=== PATIENT | male | born 1940 | race Caucasian/White ===

== ENCOUNTER 2022-09-21 20:24 | Inpatient (IN) ==
[2022-09-21 21:31] LABS: INR 1.1 (0.9-1.1); Partial Thromboplastin Time 28.7 Seconds (21.0-31.0); Prothrombin Time 11.8 Seconds (9.0-12.0)
[2022-09-21 21:35] LABS: Basophils # (auto) 0.05 K/uL (0-0.2); Basophils % (auto) 0.7 %; Eosinophils # (auto) 0.41 K/uL (0-0.50); Eosinophils % (auto) 5.9 %; Hematocrit (blood only) 45.9 % (40.1-51.0); Hemoglobin 15.9 g/dl (14.0-18.0); Immature Granulocytes # (auto) 0.04 K/uL (0.00-0.02); Immature Granulocytes % (auto) 0.6 %; Lymphocytes # (auto) 2.13 K/uL (1.2-3.4); Lymphocytes % (auto) 30.7 %; Mean Corpuscular Hemoglobin 30.1 pg (25.0-34.0); Mean Corpuscular Hgb Conc 34.6 g/dL (32.0-36.0); Mean Corpuscular Volume 86.9 fL (80.0-100.0); Mean Platelet Volume 10.9 fL (9.4-12.4); Monocytes # (auto) 0.54 K/uL (0.24-0.82); Monocytes % (auto) 7.8 %; Neutrophils # (auto) 3.77 K/uL (1.4-6.5); Neutrophils % (auto) 54.3 %; Platelet Count 218 K/uL (130-400); RDW Coefficient of Variation 13.4 % (11.5-14.5); RDW Standard Deviation 42.7 fL (36.4-46.3); Red Blood Count 5.28 M/uL (4.63-6.08); White Blood Count 6.94 K/ul (4.8-10.8)
[2022-09-21 21:50] LABS: Albumin Level 3.8 gm/dl (3.4-5.0); Bilirubin,Total 0.8 mg/dl (0.2-1.0); Calcium 10.8 mg/dl (8.5-10.1); Creatinine Clr Calc Pharmacy 58.1 ml/min; Est GFR (African American) 73.2 ml/min; Est GFR (Non-African American) 63.1 ml/min; Globulin 3.8 gm/dl (2.5-4.0); Magnesium 1.6 mg/dl (1.7-2.4); Potassium 4.1 mmol/L (3.5-5.1); Total Protein 7.6 gm/dl (6.0-8.3); Troponin I High Sensitivity 52.8 pg/ml (0-20)
[2022-09-21] MEDS ORDERED: XOPENEX/ATROVENT 1.25mg/0.5MG NEB COMBO NEB STA (22:34)
[2022-09-21] MEDS ORDERED: METOPROLOL TARTRATE 1 MG/ML VIAL IV STA (22:35)
[2022-09-21] MEDS ORDERED: IPRATROPIUM BROMIDE NEB SOLN 0.02% 2.5 ML VIAL INH STA (22:38)
[2022-09-21] MEDS ORDERED: LEVALBUTEROL 1.25MG/0.5ML NEB INH STA (22:38)
[2022-09-21] MEDS ORDERED: ALBUMIN 25% 100 mL 25 GM/100 ML VIAL IV ONE (22:38)
[2022-09-21] MEDS ORDERED: FUROSEMIDE 40 MG/4 ML VIAL IV ONE (22:40)
[2022-09-21] MEDS ORDERED: OPTIRAY 320 500ml IV ONE (23:21)
[2022-09-21] MEDS: MAGNESIUM SULFATE / D5W 1 GM/100 ML BAG IV SCH (23:59)
--- NOTE | 2022-09-22 00:10 | History & Physical Report ---
Date of Service September 22, 2022 Assessment & Plan (1) CHF (congestive heart failure): Plan: Mild CHF following respiratory tract infection Rule out myocarditis/cardiomyopathy Troponin elevation secondary to above hypercalcemia probable primary hyperparathyroidism Hyperglycemia present on review of outpatient blood work since 2018 although not documented hx CAD status post angioplasty mild aortic regurgitation from 2015 TTE hypertension, elevated secondary to discomfort DM2 on oral medications, reasonable control as of recent hemoglobin A1c of 7.6 last April 2022 hyperlipidemia on statin Rx past tobacco abuse PCU Diuretic Rx Strict I/Os, daily weights, CHF education TTE, Cardiology consult Re: CHF Monitor calcium response to IV Lasix Hold home HCTZ for now Nephrology consult Re: Hypercalcemia Outpatient Endocrinology consultation for possible primary hyperparathyroidism Basal bolus insulin, ISS BG goal 1 10-1 40, carb count coverage, update hemoglobin A1c DVT prophylaxis per Lovenox subcu Full code Text document was generated using [employer] voice recognition software. It may contain grammatical or spelling errors. Kindly contact undersigned for clarification of any documentation item in question. History of Present Illness Chief Complaint: Shortness of breath, abnormal blood work Primary Care Provider: Rene Green, History obtained from patient and records. Medical history significant for CAD status post angioplasty, mild aortic regur gitation, hypertension, DM2 on oral medications, hyperlipidemia, gout, skin cancer as per records, past tobacco abuse. Last confinement 2015 for sepsis secondary to URTI, UTI. 2 weeks history of shortness of breath without cough symptoms. Started after respiratory infection last month. No cough symptoms. Patient completed COVID-19 vaccination. Fluid retention without weight gain. No chest pain. Patient seen at PCPs office yesterday. Outpatient CXR showed : Bilateral lower lobe peribronchial thickening. Ill- defined bibasilar ground-glass opacities are noted which may represent infection or atelectasis. Outpatient serum troponin and calcium noted to be elevated. Patient sent to the ER for evaluation. IV Lasix administered at the ER. 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 Allergies Allergy/AdvReac Type Severity Reaction Status Date / Time alfuzosin Allergy Unknown UNKN Verified 09/21/22 23:45 Home Medications Medication Instructions Recorded Confirmed Type albuterol sulfate 90 mcg/actuation 2 puff inhalation Q4 PRN Shortness 09/21/22 09/21/22 History aerosol inhaler Of Breath allopurinol 300 mg tablet 300 mg PO DAILY 09/21/22 09/21/22 History alprazolam 0.5 mg tablet 0.25 mg PO HS PRN Anxiety 09/21/22 09/21/22 History atorvastatin 20 mg tablet 20 mg PO QAM 09/21/22 09/21/22 History dapagliflozin 10 mg tablet 10 mg PO DAILY 09/21/22 09/21/22 History ([facility]) furosemide 20 mg tablet (Lasix) 20 mg PO DAILY 09/21/22 09/21/22 History glipizide 10 mg tablet, extended 10 mg PO AMHS 09/21/22 09/21/22 History release 24 hr lisinopril 10 mg tablet 10 mg PO DAILY 09/21/22 09/21/22 History loteprednol etabonate 0.5 % eye 1 drp [facility] DIRECTED PRN 09/21/22 09/21/22 History drops,suspension .Irritation metoprolol succinate 100 mg 100 mg PO DAILY 09/21/22 09/21/22 History tablet,extended release 24 hr metronidazole 0.75 % topical gel 1 applic topical DAILY 09/21/22 09/21/22 History silver sulfadiazine 1 % topical 1 applic topical DAILY 09/21/22 09/21/22 History cream sulindac 200 mg tablet 200 mg PO QAM 09/21/22 09/21/22 History triamterene 37.5 1 cap PO DAILY 09/21/22 09/21/22 History mg-hydrochlorothiazide 25 mg capsule aspirin 325 mg tablet 325 - 650 mg PO BID PRN Pain 09/22/22 09/22/22 History vit C 226 mg-vit E 90 mg-copper 1 cap PO BID 09/22/22 09/22/22 History 0.8 mg-zinc oxide-lutein 5 mg capsule (PreserVision Lutein) Past Med/Surg History Medical History CAD (coronary artery disease) CHF (congestive heart failure) Diabetes No pertinent family history Surgical History No pertinent past surgical history Social History Smoking Status: Former smoker Tobacco Type: Cigarettes Preferred Language: Irish Feels Safe at Home: Yes Review of Systems Review of Systems: As per HPI, all other systems reviewed and negative Physical Exam Physical Exam: GENERAL: Slightly uncomfortable, obese, pleasant, minimal respiratory distress SKIN: Normal color, warm HEENT: [place] palpebral conjunctivae, no ptosis, dry buccal mucosa NECK : Supple, no tenderness CHEST : Decreased breath sounds, scattered expiratory wheezes, no tenderness HEART : RRR, no obvious murmurs ABDOMEN: Some distention, nontender EXTREMITIES : Bilateral LE swelling, no LE tenderness, no other conspicuous deformities noted NEUROLOGIC : Coherent, no facial asymmetry, no other gross focality Results & Data Results & Data ([facility]) Vital Signs (Past 12 Hours) Vital Signs Temp Pulse Pulse Resp BP BP Pulse Ox 09/21/22 23:25 88 20 144/83 H 95 09/21/22 20:57 26 H 95 09/21/22 20:32 36.9 C 113 H 24 149/82 H 95 O2 Del Method 09/21/22 23:25 Room Air 09/21/22 20:57 Room Air 09/21/22 20:32 Room Air Laboratory Results Laboratory Results WBC 6.94 K/ul (4.8-10.8) 09/21/22 20:45 RBC 5.28 M/uL (4.63-6.08) 09/21/22 20:45 Hgb 15.9 g/dl (14.0-18.0) 09/21/22 20:45 Hct 45.9 % (40.1-51.0) 09/21/22 20:45 MCV 86.9 fL (80.0-100.0) 09/21/22 20:45 MCH 30.1 pg (25.0-34.0) 09/21/22 20:45 MCHC 34.6 g/dL (32.0-36.0) 09/21/22 20:45 RDW Std Deviation 42.7 fL (36.4-46.3) 09/21/22 20:45 RDW Coeff of Niya 13.4 % (11.5-14.5) 09/21/22 20:45 Plt Count 218 K/uL (130-400) 09/21/22 20:45 MPV 10.9 fL (9.4-12.4) 09/21/22 20:45 Immature Gran % (Auto) 0.6 % 09/21/22 20:45 Neut % (Auto) 54.3 % 09/21/22 20:45 Lymph % (Auto) 30.7 % 09/21/22 20:45 [place] % (Auto) 7.8 % 09/21/22 20:45 Eos % (Auto) 5.9 % 09/21/22 20:45 Baso % (Auto) 0.7 % 09/21/22 20:45 Neut # (Auto) 3.77 K/uL (1.4-6.5) 09/21/22 20:45 Lymph # (Auto) 2.13 K/uL (1.2-3.4) 09/21/22 20:45 [place] # (Auto) 0.54 K/uL (0.24-0.82) 09/21/22 20:45 Eos # (Auto) 0.41 K/uL (0-0.50) 09/21/22 20:45 Baso # (Auto) 0.05 K/uL (0-0.2) 09/21/22 20:45 Immature Gran # (Auto) 0.04 K/uL (0.00-0.02) H 09/21/22 20:45 PT 11.8 Seconds (9.0-12.0) 09/21/22 20:45 INR 1.1 (0.9-1.1) 09/21/22 20:45 APTT 28.7 Seconds (21.0-31.0) 09/21/22 20:45 PTT Ratio 1.0 09/21/22 20:45 Sodium 133 mmol/L (136-145) L 09/21/22 20:45 Potassium 4.1 mmol/L (3.5-5.1) 09/21/22 20:45 Chloride 96 mmol/L (98-107) L 09/21/22 20:45 Carbon Dioxide 24 mmol/L (21-32) 09/21/22 20:45 Anion Gap 13 (3-11) H 09/21/22 20:45 BUN 41 mg/dl (6-23) H 09/21/22 20:45 Creatinine 1.08 mg/dl (0.6-1.4) 09/21/22 20:45 Est Cr Clr Drug Dosing 58.1 ml/min 12 20:45 Est GFR ( Amer) 73.2 ml/min 09/21/22 20:45 Est GFR (Non-Af Amer) 63.1 ml/min 09/21/22 20:45 BUN/Creatinine Ratio 38.0 (10-20) H 09/21/22 20:45 Glucose 301 mg/dl (70-99(Fasting)) H* 09/21/22 20:45 Calcium 10.8 mg/dl (8.5-10.1) H 09/21/22 20:45 Magnesium 1.6 mg/dl (1.7-2.4) L 09/21/22 20:45 Total Bilirubin 0.8 mg/dl (0.2-1.0) 09/21/22 20:45 AST 13 U/L (13-39) 09/21/22 20:45 ALT 15 U/L (7-52) 09/21/22 20:45 Alkaline Phosphatase 77 U/L (34-104) 09/21/22 20:45 Troponin I High Sens 52.8 pg/ml (0-20) H* 09/21/22 20:45 B-Natriuretic Peptide 201 pg/ml (0-100) H 09/21/22 20:45 Total Protein 7.6 gm/dl (6.0-8.3) 09/21/22 20:45 Albumin 3.8 gm/dl (3.4-5.0) 09/21/22 20:45 Globulin 3.8 gm/dl (2.5-4.0) 09/21/22 20:45 Albumin/Globulin Ratio 1.0 (0.9-2) 09/21/22 20:45 Procalcitonin < 0.05 ng/ml (0-0.5) 09/21/22 20:45 PTH Intact 100.6 pg/ml (12.0-88.0) H 09/21/22 20:[address] head initial read: No intracranial hemorrhage. No significant mass effect or midline shift. No cortical infarct. The paranasal sinuses and mastoid air cells are well-aerated. Presumed incidental chronic underlying parenchymal involutional changes and mild periventricular deep white matter hypodense change CT chest initial read: No evidence for pulmonaryembolism. Subsegmental ground-glass changes in the left upper lobe, the posterior right upper lobe and minimallyin the right middle lobe are most consistent with infection, to include atypical bacterial and viral processes. Additional changes are suspected in the bilateral lower lobeswith coexisting subsegmental atelectasis. These are newfromthe previous examination dated 05/31/2007. Please correlate with patient's COVID status. No pleural effusion or pneumothorax. The cardiac chambers are stable. Similar prominent coronaryarterycalcification is of uncertain clinical significance. No pericardial effusion. The thoracic aorta is normal in caliber with mild atherosclerotic calcification. Nonspecific anomalysubcentimeter paratracheal and subcarinal lymph nodes. EKG as per my interpretation : Rate 105, sinus tachycardia, normal axis, T wave flattening lateral leads, PVCs
[2022-09-22 00:36] LABS: Base Excess VBG 0.5 mEq/L; HCO3 VBG 26 mmol/L; Oxygen Saturation VBG 78.4 %; PCO2 VBG 44 mmHg (38-50); PO2 VBG 49 mmHg; pH VBG 7.38 (7.36-7.41)
[2022-09-22] MEDS ORDERED: LANTUS PER UNIT CHARGE SQ STA (00:37)
[2022-09-22 01:32] LABS: Influenza A virus by PCR Negative (Neg); Influenza B virus by PCR Negative (Neg); RSV by PCR Negative (Neg); SARS CoV2 RNA(COVID-19) Ceph NEGATIVE (Negative)
[2022-09-22 01:57] LABS: Troponin I High Sensitivity 54.1 pg/ml (0-20)
--- NOTE | 2022-09-22 02:08 | Emergency Department Note ---
History of Present Illness General Chief Complaint: Abnormal Labs/Diagnostic Testing Stated Complaint: REFERRED BY DOC,ABNORMAL LABS,SOB,HAD EKG Time Seen by Provider: 09/21/22 21:21 History of Present Illness Provider Complaint: + abnormal lab Description of abnormal result: Elevated troponin Context: + called for abnormal lab result Associated symptoms: + shortness of breath; no fever, no chills, no chest pain, no malaise or no abdominal pain HPI narrative: Patient reports exertional dyspnea. He reports increased swelling in his legs. Increased weakness Home Medications Medication Instructions Recorded Confirmed Type albuterol sulfate 90 mcg/actuation 2 puff inhalation Q4 PRN Shortness 09/21/22 09/21/22 History aerosol inhaler Of Breath allopurinol 300 mg tablet 300 mg PO DAILY 09/21/22 09/21/22 History alprazolam 0.5 mg tablet 0.25 mg PO HS PRN Anxiety 09/21/22 09/21/22 History atorvastatin 20 mg tablet 20 mg PO QAM 09/21/22 09/21/22 History dapagliflozin 10 mg tablet 10 mg PO DAILY 09/21/22 09/21/22 History (Farxiga) furosemide 20 mg tablet (Lasix) 20 mg PO DAILY 09/21/22 09/21/22 History glipizide 10 mg tablet, extended 10 mg PO AMHS 09/21/22 09/21/22 History release 24 hr lisinopril 10 mg tablet 10 mg PO DAILY 09/21/22 09/21/22 History loteprednol etabonate 0.5 % eye 1 drp OPR DIRECTED PRN 09/21/22 09/21/22 History drops,suspension .Irritation metoprolol succinate 100 mg 100 mg PO DAILY 09/21/22 09/21/22 History tablet,extended release 24 hr metronidazole 0.75 % topical gel 1 applic topical DAILY 09/21/22 09/21/22 History silver sulfadiazine 1 % topical 1 applic topical DAILY 09/21/22 09/21/22 History cream sulindac 200 mg tablet 200 mg PO QAM 09/21/22 09/21/22 History triamterene 37.5 1 cap PO DAILY 09/21/22 09/21/22 History mg-hydrochlorothiazide 25 mg capsule aspirin 325 mg tablet 325 - 650 mg PO BID PRN Pain 09/22/22 09/22/22 History vit C 226 mg-vit E 90 mg-copper 1 cap PO BID 09/22/22 09/22/22 History 0.8 mg-zinc oxide-lutein 5 mg capsule (PreserVision Lutein) Allergies Allergy/AdvReac Type Severity Reaction Status Date / Time alfuzosin Allergy Unknown UNKN Verified 09/21/22 23:45 Past Med/Surg History Medical History CAD (coronary artery disease) CHF (congestive heart failure) Diabetes No pertinent family history Surgical History No pertinent past surgical history Social History Smoking Status: Former smoker Tobacco Type: Cigarettes Preferred Language: Amharic Feels Safe at Home: Yes Review of Systems A total of 10 systems reviewed and were otherwise negative Physical Exam Vital Signs: Vital Signs - 24 hr 09/21/22 20:32 09/21/22 20:57 09/22/22 00:00 Temperature 36.9 C Temperature Source Temporal Artery Sc an Pulse Rate 113 H 88 Pulse Rate [Right Finger] Pulse Rhythm [Righ t Finger] Respiratory Rate 24 26 H Respiratory Effort / Characteristics Non-Labored Sponta neous Labored Respiratory Depth Normal Blood Pressure 149/82 H 144/83 H Blood Pressure [Le ft Arm] Blood Pressure Josiane n 104 Blood Pressure Josiane n [Left Arm] Pulse Oximetry 95 95 Oxygen Delivery Me thod Room Air Room Air Sepsis New/Unexpla ined Change in Men mary Status N/A Sepsis Action Take n by Nursing No Action Required 09/21/22 23:25 Temperature Temperature Source Pulse Rate Pulse Rate [Right Finger] 88 Pulse Rhythm [Righ t Finger] Regular Respiratory Rate 20 Respiratory Effort / Characteristics Non-Labored Sponta neous Respiratory Depth Normal Blood Pressure Blood Pressure [Le ft Arm] 144/83 H Blood Pressure Josiane n Blood Pressure Josiane n [Left Arm] 103 Pulse Oximetry 95 Oxygen Delivery Me thod Room Air Sepsis New/Unexpla ined Change in Men mary Status Sepsis Action Take n by Nursing Physical Exam: Physical Exam GENERAL: He is oriented to person, place, and time. He appears well-developed and well-nourished. He does not appear distressed. HENT: Exam performed. - Head: Normocephalic and atraumatic. - Right Ear: External ear normal. No mastoid tenderness. - Left Ear: External ear normal. No mastoid tenderness. - Mouth/Throat: The oropharynx is clear and moist. No trismus in the jaw. No dental abscesses or uvula swelling. No oropharyngeal exudate or tonsillar ab scesses. EYES: Conjunctivae and EOM are normal. Pupils are equal, round, and reactive to light. Right eye exhibits no discharge. Left eye exhibits no discharge. No scleral icterus. NECK: Normal range of motion. Neck supple. No JVD present. No spinous process tenderness present. No carotid bruit present. No rigidity. No tracheal deviation and normal range of motion present. No Brudzinski's sign and no Kernig's sign noted. CV: Normal rate, regular rhythm, normal heart sounds and intact distal pulses. Palpable radial pulses bue. PULM/CHEST: Rales bilaterally. ABD: The abdomen is soft. Bowel sounds are normal. He has no distension. No mass is present. There is no tenderness. There is no rebound, no guarding, no Duckworth's sign and no tenderness at McBurney's point. Rovsig negative. MUSC/SKEL: 2+ pitting edema of the bilateral lower extremities. LYMPH: No cervical adenopathy. NEURO: He is alert and oriented to person, place, and time. He has normal strength. No cranial nerve deficit or sensory deficit. Coordination and gait normal. GCS eye subscore is 4. GCS verbal subscore is 5. GCS motor subscore is 6. Cerebellar tests wnl. SKIN: Skin is warm and dry. He is not diaphoretic. PSYCH: He has a normal mood and affect. Behavior is normal. Judgment and thought content normal. Course Course 2120: The patient was evaluated in room A11. A complete history and physical exam was performed Cardiac monitoring: An order was placed for continuous cardiac monitoring. The monitor shows a rate of 100 with sinus rhythm 2240: Vital signs stable. Labs show an elevated troponin. Patient reports no chest pain at this time. Chest x-ray shows cardiomegaly with cephalization. It is thought that the patient is suffering from CHF exacerbation and the elevated troponin is due to that. Patient will be treated with Lasix for CHF. Patient be admitted to the [facility] team Dr. Lewis will be notified. Administered Medications Magnesium Sulfate/Dextrose (Magnesium Sulfate / D5w) 1 gm in 100 mls @ 50 mls/hr IV Q2H MARTA Stop: 09/22/22 02:44 Last Admin: 09/21/22 23:59 Dose: 50 mls/hr Documented By: GINNY Discontinued Medications Furosemide (Furosemide 40 Mg/4 Ml Vial) 40 mg IV ONE ONE Stop: 09/21/22 22:41 Last Admin: 09/21/22 23:59 Dose: 40 mg Documented By: GINNY Albumin Human (Albumin 25% 100 Ml) 25 gm in 100 mls @ 50 mls/hr IV ONE ONE Stop: 09/22/22 00:37 Last Admin: 09/21/22 23:58 Dose: 50 mls/hr Documented By: GINNY Insulin Glargine (Lantus Per Unit Charge) 10 units SQ NOW STA Stop: 09/22/22 00:38 Last Admin: 09/22/22 01:52 Dose: 10 units Documented By: GINNY Co-signed By: LOREN Ioversol (Optiray 320 500ml) 114 ml IV ONCE ONE Stop: 09/21/22 23:22 Last Admin: 09/21/22 23:23 Dose: 114 ml Documented By: LOBITO Ipratropium [place] (Ipratropium [place] Neb Soln 0.02% 2.5 Ml Vial) 0.5 mg INH NOW STA Stop: 09/21/22 22:39 Last Admin: 09/21/22 23:59 Dose: 0.5 mg Documented By: GINNY Levalbuterol HCl (Levalbuterol 1.25mg/0.5ml Neb) 1.25 mg INH NOW STA Stop: 09/21/22 22:39 Last Admin: 09/21/22 23:59 Dose: 1.25 mg Documented By: GINNY Metoprolol Tartrate (Metoprolol Tartrate 1 Mg/Ml Vial) 2.5 mg IV NOW STA Stop: 09/21/22 22:36 Last Admin: 09/22/22 00:00 Dose: 2.5 mg Documented By: GINNY Medical Decision Making Laboratory Data Result diagrams: 09/21/22 20:45 09/21/22 20:45 Lab Results 09/21/22 09/21/22 09/21/22 Range/Units 20:45 20:45 20:45 WBC 6.94 (4.8-10.8) K/ul RBC 5.28 (4.63-6.08) M/uL Hgb 15.9 (14.0-18.0) g/dl Hct 45.9 (40.1-51.0) % MCV 86.9 (80.0-100.0) fL MCH 30.1 (25.0-34.0) pg MCHC 34.6 (32.0-36.0) g/dL RDW Std Deviation 42.7 (36.4-46.3) fL RDW Coeff of Niya 13.4 (11.5-14.5) % Plt Count 218 (130-400) K/uL MPV 10.9 (9.4-12.4) fL Immature Gran % (Auto) 0.6 % Neut % (Auto) 54.3 % Lymph % (Auto) 30.7 % [place] % (Auto) 7.8 % Eos % (Auto) 5.9 % Baso % (Auto) 0.7 % Neut # (Auto) 3.77 (1.4-6.5) K/uL Lymph # (Auto) 2.13 (1.2-3.4) K/uL [place] # (Auto) 0.54 (0.24-0.82) K/uL Eos # (Auto) 0.41 (0-0.50) K/uL Baso # (Auto) 0.05 (0-0.2) K/uL Immature Gran # (Auto) 0.04 H (0.00-0.02) K/uL PT 11.8 (9.0-12.0) Seconds INR 1.1 (0.9-1.1) APTT 28.7 (21.0-31.0) Seconds PTT Ratio 1.0 VBG pH (7.36-7.41) VBG pCO2 (38-50) mmHg VBG pO2 mmHg VBG HCO3 mmol/L VBG O2 Saturation % VBG Base Excess mEq/L Sodium 133 L (136-145) mmol/L Potassium 4.1 (3.5-5.1) mmol/L Chloride 96 L (98-107) mmol/L Carbon Dioxide 24 (21-32) mmol/L Anion Gap 13 H (3-11) BUN 41 H (6-23) mg/dl Creatinine 1.08 (0.6-1.4) mg/dl Est Cr Clr Drug Dosing 58.1 ml/min Est GFR ( Amer) 73.2 ml/min Est GFR (Non-Af Amer) 63.1 ml/min BUN/Creatinine Ratio 38.0 H (10-20) Glucose 301 H* (70-99(Fasting)) mg/dl POC Glucose (70-99) mg/dl Lactate (0.4-2.0) mmol/L Calcium 10.8 H (8.5-10.1) mg/dl Phosphorus (2.5-4.9) mg/dl Magnesium 1.6 L (1.7-2.4) mg/dl Total Bilirubin 0.8 (0.2-1.0) mg/dl AST 13 (13-39) U/L ALT 15 (7-52) U/L Alkaline Phosphatase 77 (34-104) U/L Troponin I High Sens 52.8 H* (0-20) pg/ml B-Natriuretic Peptide (0-100) pg/ml Total Protein 7.6 (6.0-8.3) gm/dl Albumin 3.8 (3.4-5.0) gm/dl Globulin 3.8 (2.5-4.0) gm/dl Albumin/Globulin Ratio 1.0 (0.9-2) Procalcitonin (0-0.5) ng/ml PTH Intact (12.0-88.0) pg/ml SARS-CoV-2 (PCR) (Negative) Influenza Type A (PCR) (Neg) Influenza Type B (PCR) (Neg) RSV (RT-PCR) (Neg) 09/21/22 09/21/22 09/21/22 Range/Units 20:45 20:45 20:45 WBC (4.8-10.8) K/ul RBC (4.63-6.08) M/uL Hgb (14.0-18.0) g/dl Hct (40.1-51.0) % MCV (80.0-100.0) fL MCH (25.0-34.0) pg MCHC (32.0-36.0) g/dL RDW Std Deviation (36.4-46.3) fL RDW Coeff of Niya (11.5-14.5) % Plt Count (130-400) K/uL MPV (9.4-12.4) fL Immature Gran % (Auto) % Neut % (Auto) % Lymph % (Auto) % [place] % (Auto) % Eos % (Auto) % Baso % (Auto) % Neut # (Auto) (1.4-6.5) K/uL Lymph # (Auto) (1.2-3.4) K/uL [place] # (Auto) (0.24-0.82) K/uL Eos # (Auto) (0-0.50) K/uL Baso # (Auto) (0-0.2) K/uL Immature Gran # (Auto) (0.00-0.02) K/uL PT (9.0-12.0) Seconds INR (0.9-1.1) APTT (21.0-31.0) Seconds PTT Ratio VBG pH (7.36-7.41) VBG pCO2 (38-50) mmHg VBG pO2 mmHg VBG HCO3 mmol/L VBG O2 Saturation % VBG Base Excess mEq/L Sodium (136-145) mmol/L Potassium (3.5-5.1) mmol/L Chloride (98-107) mmol/L Carbon Dioxide (21-32) mmol/L Anion Gap (3-11) BUN (6-23) mg/dl Creatinine (0.6-1.4) mg/dl Est Cr Clr Drug Dosing ml/min Est GFR ( Amer) ml/min Est GFR (Non-Af Amer) ml/min BUN/Creatinine Ratio (10-20) Glucose (70-99(Fasting)) mg/dl POC Glucose (70-99) mg/dl Lactate (0.4-2.0) mmol/L Calcium (8.5-10.1) mg/dl Phosphorus (2.5-4.9) mg/dl Magnesium (1.7-2.4) mg/dl Total Bilirubin (0.2-1.0) mg/dl AST (13-39) U/L ALT (7-52) U/L Alkaline Phosphatase (34-104) U/L Troponin I High Sens (0-20) pg/ml B-Natriuretic Peptide 201 H (0-100) pg/ml Total Protein (6.0-8.3) gm/dl Albumin (3.4-5.0) gm/dl Globulin (2.5-4.0) gm/dl Albumin/Globulin Ratio (0.9-2) Procalcitonin < 0.05 (0-0.5) ng/ml PTH Intact 100.6 H (12.0-88.0) pg/ml SARS-CoV-2 (PCR) (Negative) Influenza Type A (PCR) (Neg) Influenza Type B (PCR) (Neg) RSV (RT-PCR) (Neg) 09/22/22 09/22/22 09/22/22 Range/Units 00:05 00:05 00:05 WBC (4.8-10.8) K/ul RBC (4.63-6.08) M/uL Hgb (14.0-18.0) g/dl Hct (40.1-51.0) % MCV (80.0-100.0) fL MCH (25.0-34.0) pg MCHC (32.0-36.0) g/dL RDW Std Deviation (36.4-46.3) fL RDW Coeff of Niya (11.5-14.5) % Plt Count (130-400) K/uL MPV (9.4-12.4) fL Immature Gran % (Auto) % Neut % (Auto) % Lymph % (Auto) % [place] % (Auto) % Eos % (Auto) % Baso % (Auto) % Neut # (Auto) (1.4-6.5) K/uL Lymph # (Auto) (1.2-3.4) K/uL [place] # (Auto) (0.24-0.82) K/uL Eos # (Auto) (0-0.50) K/uL Baso # (Auto) (0-0.2) K/uL Immature Gran # (Auto) (0.00-0.02) K/uL PT (9.0-12.0) Seconds INR (0.9-1.1) APTT (21.0-31.0) Seconds PTT Ratio VBG pH 7.38 (7.36-7.41) VBG pCO2 44 (38-50) mmHg VBG pO2 49 mmHg VBG HCO3 26 mmol/L VBG O2 Saturation 78.4 % VBG Base Excess 0.5 mEq/L Sodium (136-145) mmol/L Potassium (3.5-5.1) mmol/L Chloride (98-107) mmol/L Carbon Dioxide (21-32) mmol/L Anion Gap (3-11) BUN (6-23) mg/dl Creatinine (0.6-1.4) mg/dl Est Cr Clr Drug Dosing ml/min Est GFR ( Amer) ml/min Est GFR (Non-Af Amer) ml/min BUN/Creatinine Ratio (10-20) Glucose (70-99(Fasting)) mg/dl POC Glucose (70-99) mg/dl Lactate 1.7 (0.4-2.0) mmol/L Calcium (8.5-10.1) mg/dl Phosphorus 3.0 (2.5-4.9) mg/dl Magnesium (1.7-2.4) mg/dl Total Bilirubin (0.2-1.0) mg/dl AST (13-39) U/L ALT (7-52) U/L Alkaline Phosphatase (34-104) U/L Troponin I High Sens (0-20) pg/ml B-Natriuretic Peptide (0-100) pg/ml Total Protein (6.0-8.3) gm/dl Albumin (3.4-5.0) gm/dl Globulin (2.5-4.0) gm/dl Albumin/Globulin Ratio (0.9-2) Procalcitonin (0-0.5) ng/ml PTH Intact (12.0-88.0) pg/ml SARS-CoV-2 (PCR) (Negative) Influenza Type A (PCR) (Neg) Influenza Type B (PCR) (Neg) RSV (RT-PCR) (Neg) 09/22/22 09/22/22 Range/Units 00:13 01:53 WBC (4.8-10.8) K/ul RBC (4.63-6.08) M/uL Hgb (14.0-18.0) g/dl Hct (40.1-51.0) % MCV (80.0-100.0) fL MCH (25.0-34.0) pg MCHC (32.0-36.0) g/dL RDW Std Deviation (36.4-46.3) fL RDW Coeff of Niya (11.5-14.5) % Plt Count (130-400) K/uL MPV (9.4-12.4) fL Immature Gran % (Auto) % Neut % (Auto) % Lymph % (Auto) % [place] % (Auto) % Eos % (Auto) % Baso % (Auto) % Neut # (Auto) (1.4-6.5) K/uL Lymph # (Auto) (1.2-3.4) K/uL [place] # (Auto) (0.24-0.82) K/uL Eos # (Auto) (0-0.50) K/uL Baso # (Auto) (0-0.2) K/uL Immature Gran # (Auto) (0.00-0.02) K/uL PT (9.0-12.0) Seconds INR (0.9-1.1) APTT (21.0-31.0) Seconds PTT Ratio VBG pH (7.36-7.41) VBG pCO2 (38-50) mmHg VBG pO2 mmHg VBG HCO3 mmol/L VBG O2 Saturation % VBG Base Excess mEq/L Sodium (136-145) mmol/L Potassium (3.5-5.1) mmol/L Chloride (98-107) mmol/L Carbon Dioxide (21-32) mmol/L Anion Gap (3-11) BUN (6-23) mg/dl Creatinine (0.6-1.4) mg/dl Est Cr Clr Drug Dosing ml/min Est GFR ( Amer) ml/min Est GFR (Non-Af Amer) ml/min BUN/Creatinine Ratio (10-20) Glucose (70-99(Fasting)) mg/dl POC Glucose 243 H (70-99) mg/dl Lactate (0.4-2.0) mmol/L Calcium (8.5-10.1) mg/dl Phosphorus (2.5-4.9) mg/dl Magnesium (1.7-2.4) mg/dl Total Bilirubin (0.2-1.0) mg/dl AST (13-39) U/L ALT (7-52) U/L Alkaline Phosphatase (34-104) U/L Troponin I High Sens (0-20) pg/ml B-Natriuretic Peptide (0-100) pg/ml Total Protein (6.0-8.3) gm/dl Albumin (3.4-5.0) gm/dl Globulin (2.5-4.0) gm/dl Albumin/Globulin Ratio (0.9-2) Procalcitonin (0-0.5) ng/ml PTH Intact (12.0-88.0) pg/ml SARS-CoV-2 (PCR) NEGATIVE (Negative) Influenza Type A (PCR) Negative (Neg) Influenza Type B (PCR) Negative (Neg) RSV (RT-PCR) Negative (Neg) Imaging Data My Impression: Chest x-ray shows cephalization with cardiomegaly. No pneumothorax. No fracture of the bony structures no free air under the diaphragm. ECG Data Additional Comments: Sinus tachycardia with a rate of 103. OH 166 QRS 122 QTC 455. Left bundle branch block present. sgarbosa negative MDM Narrative Vital signs stable. Labs show an elevated troponin. Patient reports no chest pain at this time. Chest x-ray shows cardiomegaly with cephalization. It is thought that the patient is suffering from CHF exacerbation and the elevated troponin is due to that. Patient will be treated with Lasix for CHF. Patient be [facility] to [facility] hospitalist team Dr. Lewis will be notified. Impression & Plan Acute exacerbation of congestive heart failure Discharge Plan Visit Data Chief Complaint: Abnormal Labs/Diagnostic Testing Stated Complaint: REFERRED BY DOC,ABNORMAL LABS,SOB,HAD EKG ED Provider: Balta Dee Discharge Problem: Acute exacerbation of congestive heart failure Patient Disposition: Being Evaluated by Hospitalist Forms Stand Alone Forms: My [facility] Prescriptions Prescriptions: No Action silver sulfadiazine 1 % cream 1 applic TOPICAL DAILY atorvastatin 20 mg tablet 20 mg PO QAM glipizide 10 mg tablet extended release 24hr 10 mg PO AMHS metoprolol succinate 100 mg Tablet Extended Release 24 Hr 100 mg PO DAILY triamterene-hydrochlorothiazid 37.5-25 mg Capsule 1 cap PO DAILY alprazolam 0.5 mg Tablet 0.25 mg PO HS PRN (Reason: Anxiety) lisinopril 10 mg Tablet 10 mg PO DAILY allopurinol 300 mg Tablet 300 mg PO DAILY furosemide [Lasix] 20 mg Tablet 20 mg PO DAILY loteprednol etabonate 0.5 % drops,suspension 1 drp OPR DIRECTED PRN (Reason: .Irritation) albuterol sulfate 90 mcg/actuation HFA aerosol inhaler 2 puff INHALATION Q4 PRN (Reason: Shortness Of Breath) metronidazole [Metrogel] 0.75 % Gel 1 applic TOPICAL DAILY sulindac 200 mg tablet 200 mg PO QAM Farxiga 10 mg Tablet 10 mg PO DAILY aspirin 325 mg Tablet 325 - 650 mg PO BID PRN (Reason: Pain) PreserVision Lutein 226-90-0.8-5 mg Capsule 1 cap PO BID Referrals Referrals: Rene Green, [Primary Care Provider] -
[2022-09-22] MEDS: MAGNESIUM SULFATE / D5W 1 GM/100 ML BAG IV SCH (02:32)
[2022-09-22 03:07] LABS: Appearance Urine Clear (Clear); Bacteria Urine Automated Negative (Negative); Bilirubin Urine Negative (Negative); Blood Urine Negative (Negative); Cast Urine Automated 0 /lpf (0-5); Color Urine Yellow; Epithelial Cell Urine Auto 0-5 /lpf (0-5); Glucose Urine UA Negative (Negative); Ketones Urine Negative (Negative); Leukocyte Esterase Urine Trace (Negative); Nitrite Urine Negative (Negative); Protein Urine Negative (Negative); RBC Urine Automated 0-4 /hpf (0-4); Specific Gravity Urine 1.017 (1.000-1.030); Urobilinogen Urine Negative (Negative); WBC Urine Automated 0 /hpf (0-5)
[2022-09-22] MEDS ORDERED: ACETAMINOPHEN 325 MG TAB PO PRN (03:07)
[2022-09-22] MEDS ORDERED: NITROGLYCERIN SL 0.4 MG/TAB TAB SL PRN (03:07)
[2022-09-22] MEDS ORDERED: PROMETHAZINE HCL 12.5 MG in SODIUM CHLORIDE 0.9% 50 ML IV PRN (03:07)
[2022-09-22] MEDS ORDERED: DEXTROSE 50% 50 ML SYRINGE IV PRN (03:07)
[2022-09-22] MEDS ORDERED: CARBOHYDRATES FOR HYPOGLYCEMIA PO PRN (03:07)
[2022-09-22] MEDS ORDERED: GLUCOSE 10 TAB/TUBE PO PRN (03:07)
[2022-09-22] MEDS ORDERED: ALPRAZolam 0.25 MG TABLET PO PRN (03:07)
[2022-09-22] MEDS ORDERED: GLUCOSE 40% GEL 15 GM TUBE PO PRN (03:07)
[2022-09-22] MEDS ORDERED: traMADol HCL 50 MG TABLET PO PRN (03:07)
[2022-09-22] MEDS ORDERED: GLUCAGON FOR INJ 1 MG VIAL SQ PRN (03:07)
[2022-09-22] MEDS: INSULIN ASPART PER UNIT SC SCH ×5 (04:01→20:58)
[2022-09-22 04:44] LABS: Basophils # (auto) 0.04 K/uL (0-0.2); Basophils % (auto) 0.5 %; Eosinophils # (auto) 0.34 K/uL (0-0.50); Eosinophils % (auto) 4.4 %; Hematocrit (blood only) 43.3 % (40.1-51.0); Hemoglobin 14.6 g/dl (14.0-18.0); Immature Granulocytes # (auto) 0.05 K/uL (0.00-0.02); Immature Granulocytes % (auto) 0.6 %; Lymphocytes # (auto) 2.44 K/uL (1.2-3.4); Lymphocytes % (auto) 31.4 %; Mean Corpuscular Hemoglobin 29.9 pg (25.0-34.0); Mean Corpuscular Hgb Conc 33.7 g/dL (32.0-36.0); Mean Corpuscular Volume 88.5 fL (80.0-100.0); Mean Platelet Volume 10.4 fL (9.4-12.4); Monocytes # (auto) 0.59 K/uL (0.24-0.82); Monocytes % (auto) 7.6 %; Neutrophils # (auto) 4.32 K/uL (1.4-6.5); Neutrophils % (auto) 55.5 %; Platelet Count 203 K/uL (130-400); RDW Coefficient of Variation 13.4 % (11.5-14.5); RDW Standard Deviation 43.5 fL (36.4-46.3); Red Blood Count 4.89 M/uL (4.63-6.08); White Blood Count 7.78 K/ul (4.8-10.8)
[2022-09-22 04:55] LABS: Partial Thromboplastin Ratio 0.9; Partial Thromboplastin Time 25.6 Seconds (21.0-31.0)
[2022-09-22 05:25] LABS: Troponin I High Sensitivity 58.3 pg/ml (0-20)
[2022-09-22 05:58] LABS: Anion Gap 13 (3-11); BUN Creatinine Ratio 39.4 (10-20); Blood Urea Nitrogen 39 mg/dl (6-23); Calcium 10.4 mg/dl (8.5-10.1); Carbon Dioxide 22 mmol/L (21-32); Chloride 97 mmol/L (98-107); Creatinine Clr Calc Pharmacy 63.4 ml/min; Est GFR (African American) 81.3 ml/min; Est GFR (Non-African American) 70.1 ml/min; Glucose 254 mg/dl (70-99(Fasting)); Magnesium 2.1 mg/dl (1.7-2.4); Sodium 132 mmol/L (136-145)
--- NOTE | 2022-09-22 07:17 | CT Scan Report ---
CT SCAN OF THE BRAIN WITHOUT IV CONTRAST CLINICAL HISTORY: Headache. COMPARISON STUDY: No priors. TECHNIQUE: Unenhanced axial CT scan of the brain is performed from the vertex to the skull base. A do se lowering technique was utilized adhering to the principles of ALARA. CT DOSE: 1426.37 mGy.cm FINDINGS: Brain parenchyma: There is age-related involutional change noting mild subcortical and periventricula r microangiopathic disease. There is no hemorrhage, mass effect, or evidence of acute territorial isc hemia by CT criteria. Lopez-white matter differentiation is preserved. No extra-axial fluid collection is seen. Ventricles, sulci, cisterns: Prominent secondary to involutional change. Intracranial vasculature: There is atherosclerotic calcification of the cavernous carotid and vertebr al arteries. Calvarium: Unremarkable. Sinuses and mastoids: The visualized paranasal sinuses are clear. The mastoid air cells are well pneu matized. Orbits: The bony orbits are grossly intact. IMPRESSION: There is no hemorrhage, mass effect, or evidence of acute territorial ischemia by CT tatiana lang. ACT 112: Negative or not required by law. Electronically signed by: Aldo Menendez M.D. 09/22/2022 7:15 AM
[2022-09-22] MEDS ORDERED: FUROSEMIDE 40 MG/4 ML VIAL IV ONE (08:00)
[2022-09-22 08:01] LABS: Estimated Average Glucose 203 mg/dl; Hemoglobin A1C 8.7 % (4.5-5.6)
--- NOTE | 2022-09-22 08:15 | XRay Report ---
XR chest 1V portable HISTORY: 82 years-old Male SOB acute shortness breath with chest pain COMPARISON: CTA chest of same day TECHNIQUE: AP view of the chest FINDINGS: Cardiac silhouette is enlarged. Interstitial coarsening with ill-defined bilateral mid to lower lung zone predominant airspace opacities. No pneumothorax or large pleural effusion. Degenerative changes of the shoulders and spine. IMPRESSION: Cardiomegaly with interstitial coarsening and mid to lower lung zone predominant patchy i ll-defined airspace opacities. Please refer to the CTA chest study of same day for additional discuss ion. ACT 112: Negative or not required by law. The above report was generated using voice recognition software. It may contain grammatical, syntax o r spelling errors. Electronically signed by: Haile Zamora M.D. 09/22/2022 8:14 AM
[2022-09-22] MEDS: ASPIRIN 81 MG ECTAB PO SCH (08:52)
[2022-09-22] MEDS: METOPROLOL SUCC 50MG EXT REL TAB PO SCH (08:52)
[2022-09-22] MEDS: allopurinoL 300 MG TAB PO SCH (08:52)
[2022-09-22] MEDS: lisinopril 10 MG TAB PO SCH (08:52)
[2022-09-22] MEDS: metroNIDAZOLE 0.75% TOPICAL GEL 45 GM TUBE TOP SCH (08:58)
--- NOTE | 2022-09-22 08:59 | Cardiology Consultation ---
Date of Consultation September 22, 2022 Assessment & Plan (1) Ischemic cardiomyopathy: (2) URI (upper respiratory infection): Plan The patient presents with over 1 month of shortness of breath and URI symptoms including productive cough 2D echocardiogram performed that showed severely reduced EF with significant valvular disorders as well However, he does not examine his volume overloaded, chest CT personally reviewed does not show any significant fluid accumulation and a proBNP is only 200. I do not believe this represents acute decompensated systolic heart failure No signs of acute ischemia either Will require cardiac catheterization to further evaluate his new cardiomyopathy and will likely proceed in the a.m., patient is in agreement with this plan Recommend treating for infectious process Will start oral diuretics, but again, given that he does not examine his volume overloaded IV diuretics are not necessary at this time History of Present Illness Reason for Consultation: Shortness of breath Requesting Physician: Dr. Lewis Attending Physician: Junaid Harris MD History of Present Illness It was my pleasure to see Mr. Bauer in cardiac consultation today September 22, 2022. He is a very pleasant 82-year-old gentleman who follows with Dr. Barboza of our cardiology practice for his history of longstanding coronary artery disease. He presented to [facility] emergency department on the evening of 09/21/2022 at the recommendation of his PCPs office after outpatient blood work came back with a minimally elevated troponin. Clinically, he states he has been having chest cold for the last several weeks. He states over a month ago his symptoms developed including shortness of breath and a productive cough. He denies any associated chest pain with this. He states after several weeks without the symptoms resolving on their own he followed with see his PCP yesterday. Currently he is upright in bed without any complaints. Upon further questioning he states he has had some lower extremity edema associated with this chest cold but no significant weight gain or other signs of volume overload. PMHX: 1. CAD s/p POBA to the LAD in 1984 2. Type 2 diabetes 3. Hypertension 4. Hyperlipidemia 5. hx of proteinurea 6. Hx of symptomatic PVC's 7. Nonischemic stress echo 2014 with baseline EF of 60-65%. Allergies Allergy/AdvReac Type Severity Reaction Status Date / Time alfuzosin Allergy Unknown UNKN Verified 09/21/22 23:45 Home Medications Medication Instructions Recorded Confirmed Type albuterol sulfate 90 mcg/actuation 2 puff inhalation Q4 PRN Shortness 09/21/22 09/21/22 History aerosol inhaler Of Breath allopurinol 300 mg tablet 300 mg PO DAILY 09/21/22 09/21/22 History alprazolam 0.5 mg tablet 0.25 mg PO HS PRN Anxiety 09/21/22 09/21/22 History atorvastatin 20 mg tablet 20 mg PO QAM 09/21/22 09/21/22 History dapagliflozin 10 mg tablet 10 mg PO DAILY 09/21/22 09/21/22 History (Farxiga) furosemide 20 mg tablet (Lasix) 20 mg PO DAILY 09/21/22 09/21/22 History glipizide 10 mg tablet, extended 10 mg PO AMHS 09/21/22 09/21/22 History release 24 hr lisinopril 10 mg tablet 10 mg PO DAILY 09/21/22 09/21/22 History loteprednol etabonate 0.5 % eye 1 drp OPR DIRECTED PRN 09/21/22 09/21/22 History drops,suspension .Irritation metoprolol succinate 100 mg 100 mg PO DAILY 09/21/22 09/21/22 History tablet,extended release 24 hr metronidazole 0.75 % topical gel 1 applic topical DAILY 09/21/22 09/21/22 History silver sulfadiazine 1 % topical 1 applic topical DAILY 09/21/22 09/21/22 History cream sulindac 200 mg tablet 200 mg PO QAM 09/21/22 09/21/22 History triamterene 37.5 1 cap PO DAILY 09/21/22 09/21/22 History mg-hydrochlorothiazide 25 mg capsule aspirin 325 mg tablet 325 - 650 mg PO BID PRN Pain 09/22/22 09/22/22 History vit C 226 mg-vit E 90 mg-copper 1 cap PO BID 09/22/22 09/22/22 History 0.8 mg-zinc oxide-lutein 5 mg capsule (PreserVision Lutein) Patient History Medical History (Updated 09/22/22 @ 10:28 by Demar Rocha DO) CAD (coronary artery disease) CHF (congestive heart failure) Diabetes No pertinent family history Surgical History No pertinent past surgical history Social History Smoking Status: Former smoker Tobacco Type: Cigarettes Hx Alcohol Use: Yes Alcohol type: other Hx Substance Use: No Preferred Language: Turkmen Beliefs That Will Affect Care: None Current Living Situation: Alone Feels Safe at Home: Yes Review of Systems Review of Systems: All systems reviewed & are unremarkable except as noted in HPI & below Physical Exam Physical Exam: General: Awake, alert and oriented x 3. No acute distress. HEENT: Normocephalic, atraumatic. Pupils equal, round and reactive to light and accommodation. Extraocular muscles are intact. Anicteric sclera. Moist mucous membranes. Neck: No JVD. No bruit. Cardiovascular: Regular. Positive S-4. Normal S-1 and S-2. No S-3. 3/6 holosystolic ejection murmur, left sternal border, mid-clavicular line with radiation to the axilla. No rubs. Pulmonary: Coarse breath sounds diffusely with scattered rhonchi. No rales or wheezing Abdomen: Bowel sounds x 4, soft. No rebound, guarding or tenderness. No organomegaly. Extremities: No clubbing, cyanosis or edema. +2 pedal pulses bilaterally. Skin: Warm and dry. Results & Data ([facility]) Vital Signs (Past 12 Hours) Vital Signs Pulse Pulse Resp BP BP Pulse Ox Pulse Ox 09/22/22 08:00 95 H 16 130/72 96 09/22/22 08:00 98 09/22/22 07:50 89 18 132/81 96 09/22/22 07:00 88 18 128/81 95 09/22/22 04:09 09/22/22 04:09 90 20 125/62 97 09/22/22 03:07 90 09/22/22 03:07 60 14 109/70 90 09/22/22 02:54 93 H 20 123/72 96 09/21/22 23:25 88 20 144/83 H 95 09/22/22 00:00 88 144/83 H 09/21/22 20:57 26 H 95 O2 Del Method O2 Del Method O2 Flow Rate 09/22/22 08:00 Room Air 09/22/22 08:00 Room Air 09/22/22 07:50 Room Air 09/22/22 07:00 Room Air 09/22/22 04:09 Room Air 09/22/22 04:09 Room Air 09/22/22 03:07 Room Air 0 09/22/22 03:07 Room Air 09/22/22 02:54 09/21/22 23:25 Room Air 09/22/22 00:00 09/21/22 20:57 Room Air Diagnostic Findings Preliminary CTA chest report: Subsegmental ground-glass changes in the left upper lobe, the posterior right upper lobe and minimally in the right middle are most consistent with infection. Lower lobe subsegmental atelectasis.
[2022-09-22] MEDS ORDERED: ENOXAPARIN INJ 40 MG/0.4 ML SYR SQ SCH (09:00)
[2022-09-22] MEDS ORDERED: ATORVASTATIN 20 MG TAB PO SCH (09:00)
--- NOTE | 2022-09-22 09:14 | CT Scan Report ---
CT angio chest PE protocol HISTORY: 82 years-old Male with sob. Acute chest pain with shortness of breath TECHNIQUE: Multiple CTA images of the chest were obtained after the intravenous administration of 114 ml Optiray. Coronal and sagittal MIPS were obtained from the axial data set and were submitted for review. All measurements were obtained according to NASCET criteria. A dose lowering technique was u tilized adhering to the principles of ALARA. COMPARISON: CTA chest 05/31/2007 FINDINGS: CTA: Moderate cardiomegaly without pericardial effusion. Extensive coronary artery calcifications. Atheros clerosis of the thoracic aorta without aneurysm. Unremarkable pulmonary artery. No pulmonary emboli a re identified. Segmental and subsegmental branches are slightly dilated at the level of the lung base s secondary to respiratory motion artifact. CT CHEST: No thyroid nodule identified. Mild mediastinal adenopathy with subcarinal lymph nodes measuring up to 1.3 cm. Hilar lymph nodes measure up to 9 mm. No pneumothorax or pleural effusion. Intralobular sept al thickening. Reticular interstitial densities are noted with patchy mid to lower lung zone predomin ant groundglass densities with mild intermixed areas of consolidation. No suspicious pulmonary nodule s are identified. Mild bronchial wall thickening. Small hiatal hernia. No acute process of the imaged upper abdomen. The soft tissues are within normal limits. There is no acute fracture. Paracentral/right foraminal disc osteophyte complex at the T11-T 12 level results in severe right foraminal narrowing. IMPRESSION: 1. Cardiomegaly without pulmonary emboli identified. 2. Mid to lower lung zone prominent distribution of mixed reticular interstitial and patchy groundgla ss opacities are suggestive of an infectious or inflammatory pneumonitis such as viral pneumonia. A d egree of pulmonary edema may also be present. 3. Bronchial wall thickening suggestive of associated bronchitis. 4. Mild mediastinal and hilar lymphadenopathy is likely reactive. ACT 112: Negative or not required by law. The above report was generated using voice recognition software. It may contain grammatical, syntax o r spelling errors. Electronically signed by: Haile Zamora M.D. 09/22/2022 9:11 AM
[2022-09-22] MEDS: ALPRAZolam 0.5 MG TABLET PO PRN (11:37)
--- NOTE | 2022-09-22 12:58 | Consultation Report ---
NEPHROLOGY CONSULTATION NOTE DATE OF SERVICE: 09/22/2022. REASON FOR CONSULTATION: Hypercalcemia and hyponatremia. HISTORY OF PRESENT ILLNESS: The patient is an 82-year-old male who was sent over by his primary care office yesterday after outpatient chest x-ray shows possible pneumonia, and his cardiac enzymes and serum calcium was also noted to be elevated. I do not know the exact blood work regarding the calcium; however, the calcium here in the hospital was 10.8 yesterday and this morning is 10.4. The patient notes that he has had slightly high calcium for a while, but he could not tell me the exact amount. He had an echocardiogram done, which shows severely reduced ejection fraction of 20% and has already been seen by Cardiology. The patient has had progressive shortness of breath and weakness for the last few weeks and yesterday was significantly worse, that is why he went to see his primary care doctor. Surprisingly, patient actually looks pretty good. Despite having a very low ejection fraction, he does not have any edema. Does not have any orthopnea or major shortness of breath. As an outpatient, the patient gets Maxzide as well as Lasix. He did receive 1 dose of IV Lasix, but Maxzide is currently on hold. Renal function is pretty much normal with a creatinine of 1. PAST MEDICAL AND SURGICAL HISTORY: Includes coronary artery disease, status post angioplasty. Mild aortic regurgitation, hypertension, type 2 diabetes, on oral medication, hyperlipidemia, gout, history of skin cancer, past tobacco abuse, history of hypercalcemia of unknown severity. FAMILY HISTORY: Positive for diabetes, hypertension, stroke. No renal disease or dialysis. PERSONAL AND SOCIAL HISTORY: Includes past history of tobacco abuse, occasional alcohol. Retired [employer]. ALLERGIES: To ALFUZOSIN. MEDICATIONS: Home medication list was reviewed in detail and does includes lisinopril 10, furosemide 20 daily, Farxiga, atorvastatin, alprazolam, allopurinol, Maxzide one capsule daily, Lasix 20 daily. Denies taking any vitamin D or calcium supplement. REVIEW OF SYSTEMS: As detailed in HPI; unless stated otherwise, 12 systems reviewed and negative. PHYSICAL EXAMINATION: GENERAL: Elderly white male who actually looks pretty strongly built looks younger than his age. VITAL SIGNS: Blood pressure is 110/59, pulse rate 89, temperature 36.9, and 97% on room air. NEUROLOGIC: Awake, alert, oriented x 3, normal speech, no respiratory distress. CHEST: Bilaterally clear to auscultation. CARDIOVASCULAR: S1 and S2, regular. Systolic murmur heard. ABDOMEN: Soft, nontender. EXTREMITIES: Show no edema. SKIN: Warm and dry. No rashes noted. ASSESSMENT AND PLAN: An 82-year-old male with progressive shortness of breath and weakness for the last few weeks, most likely associated with severe cardiomyopathy with an ejection fraction of 20%. I have been consulted for hypercalcemia. 1. Hypercalcemia: This seems pretty mild. On admission, had a calcium level of 10.9 and this morning is down to 10.4. His PTH is somewhat high, but it is hard to tell whether this is primary hyperparathyroidism or related with some underlying kidney issues or vitamin D deficiency. Given this, we do need to check PTH again with vitamin D level and can be done tomorrow. His sodium is also low, and his serum calcium is slightly high, which means he should preferably not be on hydrochlorothiazide. Thiazide diuretics do tend to increase serum calcium and lower serum sodium. However, loop diuretics like Lasix, Demadex and Bumex does the opposite. Given this, I would like to start Maxzide permanently. He might need a higher dose of Lasix going forward. Given the hypercalcemia is pretty mild, I do not see a need to do a detailed workup for primary hyperparathyroidism and see multiple specialists for this. This can be managed pretty easily with primary care and Nephrology. Thank you very much for the consult. Job ID: [id number] [facility]
--- NOTE | 2022-09-22 14:49 | Hospitalist Progress Note ---
Date of Service September 22, 2022 Assessment & Plan (1) Acute HFrEF (heart failure with reduced ejection fraction): Plan: - unclear chronicity however patient has been on GDMT prior to admission - worsening functional status over last 2-3 weeks following URI - has some LE edema but lungs are CTAB - Cardiology consulted and does not feel this is acute exacerbation of CHF with benign exam and BNP at 200 - s/p IV lasix on admission - continue GDMT as tolerated - continue on PO lasix 40mg daily per Cardiology - will assess etiology of CHF with cardiac cath by Cards 09/23/2022 - NPO midnight - telemetry monitoring (2) Diabetes: Plan: - A1c 8.7% 09/2022 - on po meds as outpatient - hold while inpatient - started on Lantus and SSI - FSG AC+HS - diabetic diet (3) CAD (coronary artery disease): Plan: - history of remote ND - denies chest pain at rest or with ambulation - continue aspirin and statin - cardiac cath as above - telemetry monitoring Plan DVT ppx: lovenox Code Status: Full Code Dispo: telemetry Junaid Harris MD [facility] Medicine Admission and Anticipated Discharge Date Admission Date: September 22, 2022 Subjective Patient with CAD s/p ND (?stent), DM2, HFrEF (EF 20% 09/2022) who presents with 3-4 weeks of worsening shortness of breath and LE swelling. Seen by cardiology who recommended work up for CHF with cardiac cath for 09/23/2022. No evidence of infection, likely had initial viral syndrome that triggered worsening of CHF. Patient denies chest pain, shortness of breath at rest, n/v/d, abdominal pain, dysuria, fever or chills. Reports has dry cough and ZAPIEN for short distances. Review of Systems Review of Systems: All systems reviewed & are unremarkable except as noted in Subjective Physical Exam Physical Exam: GENERAL: Slightly uncomfortable, obese, pleasant, minimal respiratory distress SKIN: Normal color, warm HEENT: [place] palpebral conjunctivae, no ptosis, dry buccal mucosa NECK : Supple, no tenderness CHEST : Decreased breath sounds, CTAB, no tenderness HEART : RRR, no obvious murmurs ABDOMEN: Some distention, nontender EXTREMITIES : Bilateral LE 1+ edema to lower shins, no LE tenderness, no other conspicuous deformities noted NEUROLOGIC : Coherent, no facial asymmetry, no other gross focality Results & Data Results & Data ([facility]) Vital Signs (Past 12 Hours) Vital Signs Pulse Resp BP Pulse Ox Pulse Ox O2 Del Method O2 Del Method 09/22/22 14:09 86 18 112/63 95 Room Air 09/22/22 12:33 85 18 102/67 97 Room Air 09/22/22 11:32 89 18 110/59 L 97 Room Air 09/22/22 10:00 90 18 114/67 95 Room Air 09/22/22 08:53 95 H 18 130/74 96 Room Air 09/22/22 08:00 95 H 16 130/72 96 Room Air 09/22/22 08:00 98 Room Air 09/22/22 07:50 89 18 132/81 96 Room Air 09/22/22 07:00 88 18 128/81 95 Room Air 09/22/22 04:09 Room Air 09/22/22 04:09 90 20 125/62 97 Room Air 09/22/22 03:07 90 Room Air 09/22/22 03:07 60 14 109/70 90 Room Air 09/22/22 02:54 93 H 20 123/72 96 O2 Flow Rate 09/22/22 14:09 09/22/22 12:33 09/22/22 11:32 09/22/22 10:00 09/22/22 08:53 09/22/22 08:00 09/22/22 08:00 09/22/22 07:50 09/22/22 07:00 09/22/22 04:09 09/22/22 04:09 09/22/22 03:07 0 09/22/22 03:07 09/22/22 02:54 Diagnostic Findings Laboratory Results WBC 7.78 K/ul (4.8-10.8) 09/22/22 04:34 RBC 4.89 M/uL (4.63-6.08) 09/22/22 04:34 Hgb 14.6 g/dl (14.0-18.0) 09/22/22 04:34 Hct 43.3 % (40.1-51.0) 09/22/22 04:34 MCV 88.5 fL (80.0-100.0) 09/22/22 04:34 MCH 29.9 pg (25.0-34.0) 09/22/22 04:34 MCHC 33.7 g/dL (32.0-36.0) 09/22/22 04:34 RDW Std Deviation 43.5 fL (36.4-46.3) 09/22/22 04:34 RDW Coeff of Niya 13.4 % (11.5-14.5) 09/22/22 04:34 Plt Count 203 K/uL (130-400) 09/22/22 04:34 MPV 10.4 fL (9.4-12.4) 09/22/22 04:34 Immature Gran % (Auto) 0.6 % 09/22/22 04:34 Neut % (Auto) 55.5 % 09/22/22 04:34 Lymph % (Auto) 31.4 % 09/22/22 04:34 [place] % (Auto) 7.6 % 09/22/22 04:34 Eos % (Auto) 4.4 % 09/22/22 04:34 Baso % (Auto) 0.5 % 09/22/22 04:34 Neut # (Auto) 4.32 K/uL (1.4-6.5) 09/22/22 04:34 Lymph # (Auto) 2.44 K/uL (1.2-3.4) 09/22/22 04:34 [place] # (Auto) 0.59 K/uL (0.24-0.82) 09/22/22 04:34 Eos # (Auto) 0.34 K/uL (0-0.50) 09/22/22 04:34 Baso # (Auto) 0.04 K/uL (0-0.2) 09/22/22 04:34 Immature Gran # (Auto) 0.05 K/uL (0.00-0.02) H 09/22/22 04:34 PT 11.8 Seconds (9.0-12.0) 09/21/22 20:45 INR 1.1 (0.9-1.1) 09/21/22 20:45 APTT 25.6 Seconds (21.0-31.0) 09/22/22 04:34 PTT Ratio 0.9 09/22/22 04:34 VBG pH 7.38 (7.36-7.41) 09/22/22 00:05 VBG pCO2 44 mmHg (38-50) 09/22/22 00:05 VBG pO2 49 mmHg 09/22/22 00:05 VBG HCO3 26 mmol/L 09/22/22 00:05 VBG O2 Saturation 78.4 % 09/22/22 00:05 VBG Base Excess 0.5 mEq/L 09/22/22 00:05 Sodium 132 mmol/L (136-145) L 09/22/22 04:34 Potassium 3.8 mmol/L (3.5-5.1) 09/22/22 06:08 Chloride 97 mmol/L (98-107) L 09/22/22 04:34 Carbon Dioxide 22 mmol/L (21-32) 09/22/22 04:34 Anion Gap 13 (3-11) H 09/22/22 04:34 BUN 39 mg/dl (6-23) H 09/22/22 04:34 Creatinine 0.99 mg/dl (0.6-1.4) 09/22/22 04:34 Est Cr Clr Drug Dosing 63.4 ml/min 09/22/22 04:34 Est GFR ( Amer) 81.3 ml/min 09/22/22 04:34 Est GFR (Non-Af Amer) 70.1 ml/min 09/22/22 04:34 BUN/Creatinine Ratio 39.4 (10-20) H 09/22/22 04:34 Glucose 254 mg/dl (70-99(Fasting)) H 09/22/22 04:34 POC Glucose 264 mg/dl (70-99) H 09/22/22 13:13 Estimat Average Glucose 203 mg/dl 09/22/22 00:05 Hemoglobin A1c 8.7 % (4.5-5.6) H 09/22/22 00:05 Lactate 1.7 mmol/L (0.4-2.0) 09/22/22 00:05 Calcium 10.4 mg/dl (8.5-10.1) H 09/22/22 04:34 Phosphorus 3.0 mg/dl (2.5-4.9) 09/22/22 00:05 Magnesium 2.1 mg/dl (1.7-2.4) 09/22/22 04:34 Total Bilirubin 0.8 mg/dl (0.2-1.0) 09/21/22 20:45 AST 13 U/L (13-39) 09/21/22 20:45 ALT 15 U/L (7-52) 09/21/22 20:45 Alkaline Phosphatase 77 U/L (34-104) 09/21/22 20:45 Troponin I High Sens 58.3 pg/ml (0-20) H* 09/22/22 04:34 B-Natriuretic Peptide 201 pg/ml (0-100) H 09/21/22 20:45 Total Protein 7.6 gm/dl (6.0-8.3) 09/21/22 20:45 Albumin 3.8 gm/dl (3.4-5.0) 09/21/22 20:45 Globulin 3.8 gm/dl (2.5-4.0) 09/21/22 20:45 Albumin/Globulin Ratio 1.0 (0.9-2) 09/21/22 20:45 Procalcitonin < 0.05 ng/ml (0-0.5) 09/21/22 20:45 PTH Intact 100.6 pg/ml (12.0-88.0) H 09/21/22 20:45 Urine Color Yellow 09/22/22 02:36 Urine Appearance Clear (Clear) 09/22/22 02:36 Urine pH 5.0 (4.5-7.5) 09/22/22 02:36 Ur Specific [place] 1.017 (1.000-1.030) 09/22/22 02:36 Urine Protein Negative (Negative) 09/22/22 02:36 Urine Glucose (UA) Negative (Negative) 09/22/22 02:36 Urine Ketones Negative (Negative) 09/22/22 02:36 Urine Blood Negative (Negative) 09/22/22 02:36 Urine Nitrite Negative (Negative) 09/22/22 02:36 Urine Bilirubin Negative (Negative) 09/22/22 02:36 Urine Urobilinogen Negative (Negative) 09/22/22 02:36 Ur Leukocyte Esterase Trace (Negative) H 09/22/22 02:36 Urine WBC (Auto) 0 /hpf (0-5) 09/22/22 02:36 Urine RBC (Auto) 0-4 /hpf (0-4) 09/22/22 02:36 U Hyaline Cast (Auto) 0 /lpf (0-5) 09/22/22 02:36 U Epithel Cells (Auto) 0-5 /lpf (0-5) 09/22/22 02:36 Urine Bacteria (Auto) Negative (Negative) 09/22/22 02:36 SARS-CoV-2 (PCR) NEGATIVE (Negative) 09/22/22 00:13 Influenza Type A (PCR) Negative (Neg) 09/22/22 00:13 Influenza Type B (PCR) Negative (Neg) 09/22/22 00:13 RSV (RT-PCR) Negative (Neg) 09/22/22 00:13 Impressions Chest X-Ray 09/21/22 20:36 XR chest 1V portable HISTORY: 82 years-old Male SOB acute shortness breath with chest pain COMPARISON: CTA chest of same day TECHNIQUE: AP view of the chest FINDINGS: Cardiac silhouette is enlarged. Interstitial coarsening with ill-defined bilateral mid to lower lung zone predominant airspace opacities. No pneumothorax or large pleural effusion. Degenerative changes of the shoulders and spine. IMPRESSION: Cardiomegaly with interstitial coarsening and mid to lower lung zone predominant patchy ill-defined airspace opacities. Please refer to the CTA chest study of same day for additional discussion. ACT 112: Negative or not required by law. The above report was generated using voice recognition software. It may contain grammatical, syntax or spelling errors. Electronically signed by: Haile Zamora M.D. 09/22/2022 8:14 AM Chest CTA 09/21/22 22:50 CT angio chest PE protocol HISTORY: 82 years-old Male with sob. Acute chest pain with shortness of breath TECHNIQUE: Multiple CTA images of the chest were obtained after the intravenous administration of 114 ml Optiray. Coronal and sagittal MIPS were obtained from the axial data set and were submitted for review. All measurements were o btained according to NASCET criteria. A dose lowering technique was utilized adhering to the principles of ALARA. COMPARISON: CTA chest 05/31/2007 FINDINGS: CTA: Moderate cardiomegaly without pericardial effusion. Extensive coronary artery calcifications. Atherosclerosis of the thoracic aorta without aneurysm. Unremarkable pulmonary artery. No pulmonary emboli are identified. Segmental and subsegmental branches are slightly dilated at the level of the lung bases secondary to respiratory motion artifact. CT CHEST: No thyroid nodule identified. Mild mediastinal adenopathy with subcarinal lymph nodes measuring up to 1.3 cm. Hilar lymph nodes measure up to 9 mm. No pneumothorax or pleural effusion. Intralobular septal thickening. Reticular interstitial densities are noted with patchy mid to lower lung zone predominant groundglass densities with mild intermixed areas of consolidation. No suspicious pulmonary nodules are identified. Mild bronchial wall thickening. Small hiatal hernia. No acute process of the imaged upper abdomen. The soft tissues are within normal limits. There is no acute fracture. Paracentral/right foraminal disc osteophyte complex at the T11-T12 level results in severe right foraminal narrowing. IMPRESSION: 1. Cardiomegaly without pulmonary emboli identified. 2. Mid to lower lung zone prominent distribution of mixed reticular interstitial and patchy groundglass opacities are suggestive of an infectious or inflammatory pneumonitis such as viral pneumonia. A degree of pulmonary edema may also be present. 3. Bronchial wall thickening suggestive of associated bronchitis. 4. Mild mediastinal and hilar lymphadenopathy is likely reactive. ACT 112: Negative or not required by law. The above report was generated using voice recognition software. It may contain grammatical, syntax or spelling errors. Electronically signed by: Haile Zamora M.D. 09/22/2022 9:[address] 09/21/22 22:50 CT SCAN OF THE BRAIN WITHOUT IV CONTRAST CLINICAL HISTORY: Headache. COMPARISON STUDY: No priors. TECHNIQUE: Unenhanced axial CT scan of the brain is performed from the vertex to the skull base. A dose lowering technique was utilized adhering to the principles of ALARA. CT DOSE: 1426.37 mGy.cm FINDINGS: Brain parenchyma: There is age-related involutional change noting mild subcortical and periventricular microangiopathic disease. There is no hemorrhage, mass effect, or evidence of acute territorial ischemia by CT criteria. Lopez-white matter differentiation is preserved. No extra-axial fluid collection is seen. Ventricles, sulci, cisterns: Prominent secondary to involutional change. Intracranial vasculature: There is atherosclerotic calcification of the cavernous carotid and vertebral arteries. Calvarium: Unremarkable. Sinuses and mastoids: The visualized paranasal sinuses are clear. The mastoid air cells are well pneumatized. Orbits: The bony orbits are grossly intact. IMPRESSION: There is no hemorrhage, mass effect, or evidence of acute territorial ischemia by CT criteria. ACT 112: Negative or not required by law. Electronically signed by: Aldo Menendze M.D. 09/22/2022 7:15 AM Medications Administered Current Inpatient Medications Acetaminophen (Acetaminophen 325 Mg Tab) 650 mg PO Q4H PRN PRN Reason: Pain or Fever Stop: 10/22/22 03:06 Allopurinol (Allopurinol 300 Mg Tab) 300 mg PO DAILY [facility] Stop: 10/22/22 08:59 Last Admin: 09/22/22 08:52 Dose: 300 mg Alprazolam (Alprazolam 0.5 Mg Tablet) 0.5 mg PO Q6H PRN PRN Reason: Anxiety Stop: 10/22/22 03:06 Last Admin: 09/22/22 11:37 Dose: 0.5 mg Aspirin (Aspirin 81 Mg Ectab) 81 mg PO QAM [facility] Stop: 10/22/22 08:59 Last Admin: 09/22/22 08:52 Dose: 81 mg Atorvastatin Calcium (Atorvastatin 20 Mg Tab) [facility] Stop: 10/22/22 08:59 Last Admin: 09/22/22 08:52 Dose: 20 mg Dextrose (Dextrose 50% 50 Ml Syringe) 25 - 50 ml IV UD PRN; Protocol PRN Reason: Hypoglycemia Protocol Stop: 10/22/22 03:06 Enoxaparin Sodium (Enoxaparin Inj 40 Mg/0.4 Ml Syr) 40 mg SQ QAM [facility] Stop: 10/22/22 08:59 Last Admin: 09/22/22 08:51 Dose: 40 mg Glucagon (Glucagon For Inj 1 Mg Vial) 1 mg SQ UD PRN; Protocol PRN Reason: Hypoglycemia Protocol Stop: 10/22/22 03:06 Glucose (Glucose 40% Gel 15 Gm Tube) 15 - 30 gm PO UD PRN; Protocol PRN Reason: Hypoglycemia Protocol Stop: 10/22/22 03:06 Glucose (Glucose 10 Tab/Tube) 4 - 8 tab PO UD PRN; Protocol PRN Reason: Hypoglycemia Treatment Stop: 10/22/22 03:06 Promethazine HCl 12.5 mg/ (Sodium Chloride) 50.5 mls @ 202 mls/hr IV Q6H PRN PRN Reason: Nausea And Vomiting Stop: 10/22/22 03:06 Insulin Aspart (Insulin Aspart Per Unit) 0 units SC ACHS [facility] Stop: 10/22/22 03:06 Last Admin: 09/22/22 13:57 Dose: 7 units Insulin Glargine (Lantus Per Unit Charge) 15 units SQ HS [facility] Stop: 10/22/22 20:59 Lisinopril (Lisinopril 10 Mg Tab) 10 mg PO DAILY [facility] Stop: 10/22/22 08:59 Last Admin: 09/22/22 08:52 Dose: 10 mg Metoprolol Succinate (Metoprolol Succ 50mg Ext Rel Tab) 100 mg PO DAILY [facility] Stop: 10/22/22 08:59 Last Admin: 09/22/22 08:52 Dose: 100 mg Metronidazole (Metronidazole 0.75% Topical Gel 45 Gm Tube) 1 appln TOP DAILY [facility] Stop: 10/02/22 08:59 Last Admin: 09/22/22 08:58 Dose: Not Given Miscellaneous (Loteprednol Etabonate 0.5 % - Order Awaiting Action) 1 each N/A QS [facility] Stop: 10/22/22 07:59 Last Admin: 09/22/22 07:55 Dose: Not Given Miscellaneous (Carbohydrates For Hypoglycemia ) 15 - 30 gm PO UD PRN PRN Reason: Hypoglycemia Protocol Stop: 10/22/22 03:06 Nitroglycerin (Nitroglycerin Sl 0.4 Mg/Tab Tab) 0.4 mg SL UD PRN PRN Reason: Chest Pain Stop: 10/22/22 03:06 Tramadol HCl (Tramadol Hcl 50 Mg Tablet) 25 - 50 mg PO Q4H PRN PRN Reason: Pain Stop: 10/22/22 03:06
[2022-09-22] MEDS: LANTUS PER UNIT CHARGE SQ SCH (20:58)
[2022-09-22] MEDS ORDERED: LANTUS PER UNIT CHARGE SQ SCH (21:00)
[2022-09-23] MEDS: ALPRAZolam 0.5 MG TABLET PO PRN ×2 (03:00→21:14)
--- NOTE | 2022-09-23 05:58 | Electrocardiogram Report ---
Test Reason : Blood Pressure : / mmHG Vent. Rate : 103 BPM Atrial Rate : 103 BPM P-R Int : 166 ms QRS Dur : 122 ms QT Int : 348 ms P-R-T Axes : 062 009 081 degrees QTc Int : 455 ms Poor data quality, interpretation may be adversely affected Sinus tachycardia with occasional Premature ventricular complexes Non-specific intra-ventricular conduction delay Nonspecific T wave abnormality Abnormal ECG When compared with ECG of 02-MAR-2015 14:00, Premature ventricular complexes are now Present Non-specific intra-ventricular conduction delay has replaced Right bundle branch block Confirmed by Eduin Santoyo ([id number]) on 09/23/2022 5:58:09 AM Referred By: Janel Sutton Confirmed By:Eduin Santoyo
[2022-09-23 07:22] LABS: INR 1.1 (0.9-1.1); Prothrombin Time 12.1 Seconds (9.0-12.0)
[2022-09-23 07:29] LABS: Albumin Globulin Ratio 1.3 (0.9-2); Albumin Level 3.6 gm/dl (3.4-5.0); BUN Creatinine Ratio 41.4 (10-20); Bilirubin,Total 0.9 mg/dl (0.2-1.0); Calcium 10.2 mg/dl (8.5-10.1); Creatinine Clr Calc Pharmacy 54.6 ml/min; Est GFR (African American) 67.1 ml/min; Est GFR (Non-African American) 57.9 ml/min; Globulin 2.8 gm/dl (2.5-4.0); Magnesium 1.9 mg/dl (1.7-2.4); Phosphorus 3.2 mg/dl (2.5-4.9); Potassium 3.6 mmol/L (3.5-5.1); Total Protein 6.4 gm/dl (6.0-8.3)
[2022-09-23] MEDS ORDERED: HEPARIN (PORCINE) 1000 UNIT/ML 10 ML (CATH LAB USE ONLY) ONE (07:36)
[2022-09-23] MEDS ORDERED: niCARdipine HCL INJ 2.5 MG/ML 10 ML AMP ONE (07:36)
[2022-09-23] MEDS ORDERED: fentaNYL citrate 100 MCG/2 ML VIAL ONE (07:37)
[2022-09-23] MEDS ORDERED: MIDAZOLAM HCL 1 MG/ML 2ML VIAL ONE (07:37)
[2022-09-23] MEDS ORDERED: NITROGLYCERIN/D5W 100MCG/ML 20ML SYR ONE (07:37)
--- NOTE | 2022-09-23 08:00 | Pre Anesthesia Assessment ---
Date of Service September 23, 2022 Pre Sedation Assessment Vital Signs Temp Pulse Pulse Resp BP Pulse Ox O2 Del Method 09/23/22 07:44 73 09/23/22 02:56 36.4 C L 82 20 99/55 L 95 Room Air 09/22/22 23:45 09/22/22 23:05 36.5 C 90 20 135/72 97 Room Air 09/22/22 19:55 37.5 C 81 19 96/52 L 95 Room Air 09/22/22 14:30 Room Air 09/22/22 15:56 89 09/22/22 14:46 36.5 C 86 20 120/65 94 Room Air 09/22/22 14:09 86 18 112/63 95 Room Air 09/22/22 12:33 85 18 102/67 97 Room Air 09/22/22 11:32 89 18 110/59 L 97 Room Air 09/22/22 10:00 90 18 114/67 95 Room Air 09/22/22 08:53 95 H 18 130/74 96 Room Air O2 Del Method 09/23/22 07:44 09/23/22 02:56 09/22/22 23:45 Room Air 09/22/22 23:05 09/22/22 19:55 09/22/22 14:30 09/22/22 15:56 09/22/22 14:46 09/22/22 14:09 09/22/22 12:33 09/22/22 11:32 09/22/22 10:00 09/22/22 08:53 Cardiovascular + regular rate + S1 normal and + murmur + femoral pulses present and + radial pulses present; no JVD Respiratory normal respiratory effort, lungs clear to auscultation Pre-Sedation Airway Assessment Smoking Status: Former smoker NPO Status Date of Last Intake of Fluids: 09/22/22 Date of Last Intake of Solid Food: 09/22/22 Procedure Planning Contraindications for Sedation: none Current Medications Reviewed: Yes Notes The planned sedation has been discussed with the patient. Informed Consent was obtained. I have identified the patient, determined the appropriateness of sedation and have assessed the patient immediately prior to the procedure. All medicine(s) and interventions are by my order.
--- NOTE | 2022-09-23 09:08 | Nephrology Progress Note ---
Date of Service September 23, 2022 Assessment & Plan Admission and Anticipated Discharge Date Admission Date: September 22, 2022 Subjective S--no new issues. BP somewhat low. PHYSICAL EXAMINATION: GENERAL: Elderly white male who actually looks pretty strongly built looks younger than his age. VITAL SIGNS: Blood pressure is 110/59, pulse rate 89, temperature 36.9, and 97% on room air. NEUROLOGIC: Awake, alert, oriented x 3, normal speech, no respiratory distress. CHEST: Bilaterally clear to auscultation. CARDIOVASCULAR: S1 and S2, regular. Systolic murmur heard. ABDOMEN: Soft, nontender. EXTREMITIES: Show no edema. SKIN: Warm and dry. No rashes noted. ASSESSMENT AND PLAN: An 82-year-old male with progressive shortness of breath and weakness for the last few weeks, most likely associated with severe cardiomyopathy with an ejection fraction of 20%. I have been consulted for hypercalcemia. 1. Hypercalcemia: This seems pretty mild. On admission, had a calcium level of 10.9 and this morning is down to 10.2 His PTH is somewhat high, but it is hard to tell whether this is primary hyperparathyroidism or related with some underlying kidney issues or vitamin D deficiency. Vit D slightly low. His sodium is also low, and his serum calcium is slightly high, which means he should preferably not be on hydrochlorothiazide. Thiazide diuretics do tend to increase serum calcium and lower serum sodium. However, loop diuretics like Lasix, Demadex and Bumex does the opposite. Rec: 1 Stop Maxzide permanently. He might need a higher dose of Lasix going forward. 2 Given the hypercalcemia is pretty mild, I do not see a need to do a detailed workup for primary hyperparathyroidism and see multiple specialists for this. 3 Repeat vit D , PTH Calcium again 2 weeks after we have stopped maxzide to get a true picture. 4 Will sign off for now. Results & Data ([facility]) Vital Signs (Past 12 Hours) Vital Signs Temp Pulse Pulse Resp BP Pulse Ox O2 Del Method 09/23/22 07:44 73 09/23/22 02:56 36.4 C L 82 20 99/55 L 95 Room Air 09/22/22 23:45 09/22/22 23:05 36.5 C 90 20 135/72 97 Room Air O2 Del Method 09/23/22 07:44 09/23/22 02:56 09/22/22 23:45 Room Air 09/22/22 23:05
[2022-09-23] MEDS ORDERED: SODIUM CHLORIDE 0.9% 1000ML 1,000 ML IV SCH (09:15)
--- NOTE | 2022-09-23 09:20 | Cardiac Catheterization ---
Cardiac Cath Procedure Brief Procedure Date September 23, 2022 Pre-Procedure Diagnosis Pre-Procedure Diagnosis: CHF, Cardiomyopathy and Cardiothoracic Symptom AUC Score AUC Score: 8 Post-Procedure Diagnosis Post-Procedure Diagnosis: Severe CAD (Multivessel) Procedure(s) Performed Procedure(s) Performed: Coronary Angiography, Left Heart Cath and LV Angiography First Cook Aram Romero MD Estimated Blood Loss Estimated Blood Loss: <15cc Medication(s) Medication(s): Fentanyl (12.5 mcg IV x 2), Heparin (5000 units IV), Lidocaine 1% (Local infiltration access site), Nicardipine (250 mcg intra-arterial after arterial sheath insertion) and Versed (1 mg IV x 2) Preliminary Findings Impression: Right dominant anatomy with severe multivessel coronary disease including proximal right coronary occlusion subtotal mid LAD stenosis and diffuse atherosclerosis all vessels Ischemic cardiomyopathy EF 20-25% with normal left end- diastolic pressure Mild mitral insufficiency Mild aortic valve gradient Procedure: Left heart catheterization, coronary, LV angiography via right radial access Catheters: 6 Thai long [place] sheath, 5 Thai [place], 5 Thai JR4, 5 Thai angled pigtail Recommendations Recommendations: Medical Therapy and/or Counseling Specimens Specimens: None Fluids (cc crystalloids) Fluids (cc crystalloids): 70 Anesthesia Start time: , stop time: 901 Procedural Complication(s) None Disposition PCU
--- NOTE | 2022-09-23 09:34 | Cardiac Catheterization ---
Cardiac Cath Procedure Full Procedure Date September 23, 2022 Pre-Procedure Diagnosis Pre-Procedure Diagnosis: CHF, Cardiomyopathy and Cardiothoracic Symptom AUC Score AUC Score: 8 Post-Procedure Diagnosis Post-Procedure Diagnosis: Severe CAD (Multivessel) Procedure(s) Performed Procedure(s) Performed: Coronary Angiography, Left Heart Cath and LV Angiography Steward/Stewardess Second Aram Romero MD Maintenance Job Titles(s) Lupe Boyd Estimated Blood Loss Estimated Blood Loss: <15cc Medication(s) Medication(s): Fentanyl (12.5 mcg IV x 2), Heparin (5000 units IV), Lidocaine 1% (Local infiltration access site), Nicardipine (250 mcg intra-arterial after arterial sheath insertion) and Versed (1 mg IV x 2) Summary of Findings Impression: Right dominant anatomy with severe multivessel coronary disease including proximal right coronary occlusion subtotal mid LAD stenosis and diffuse atherosclerosis all vessels with limited interventional targets Ischemic cardiomyopathy, dilated EF 20-25% with normal left end-diastolic pressure Mild mitral insufficiency Mild aortic valve gradient 10 mm peak to peak Procedure: Left heart catheterization, coronary, LV angiography via right radial access Catheters: 6 Lithuanian long Trona sheath, 5 Lithuanian Kimball, 5 Lithuanian JR4, 5 Lithuanian angled pigtail Coronary angiography: Right dominant anatomy (visualized via collateral fill) Left main: Long with moderate calcification and a 25% distal taper Left anterior descending: Type III in distribution. It gives rise to a large septal branch in its proximal portion, a large diagonal branch at the end of its proximal third. The left anterior descending is diffusely diseased with a long calcified 60% stenosis shortly after its origin. The vessel was then subtotally occluded 99% in its mid portion after the diagonal branch, the distal vessel filling faintly via bridge collaterals. The left anterior descending diagonal has an 75% stenosis in its proximal third. This is a long vessel which parallels the left anterior descending to the apex Left circumflex: Gives rise to an early high marginal branch large in caliber and trifurcating in its distribution and turns along the AV groove to give rise to a small posterolateral branch. Left circumflex has diffuse calcification in its proximal portion. The large obtuse marginal has a 50% narrowing in its proximal portion with mild diffuse ectasia. The circumflex beyond the obtuse marginal has a 99% subtotal stenosis and continues to thinly fill the posterolateral branch Right coronary artery: Dominant vessel that is bluntly occluded shortly after its origin. There is minimal filling of the mid vessel via bridge collaterals. The distal vessel fills via left to right collaterals retrograde to the AV groove demonstrating two thin, diffusely diseased posterolateral branches and a thin posterior descending artery. The mid vessel is heavily calcified and not opacified with contrast LV angiography: Left ventricle was dilated. There is akinesis of the inferior wall base to apex and severe hypokinesis of all other segments EF 20 to 25%. There is mild mitral insufficiency Hemodynamics left ventricular end-diastolic pressure was 8. There is a 10 mm peak to peak aortic valve gradient on pullback Hemodynamics Rest Ao:: 96/46/65 Final Ao: 92/41/60 LV: 97/0/8 Recommendations Recommendations: Medical Therapy and/or Counseling Specimens Specimens: None Radiation Exposure (mGy) 1020 Contrast (mls) 120 Fluids (cc crystalloids) Fluids (cc crystalloids): 70 Anesthesia Start time: , stop time: 09 Procedural Complication(s) None Disposition PCU I attest to the content of the Intraoperative Record and any orders documented therein. Any exceptions are noted below. ACC Data: [employer] Principal Cardiac Status Clinical evaluation leading to the procedure 82-year-old male with prior history of coronary artery disease with remote coronary invention 1985 presented with acute dyspnea and weakness. Echocardiogram demonstrates findings consistent with ischemic cardiomyopathy with mild elevation in troponin CAD Presenation: Stable angina Anginal Classification: CCS III Heart Failure: NYHA Class: CCS II Cardiogenic Shock within 24 Hours: No Cardiac Arrest within 24 Hours: No Imaging Studies Past 6 Months: Yes Stress Studies Past 6 Months: No Standard Exercise Test: No Stress Echocardiogram: No Stress Testing w/SPECT MPI: No Cardiac CTA: No Coronary Anatomy Left Main (% Stenosis): Distal (25) LAD (% Stenosis): Proximal (60) and Mid (99) D1 (% Stenosis): Proximal (75) Circumflex (% Stenosis): Mid (99) OM1 (% Stenosis): Proximal (50 sequentially) RCA (% Stenosis): Proximal (100) Left Ventricular Angiography EF (%): 20-25 Mitral Regurgitation: 1+ Diagnostic Physicians Name: Aram Romero MD Status: Urgent Closure Device Percutaneous Entry Location: Radial Closure Device: Radial Band Recommendations: Medical Therapy and/or Counseling
[2022-09-23] MEDS: METOPROLOL SUCC 50MG EXT REL TAB PO SCH (09:43)
[2022-09-23] MEDS: ASPIRIN 81 MG ECTAB PO SCH (09:43)
[2022-09-23] MEDS: FUROSEMIDE 40 MG TAB PO SCH (09:43)
[2022-09-23] MEDS: allopurinoL 300 MG TAB PO SCH (09:43)
[2022-09-23] MEDS: ATORVASTATIN 40 MG TAB PO SCH (09:44)
[2022-09-23] MEDS: lisinopril 10 MG TAB PO SCH (09:44)
[2022-09-23] MEDS: metroNIDAZOLE 0.75% TOPICAL GEL 45 GM TUBE TOP SCH (09:50)
[2022-09-23] MEDS: INSULIN ASPART PER UNIT SC SCH ×4 (10:06→21:12)
--- NOTE | 2022-09-23 11:38 | Hospitalist Progress Note ---
Date of Service September 23, 2022 Assessment & Plan (1) Acute HFrEF (heart failure with reduced ejection fraction): Plan: - unclear chronicity however patient has been on GDMT prior to admission - worsening functional status over last 2-3 weeks following URI - has some LE edema but lungs are CTAB - Cardiology consulted and does not feel this is acute exacerbation of CHF with benign exam and BNP at 200 - s/p IV lasix on admission - continue GDMT as tolerated - continue on PO lasix 40mg daily per Cardiology - s/p LHC 09/23/2022 with multivessel disease and extensive stenosis but not amenable to PCI - discussion with Cardiology and patient and will likely proceed with medical management given risks of CABG in 82 year old man - medication adjustments per Cardiology - telemetry monitoring (2) Diabetes: Plan: - A1c 8.7% 09/2022 - on po meds as outpatient - hold while inpatient - started on Lantus and SSI - FSG AC+HS - diabetic diet (3) CAD (coronary artery disease): Plan: - history of remote NC - denies chest pain at rest or with ambulation - continue aspirin and statin - cardiac cath as above - telemetry monitoring Plan DVT ppx: lovenox Code Status: Full Code Dispo: telemetry Junaid Harris MD [facility] Medicine Admission and Anticipated Discharge Date Admission Date: September 22, 2022 Subjective Patient with CAD s/p NC (?stent), DM2, HFrEF (EF 20% 09/2022) who presents with 3-4 weeks of worsening shortness of breath and LE swelling. Seen by cardiology and had cardiac cath 09/23/2022. No evidence of infection or volume overload at this time. S/p LHC with multivessel disease but not intervenable, will opt for medical management per Cardiology. Patient denies chest pain, shortness of breath at rest, n/v/d, abdominal pain, dysuria, fever or chills. Review of Systems Review of Systems: As per HPI, all other systems reviewed and negative Physical Exam Physical Exam: GENERAL: Slightly uncomfortable, obese, pleasant, minimal respiratory distress SKIN: Normal color, warm HEENT: [place] palpebral conjunctivae, no ptosis, dry buccal mucosa NECK : Supple, no tenderness CHEST : Decreased breath sounds, CTAB, no tenderness HEART : RRR, no obvious murmurs ABDOMEN: Some distention, nontender EXTREMITIES : no edema, no LE tenderness, no other conspicuous deformities noted NEUROLOGIC : Coherent, no facial asymmetry, no other gross focality Results & Data Results & Data ([facility]) Vital Signs (Past 12 Hours) Vital Signs Temp Pulse Pulse Pulse Resp BP Pulse Ox 09/23/22 11:30 36.4 C L 80 18 115/62 92 09/23/22 11:00 36.4 C L 82 18 125/63 95 09/23/22 10:30 36.3 C L 83 16 116/57 L 95 09/23/22 10:15 36.3 C L 80 18 95 09/23/22 10:00 36.6 C 86 18 135/85 96 09/23/22 09:45 36.7 C 87 20 143/81 H 97 09/23/22 09:30 36.7 C 79 18 132/67 98 09/23/22 09:25 79 16 129/67 97 09/23/22 09:10 83 16 119/77 97 09/23/22 07:44 73 09/23/22 02:56 36.4 C L 82 20 99/55 L 95 09/22/22 23:45 O2 Del Method O2 Del Method O2 Flow Rate 09/23/22 11:30 Room Air 09/23/22 11:00 Room Air 09/23/22 10:30 Room Air 09/23/22 10:15 Room Air 95 09/23/22 10:00 Room Air 09/23/22 09:45 Room Air 09/23/22 09:30 Room Air 09/23/22 09:25 Room Air 09/23/22 09:10 Room Air 09/23/22 07:44 09/23/22 02:56 Room Air 09/22/22 23:45 Room Air Diagnostic Findings Laboratory Results WBC 7.78 K/ul (4.8-10.8) 09/22/22 04:34 RBC 4.89 M/uL (4.63-6.08) 09/22/22 04:34 Hgb 14.6 g/dl (14.0-18.0) 09/22/22 04:34 Hct 43.3 % (40.1-51.0) 09/22/22 04:34 MCV 88.5 fL (80.0-100.0) 09/22/22 04:34 MCH 29.9 pg (25.0-34.0) 09/22/22 04:34 MCHC 33.7 g/dL (32.0-36.0) 09/22/22 04:34 RDW Std Deviation 43.5 fL (36.4-46.3) 09/22/22 04:34 RDW Coeff of Niya 13.4 % (11.5-14.5) 09/22/22 04:34 Plt Count 203 K/uL (130-400) 09/22/22 04:34 MPV 10.4 fL (9.4-12.4) 09/22/22 04:34 Immature Gran % (Auto) 0.6 % 09/22/22 04:34 Neut % (Auto) 55.5 % 09/22/22 04:34 Lymph % (Auto) 31.4 % 09/22/22 04:34 [place] % (Auto) 7.6 % 09/22/22 04:34 Eos % (Auto) 4.4 % 09/22/22 04:34 Baso % (Auto) 0.5 % 09/22/22 04:34 Neut # (Auto) 4.32 K/uL (1.4-6.5) 09/22/22 04:34 Lymph # (Auto) 2.44 K/uL (1.2-3.4) 09/22/22 04:34 [place] # (Auto) 0.59 K/uL (0.24-0.82) 09/22/22 04:34 Eos # (Auto) 0.34 K/uL (0-0.50) 09/22/22 04:34 Baso # (Auto) 0.04 K/uL (0-0.2) 09/22/22 04:34 Immature Gran # (Auto) 0.05 K/uL (0.00-0.02) H 09/22/22 04:34 PT 12.1 Seconds (9.0-12.0) H 09/23/22 06:16 INR 1.1 (0.9-1.1) 09/23/22 06:16 APTT 25.6 Seconds (21.0-31.0) 09/22/22 04:34 PTT Ratio 0.9 09/22/22 04:34 VBG pH 7.38 (7.36-7.41) 09/22/22 00:05 VBG pCO2 44 mmHg (38-50) 09/22/22 00:05 VBG pO2 49 mmHg 09/22/22 00:05 VBG HCO3 26 mmol/L 09/22/22 00:05 VBG O2 Saturation 78.4 % 09/22/22 00:05 VBG Base Excess 0.5 mEq/L 09/22/22 00:05 Sodium 135 mmol/L (136-145) L 09/23/22 06:16 Potassium 3.6 mmol/L (3.5-5.1) 09/23/22 06:16 Chloride 100 mmol/L (98-107) 09/23/22 06:16 Carbon Dioxide 26 mmol/L (21-32) 09/23/22 06:16 Anion Gap 9 (3-11) 09/23/22 06:16 BUN 48 mg/dl (6-23) H 09/23/22 06:16 Creatinine 1.16 mg/dl (0.6-1.4) 09/23/22 06:16 Est Cr Clr Drug Dosing 54.6 ml/min 09/23/22 06:16 Est GFR ( Amer) 67.1 ml/min 09/23/22 06:16 Est GFR (Non-Af Amer) 57.9 ml/min 09/23/22 06:16 BUN/Creatinine Ratio 41.4 (10-20) H 09/23/22 06:16 Glucose 179 mg/dl (70-99(Fasting)) H 09/23/22 06:16 POC Glucose 174 mg/dl (70-99) H 09/23/22 07:27 Estimat Average Glucose 203 mg/dl 09/22/22 00:05 Hemoglobin A1c 8.7 % (4.5-5.6) H 09/22/22 00:05 Lactate 1.7 mmol/L (0.4-2.0) 09/22/22 00:05 Calcium 10.2 mg/dl (8.5-10.1) H 09/23/22 06:16 Phosphorus 3.2 mg/dl (2.5-4.9) 09/23/22 06:16 Magnesium 1.9 mg/dl (1.7-2.4) 09/23/22 06:16 Total Bilirubin 0.9 mg/dl (0.2-1.0) 09/23/22 06:16 AST 11 U/L (13-39) L 09/23/22 06:16 ALT 12 U/L (7-52) 09/23/22 06:16 Alkaline Phosphatase 59 U/L (34-104) 09/23/22 06:16 Troponin I High Sens 58.3 pg/ml (0-20) H* 09/22/22 04:34 B-Natriuretic Peptide 201 pg/ml (0-100) H 09/21/22 20:45 Total Protein 6.4 gm/dl (6.0-8.3) 09/23/22 06:16 Albumin 3.6 gm/dl (3.4-5.0) 09/23/22 06:16 Globulin 2.8 gm/dl (2.5-4.0) 09/23/22 06:16 Albumin/Globulin Ratio 1.3 (0.9-2) 09/23/22 06:16 25-OH Vitamin D Total 24.5 ng/ml (30-100) L 09/23/22 06:16 Procalcitonin < 0.05 ng/ml (0-0.5) 09/21/22 20:45 PTH Intact 100.6 pg/ml (12.0-88.0) H 09/21/22 20:45 Urine Color Yellow 09/22/22 02:36 Urine Appearance Clear (Clear) 09/22/22 02:36 Urine pH 5.0 (4.5-7.5) 09/22/22 02:36 Ur Specific Wilson 1.017 (1.000-1.030) 09/22/22 02:36 Urine Protein Negative (Negative) 09/22/22 02:36 Urine Glucose (UA) Negative (Negative) 09/22/22 02:36 Urine Ketones Negative (Negative) 09/22/22 02:36 Urine Blood Negative (Negative) 09/22/22 02:36 Urine Nitrite Negative (Negative) 09/22/22 02:36 Urine Bilirubin Negative (Negative) 09/22/22 02:36 Urine Urobilinogen Negative (Negative) 09/22/22 02:36 Ur Leukocyte Esterase Trace (Negative) H 09/22/22 02:36 Urine WBC (Auto) 0 /hpf (0-5) 09/22/22 02:36 Urine RBC (Auto) 0-4 /hpf (0-4) 09/22/22 02:36 U Hyaline Cast (Auto) 0 /lpf (0-5) 09/22/22 02:36 U Epithel Cells (Auto) 0-5 /lpf (0-5) 09/22/22 02:36 Urine Bacteria (Auto) Negative (Negative) 09/22/22 02:36 SARS-CoV-2 (PCR) NEGATIVE (Negative) 09/22/22 00:13 Influenza Type A (PCR) Negative (Neg) 09/22/22 00:13 Influenza Type B (PCR) Negative (Neg) 09/22/22 00:13 RSV (RT-PCR) Negative (Neg) 09/22/22 00:13 Impressions Chest X-Ray 09/21/22 20:36 XR chest 1V portable HISTORY: 82 years-old Male SOB acute shortness breath with chest pain COMPARISON: CTA chest of same day TECHNIQUE: AP view of the chest FINDINGS: Cardiac silhouette is enlarged. Interstitial coarsening with ill-defined bilateral mid to lower lung zone predominant airspace opacities. No pneumothorax or large pleural effusion. Degenerative changes of the shoulders and spine. IMPRESSION: Cardiomegaly with interstitial coarsening and mid to lower lung zone predominant patchy ill-defined airspace opacities. Please refer to the CTA chest study of same day for additional discussion. ACT 112: Negative or not required by law. The above report was generated using voice recognition software. It may contain grammatical, syntax or spelling errors. Electronically signed by: Haile Zamora M.D. 09/22/2022 8:14 AM Chest CTA 09/21/22 22:50 CT angio chest PE protocol HISTORY: 82 years-old Male with sob. Acute chest pain with shortness of breath TECHNIQUE: Multiple CTA images of the chest were obtained after the intravenous administration of 114 ml Optiray. Coronal and sagittal MIPS were obtained from the axial data set and were submitted for review. All measurements were obtained according to NASCET criteria. A dose lowering technique was utilized adhering to the principles of ALARA. COMPARISON: CTA chest 05/31/2007 FINDINGS: CTA: Moderate cardiomegaly without pericardial effusion. Extensive coronary artery calcifications. Atherosclerosis of the thoracic aorta without aneurysm. Unremarkable pulmonary artery. No pulmonary emboli are identified. Segmental and subsegmental branches are slightly dilated at the level of the lung bases secondary to respiratory motion artifact. CT CHEST: No thyroid nodule identified. Mild mediastinal adenopathy with subcarinal lymph nodes measuring up to 1.3 cm. Hilar lymph nodes measure up to 9 mm. No pneumothorax or pleural effusion. Intralobular septal thickening. Reticular interstitial densities are noted with patchy mid to lower lung zone predominant groundglass densities with mild intermixed areas of consolidation. No suspicious pulmonary nodules are identified. Mild bronchial wall thickening. Small hiatal hernia. No acute process of the imaged upper abdomen. The soft tissues are within normal limits. There is no acute fracture. Paracentral/right foraminal disc osteophyte complex at the T11-T12 level results in severe right foraminal narrowing. IMPRESSION: 1. Cardiomegaly without pulmonary emboli identified. 2. Mid to lower lung zone prominent distribution of mixed reticular interstitial and patchy groundglass opacities are suggestive of an infectious or inflammatory pneumonitis such as viral pneumonia. A degree of pulmonary edema may also be present. 3. Bronchial wall thickening suggestive of associated bronchitis. 4. Mild mediastinal and hilar lymphadenopathy is likely reactive. ACT 112: Negative or not required by law. The above report was generated using voice recognition software. It may contain grammatical, syntax or spelling errors. Electronically signed by: Haile Zamora M.D. 09/22/2022 9:[address] 09/21/22 22:50 CT SCAN OF THE BRAIN WITHOUT IV CONTRAST CLINICAL HISTORY: Headache. COMPARISON STUDY: No priors. TECHNIQUE: Unenhanced axial CT scan of the brain is performed from the vertex to the skull base. A dose lowering technique was utilized adhering to the principles of ALARA. CT DOSE: 1426.37 mGy.cm FINDINGS: Brain parenchyma: There is age-related involutional change noting mild subcortical and periventricular microangiopathic disease. There is no hemorrhage, mass effect, or evidence of acute territorial ischemia by CT criteria. Lopez-white matter differentiation is preserved. No extra-axial fluid collection is seen. Ventricles, sulci, cisterns: Prominent secondary to involutional change. Intracranial vasculature: There is atherosclerotic calcification of the cavernous carotid and vertebral arteries. Calvarium: Unremarkable. Sinuses and mastoids: The visualized paranasal sinuses are clear. The mastoid air cells are well pneumatized. Orbits: The bony orbits are grossly intact. IMPRESSION: There is no hemorrhage, mass effect, or evidence of acute territorial ischemia by CT criteria. ACT 112: Negative or not required by law. Electronically signed by: Aldo Menendez M.D. 09/22/2022 7:15 AM Medications Administered Current Inpatient Medications Acetaminophen (Acetaminophen 325 Mg Tab) 650 mg PO Q4H PRN PRN Reason: Pain or Fever Stop: 10/22/22 03:06 Allopurinol (Allopurinol 300 Mg Tab) 300 mg PO DAILY [facility] Stop: 10/22/22 08:59 Last Admin: 09/23/22 09:43 Dose: 300 mg Alprazolam (Alprazolam 0.5 Mg Tablet) 0.5 mg PO Q6H PRN PRN Reason: Anxiety Stop: 10/22/22 03:06 Last Admin: 09/23/22 03:00 Dose: 0.5 mg Aspirin (Aspirin 81 Mg Ectab) 81 mg PO QAM [facility] Stop: 10/22/22 08:59 Last Admin: 09/23/22 09:43 Dose: 81 mg Atorvastatin Calcium (Atorvastatin 40 Mg Tab) 40 mg PO QAM [facility] Stop: 10/23/22 08:59 Last Admin: 09/23/22 09:44 Dose: 40 mg Dextrose (Dextrose 50% 50 Ml Syringe) 25 - 50 ml IV UD PRN; Protocol PRN Reason: Hypoglycemia Protocol Stop: 10/22/22 03:06 Enoxaparin Sodium (Enoxaparin Inj 40 Mg/0.4 Ml Syr) 40 mg SQ QAM [facility] Stop: 10/22/22 08:59 Last Admin: 09/22/22 08:51 Dose: 40 mg Furosemide (Furosemide 40 Mg Tab) 40 mg PO QAM [facility] Stop: 10/23/22 08:59 Last Admin: 09/23/22 09:43 Dose: 40 mg Glucagon (Glucagon For Inj 1 Mg Vial) 1 mg SQ UD PRN; Protocol PRN Reason: Hypoglycemia Protocol Stop: 10/22/22 03:06 Glucose (Glucose 40% Gel 15 Gm Tube) 15 - 30 gm PO UD PRN; Protocol PRN Reason: Hypoglycemia Protocol Stop: 10/22/22 03:06 Glucose (Glucose 10 Tab/Tube) 4 - 8 tab PO UD PRN; Protocol PRN Reason: Hypoglycemia Treatment Stop: 10/22/22 03:06 Promethazine HCl 12.5 mg/ (Sodium Chloride) 50.5 mls @ 202 mls/hr IV Q6H PRN PRN Reason: Nausea And Vomiting Stop: 10/22/22 03:06 Sodium Chloride (Nss 1000ml) 1,000 mls @ 100 mls/hr IV .Q10H [facility] Stop: 09/23/22 14:14 Last Admin: 09/23/22 09:51 Dose: 100 mls/hr Insulin Aspart (Insulin Aspart Per Unit) 0 units SC ACHS [facility] Stop: 10/22/22 03:06 Last Admin: 09/23/22 10:06 Dose: 5 units Insulin Glargine (Lantus Per Unit Charge) 15 units SQ HS [facility] Stop: 10/22/22 20:59 Last Admin: 09/22/22 20:58 Dose: 15 units Lisinopril (Lisinopril 10 Mg Tab) 10 mg PO DAILY [facility] Stop: 10/22/22 08:59 Last Admin: 09/23/22 09:44 Dose: 10 mg Metoprolol Succinate (Metoprolol Succ 50mg Ext Rel Tab) 100 mg PO DAILY [facility] Stop: 10/22/22 08:59 Last Admin: 09/23/22 09:43 Dose: 100 mg Metronidazole (Metronidazole 0.75% Topical Gel 45 Gm Tube) 1 appln TOP DAILY [facility] Stop: 10/02/22 08:59 Last Admin: 09/23/22 09:50 Dose: 1 appln Miscellaneous (Loteprednol Etabonate 0.5 % - Order Awaiting Action) 1 each N/A QS [facility] Stop: 10/22/22 07:59 Last Admin: 09/23/22 09:29 Dose: Not Given Miscellaneous (Carbohydrates For Hypoglycemia ) 15 - 30 gm PO UD PRN PRN Reason: Hypoglycemia Protocol Stop: 10/22/22 03:06 Nitroglycerin (Nitroglycerin Sl 0.4 Mg/Tab Tab) 0.4 mg SL UD PRN PRN Reason: Chest Pain Stop: 10/22/22 03:06 Tramadol HCl (Tramadol Hcl 50 Mg Tablet) 25 - 50 mg PO Q4H PRN PRN Reason: Pain Stop: 10/22/22 03:06
--- NOTE | 2022-09-23 12:04 | Cardiology Progress Note ---
Date of Service September 23, 2022 Assessment & Plan (1) Ischemic cardiomyopathy: (2) CAD (coronary artery disease): (3) Acute HFrEF (heart failure with reduced ejection fraction): Plan 82-year-old male with known coronary disease who presented with decline in functional capacity and evidence of diffuse ischemic cardiomyopathy, dilated on echocardiography. Cardiac catheterization today demonstrates diffuse coronary disease multivessel with 100 percent occlusion of the very proximal right coronary artery, subtotal 99% occlusion of the mid left anterior descending and distal circumflex. Cardiac perfusion being provided by a large diagonal branch and obtuse marginal Ejection fraction estimated 20-25% with normal left end-diastolic pressure. I discussed all findings in detail with patient We will proceed with medical therapies with limited interventional targets. Surgical revascularization could be entertained but with likely only graft targets being diagonal branch and obtuse marginal though feasible if symptoms and clinical status not controlled medically Will reduce lisinopril to 5 mg/day add isosorbide mononitrate 30 mg we will monitor this evening given recent symptom Patient avoid strenuous activity Cardiac rehab on discharge Admission and Anticipated Discharge Date Admission Date: September 22, 2022 Subjective Patient seen and examined, chart, medications, telemetry reviewed. Exam performed both pre and post cardiac catheterization. Currently asymptomatic. Study this morning demonstrated multivessel coronary disease with poor interventional and surgical targets, diffuse cardiomyopathy No chest pain or worsening shortness of breath. No dizziness or lightheadedness. Right radial access site healing well. Review of Systems Review of Systems: All systems reviewed & are unremarkable except as noted in Subjective Physical Exam Constitutional: well developed and well nourished ENMT: external ear and nose normal, oropharynx normal Neck: trachea midline, no thyromegaly Respiratory: normal respiratory effort, lungs clear to auscultation Cardiovascular: Rate/Rhythm: regular rate and regular rhythm Heart Sounds: normal S1, normal S2 and + murmur Vessels: radial pulses present (HemoBand in place without bleeding) Chest (Breasts): normal inspection/palpation of breasts Gastrointestinal (Abdomen): normal bowel sounds, soft, nontender, no hepatosplenomegaly Results & Data ([facility]) Vital Signs (Past 12 Hours) Vital Signs Temp Pulse Pulse Pulse Resp BP Pulse Ox 09/23/22 11:30 36.4 C L 80 18 115/62 92 09/23/22 11:00 36.4 C L 82 18 125/63 95 09/23/22 10:30 36.3 C L 83 16 116/57 L 95 09/23/22 10:15 36.3 C L 80 18 95 09/23/22 10:00 36.6 C 86 18 135/85 96 09/23/22 09:45 36.7 C 87 20 143/81 H 97 09/23/22 09:30 36.7 C 79 18 132/67 98 09/23/22 09:25 79 16 129/67 97 09/23/22 09:10 83 16 119/77 97 09/23/22 07:44 73 09/23/22 02:56 36.4 C L 82 20 99/55 L 95 O2 Del Method O2 Flow Rate 09/23/22 11:30 Room Air 09/23/22 11:00 Room Air 09/23/22 10:30 Room Air 09/23/22 10:15 Room Air 95 09/23/22 10:00 Room Air 09/23/22 09:45 Room Air 09/23/22 09:30 Room Air 09/23/22 09:25 Room Air 09/23/22 09:10 Room Air 09/23/22 07:44 09/23/22 02:56 Room Air Laboratory Results Laboratory Results - last 24 hr 09/22/22 09/22/22 09/22/22 13:13 16:27 20:04 PT INR Sodium Potassium Chloride Carbon Dioxide Anion Gap BUN Creatinine Est Cr Clr Drug Dosing Est GFR ( Amer) Est GFR (Non-Af Amer) BUN/Creatinine Ratio Glucose POC Glucose 264 H 195 H 165 H Calcium Phosphorus Magnesium Total Bilirubin AST ALT Alkaline Phosphatase Total Protein Albumin Globulin Albumin/Globulin Ratio 25-OH Vitamin D Total Vit D 1,25-Dihyd Total 1,25 Dihydroxy Vit D2 1,25 Dihydroxy Vit D3 09/23/22 09/23/22 09/23/22 06:16 06:16 06:16 PT 12.1 H INR 1.1 Sodium 135 L Potassium 3.6 Chloride 100 Carbon Dioxide 26 Anion Gap 9 BUN 48 H Creatinine 1.16 Est Cr Clr Drug Dosing 54.6 Est GFR ( Amer) 67.1 Est GFR (Non-Af Amer) 57.9 BUN/Creatinine Ratio 41.4 H Glucose 179 H POC Glucose Calcium 10.2 H Phosphorus 3.2 Magnesium 1.9 Total Bilirubin 0.9 AST 11 L ALT 12 Alkaline Phosphatase 59 Total Protein 6.4 Albumin 3.6 Globulin 2.8 Albumin/Globulin Ratio 1.3 25-OH Vitamin D Total 24.5 L Vit D 1,25-Dihyd Total 1,25 Dihydroxy Vit D2 1,25 Dihydroxy Vit D3 09/23/22 09/23/22 09/23/22 06:16 07:27 11:46 PT INR Sodium Potassium Chloride Carbon Dioxide Anion Gap BUN Creatinine Est Cr Clr Drug Dosing Est GFR ( Amer) Est GFR (Non-Af Amer) BUN/Creatinine Ratio Glucose POC Glucose 174 H 355 H* Calcium Phosphorus Magnesium Total Bilirubin AST ALT Alkaline Phosphatase Total Protein Albumin Globulin Albumin/Globulin Ratio 25-OH Vitamin D Total Vit D 1,25-Dihyd Total Pending 1,25 Dihydroxy Vit D2 Pending 1,25 Dihydroxy Vit D3 Pending 09/23/22 11:47 PT INR Sodium Potassium Chloride Carbon Dioxide Anion Gap BUN Creatinine Est Cr Clr Drug Dosing Est GFR ( Amer) Est GFR (Non-Af Amer) BUN/Creatinine Ratio Glucose POC Glucose 329 H* Calcium Phosphorus Magnesium Total Bilirubin AST ALT Alkaline Phosphatase Total Protein Albumin Globulin Albumin/Globulin Ratio 25-OH Vitamin D Total Vit D 1,25-Dihyd Total 1,25 Dihydroxy Vit D2 1,25 Dihydroxy Vit D3 Diagnostic Findings Cardiac catheterization 09/23/2022 Summary of Findings Impression: Right dominant anatomy with severe multivessel coronary disease including proximal right coronary occlusion subtotal mid LAD stenosis and diffuse atherosclerosis all vessels with limited interventional targets Ischemic cardiomyopathy, dilated EF 20-25% with normal left end-diastolic pressure Mild mitral insufficiency Mild aortic valve gradient 10 mm peak to peak Procedure: Left heart catheterization, coronary, LV angiography via right radial access Catheters: 6 Syriac long Stringer sheath, 5 Syriac Thor, 5 Syriac JR4, 5 Syriac angled pigtail Coronary angiography: Right dominant anatomy (visualized via collateral fill) Left main: Long with moderate calcification and a 25% distal taper Left anterior descending: Type III in distribution. It gives rise to a large septal branch in its proximal portion, a large diagonal branch at the end of its proximal third. The left anterior descending is diffusely diseased with a long calcified 60% stenosis shortly after its origin. The vessel was then subtotally occluded 99% in its mid portion after the diagonal branch, the distal vessel filling faintly via bridge collaterals. The left anterior descending diagonal has an 75% stenosis in its proximal third. This is a long vessel which parallels the left anterior descending to the apex Left circumflex: Gives rise to an early high marginal branch large in caliber and trifurcating in its distribution and turns along the AV groove to give rise to a small posterolateral branch. Left circumflex has diffuse calcification in its proximal portion. The large obtuse marginal has a 50% narrowing in its proximal portion with mild diffuse ectasia. The circumflex beyond the obtuse marginal has a 99% subtotal stenosis and continues to thinly fill the posterolateral branch Right coronary artery: Dominant vessel that is bluntly occluded shortly after its origin. There is minimal filling of the mid vessel via bridge collaterals. The distal vessel fills via left to right collaterals retrograde to the AV groove demonstrating two thin, diffusely diseased posterolateral branches and a thin posterior descending artery. The mid vessel is heavily calcified and not opacified with contrast LV angiography: Left ventricle was dilated. There is akinesis of the inferior wall base to apex and severe hypokinesis of all other segments EF 20 to 25%. There is mild mitral insufficiency Hemodynamics left ventricular end-diastolic pressure was 8. There is a 10 mm peak to peak aortic valve gradient on pullback
--- NOTE | 2022-09-23 16:52 | Electrocardiogram Report ---
Test Reason : Blood Pressure : / mmHG Vent. Rate : 077 BPM Atrial Rate : 077 BPM P-R Int : 216 ms QRS Dur : 138 ms QT Int : 416 ms P-R-T Axes : 068 000 040 degrees QTc Int : 470 ms Sinus rhythm with 1st degree A-V block Non-specific intra-ventricular conduction block Cannot rule out Inferior infarct , age undetermined Abnormal ECG When compared with ECG of 21-SEP-2022 20:40, Premature ventricular complexes are no longer Present ME interval has increased Confirmed by Evaristo Smith ([id number]) on 09/23/2022 4:52:48 PM Referred By: Janel Sutton Confirmed By:Evaristo Smith
[2022-09-23] MEDS: LANTUS PER UNIT CHARGE SQ SCH (21:12)
[2022-09-24 07:15] LABS: BUN Creatinine Ratio 35.7 (10-20); Calcium 9.6 mg/dl (8.5-10.1); Creatinine Clr Calc Pharmacy 56.4 ml/min; Est GFR (Non-African American) 60.4 ml/min; Magnesium 1.8 mg/dl (1.7-2.4); Phosphorus 2.8 mg/dl (2.5-4.9); Potassium 4.4 mmol/L (3.5-5.1)
[2022-09-24] MEDS: METOPROLOL SUCC 50MG EXT REL TAB PO SCH (08:20)
[2022-09-24] MEDS: ATORVASTATIN 40 MG TAB PO SCH (08:20)
[2022-09-24] MEDS: metroNIDAZOLE 0.75% TOPICAL GEL 45 GM TUBE TOP SCH (08:20)
[2022-09-24] MEDS: allopurinoL 300 MG TAB PO SCH (08:21)
[2022-09-24] MEDS: FUROSEMIDE 40 MG TAB PO SCH (08:21)
[2022-09-24] MEDS: ASPIRIN 81 MG ECTAB PO SCH (08:21)
[2022-09-24] MEDS: INSULIN ASPART PER UNIT SC SCH ×2 (08:36→12:33)
[2022-09-24] MEDS ORDERED: lisinopril 5 MG TAB PO SCH (09:00)
[2022-09-24] MEDS ORDERED: ISOSORBIDE MONO EXTENDED REL 30 MG TABCR PO SCH (09:00)
--- NOTE | 2022-09-24 12:31 | Discharge Summary ---
Date of Service September 24, 2022 Admission HPI Per Admitting Provider History obtained from patient and records. Medical history significant for CAD status post angioplasty, mild aortic regurgitation, hypertension, DM2 on oral medications, hyperlipidemia, gout, skin cancer as per records, past tobacco abuse. Last confinement 2015 for sepsis secondary to URTI, UTI. 2 weeks history of shortness of breath without cough symptoms. Started after respiratory infection last month. No cough symptoms. Patient completed COVID-19 vaccination. Fluid retention without weight gain. No chest pain. Patient seen at PCPs office yesterday. Outpatient CXR showed : Bilateral lower lobe peribronchial thickening. Ill- defined bibasilar ground-glass opacities are noted which may represent infection or atelectasis. Outpatient serum troponin and calcium noted to be elevated. Patient sent to the ER for evaluation. IV Lasix administered at the ER. 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 Admission Exam Per Admitting Provider GENERAL: Slightly uncomfortable, obese, pleasant, minimal respiratory distress SKIN: Normal color, warm HEENT: [place] palpebral conjunctivae, no ptosis, dry buccal mucosa NECK : Supple, no tenderness CHEST : Decreased breath sounds, scattered expiratory wheezes, no tenderness HEART : RRR, no obvious murmurs ABDOMEN: Some distention, nontender EXTREMITIES : Bilateral LE swelling, no LE tenderness, no other conspicuous deformities noted NEUROLOGIC : Coherent, no facial asymmetry, no other gross focality Principal Diagnosis CHF from CAD with multivessel disease Discharge Exam GENERAL: Slightly uncomfortable, obese, pleasant, minimal respiratory distress SKIN: Normal color, warm HEENT: [place] palpebral conjunctivae, no ptosis, dry buccal mucosa NECK : Supple, no tenderness CHEST : Decreased breath sounds, CTAB, no tenderness HEART : RRR, no obvious murmurs ABDOMEN: Some distention, nontender EXTREMITIES : no edema, no LE tenderness, no other conspicuous deformities noted NEUROLOGIC : Coherent, no facial asymmetry, no other gross focality Discharge Data Allergies Allergy/AdvReac Type Severity Reaction Status Date / Time alfuzosin Allergy Unknown UNKN Verified 09/21/22 23:45 Consultations 09/21/22 22:40 ED Decision to Admit Stat 09/22/22 03:07 Consult Cardiology Routine Consult Nephrology Routine 09/23/22 09:00 Consult Cardiac Catheterization Routine Procedures Performed Operation Date: 09/23/22 08:00 Actual Procedures p Cineradiography w/Routine Exam - Aram Romero MD p Cath, Left with Cors and Vent - Aram Romero MD Ordered Studies 09/21/22 22:50 CT angio chest PE protocol Urgent CT head/brain wo con Urgent 09/23/22 06:48 CL Cath Imgs for PACS use only Routine Hospital Course (1) Acute HFrEF (heart failure with reduced ejection fraction): - unclear chronicity however patient has been on GDMT prior to admission - worsening functional status over last 2-3 weeks following URI - has some LE edema but lungs are CTAB - Cardiology consulted and does not feel this is acute exacerbation of CHF with benign exam and BNP at 200 - s/p IV lasix on admission - continue GDMT as tolerated - continue on PO lasix 40mg daily per Cardiology - s/p [facility] 09/23/2022 with multivessel disease and extensive stenosis but not amenable to PCI - discussion with Cardiology and patient and will likely proceed with medical management given risks of CABG in 82 year old man - medication adjustments per Cardiology - lisinopril reduced to 5mg daily, started on imdur 30mg daily - follow up with Cardiology outpatient (2) Diabetes: - A1c 8.7% 09/2022 - on po meds as outpatient - hold while inpatient - started on Lantus and SSI while inpatient - FSG AC+HS - diabetic diet (3) CAD (coronary artery disease): - history of remote AL - denies chest pain at rest or with ambulation - continue aspirin and statin - cardiac cath as above - imdur added as above - Cardiology follow up outpatient - telemetry monitoring Plan DVT ppx: lovenox Code Status: Full Code Dispo: telemetry Junaid Harris MD [facility] Medicine Total Time Total Time Spent Total Time Spent (In Minutes): 45 Total Time Includes: Examination of the Patient, Discharge Planning, Medication Reconciliation and Communication With Other Providers Discharge Plan Discharge Items Patient Disposition: Home - Self-Care Reason For Visit: CHF, HYPERCALCEMIA Discharge Diagnosis: CHF Activity: Resume your previous activity Non-emergency contact: Primary Care Provider and Gospel Worker Call non-emergency contact if: you have any medication questions and your symptoms worsen Follow-up/Referrals: Aram Romero MD [Physician] - Rene Green DO [Primary Care Provider] - (Date & Time 09/29/2022 3:00 PM Provider Radha Daigle DO Department [facility] ) Diet: Carb Consistent or DM2 and Heart Healthy Addtl Attending Provider Instructions: You were admitted with worsening shortness of breath, found to have extensive coronary disease on cardiac catheterization with the Cardiologists. you and the Gospel Worker had a conversation about treatment and medical treatment seemed like the best option at this time and for follow up with Cardiology. You were started on a new medication called isosorbide mononitrate 30mg daily and your li sinopril was decreased to 5mg daily. You are advised to avoid strenuous exercise and follow up with Cardiology on discharge as well as your primary care doctor. Pending Studies at Discharge: No Stand-Alone Forms: My [facility] [employer], Smoking Cessation Medications and DC Order Prescriptions: New isosorbide mononitrate 30 mg Tablet Extended Release 24 Hr 30 mg PO QAM Qty: 30 0RF nitroglycerin [Nitrostat] 0.4 mg Tablet, Sublingual 0.4 mg sublingual UD PRN (Reason: chest pain) Qty: 20 0RF aspirin 81 mg Tablet,Delayed Release (Dr/Ec) 81 mg PO QAM Qty: 30 0RF Continued silver sulfadiazine 1 % cream 1 applic TOPICAL DAILY glipizide 10 mg tablet extended release 24hr 10 mg PO AMHS metoprolol succinate 100 mg Tablet Extended Release 24 Hr 100 mg PO DAILY triamterene-hydrochlorothiazid 37.5-25 mg Capsule 1 cap PO DAILY alprazolam 0.5 mg Tablet 0.25 mg PO HS PRN (Reason: Anxiety) allopurinol 300 mg Tablet 300 mg PO DAILY loteprednol etabonate 0.5 % drops,suspension 1 drp OPR DIRECTED PRN (Reason: .Irritation) albuterol sulfate 90 mcg/actuation HFA aerosol inhaler 2 puff INHALATION Q4 PRN (Reason: Shortness Of Breath) metronidazole [Metrogel] 0.75 % Gel 1 applic TOPICAL DAILY sulindac 200 mg tablet 200 mg PO QAM Farxiga 10 mg Tablet 10 mg PO DAILY PreserVision Lutein 226-90-0.8-5 mg Capsule 1 cap PO BID Changed lisinopril 10 mg Tablet 5 mg PO DAILY Qty: 20 0RF atorvastatin 20 mg tablet 40 mg PO QAM Qty: 60 0RF furosemide [Lasix] 20 mg Tablet 40 mg PO DAILY Qty: 60 0RF Discontinued aspirin 325 mg Tablet 325 - 650 mg PO BID PRN (Reason: Pain) Discharge Orders: Discharge Order (Routine); Ordered 09/24/22 Ordered By: Junaid Harris Admission Data Admit Date/Time: 09/22/22 00:33 Attending Provider: Junaid Harris Admit Provider: Zachary Forbes Primary Care Provider: Rene Green Other Providers: Zachary Forbes ; Demar Rocha ; Saqib Marx ; Aram Romero ; Efrain Saunders ; Zion Barboza ; Misael Romero ; Michelle Sims ; Lyly De Guzman ; Inocencia Finney ; Oracio Curiel ; Mamta Hui ; Sarabjit Espinoza ; Ashlie Kirk ; Coco Hylton ; Car Canela ; Radha Nugent
--- NOTE | 2022-09-24 13:54 | Cardiology Progress Note ---
Date of Service September 24, 2022 Assessment & Plan (1) Ischemic cardiomyopathy: (2) CAD (coronary artery disease): (3) Acute HFrEF (heart failure with reduced ejection fraction): Plan 82-year-old male with known coronary disease who presented with decline in functional capacity and evidence of diffuse ischemic cardiomyopathy, dilated on echocardiography. Cardiac catheterization today demonstrates diffuse coronary disease multivessel with 100 percent occlusion of the very proximal right coronary artery, subtotal 99% occlusion of the mid left anterior descending and distal circumflex. Cardiac perfusion being provided by a large diagonal branch and obtuse marginal Ejection fraction estimated 20-25% with normal left end-diastolic pressure. Tolerated medication changes made status post cath We will continue to treat his complex coronary disease medically Will need cardiac rehab upon discharge Okay to DC to home on current medical regimen Restrictions reviewed with the patient Our office will call to arrange close follow-up in the next 1 to 2 weeks. Admission and Anticipated Discharge Date Admission Date: September 22, 2022 Subjective Patient seen and examined. Chart reviewed. Telemetry reviewed. No complaints overnight. Review of Systems Review of Systems: All systems reviewed & are unremarkable except as noted in HPI & below Physical Exam Physical Exam: General: Awake, alert and oriented x 3. No acute distress. HEENT: Normocephalic, atraumatic. Pupils equal, round and reactive to light and accommodation. Extraocular muscles are intact. Anicteric sclera. Moist mucous membranes. Neck: No JVD. No bruit. Cardiovascular: Regular. Positive S-4. Normal S-1 and S-2. No S-3. 3/6 holosystolic ejection murmur, left sternal border, mid-clavicular line with rad iation to the axilla. No rubs. Pulmonary: Coarse breath sounds diffusely with scattered rhonchi. No rales or wheezing Abdomen: Bowel sounds x 4, soft. No rebound, guarding or tenderness. No organomegaly. Extremities: No clubbing, cyanosis or edema. +2 pedal pulses bilaterally. Skin: Warm and dry. Results & Data ([facility]) Vital Signs (Past 12 Hours) Vital Signs Temp Pulse Pulse Pulse Resp BP Pulse Ox 09/24/22 13:11 36.8 C 84 82 18 124/72 95 09/24/22 07:30 09/24/22 11:30 36.8 C 84 18 124/72 95 09/24/22 08:00 36.9 C 77 20 118/60 97 09/24/22 07:30 72 09/24/22 02:55 36.7 C 85 17 121/65 94 O2 Del Method 09/24/22 13:11 09/24/22 07:30 Room Air 09/24/22 11:30 Room Air 09/24/22 08:00 Room Air 09/24/22 07:30 09/24/22 02:55 Room Air
[2022-09-29 19:16] LABS: Vitamin D 1,25 24 pg/mL (18-72); Vitamin D3,1,25 24 pg/mL
== END 2022-09-24 14:06 | disposition home or self-care (01) | DRG 286 ==
LOC: ED 20:24 → EDINP 09-22 00:33 → 2E 09-22 03:08

== ENCOUNTER 2022-11-02 16:17 | Inpatient (IN) ==
--- NOTE | 2022-11-02 18:06 | XRay Report ---
XR chest 1V portable HISTORY: Atypical chest pain. COMPARISON: Chest 09/21/2022. FINDINGS: No pneumothorax. No pleural effusions. The heart remains mildly enlarged. Diffuse interstit ial thickening with patchy bibasilar airspace opacities persist. IMPRESSION: 1. No significant change in the diffuse interstitial thickening with patchy bibasilar airspace opacit ies. This may represent an atypical pneumonia with superimposed mild congestive change. 2. Stable mild cardiomegaly. ACT 112: Negative or not required by law. Electronically signed by: Haris Grier M.D. 11/02/2022 6:05 PM
[2022-11-02 18:28] LABS: Basophils # (auto) 0.05 K/uL (0-0.2); Basophils % (auto) 0.6 %; Eosinophils # (auto) 0.21 K/uL (0-0.50); Eosinophils % (auto) 2.4 %; Hematocrit (blood only) 44.2 % (40.1-51.0); Hemoglobin 14.1 g/dl (14.0-18.0); Immature Granulocytes # (auto) 0.04 K/uL (0.00-0.02); Immature Granulocytes % (auto) 0.5 %; Lymphocytes # (auto) 1.93 K/uL (1.2-3.4); Lymphocytes % (auto) 21.8 %; Mean Corpuscular Hemoglobin 29.3 pg (25.0-34.0); Mean Corpuscular Hgb Conc 31.9 g/dL (32.0-36.0); Mean Corpuscular Volume 91.7 fL (80.0-100.0); Mean Platelet Volume 10.7 fL (9.4-12.4); Monocytes # (auto) 0.78 K/uL (0.24-0.82); Monocytes % (auto) 8.8 %; Neutrophils # (auto) 5.86 K/uL (1.4-6.5); Neutrophils % (auto) 65.9 %; Platelet Count 185 K/uL (130-400); RDW Coefficient of Variation 15.7 % (11.5-14.5); RDW Standard Deviation 51.4 fL (36.4-46.3); Red Blood Count 4.82 M/uL (4.63-6.08); White Blood Count 8.87 K/ul (4.8-10.8)
[2022-11-02 18:40] LABS: INR 1.2 (0.9-1.1); Partial Thromboplastin Ratio 1.1; Partial Thromboplastin Time 30.3 Seconds (21.0-31.0); Prothrombin Time 12.4 Seconds (9.0-12.0)
[2022-11-02 18:56] LABS: Albumin Level 3.9 gm/dl (3.4-5.0); Bilirubin,Total 0.8 mg/dl (0.2-1.0); Calcium 9.9 mg/dl (8.5-10.1); Potassium 4.4 mmol/L (3.5-5.1)
[2022-11-02 19:02] LABS: Albumin Globulin Ratio 1.3 (0.9-2); BUN Creatinine Ratio 41.5 (10-20); Creatinine Clr Calc Pharmacy 47.4 ml/min; Est GFR (African American) 65.7 ml/min; Est GFR (Non-African American) 56.7 ml/min; Globulin 2.9 gm/dl (2.5-4.0); Total Protein 6.8 gm/dl (6.0-8.3)
[2022-11-02 19:04] LABS: Troponin I High Sensitivity 24.4 pg/ml (0-20)
[2022-11-02] MEDS ORDERED: BUMETANIDE 1 MG in SYRINGE 0 ML IV STA (20:16)
--- NOTE | 2022-11-02 20:31 | Emergency Department Note ---
Impression & Plan SOB (shortness of breath), CHF (congestive heart failure), Pedal edema, CAD (coronary atherosclerotic disease) ED Provider Note NAME: MINAL ORTIZ Jr AGE: 82 SEX: M : 1940 ARRIVES VIA: Walk-In INFORMANT: [Patient] ED PROVIDER(S): [Aldo Gaona MD] CHIEF COMPLAINT: Cardiac assessment, short of breath HISTORY OF PRESENT ILLNESS: The patient is an 82-year-old male who presents to the ER with 3 days of increasing shortness of breath. The patient notices the shortness of breath primarily with exertion. He does carry a history of CHF. He was admitted to our hospital about a month ago for similar symptoms. Patient is on diuretics but he states, these really have not helped. Patient saw his family doctor today and then also cardiology. He was referred to the ER for probable admission and diuresis. There iha been no fever, no real increased cough. He has noticed increasing leg edema. No vomiting or diarrhea. PMHx/PSHx: See Below SOCIAL HISTORY: See Below. PHYSICAL EXAM: GENERAL: Patient is in no acute distress. HEENT: No acute trauma, normocephalic atraumatic, mucous membranes moist, no nasal congestion. NECK: No stridor, no adenopathy, no meningismus, trachea is midline. LUNGS: Crackles bilaterally, no wheezing. The patient does seem mildly short of breath with exertion-this was noted as he walked back from the bathroom. HEART: Mildly tachycardic, subtle systolic murmur, regular rhythm. ABDOMEN: Soft, nontender, bowel sounds positive, no peritonitis. EXTREMITIES: No cyanosis, moderate bilateral pedal edema, full range of motion of all the joints without pain or difficulty, no signs for acute trauma. NEUROLOGIC: Oriented x 3, no acute motor or sensory deficits, no focal weakness. SKIN: No rash, no jaundice, no diaphoresis. Pale. DIFFERENTIAL DIAGNOSIS: Reactive airway disease, pneumonia, pneumothorax, COPD, CHF, infection, cardiac ischemia, anemia, pulmonary embolism, bronchitis, as well as other pathologies. EMERGENCY DEPARTMENT COURSE/PROCEDURES: Prior/Outside records reviewed: Previous discharge summary report. ECG per my interpretation: Indication was shortness of breath. The ECG shows what appears to be a sinus rhythm with a first-degree AV block. PVCs are seen. The rate is 93. There is a nonspecific intraventricular block. There is no ST elevation. Baseline artifact is seen. The QTc is 450. Compared to an ECG from 23 September 2022, PVCs are now present. Continuous Cardiac Monitoring per my interpretation: An order was placed for continuous cardiac monitoring. The monitor shows a rate of 88 with sinus rhythm with PVCs.. MEDICAL DECISION MAKING: There is no leukocytosis or concerning anemia. There is a normal platelet count. INR slightly elevated at 1.2. No renal failure. No significant elec trolyte abnormality in need of emergent correction. No concerning liver enzyme elevation. ECG shows a sinus rhythm with a first-degree AV block, no obvious acute ischemia. Cardiac enzyme testing x1 is slightly elevated. This elevation could be consistent with cardiac injury and/or potentially mismatch. BNP was elevated consistent with fluid overload. Chest x-ray appears to show heart failure. No pneumothorax. COVID test was negative. On exam, crackles were heard across his lung barrios, he did have some pedal edema. The patient received IV Bumex to help with diuresis. The patient presents fluid overloaded. He was referred to our ED by cardiology. I do think the patient requires a hospital stay for diuresis. I believe he is short of breath because of CHF. I spoke with the patient and case management, the on-call hospitalist was consulted. DISPOSITION: The patient's presentation and findings warrant a hospital stay. Past Med/Surg History Medical History Acute HFrEF (heart failure with reduced ejection fraction) CAD (coronary artery disease) CHF (congestive heart failure) Diabetes No pertinent family history Surgical History No pertinent past surgical history Social History Smoking Status: Former smoker Tobacco Type: Cigarettes Second Hand Exposure: No; Do You Dip or Chew Tobacco: No; Hx Alcohol Use: Yes Alcohol type: beer, wine and hard liquor Hx Substance Use: No Preferred Language: Irish Communication Ability: Effective Sofa Back Upholsterer Required: No Beliefs That Will Affect Care: None Current Living Situation: Alone Feels Safe at Home: Yes Safety Concerns: Feels Safe At This Time Assistive Devices: Cane, Glasses and Walker Allergies Allergies Allergy/AdvReac Type Severity Reaction Status Date / Time flaviouzosin Allergy Unknown UNKN Verified 11/02/22 21:03 Home Meds Home Medications Medication Instructions Recorded Confirmed albuterol sulfate 90 mcg/actuation 2 puff inhalation Q4 PRN Shortness 09/21/22 11/02/22 aerosol inhaler Of Breath alprazolam 0.5 mg tablet 0.5 mg PO HS PRN Anxiety 09/21/22 11/02/22 glipizide 10 mg tablet, extended 10 mg PO AMHS 09/21/22 11/02/22 release 24 hr loteprednol etabonate 0.5 % eye 1 drp OPR DIRECTED PRN 09/21/22 11/02/22 drops,suspension .Irritation metoprolol succinate 100 mg 100 mg PO DAILY 09/21/22 11/02/22 tablet,extended release 24 hr metronidazole 0.75 % topical gel 1 applic topical DAILY 09/21/22 11/02/22 silver sulfadiazine 1 % topical 1 applic topical DAILY 09/21/22 11/02/22 cream vit C 226 mg-vit E 90 mg-copper 1 cap PO BID 09/22/22 11/02/22 0.8 mg-zinc oxide-lutein 5 mg capsule (PreserVision Lutein) Ropivacaine 1.5mg 0.3 ml OPB DIRECTED 11/02/22 11/02/22 aflibercept 2 mg/0.05 mL 0 mg intravitreal DIRECTED 11/02/22 11/02/22 intravitreal solution for injection (Eylea) allopurinol 300 mg tablet 450 mg PO QAM 11/02/22 11/02/22 empagliflozin 25 mg tablet 25 mg PO QAM 11/02/22 11/02/22 (Jardiance) furosemide 20 mg tablet 20 mg PO QPM 11/02/22 11/02/22 furosemide 20 mg tablet (Lasix) 40 mg PO QAM 11/02/22 11/02/22 indomethacin 50 mg capsule 50 mg PO TID PRN Pain 11/02/22 11/02/22 lisinopril 5 mg tablet 5 mg PO QAM 11/02/22 11/02/22 mirtazapine 15 mg tablet 15 mg PO HS 11/02/22 11/02/22 Previous Rx's Medication Instructions Recorded aspirin 81 mg tablet,delayed 81 mg PO QAM #30 tabs 09/24/22 release atorvastatin 20 mg tablet 40 mg PO QAM #60 tabs 09/24/22 isosorbide mononitrate 30 mg 30 mg PO QAM #30 tabs 09/24/22 tablet,extended release 24 hr Results & Data (ED) Vital Signs Vital Signs - 24 hr 11/02/22 16:26 11/02/22 20:23 Temperature 36.5 C Temperature Source Temporal Artery Scan Pulse Rate 106 H 88 Pulse Rate from SpO2 Sensor 90 Respiratory Rate 19 27 H Respiratory Effort / Characteristics Non-Labored Spontaneous Respiratory Depth Normal Blood Pressure 121/59 L 125/74 Blood Pressure Mean 79 91 Pulse Oximetry 95 96 Oxygen Delivery Method Room Air Room Air Sepsis Recent Fever Within 48 Hours No Sepsis New/Unexplained Change in Mental Status N/A Sepsis Action Taken by Nursing No Action Required Home Medications Current Medication List: was personally reviewed by me Laboratory Data Attestation: I reviewed the patient's lab results. 11/02/22 18:15 11/02/22 18:15 Lab Results 11/02/22 11/02/22 11/02/22 Range/Units 18:15 18:15 18:15 WBC 8.87 (4.8-10.8) K/ul RBC 4.82 (4.63-6.08) M/uL Hgb 14.1 (14.0-18.0) g/dl Hct 44.2 (40.1-51.0) % MCV 91.7 (80.0-100.0) fL MCH 29.3 (25.0-34.0) pg MCHC 31.9 L (32.0-36.0) g/dL RDW Std Deviation 51.4 H (36.4-46.3) fL RDW Coeff of Niya 15.7 H (11.5-14.5) % Plt Count 185 (130-400) K/uL MPV 10.7 (9.4-12.4) fL Immature Gran % (Auto) 0.5 % Neut % (Auto) 65.9 % Lymph % (Auto) 21.8 % Larue % (Auto) 8.8 % Eos % (Auto) 2.4 % Baso % (Auto) 0.6 % Neut # (Auto) 5.86 (1.4-6.5) K/uL Lymph # (Auto) 1.93 (1.2-3.4) K/uL Larue # (Auto) 0.78 (0.24-0.82) K/uL Eos # (Auto) 0.21 (0-0.50) K/uL Baso # (Auto) 0.05 (0-0.2) K/uL Immature Gran # (Auto) 0.04 H (0.00-0.02) K/uL PT 12.4 H (9.0-12.0) Seconds INR 1.2 H (0.9-1.1) APTT 30.3 (21.0-31.0) Seconds PTT Ratio 1.1 Sodium 141 (136-145) mmol/L Potassium 4.4 (3.5-5.1) mmol/L Chloride 103 (98-107) mmol/L Carbon Dioxide 26 (21-32) mmol/L Anion Gap 12 H (3-11) BUN 49 H (6-23) mg/dl Creatinine 1.18 (0.6-1.4) mg/dl Est Cr Clr Drug Dosing 47.4 ml/min Est GFR ( Amer) 65.7 ml/min Est GFR (Non-Af Amer) 56.7 ml/min BUN/Creatinine Ratio 41.5 H (10-20) Glucose 148 H (70-99(Fasting)) mg/dl Calcium 9.9 (8.5-10.1) mg/dl Total Bilirubin 0.8 (0.2-1.0) mg/dl AST 22 (13-39) U/L ALT 24 (7-52) U/L Alkaline Phosphatase 76 (34-104) U/L Troponin I High Sens 24.4 H (0-20) pg/ml B-Natriuretic Peptide (0-100) pg/ml Total Protein 6.8 (6.0-8.3) gm/dl Albumin 3.9 (3.4-5.0) gm/dl Globulin 2.9 (2.5-4.0) gm/dl Albumin/Globulin Ratio 1.3 (0.9-2) SARS-CoV-2, RNA, NAAT (NEGATIVE) 11/02/22 11/02/22 Range/Units 18:15 18:15 WBC (4.8-10.8) K/ul RBC (4.63-6.08) M/uL Hgb (14.0-18.0) g/dl Hct (40.1-51.0) % MCV (80.0-100.0) fL MCH (25.0-34.0) pg MCHC (32.0-36.0) g/dL RDW Std Deviation (36.4-46.3) fL RDW Coeff of Niya (11.5-14.5) % Plt Count (130-400) K/uL MPV (9.4-12.4) fL Immature Gran % (Auto) % Neut % (Auto) % Lymph % (Auto) % Larue % (Auto) % Eos % (Auto) % Baso % (Auto) % Neut # (Auto) (1.4-6.5) K/uL Lymph # (Auto) (1.2-3.4) K/uL Larue # (Auto) (0.24-0.82) K/uL Eos # (Auto) (0-0.50) K/uL Baso # (Auto) (0-0.2) K/uL Immature Gran # (Auto) (0.00-0.02) K/uL PT (9.0-12.0) Seconds INR (0.9-1.1) APTT (21.0-31.0) Seconds PTT Ratio Sodium (136-145) mmol/L Potassium (3.5-5.1) mmol/L Chloride (98-107) mmol/L Carbon Dioxide (21-32) mmol/L Anion Gap (3-11) BUN (6-23) mg/dl Creatinine (0.6-1.4) mg/dl Est Cr Clr Drug Dosing ml/min Est GFR ( Amer) ml/min Est GFR (Non-Af Amer) ml/min BUN/Creatinine Ratio (10-20) Glucose (70-99(Fasting)) mg/dl Calcium (8.5-10.1) mg/dl Total Bilirubin (0.2-1.0) mg/dl AST (13-39) U/L ALT (7-52) U/L Alkaline Phosphatase (34-104) U/L Troponin I High Sens (0-20) pg/ml B-Natriuretic Peptide 509 H (0-100) pg/ml Total Protein (6.0-8.3) gm/dl Albumin (3.4-5.0) gm/dl Globulin (2.5-4.0) gm/dl Albumin/Globulin Ratio (0.9-2) SARS-CoV-2, RNA, NAAT NEGATIVE (NEGATIVE) Administered Medications Heparin Sodium (Porcine) (Heparin Sod 5,000 Unit/0.5 Ml Vial) 5,000 units SQ Q8 MARTA Stop: 12/02/22 23:34 Last Admin: 11/03/22 00:44 Dose: 5,000 units Documented By: MIO Insulin Aspart (Insulin Aspart Per Unit) 0 units SC Q6 MARTA Stop: 12/02/22 23:34 Last Admin: 11/03/22 00:33 Dose: Not Given Documented By: MIO Discontinued Medications Bumetanide 1 mg/ Syringe 4 mls @ 4 mls/min IV NOW STA Stop: 11/02/22 20:17 Last Admin: 11/02/22 20:48 Dose: 4 mls/min Documented By: DP Imaging Data Radiologist's Impression: Chest X-Ray 11/02/22 16:28 XR chest 1V portable HISTORY: Atypical chest pain. COMPARISON: Chest 09/21/2022. FINDINGS: No pneumothorax. No pleural effusions. The heart remains mildly enlarged. Diffuse interstitial thickening with patchy bibasilar airspace opacities persist. IMPRESSION: 1. No significant change in the diffuse interstitial thickening with patchy bibasilar airspace opacities. This may represent an atypical pneumonia with superimposed mild congestive change. 2. Stable mild cardiomegaly. ACT 112: Negative or not required by law. Electronically signed by: Haris Grier M.D. 11/02/2022 6:05 PM Discharge Plan Visit Data Chief Complaint: Cardiac Assessment Stated Complaint: REF BY DOC,SOB, EVAULATION FOR CARRDIAC ED Provider: Aldo Gaona Discharge Problem: SOB (shortness of breath), CHF (congestive heart failure), Pedal edema, CAD (coronary atherosclerotic disease) Patient Disposition: Admitted As Inpatient Condition: Fair Discharge Instructions Interventions: ED Discharge Assessment Last Done: 11/02/22 22:59 : CHF (congestive heart failure) Qualifiers: Heart failure type: unspecified Heart failure chronicity: acute on chronic Qualified Code(s): I50.9 - Heart failure, unspecified CAD (coronary atherosclerotic disease) Qualifiers: Coronary Disease-Associated Artery/Lesion type: unspecified vessel or lesion type [place] vs. transplanted heart: [place] heart Associated angina: unspecified whether angina present Qualified Code(s): I25.10 - Atherosclerotic heart disease of [place] coronary artery without angina pectoris
[2022-11-02] MEDS ORDERED: GLUCOSE 40% GEL 15 GM TUBE PO PRN (23:35)
[2022-11-02] MEDS ORDERED: ALBUTEROL HFA 8 GM INHALER INH PRN (23:35)
[2022-11-02] MEDS ORDERED: NITROGLYCERIN SL 0.4 MG/TAB TAB SL PRN (23:35)
[2022-11-02] MEDS ORDERED: ALPRAZolam 0.5 MG TABLET PO PRN (23:35)
[2022-11-02] MEDS ORDERED: CARBOHYDRATES FOR HYPOGLYCEMIA PO PRN (23:35)
[2022-11-02] MEDS ORDERED: DEXTROSE 50% 50 ML SYRINGE IV PRN (23:35)
[2022-11-02] MEDS ORDERED: POLYETHYLENE (MIRALAX) 17 GM PACK PO PRN (23:35)
[2022-11-02] MEDS ORDERED: GLUCOSE 10 TAB/TUBE PO PRN (23:35)
[2022-11-02] MEDS ORDERED: GLUCAGON FOR INJ 1 MG VIAL SQ PRN (23:35)
[2022-11-02] MEDS ORDERED: PNEUMOCOCCAL POLYSACCHARIDES 25 MCG/0.5 ML VIAL/SYR IM ONE (23:54)
[2022-11-03] MEDS: INSULIN ASPART PER UNIT SC SCH ×5 (00:33→20:41)
[2022-11-03] MEDS: HEPARIN SOD 5,000 UNIT/0.5 ML VIAL SQ SCH ×3 (00:44→14:41)
--- NOTE | 2022-11-03 01:18 | History and Physical Report ---
DATE OF ADMISSION: 11/02/2022. CHIEF COMPLAINT: Shortness of breath. HISTORY OF PRESENT ILLNESS: This is an 82-year-old male with past medical history significant for type 2 diabetes, gout, hypercholesterolemia, hypertension, macular degeneration of both eyes, CAD, CHF, EF of 20%-25%, proteinuria, presents with shortness of breath. The patient was here in the hospital in September with shortness of breath and cough. At that time, his echo showed EF of 20%-25% and is status post Cardiac cath at that time showing multivessel disease and extensive stenosis, but not amennable to PCI. Cardiology proceeded with medical management at that time due to the risk of CABG. The patient was discharged on Lasix 60 mg daily .Patient says his sob intially improved, but then since last 2 or 3 days got progressively worse and last night, he could not sleep has sit on the bed all night.Also his lower extremity edema got worse . Couple of weeks ago in the [employer] moving his cart, he was getting chest pains.. Says he interested in stent placement or surgery if possible. The patient is resting comfortably, hemodynamically stable in the ER. ER ordering IV Bumex. The patient denies any fever or chills. Has mild cough with occasional phlegm. Denies any chest pain currently. No nausea, no abdominal pain. Somewhat constipated. Denies blood in stool or black stools. He says he is micturating okay except with some difficulty with because of prostate problems. Denies any burning micturition or any blood in the urine. Denies any headache. Has some chronic mild back pain. Vision is okay. No earaches, no runny nose, no sore throat. Appetite is okay. No difficulty swallowing. Afebrile. ALLERGIES: ALFUZOSIN. PAST MEDICAL HISTORY: As mentioned above. PAST SURGICAL HISTORY: Angioplasty in 1994, colonoscopy with biopsy, injection of eye drug and cardiac catheterization. MEDICATIONS: The patient is on Eylea as directed, albuterol 2 puffs inhalation q. 4 hours p.r.n., allopurinol currently taking 300 mg p.o. daily, alprazolam 0.5 mg p.o. at bedtime p.r.n., aspirin 81 mg p.o. daily, atorvastatin 40 mg p.o. daily, Jardiance 25 mg p.o. a.m., Lasix 40 mg in the a.m., 20 mg in p.m., glipizide 10 mg p.o. b.i.d., indomethacin 50 mg p.o. t.i.d. p.r.n., isosorbide mononitrate 30 mg p.o. a.m., lisinopril 5 mg p.o. a.m., loteprednol ophthalmic as directed, metoprolol succinate 100 mg p.o. daily, metronidazole topical daily, Remeron 15 mg p.o. at bedtime, PreserVision 1 capsule p.o. daily, silver sulfadiazine as directed. FAMILY HISTORY: Significant for father had from acute [place]. Father has hypertension and stroke. SOCIAL HISTORY: . Former smoker. Quit smoking in 1984, smoked 2.5 packs a day for 20 years. Alcohol occasional. No drug use. REVIEW OF SYSTEMS: As per HPI. Rest of review of systems is negative. PHYSICAL EXAMINATION: GENERAL: The patient is of moderate build, not in acute distress. VITAL SIGNS: Temperature 36.5, pulse 80, respiratory rate 27, blood pressure 125/74, oxygen 96% on room air. HEENT: Pupils equal, round and reactive to light. Oral mucosa moist. NECK: No JVD. No neck masses. CARDIOVASCULAR: S1 and S2 heard. Regular rate and rhythm. No murmur, no gallop. RESPIRATORY SYSTEM: Normal AP diameter. No accessory muscle use. Mild bibasilar crackles. No wheezing. ABDOMEN: Soft, bowel sounds present, nontender, no distention. CENTRAL NERVOUS SYSTEM: Cranial nerves II-XII grossly intact. Nonfocal. EXTREMITIES: Bilateral gross pedal edema present with mild erythema. LABORATORY DATA: WBC 8.8, hemoglobin 14.1, hematocrit 44.2, platelets 185. PT 12.4, INR 1.2, APTT 30.3. Sodium 141, potassium 4.4, chloride 103, bicarb 26, BUN 49, creatinine 1.1, serum glucose 148, calcium 9.9, total bilirubin 0.8, AST 22, ALT 24, alkaline phosphatase 76. Troponin I high [id number] IMAGING DATA: Chest x-ray, no significant change, diffuse interstitial thickening and patchy bibasilar airspace opacities. This may represent atypical pneumonia with superimposed mild congestive change. Stable mild cardiomegaly. EKG, sinus rhythm with first-degree AV block with occasional PVCs at a rate of 93, nonspecific T-wave abnormalities. ASSESSMENT AND PLAN: This is an 82-year-old male who presents with shortness of breath. 1. Shortness of breath, probably [id number] systolic CHF, EF of 20%-25% on last echo done on 09/22/2022, taking Lasix 60 mg daily at home, worsening lower extremity edema and Sob on minimal exertion. Given IV Bumex 1 mg in the ER. We will continue with IV Bumex b.i.d. Daily weights, I's and O's per the request of cardiology. Monitor in the tele floor. Consult cardiology in the a.m. for further recommendations. 2. Coronary artery disease: Patient has multivessel coronary artery disease on cardiac cath done in last month. Medical management recommended by cardiology because of age and not amenable for PCI. The patient wanted to see if he can have surgery or stent placement.. Currently on metoprolol succinate, aspirin, statin, lisinopril, isosorbide mononitrate. Await cardiology input. We will keep n.p.o. after midnight. 3. Hyperlipidemia: On statin. 4. Hypertension: Continue his metoprolol succinate, isosorbide mononitrate, lisinopril. We will monitor his blood pressure. 5. Gout: Continue allopurinol. 6. Mild elevation of troponin. Mostly demand ischemia. will follow serial CE. 7. Deep venous thrombosis prophylaxis: Heparin subcutaneously. DISPOSITION: Closely monitor in the tele floor. Level 1 full code. PT/OT prior to discharge. Social service to help with discharge planning. Expect to discharge home and follow with family doctor. Job ID: [id number] [facility]
[2022-11-03 06:13] LABS: Basophils # (auto) 0.05 K/uL (0-0.2); Basophils % (auto) 0.6 %; Eosinophils # (auto) 0.22 K/uL (0-0.50); Eosinophils % (auto) 2.7 %; Hemoglobin 13.1 g/dl (14.0-18.0); Immature Granulocytes # (auto) 0.04 K/uL (0.00-0.02); Immature Granulocytes % (auto) 0.5 %; Lymphocytes # (auto) 1.99 K/uL (1.2-3.4); Mean Corpuscular Hemoglobin 29.3 pg (25.0-34.0); Mean Corpuscular Hgb Conc 32.8 g/dL (32.0-36.0); Mean Corpuscular Volume 89.5 fL (80.0-100.0); Mean Platelet Volume 10.9 fL (9.4-12.4); Monocytes # (auto) 0.66 K/uL (0.24-0.82); Neutrophils # (auto) 5.33 K/uL (1.4-6.5); Neutrophils % (auto) 64.2 %; Platelet Count 169 K/uL (130-400); RDW Coefficient of Variation 15.6 % (11.5-14.5); RDW Standard Deviation 50.4 fL (36.4-46.3); Red Blood Count 4.47 M/uL (4.63-6.08); White Blood Count 8.29 K/ul (4.8-10.8)
[2022-11-03 06:29] LABS: Estimated Average Glucose 183 mg/dl
[2022-11-03 06:50] LABS: Influenza A virus by PCR Negative (Neg); Influenza B virus by PCR Negative (Neg); RSV by PCR Negative (Neg); SARS CoV2 RNA(COVID-19) Ceph NEGATIVE (Negative)
[2022-11-03 06:50] LABS: Calcium 9.6 mg/dl (8.5-10.1); Magnesium 1.9 mg/dl (1.7-2.4); Potassium 4.3 mmol/L (3.5-5.1)
[2022-11-03 06:56] LABS: BUN Creatinine Ratio 35.8 (10-20); Creatinine Clr Calc Pharmacy 58.1 ml/min; Est GFR (African American) 72.4 ml/min; Est GFR (Non-African American) 62.4 ml/min
[2022-11-03] MEDS: allopurinoL 300 MG TAB PO SCH (08:15)
[2022-11-03] MEDS: ASPIRIN 81 MG ECTAB PO SCH (08:16)
[2022-11-03] MEDS: ATORVASTATIN 40 MG TAB PO SCH (08:16)
[2022-11-03] MEDS: ISOSORBIDE MONO EXTENDED REL 30 MG TABCR PO SCH (08:17)
[2022-11-03] MEDS: METOPROLOL SUCC 50MG EXT REL TAB PO SCH (08:17)
[2022-11-03] MEDS: BUMETANIDE 1 MG in SYRINGE 0 ML IV SCH ×2 (08:18→17:11)
[2022-11-03] MEDS ORDERED: lisinopril 5 MG TAB PO SCH (09:00)
[2022-11-03] MEDS ORDERED: metroNIDAZOLE 0.75% TOPICAL GEL 45 GM TUBE TOP SCH (09:00)
--- NOTE | 2022-11-03 09:44 | CT Scan Report ---
CT SCAN OF THE CHEST WITHOUT IV CONTRAST CLINICAL HISTORY: Dyspnea. Congestive heart failure. COMPARISON STUDY: Chest x-ray dated 11/02/2022. Chest CT dated 09/21/2022. TECHNIQUE: CT scan of the thorax was performed from the thoracic inlet to the upper abdomen. Images are reviewed in the axial, sagittal, and coronal planes. IV contrast was not administered for this ex amination as per the referring clinician. A dose lowering technique was utilized adhering to the osvaldo Su. CT DOSE: 572.00 mGy.cm FINDINGS: Thyroid: Imaged portions of the thyroid gland are normal in size and attenuation. Thoracic aorta: There is atherosclerotic calcification of the thoracic aorta, which is normal in [place] and demonstrates standard 3-vessel arch anatomy. Heart: The heart is enlarged and without pericardial effusion. The coronary arteries are densely calc ified. The pulmonary trunk is dilated, measuring 3.8 cm. This suggests pulmonary artery hypertension. Lungs and pleural spaces: Subpleural reticulation is seen throughout both lungs. Intralobular septal thickening is noted in the lower lobes. There are small pleural effusions with dependent atelectasis. Foci of groundglass consolidation are seen throughout the lungs, greatest at the lung bases. The tra antelmo and central airways are clear. Mild bronchiectasis is seen in the lower lobes. There are scatter ed calcified granulomas. Mediastinum: There are mildly enlarged mediastinal lymph nodes. A right peritracheal node on image #9 8 measures 15 mm in short axis. A subcarinal node measures 20 mm in short axis. Katherin: Not well assessed without IV contrast. Axillae: There is no axillary lymphadenopathy. Upper abdomen: There is a small hiatal hernia. A 2 mm calculus is seen in the upper pole of the left kidney. Diverticulosis is noted in the partially imaged left colon. Skeletal structures: The skeletal structures are osteopenic. Spondylotic changes in the spine. No lyt ic or blastic bony lesions are seen. IMPRESSION: 1. Cardiomegaly with evidence of pulmonary artery hypertension and congestive failure. 2. Small pleural effusions. 3. Multifocal groundglass consolidation is seen throughout both lungs, greatest at the lung bases. Th is could represent pulmonary edema and/or multifocal pneumonia. Clinical correlation will be required and radiographic follow-up to resolution is recommended. 4. Mildly enlarged mediastinal lymph nodes are pathologically indeterminant and similar to previous. 5. Additional findings as above. ACT 112: Negative or not required by law. Electronically signed by: Aldo Menendez M.D. 11/03/2022 9:42 AM
--- NOTE | 2022-11-03 09:44 | Cardiology Consultation ---
Date of Consultation November 03, 2022 Assessment & Plan (1) CHF (congestive heart failure): (2) HFrEF (heart failure with reduced ejection fraction): (3) Ischemic cardiomyopathy: (4) CAD (coronary atherosclerotic disease): Plan I reviewed the patient's cardiac catheterization films from September. He has severe diffuse coronary artery disease without good targets. He is also failed medical management as an outpatient. At this point he is in heart failure. I would continue IV diuretics until he is out of heart failure. I have sent the films down to [facility] and once the patient is stabilized we will have cardiothoracic surgeons review them and make recommendations. If there is a possibility for high risk intervention or OHS then we will try to send him down electively. If the surgeons feel there are no good targets for either intervention or OHS then we will continue medical therapy. I discussed this at length with the patient and he is agreeable to this plan. History of Present Illness Attending Physician: David Torres MD History of Present Illness This is an 82-year-old male patient who is a diabetic with a history of coronary artery disease. He had an angioplasty performed in 1984 after an acute PA. The patient had been doing well and was stable until the end of 2021 when he presented with heart failure due to an ischemic cardiomyopathy and HFrEF with an ejection fraction of around 20%. In September he underwent a cardiac catheterization that revealed severe diffuse coronary artery disease with 100% occlusion of the right coronary artery proximally with left to right collaterals and severe diffuse disease of the left system. It was felt at that time that he did not have good targets and the options were given for medical therapy versus high risk intervention or coronary artery bypass. The patient decided on medical management. He was seen yesterday at our clinic and was found to be in heart failure and the patient had symptoms of shortness of breath and chest discomfort with activities of daily living. He has been admitted to the hospital for further treatment. Allergies Allergy/AdvReac Type Severity Reaction Status Date / Time alfuzosin Allergy Unknown UNKN Verified 11/02/22 21:03 Home Medications Medication Instructions Recorded Confirmed Type albuterol sulfate 90 mcg/actuation 2 puff inhalation Q4 PRN Shortness 09/21/22 11/02/22 History aerosol inhaler Of Breath alprazolam 0.5 mg tablet 0.5 mg PO HS PRN Anxiety 09/21/22 11/02/22 History glipizide 10 mg tablet, extended 10 mg PO AMHS 09/21/22 11/02/22 History release 24 hr loteprednol etabonate 0.5 % eye 1 drp OPR DIRECTED PRN 09/21/22 11/02/22 History drops,suspension .Irritation metoprolol succinate 100 mg 100 mg PO DAILY 09/21/22 11/02/22 History tablet,extended release 24 hr metronidazole 0.75 % topical gel 1 applic topical DAILY 09/21/22 11/02/22 History silver sulfadiazine 1 % topical 1 applic topical DAILY 09/21/22 11/02/22 History cream vit C 226 mg-vit E 90 mg-copper 1 cap PO BID 09/22/22 11/02/22 History 0.8 mg-zinc oxide-lutein 5 mg capsule (PreserVision Lutein) aspirin 81 mg tablet,delayed 81 mg PO QAM #30 tabs 09/24/22 11/02/22 Rx release atorvastatin 20 mg tablet 40 mg PO QAM #60 tabs 09/24/22 11/02/22 Rx isosorbide mononitrate 30 mg 30 mg PO QAM #30 tabs 09/24/22 11/02/22 Rx tablet,extended release 24 hr Ropivacaine 1.5mg 0.3 ml OPB DIRECTED 11/02/22 11/02/22 History aflibercept 2 mg/0.05 mL 0 mg intravitreal DIRECTED 11/02/22 11/02/22 History intravitreal solution for injection (Eylea) allopurinol 300 mg tablet 450 mg PO QAM 11/02/22 11/02/22 History empagliflozin 25 mg tablet 25 mg PO QAM 11/02/22 11/02/22 History (Jardiance) furosemide 20 mg tablet 20 mg PO QPM 11/02/22 11/02/22 History furosemide 20 mg tablet (Lasix) 40 mg PO QAM 11/02/22 11/02/22 History indomethacin 50 mg capsule 50 mg PO TID PRN Pain 11/02/22 11/02/22 History lisinopril 5 mg tablet 5 mg PO QAM 11/02/22 11/02/22 History mirtazapine 15 mg tablet 15 mg PO HS 11/02/22 11/02/22 History Patient History Medical History Acute HFrEF (heart failure with reduced ejection fraction) CAD (coronary artery disease) CHF (congestive heart failure) Diabetes No pertinent family history Surgical History No pertinent past surgical history Social History Smoking Status: Former smoker Tobacco Type: Cigarettes Second Hand Exposure: No; Do You Dip or Chew Tobacco: No; Hx Alcohol Use: Yes Alcohol type: beer, wine and hard liquor Hx Substance Use: No Preferred Language: Frisian Communication Ability: Effective 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 All other 10 point review of systems are negative. Physical Exam Physical Exam: General: no acute distress and stated age Head: normocephalic, no masses, lesions, tenderness or abnormalities Eyes: conjunctiva are pink and non-injected, sclera clear Neck: supple, no adenopathy, no bruits, normal jugular venous pulse, no hepatojugular reflux Chest: normal shape and normal respiratory effort Lungs: Wheezing and rales Cardiac Exam: - regular rate & rhythm, no murmurs gallops or rubs - normal S1, normal S2 Pulses: 2(+) throughout Abdomen: abdomen soft, non-tender, no abnormal masses and no hepatosplenomegaly Musculoskeletal: no gait disturbance, no joint inflammation, no deforming arthritis Extremities: Bilateral lower extremity edema Neuro: grossly normal exam Results & Data ([facility]) Vital Signs (Past 12 Hours) Vital Signs Temp Pulse Pulse Resp BP BP BP 11/03/22 08:37 120 H 11/03/22 07:46 11/03/22 07:45 11/03/22 07:14 36.6 C 105 H 20 126/83 11/03/22 03:00 36.5 C 109 H 18 123/71 11/02/22 23:30 103 H 11/02/22 23:30 11/02/22 23:35 11/02/22 23:32 36.4 C L 107 H 22 138/83 11/02/22 22:00 82 20 117/69 11/02/22 21:52 83 16 116/69 11/02/22 21:40 89 18 116/69 Pulse Ox Pulse Ox O2 Del Method O2 Del Method 11/03/22 08:37 11/03/22 07:46 Room Air 11/03/22 07:45 96 Room Air 11/03/22 07:14 96 Room Air 11/03/22 03:00 93 Room Air 11/02/22 23:30 11/02/22 23:30 Room Air 11/02/22 23:35 Room Air 11/02/22 23:32 96 Room Air 11/02/22 22:00 93 Room Air 11/02/22 21:52 98 Room Air 11/02/22 21:40 97 Room Air Laboratory Results Laboratory Results - last 24 hr 11/02/22 11/02/22 11/02/22 18:15 18:15 18:15 WBC 8.87 RBC 4.82 Hgb 14.1 Hct 44.2 MCV 91.7 MCH 29.3 MCHC 31.9 L RDW Std Deviation 51.4 H RDW Coeff of Niya 15.7 H Plt Count 185 MPV 10.7 Immature Gran % (Auto) 0.5 Neut % (Auto) 65.9 Lymph % (Auto) 21.8 Stevens % (Auto) 8.8 Eos % (Auto) 2.4 Baso % (Auto) 0.6 Neut # (Auto) 5.86 Lymph # (Auto) 1.93 Stevens # (Auto) 0.78 Eos # (Auto) 0.21 Baso # (Auto) 0.05 Immature Gran # (Auto) 0.04 H PT 12.4 H INR 1.2 H APTT 30.3 PTT Ratio 1.1 Sodium 141 Potassium 4.4 Chloride 103 Carbon Dioxide 26 Anion Gap 12 H BUN 49 H Creatinine 1.18 Est Cr Clr Drug Dosing 47.4 Est GFR ( Amer) 65.7 Est GFR (Non-Af Amer) 56.7 BUN/Creatinine Ratio 41.5 H Glucose 148 H POC Glucose Estimat Average Glucose Hemoglobin A1c Calcium 9.9 Magnesium Total Bilirubin 0.8 AST 22 ALT 24 Alkaline Phosphatase 76 Troponin I High Sens 24.4 H B-Natriuretic Peptide Total Protein 6.8 Albumin 3.9 Globulin 2.9 Albumin/Globulin Ratio 1.3 SARS-CoV-2 (PCR) Influenza Type A (PCR) Influenza Type B (PCR) RSV (RT-PCR) SARS-CoV-2, RNA, NAAT 11/02/22 11/02/22 11/03/22 18:15 18:15 00:12 WBC RBC Hgb Hct MCV MCH MCHC RDW Std Deviation RDW Coeff of Niya Plt Count MPV Immature Gran % (Auto) Neut % (Auto) Lymph % (Auto) [place] % (Auto) Eos % (Auto) Baso % (Auto) Neut # (Auto) Lymph # (Auto) [place] # (Auto) Eos # (Auto) Baso # (Auto) Immature Gran # (Auto) PT INR APTT PTT Ratio Sodium Potassium Chloride Carbon Dioxide Anion Gap BUN Creatinine Est Cr Clr Drug Dosing Est GFR ( Amer) Est GFR (Non-Af Amer) BUN/Creatinine Ratio Glucose POC Glucose 144 H Estimat Average Glucose Hemoglobin A1c Calcium Magnesium Total Bilirubin AST ALT Alkaline Phosphatase Troponin I High Sens B-Natriuretic Peptide 509 H Total Protein Albumin Globulin Albumin/Globulin Ratio SARS-CoV-2 (PCR) Influenza Type A (PCR) Influenza Type B (PCR) RSV (RT-PCR) SARS-CoV-2, RNA, NAAT NEGATIVE 11/03/22 11/03/22 11/03/22 05:40 05:49 05:49 WBC 8.29 RBC 4.47 L Hgb 13.1 L Hct 40.0 L MCV 89.5 MCH 29.3 MCHC 32.8 RDW Std Deviation 50.4 H RDW Coeff of Niya 15.6 H Plt Count 169 MPV 10.9 Immature Gran % (Auto) 0.5 Neut % (Auto) 64.2 Lymph % (Auto) 24.0 [place] % (Auto) 8.0 Eos % (Auto) 2.7 Baso % (Auto) 0.6 Neut # (Auto) 5.33 Lymph # (Auto) 1.99 Stevens # (Auto) 0.66 Eos # (Auto) 0.22 Baso # (Auto) 0.05 Immature Gran # (Auto) 0.04 H PT INR APTT PTT Ratio Sodium 142 Potassium 4.3 Chloride 104 Carbon Dioxide 26 Anion Gap 12 H BUN 39 H Creatinine 1.09 Est Cr Clr Drug Dosing 58.1 Est GFR ( Amer) 72.4 Est GFR (Non-Af Amer) 62.4 BUN/Creatinine Ratio 35.8 H Glucose 140 H POC Glucose Estimat Average Glucose Hemoglobin A1c Calcium 9.6 Magnesium 1.9 Total Bilirubin AST ALT Alkaline Phosphatase Troponin I High Sens B-Natriuretic Peptide Total Protein Albumin Globulin Albumin/Globulin Ratio SARS-CoV-2 (PCR) NEGATIVE Influenza Type A (PCR) Negative Influenza Type B (PCR) Negative RSV (RT-PCR) Negative SARS-CoV-2, RNA, NAAT 11/03/22 11/03/22 11/03/22 05:49 06:30 09:05 WBC RBC Hgb Hct MCV MCH MCHC RDW Std Deviation RDW Coeff of Niya Plt Count MPV Immature Gran % (Auto) Neut % (Auto) Lymph % (Auto) [place] % (Auto) Eos % (Auto) Baso % (Auto) Neut # (Auto) Lymph # (Auto) [place] # (Auto) Eos # (Auto) Baso # (Auto) Immature Gran # (Auto) PT INR APTT PTT Ratio Sodium Potassium Chloride Carbon Dioxide Anion Gap BUN Creatinine Est Cr Clr Drug Dosing Est GFR ( Amer) Est GFR (Non-Af Amer) BUN/Creatinine Ratio Glucose POC Glucose 128 H Estimat Average Glucose 183 Hemoglobin A1c 8.0 H Calcium Magnesium Total Bilirubin AST ALT Alkaline Phosphatase Troponin I High Sens Pending B-Natriuretic Peptide Total Protein Albumin Globulin Albumin/Globulin Ratio SARS-CoV-2 (PCR) Influenza Type A (PCR) Influenza Type B (PCR) RSV (RT-PCR) SARS-CoV-2, RNA, NAAT Medications Administered Current Inpatient Medications Acetaminophen (Acetaminophen 325 Mg Tab) 650 mg PO Q4H PRN PRN Reason: Pain or Fever Stop: 12/02/22 23:34 Albuterol (Albuterol Hfa 8 Gm Inhaler) 2 puffs INH Q4 PRN PRN Reason: Shortness Of Breath Stop: 12/02/22 23:34 Allopurinol (Allopurinol 300 Mg Tab) 300 mg PO DAILY [facility]ARTA Stop: 12/03/22 08:59 Last Admin: 11/03/22 08:15 Dose: 300 mg Alprazolam (Alprazolam 0.5 Mg Tablet) 0.5 mg PO HS PRN PRN Reason: Anxiety Stop: 12/02/22 23:34 Last Admin: 11/03/22 03:36 Dose: 0.5 mg Aspirin (Aspirin 81 Mg Ectab) 81 mg PO QAM [facility] Stop: 12/03/22 08:59 Last Admin: 11/03/22 08:16 Dose: 81 mg Atorvastatin Calcium (Atorvastatin 40 Mg Tab) 40 mg PO QAM [facility] Stop: 12/03/22 08:59 Last Admin: 11/03/22 08:16 Dose: 40 mg Dextrose (Dextrose 50% 50 Ml Syringe) 25 - 50 ml IV UD PRN; Protocol PRN Reason: Hypoglycemia Protocol Stop: 12/02/22 23:34 Glucagon (Glucagon For Inj 1 Mg Vial) 1 mg SQ UD PRN; Protocol PRN Reason: Hypoglycemia Protocol Stop: 12/02/22 23:34 Glucose (Glucose 40% Gel 15 Gm Tube) 15 - 30 gm PO UD PRN; Protocol PRN Reason: Hypoglycemia Protocol Stop: 12/02/22 23:34 Glucose (Glucose 10 Tab/Tube) 4 - 8 tab PO UD PRN; Protocol PRN Reason: Hypoglycemia Treatment Stop: 12/02/22 23:34 Heparin Sodium (Porcine) (Heparin Sod 5,000 Unit/0.5 Ml Vial) 5,000 units SQ Q8 [facility] Stop: 12/02/22 23:34 Last Admin: 11/03/22 06:26 Dose: 5,000 units Bumetanide 1 mg/ Syringe 4 mls @ 4 mls/min IV BID@0900,1700 [facility] Stop: 12/03/22 08:59 Last Admin: 11/03/22 08:18 Dose: 4 mls/min Insulin Aspart (Insulin Aspart Per Unit) 0 units SC Q6 [facility] Stop: 12/02/22 23:34 Last Admin: 11/03/22 06:30 Dose: Not Given Insulin Glargine (Lantus Per Unit Charge) 5 units SQ DAILY [facility] Stop: 12/03/22 08:59 Isosorbide Mononitrate (Isosorbide Stevens Extended Rel 30 Mg Tabcr) 30 mg PO QAM [facility] Stop: 12/03/22 08:59 Last Admin: 11/03/22 08:17 Dose: 30 mg Lisinopril (Lisinopril 10 Mg Tab) 10 mg PO QAM [facility] Stop: 12/04/22 08:59 Metoprolol Succinate (Metoprolol Succ 50mg Ext Rel Tab) 100 mg PO DAILY [facility] Stop: 12/03/22 08:59 Last Admin: 11/03/22 08:17 Dose: 100 mg Mirtazapine (Mirtazapine Tab 15 Mg Tab) 15 mg PO HS [facility] Stop: 12/03/22 20:59 Miscellaneous (Carbohydrates For Hypoglycemia ) 15 - 30 gm PO UD PRN PRN Reason: Hypoglycemia Protocol Stop: 12/02/22 23:34 Nitroglycerin (Nitroglycerin Sl 0.4 Mg/Tab Tab) 0.4 mg SL UD PRN PRN Reason: Chest Pain Stop: 12/02/22 23:34 Polyethylene Glycol (Polyethylene (Miralax) 17 Gm Pack) 17 gm PO DAILY PRN PRN Reason: Constipation Stop: 12/02/22 23:34 (1) CAD (coronary atherosclerotic disease) Associated angina: unspecified whether angina present Coronary Disease- Associated Artery/Lesion type: unspecified vessel or lesion type [place] vs. transplanted heart: [place] heart Qualified Code(s): I25.10 - Atherosclerotic heart disease of [place] coronary artery without angina pectoris (2) CHF (congestive heart failure) Heart failure chronicity: acute on chronic Heart failure type: unspecified Qualified Code(s): I50.9 - Heart failure, unspecified
[2022-11-03] MEDS: LANTUS PER UNIT CHARGE SQ SCH (11:05)
--- NOTE | 2022-11-03 13:07 | Hospitalist Progress Note ---
Date of Service November 03, 2022 Assessment & Plan (1) Acute on chronic systolic (congestive) heart failure: (2) Ischemic cardiomyopathy: (3) SOB (shortness of breath): Plan History of ischemic cardiomyopathy with reduced ejection fraction. Last echo in September 2022 with EF of 20 to 25% History of severe diffuse coronary artery disease; managed medically. Last cardiac cath was done in September 2022. Was on Lasix 60 mg at home; presented with lower extremity edema and shortness of breath. Chest x-ray shows vascular congestion. CT chest also shows bilateral patchy infiltrates. Plan; -Appreciate cardiology's input; will continue on diuretics; Bumex 1 mg twice daily. -Strict input and output monitoring. -Daily weights -Lisinopril dose increased to 10 mg as per cardiology. On metoprolol as well. -Monitor daily BMP -We will obtain procalcitonin level. The infiltrate seen in the CT chest likely due to heart failure; no antibiotic for now. Demand ischemia in setting of acute decompensated heart failure -High-sensitivity troponin up trended -Trend troponin. Appreciate cardiology input. Other conditions; Type 2 diabetes mellituscontinue on Lantus and NovoLog. Hyperlipidemiacontinue on statin Hypertensioncontinue on metoprolol, lisinopril and isosorbide mononitrate. Full code Heparin for DVT prophylaxis Admission and Anticipated Discharge Date Admission Date: November 02, 2022 Subjective Patient seen and examined at bedside. He is comfortably sitting up on the chair eating breakfast; not in any distress. He reports that his leg swelling has slightly improved compared to admission. Also reports that his shortness of breath is also getting better. Review of Systems Review of Systems: All systems reviewed & are unremarkable except as noted in Subjective Physical Exam Physical Exam: Constitutional: WD/WN, vitals as above, NAD, sitting up in bed, pleasant, conversing easily Respiratory: normal respiratory effort, lungs clear to auscultation, no wheeze, rales, rhonchi. Normal insp/exp effort, no accessory muscle use Cardiovascular: RRR, no murmur, no edema Vessels: no JVD or carotid bruit Chest: Crackles present at bases Abdomen: normal bowel sounds, soft, nontender, no hepatosplenomegaly Musculoskeletal: 2+ pitting edema present up to knee. Skin: no rashes, warm and dry normal turgor Neurologic: PERRL, EOMI, accommodation nl, no face palsy, no dysarthria CN's II- XI intact bilaterally and moves all extremities Psychiatric: A+Ox3, euthymic affect Lymphatic: no cervical or axillary lymphadenopathy : deferred Results & Data Results & Data ([facility]) Vital Signs (Past 12 Hours) Vital Signs Temp Pulse Pulse Resp BP BP Pulse Ox 11/03/22 11:30 36.4 C L 92 H 20 98/58 L 97 11/03/22 08:37 120 H 11/03/22 07:46 11/03/22 07:45 11/03/22 07:14 36.6 C 105 H 20 126/83 96 11/03/22 03:00 36.5 C 109 H 18 123/71 93 Pulse Ox O2 Del Method O2 Del Method O2 Flow Rate 11/03/22 11:30 Nasal Cannula 2 11/03/22 08:37 11/03/22 07:46 Room Air 11/03/22 07:45 96 Room Air 11/03/22 07:14 Room Air 11/03/22 03:00 Room Air Laboratory Results Laboratory Results WBC 8.29 K/ul (4.8-10.8) 11/03/22 05:49 RBC 4.47 M/uL (4.63-6.08) L 11/03/22 05:49 Hgb 13.1 g/dl (14.0-18.0) L 11/03/22 05:49 Hct 40.0 % (40.1-51.0) L 11/03/22 05:49 MCV 89.5 fL (80.0-100.0) 11/03/22 05:49 MCH 29.3 pg (25.0-34.0) 11/03/22 05:49 MCHC 32.8 g/dL (32.0-36.0) 11/03/22 05:49 RDW Std Deviation 50.4 fL (36.4-46.3) H 11/03/22 05:49 RDW Coeff of Niya 15.6 % (11.5-14.5) H 11/03/22 05:49 Plt Count 169 K/uL (130-400) 11/03/22 05:49 MPV 10.9 fL (9.4-12.4) 11/03/22 05:49 Immature Gran % (Auto) 0.5 % 11/03/22 05:49 Neut % (Auto) 64.2 % 11/03/22 05:49 Lymph % (Auto) 24.0 % 11/03/22 05:49 [place] % (Auto) 8.0 % 11/03/22 05:49 Eos % (Auto) 2.7 % 11/03/22 05:49 Baso % (Auto) 0.6 % 11/03/22 05:49 Neut # (Auto) 5.33 K/uL (1.4-6.5) 11/03/22 05:49 Lymph # (Auto) 1.99 K/uL (1.2-3.4) 11/03/22 05:49 [place] # (Auto) 0.66 K/uL (0.24-0.82) 11/03/22 05:49 Eos # (Auto) 0.22 K/uL (0-0.50) 11/03/22 05:49 Baso # (Auto) 0.05 K/uL (0-0.2) 11/03/22 05:49 Immature Gran # (Auto) 0.04 K/uL (0.00-0.02) H 11/03/22 05:49 PT 12.4 Seconds (9.0-12.0) H 11/02/22 18:15 INR 1.2 (0.9-1.1) H 11/02/22 18:15 APTT 30.3 Seconds (21.0-31.0) 11/02/22 18:15 PTT Ratio 1.1 11/02/22 18:15 Sodium 142 mmol/L (136-145) 11/03/22 05:49 Potassium 4.3 mmol/L (3.5-5.1) 11/03/22 05:49 Chloride 104 mmol/L (98-107) 11/03/22 05:49 Carbon Dioxide 26 mmol/L (21-32) 11/03/22 05:49 Anion Gap 12 (3-11) H 11/03/22 05:49 BUN 39 mg/dl (6-23) H 11/03/22 05:49 Creatinine 1.09 mg/dl (0.6-1.4) 11/03/22 05:49 Est Cr Clr Drug Dosing 58.1 ml/min 11/03/22 05:49 Est GFR ( Amer) 72.4 ml/min 11/03/22 05:49 Est GFR (Non-Af Amer) 62.4 ml/min 11/03/22 05:49 BUN/Creatinine Ratio 35.8 (10-20) H 11/03/22 05:49 Glucose 140 mg/dl (70-99(Fasting)) H 11/03/22 05:49 POC Glucose 246 mg/dl (70-99) H 11/03/22 11:09 Estimat Average Glucose 183 mg/dl 11/03/22 05:49 Hemoglobin A1c 8.0 % (4.5-5.6) H 11/03/22 05:49 Calcium 9.6 mg/dl (8.5-10.1) 11/03/22 05:49 Magnesium 1.9 mg/dl (1.7-2.4) 11/03/22 05:49 Total Bilirubin 0.8 mg/dl (0.2-1.0) 11/02/22 18:15 AST 22 U/L (13-39) 11/02/22 18:15 ALT 24 U/L (7-52) 11/02/22 18:15 Alkaline Phosphatase 76 U/L (34-104) 11/02/22 18:15 Troponin I High Sens 128.0 pg/ml (0-20) H* D 11/03/22 09:05 B-Natriuretic Peptide 509 pg/ml (0-100) H 11/02/22 18:15 Total Protein 6.8 gm/dl (6.0-8.3) 11/02/22 18:15 Albumin 3.9 gm/dl (3.4-5.0) 11/02/22 18:15 Globulin 2.9 gm/dl (2.5-4.0) 11/02/22 18:15 Albumin/Globulin Ratio 1.3 (0.9-2) 11/02/22 18:15 SARS-CoV-2 (PCR) NEGATIVE (Negative) 11/03/22 05:40 Influenza Type A (PCR) Negative (Neg) 11/03/22 05:40 Influenza Type B (PCR) Negative (Neg) 11/03/22 05:40 RSV (RT-PCR) Negative (Neg) 11/03/22 05:40 SARS-CoV-2, RNA, NAAT NEGATIVE (NEGATIVE) 11/02/22 18:15 Impressions Chest X-Ray 11/02/22 16:28 XR chest 1V portable HISTORY: Atypical chest pain. COMPARISON: Chest 09/21/2022. FINDINGS: No pneumothorax. No pleural effusions. The heart remains mildly enlarged. Diffuse interstitial thickening with patchy bibasilar airspace opacities persist. IMPRESSION: 1. No significant change in the diffuse interstitial thickening with patchy bibasilar airspace opacities. This may represent an atypical pneumonia with sup erimposed mild congestive change. 2. Stable mild cardiomegaly. ACT 112: Negative or not required by law. Electronically signed by: Haris Grier M.D. 11/02/2022 6:[address] 11/02/22 21:11 CT SCAN OF THE CHEST WITHOUT IV CONTRAST CLINICAL HISTORY: Dyspnea. Congestive heart failure. COMPARISON STUDY: Chest x-ray dated 11/02/2022. Chest CT dated 09/21/2022. TECHNIQUE: CT scan of the thorax was performed from the thoracic inlet to the upper abdomen. Images are reviewed in the axial, sagittal, and coronal planes. IV contrast was not administered for this examination as per the referring clinician. A dose lowering technique was utilized adhering to the principles of ALARA. CT DOSE: 572.00 mGy.cm FINDINGS: Thyroid: Imaged portions of the thyroid gland are normal in size and attenuation. Thoracic aorta: There is atherosclerotic calcification of the thoracic aorta, which is normal in caliber and demonstrates standard 3-vessel arch anatomy. Heart: The heart is enlarged and without pericardial effusion. The coronary arteries are densely calcified. The pulmonary trunk is dilated, measuring 3.8 cm. This suggests pulmonary artery hypertension. Lungs and pleural spaces: Subpleural reticulation is seen throughout both lungs. Intralobular septal thickening is noted in the lower lobes. There are small pleural effusions with dependent atelectasis. Foci of groundglass consolidation are seen throughout the lungs, greatest at the lung bases. The trachea and central airways are clear. Mild bronchiectasis is seen in the lower lobes. There are scattered calcified granulomas. Mediastinum: There are mildly enlarged mediastinal lymph nodes. A right peritracheal node on image #98 measures 15 mm in short axis. A subcarinal node m easures 20 mm in short axis. [place]: Not well assessed without IV contrast. Axillae: There is no axillary lymphadenopathy. Upper abdomen: There is a small hiatal hernia. A 2 mm calculus is seen in the upper pole of the left kidney. Diverticulosis is noted in the partially imaged left colon. Skeletal structures: The skeletal structures are osteopenic. Spondylotic changes in the spine. No lytic or blastic bony lesions are seen. IMPRESSION: 1. Cardiomegaly with evidence of pulmonary artery hypertension and congestive failure. 2. Small pleural effusions. 3. Multifocal groundglass consolidation is seen throughout both lungs, greatest at the lung bases. This could represent pulmonary edema and/or multifocal pneumonia. Clinical correlation will be required and radiographic follow-up to resolution is recommended. 4. Mildly enlarged mediastinal lymph nodes are pathologically indeterminant and similar to previous. 5. Additional findings as above. ACT 112: Negative or not required by law. Electronically signed by: Aldo Menendez M.D. 11/03/2022 9:42 AM
[2022-11-03] MEDS ORDERED: SODIUM CHLORIDE 0.65% NA SOLN 45 ML (OCEAN) PRN (14:38)
[2022-11-03] MEDS ORDERED: Heparin IV Adult Wt-Based Standard WITH Bolus Protocol IV SCH (15:50)
[2022-11-03] MEDS: ALPRAZolam 0.5 MG TABLET PO PRN ×2 (15:55→23:55)
[2022-11-03] MEDS ORDERED: HEPARIN SOD (PORCINE) 1000 UNIT/ML IV ONE (16:15)
[2022-11-03] MEDS: HEPARIN SODIUM/DEXTROSE 25,000 UNITS/500 ML BAG IV SCH (16:32)
[2022-11-03] MEDS: ACETAMINOPHEN 325 MG TAB PO PRN (20:33)
[2022-11-03] MEDS: MIRTAZAPINE TAB 15 MG TAB PO SCH (20:49)
[2022-11-03 23:23] LABS: Partial Thromboplastin Ratio > 5.1
[2022-11-03 23:43] LABS: Partial Thromboplastin Time > 139.0 Seconds (21.0-31.0)
[2022-11-04 03:27] LABS: Partial Thromboplastin Ratio 1.6; Partial Thromboplastin Time 44.3 Seconds (21.0-31.0)
[2022-11-04] MEDS ORDERED: ALPRAZolam 0.5 MG TABLET PO STA (06:04)
[2022-11-04] MEDS: INSULIN ASPART PER UNIT SC SCH ×4 (08:03→19:57)
[2022-11-04] MEDS: LANTUS PER UNIT CHARGE SQ SCH (08:33)
[2022-11-04] MEDS: lisinopril 10 MG TAB PO SCH (08:45)
[2022-11-04] MEDS: allopurinoL 300 MG TAB PO SCH (08:46)
[2022-11-04] MEDS: ATORVASTATIN 40 MG TAB PO SCH (08:46)
[2022-11-04] MEDS: BUMETANIDE 1 MG in SYRINGE 0 ML IV SCH ×2 (08:46→17:23)
[2022-11-04] MEDS: ISOSORBIDE MONO EXTENDED REL 30 MG TABCR PO SCH (08:46)
[2022-11-04] MEDS: ASPIRIN 81 MG ECTAB PO SCH (08:46)
[2022-11-04] MEDS: METOPROLOL SUCC 50MG EXT REL TAB PO SCH (08:46)
[2022-11-04 09:57] LABS: Calcium 9.8 mg/dl (8.5-10.1); Creatinine Clr Calc Pharmacy 56.5 ml/min; Est GFR (African American) 70.8 ml/min; Est GFR (Non-African American) 61.1 ml/min; Potassium 3.7 mmol/L (3.5-5.1)
--- NOTE | 2022-11-04 10:04 | Electrocardiogram Report ---
Test Reason : Blood Pressure : / mmHG Vent. Rate : 093 BPM Atrial Rate : 093 BPM P-R Int : 214 ms QRS Dur : 134 ms QT Int : 362 ms P-R-T Axes : 074 035 062 degrees QTc Int : 450 ms Sinus rhythm with marked sinus arrhythmia with 1st degree A-V block with occasional Premature ventric ular complexes Left bundle branch block Abnormal ECG When compared with ECG of 23-SEP-2022 11:39, Premature ventricular complexes are now Present Confirmed by Eduin Santoyo ([id number]) on 11/04/2022 10:04:32 AM Referred By: Michelle Sims Confirmed By:Eduin Santoyo
--- NOTE | 2022-11-04 10:35 | Cardiology Progress Note ---
Date of Service November 04, 2022 Assessment & Plan (1) CHF (congestive heart failure): (2) HFrEF (heart failure with reduced ejection fraction): (3) Ischemic cardiomyopathy: (4) CAD (coronary atherosclerotic disease): Plan Patient continues to diuresis with IV Bumex BID dosing. SOB improving, edema improving. Add spironolactone 12.5 mg this morning for ongoing diuresis and guideline directed medical therapies. Measure I+O's. Monitor renal function and electrolytes. Standing scale with morning weight. Troponin's trended upward yesterday, peaking around 900. He denies chest pain. IV heparin initiated for treatment of severe diffuse CAD. Consider plavix on discharge? Otherwise continue guideline directed medical therapy with ASA, statin, lisinopril, metoprolol, isosorbide. Consider transitioning to Entresto as well Dr. Barboza reviewing cath films with CT surgery. Awaiting final plans. Per his note yesterday, if there is a possibility for high risk intervention or OHS then we will try to send him down electively. If the surgeons feel there are no good targets for either intervention or OHS then we will continue medical therapy. Case discussed with Dr. Rocha. Will follow. Admission and Anticipated Discharge Date Admission Date: November 02, 2022 Supervising Physician Co-Signing Physician Notes Patient seen and examined with Michelle Sims PA-C. Agree with findings and assessment as above. Patient not a candidate for further intervention given coronary anatomy. Continue medical therapy as above. Okay to DC heparin at this time and start Plavix 75 mg p.o. daily. Continue to monitor on telemetry overnight. Subjective Patient resting in bed. Reports ongoing cough and SOB with minimal activity. Frequent urination noted. Denies chest pain or chest tightness. Edema slowly improving. Denies palpitations or tachypalpitations. HS troponin trended higher yesterday, peaking around 900. he was started on IV heparin. Review of Systems Review of Systems: Review of Systems: See HPI for pertinent positives. All other 10 point review of systems are negative. Physical Exam Physical Exam: General: no acute distress and stated age Head: normocephalic, no masses, lesions, tenderness or abnormalities Eyes: conjunctiva are pink and non-injected, sclera clear Neck: supple, no adenopathy, no bruits, normal jugular venous pulse, no hepatojugular reflux Chest: normal shape and normal respiratory effort Lungs: Bilateral Wheezing and rales Cardiac Exam: - regular rate & rhythm, no murmurs gallops or rubs - normal S1, normal S2 Pulses: 2(+) throughout Abdomen: abdomen soft, non-tender, no abnormal masses and no hepatosplenomegaly Musculoskeletal: no gait disturbance, no joint inflammation, no deforming arthritis Extremities: Bilateral lower extremity edema 2+ Neuro: grossly normal exam Results & Data ([facility]) Vital Signs (Past 12 Hours) Vital Signs Temp Pulse Pulse Resp BP Pulse Ox O2 Del Method 11/04/22 08:00 87 11/04/22 08:00 Room Air 11/04/22 07:41 36.4 C L 86 18 110/70 92 Room Air 11/04/22 03:12 36.4 C L 79 18 106/64 92 Room Air 11/03/22 23:24 36.5 C 88 18 102/59 L 94 Room Air Laboratory Results Cardiac Enzymes 11/03/22 11/03/22 11/03/22 Range/Units 14:03 19:53 22:41 Troponin I High Sens 512.3 H* D 921.7 H* D 774.2 H* (0-20) pg/ml 11/04/22 Range/Units 08:29 Troponin I High Sens 383.9 H* D (0-20) pg/ml Coagulation 11/03/22 11/04/22 11/04/22 Range/Units 22:40 02:41 09:18 APTT > 139.0 H* 44.3 H Cancelled (21.0-31.0) Seconds Comprehensive Metabolic Panel 11/04/22 Range/Units 09:18 Sodium 141 (136-145) mmol/L Potassium 3.7 (3.5-5.1) mmol/L Chloride 105 (98-107) mmol/L Carbon Dioxide 28 (21-32) mmol/L BUN 39 H (6-23) mg/dl Creatinine 1.11 (0.6-1.4) mg/dl Calcium 9.8 (8.5-10.1) mg/dl Intake and Output 11/03/22 11/04/22 11/04/22 22:59 06:59 14:59 Intake Total 573.467 / 759.284 185.817 / 759.284 77.7 / 77.7 Output Total 725 / 1725 925 / 1725 400 / 400 Balance -151.533 / -965.716 -739.183 / -965.716 -322.3 / -322.3 Intake: IV 73.467 / 209.284 135.817 / 209.284 77.7 / 77.7 Heparin Sodium/Dextrose 25,000 73.467 / 209.284 135.817 / 209.284 77.7 / 77.7 units In 500 ml @ 1,050 UNITS/ HR 21 mls/hr IV .[id number] [facility] Rx #:[id number] Oral 500 / 550 50 / 550 Output: Urine 725 / 1725 925 / 1725 400 / 400 Other: # Unmeasured Voids 1 Weight 91.9 kg Weight Measurement Method Standing Scale Diagnostic Findings Telemetry reviewed: NSR in the 80-90s. occ PVC Chest CT on admission: IMPRESSION: 1. Cardiomegaly with evidence of pulmonary artery hypertension and congestive failure. 2. Small pleural effusions. 3. Multifocal groundglass consolidation is seen throughout both lungs, greatest at the lung bases. This could represent pulmonary edema and/or multifocal pneumonia. Clinical correlation will be required and radiographic follow-up to resolution is recommended. 4. Mildly enlarged mediastinal lymph nodes are pathologically indeterminant and similar to previous. 5. Additional findings as above Medications Administered Current Inpatient Medications Acetaminophen (Acetaminophen 325 Mg Tab) 650 mg PO Q4H PRN PRN Reason: Pain or Fever Stop: 12/02/22 23:34 Last Admin: 11/03/22 20:33 Dose: 650 mg Albuterol (Albuterol Hfa 8 Gm Inhaler) 2 puffs INH Q4 PRN PRN Reason: Shortness Of Breath Stop: 12/02/22 23:34 Allopurinol (Allopurinol 300 Mg Tab) 300 mg PO DAILY [facility] Stop: 12/03/22 08:59 Last Admin: 11/04/22 08:46 Dose: 300 mg Alprazolam (Alprazolam 0.5 Mg Tablet) 0.5 mg PO Q8H PRN PRN Reason: Anxiety Stop: 12/02/22 23:34 Last Admin: 11/03/22 23:55 Dose: 0.5 mg Aspirin (Aspirin 81 Mg Ectab) 81 mg PO QAM [facility] Stop: 12/03/22 08:59 Last Admin: 11/04/22 08:46 Dose: 81 mg Atorvastatin Calcium (Atorvastatin 40 Mg Tab) [facility] Stop: 12/03/22 08:59 Last Admin: 11/04/22 08:46 Dose: 40 mg Dextrose (Dextrose 50% 50 Ml Syringe) 25 - 50 ml IV UD PRN; Protocol PRN Reason: Hypoglycemia Protocol Stop: 12/02/22 23:34 Glucagon (Glucagon For Inj 1 Mg Vial) 1 mg SQ UD PRN; Protocol PRN Reason: Hypoglycemia Protocol Stop: 12/02/22 23:34 Glucose (Glucose 40% Gel 15 Gm Tube) 15 - 30 gm PO UD PRN; Protocol PRN Reason: Hypoglycemia Protocol Stop: 12/02/22 23:34 Glucose (Glucose 10 Tab/Tube) 4 - 8 tab PO UD PRN; Protocol PRN Reason: Hypoglycemia Treatment Stop: 12/02/22 23:34 Bumetanide 1 mg/ Syringe 4 mls @ 4 mls/min IV BID@0900,1700 [facility] Stop: 12/03/22 08:59 Last Admin: 11/04/22 08:46 Dose: 4 mls/min Heparin Sodium/Dextrose (Heparin Sodium/Dextrose) 25,000 units in 500 mls @ 21 mls/hr IV .[id number] [facility]; Protocol Stop: 12/03/22 16:14 Last Titration: 11/04/22 07:13 Dose: 1,050 units/hr, 21 mls/hr Insulin Aspart (Insulin Aspart Per Unit) 0 units SC ACHS [facility] Stop: 12/03/22 20:59 Last Admin: 11/04/22 08:03 Dose: 9 units Insulin Glargine (Lantus Per Unit Charge) 5 units SQ DAILY [facility] Stop: 12/03/22 08:59 Last Admin: 11/04/22 08:33 Dose: 5 units Isosorbide Mononitrate (Isosorbide [place] Extended Rel 30 Mg Tabcr) [address] [facility] Stop: 12/03/22 08:59 Last Admin: 11/04/22 08:46 Dose: 30 mg Lisinopril (Lisinopril 10 Mg Tab) [address] [facility] Stop: 12/04/22 08:59 Last Admin: 01/20/23 08:45 Dose: 10 mg Metoprolol Succinate (Metoprolol Succ 50mg Ext Rel Tab) 100 mg PO DAILY [facility] Stop: 12/03/22 08:59 Last Admin: 11/04/22 08:46 Dose: 100 mg Mirtazapine (Mirtazapine Tab 15 Mg Tab) 15 mg PO HS [facility] Stop: 12/03/22 20:59 Last Admin: 11/03/22 20:49 Dose: 15 mg Miscellaneous (Carbohydrates For Hypoglycemia ) 15 - 30 gm PO UD PRN PRN Reason: Hypoglycemia Protocol Stop: 12/02/22 23:34 Nitroglycerin (Nitroglycerin Sl 0.4 Mg/Tab Tab) 0.4 mg SL UD PRN PRN Reason: Chest Pain Stop: 12/02/22 23:34 Polyethylene Glycol (Polyethylene (Miralax) 17 Gm Pack) 17 gm PO DAILY PRN PRN Reason: Constipation Stop: 12/02/22 23:34 Sodium Chloride (Sodium Chloride 0.65% Na Soln 45 Ml ([place])) 2 sprays NA Q2H PRN PRN Reason: congestion Stop: 12/03/22 14:44 Spironolactone (Spironolactone 12.5 Mg Tab) 12.5 mg PO DAILY [facility] Stop: 12/04/22 10:44 (1) CAD (coronary atherosclerotic disease) Associated angina: unspecified whether angina present Coronary Disease- Associated Artery/Lesion type: unspecified vessel or lesion type [place] vs. transplanted heart: [place] heart Qualified Code(s): I25.10 - Atherosclerotic heart disease of [place] coronary artery without angina pectoris (2) CHF (congestive heart failure) Heart failure chronicity: acute on chronic Heart failure type: unspecified Qualified Code(s): I50.9 - Heart failure, unspecified
[2022-11-04 11:00] LABS: Partial Thromboplastin Ratio 1.6; Partial Thromboplastin Time 43.8 Seconds (21.0-31.0)
[2022-11-04] MEDS: SPIRONOLACTONE 12.5 MG TAB PO SCH (11:13)
[2022-11-04] MEDS: HEPARIN SODIUM/DEXTROSE 25,000 UNITS/500 ML BAG IV SCH (12:22)
[2022-11-04] MEDS: CLOPIDOGREL BISULFATE 75 MG TAB PO SCH (13:37)
--- NOTE | 2022-11-04 14:51 | Hospitalist Progress Note ---
Date of Service November 04, 2022 Assessment & Plan (1) Acute on chronic systolic (congestive) heart failure: (2) Ischemic cardiomyopathy: (3) SOB (shortness of breath): (4) NSTEMI (non-ST elevated myocardial infarction): Plan History of ischemic cardiomyopathy with reduced ejection fraction. Last echo in September 2022 with EF of 20 to 25% History of severe diffuse coronary artery disease; managed medically. Last cardiac cath was done in September 2022. Was on Lasix 60 mg at home; presented with lower extremity edema and shortness of breath. Chest x-ray shows vascular congestion. CT chest also shows bilateral patchy infiltrates. High-sensitivity troponin up trended from 24 to 900; down trended to 383 Pro-Zach negative Plan; -Appreciate cardiology's input; will continue on diuretics; Bumex 1 mg twice daily. Also spironolactone added by cardiology. -Heparin drip discontinued today; started on Plavix. -Strict input and output monitoring. -Daily weights -Lisinopril dose increased to 10 mg as per cardiology. On metoprolol as well. -Monitor daily BMP Other conditions; Type 2 diabetes mellituscontinue on Lantus and NovoLog. Hyperlipidemiacontinue on statin Hypertensioncontinue on metoprolol, lisinopril and isosorbide mononitrate. Full code Heparin for DVT prophylaxis Admission and Anticipated Discharge Date Admission Date: November 02, 2022 Subjective Patient seen and examined at bedside. He reports improvement in the lower extremity swelling. He reports that his shortness of breath has slightly improved as well. Review of Systems Review of Systems: All systems reviewed & are unremarkable except as noted in Subjective Physical Exam Physical Exam: Constitutional: WD/WN, vitals as above, NAD, sitting up in bed, pleasant, conversing easily Respiratory: normal respiratory effort, lungs clear to auscultation, no wheeze, rales, rhonchi. Normal insp/exp effort, no accessory muscle use Cardiovascular: RRR, no murmur, no edema Vessels: no JVD or carotid bruit Chest: Crackles present at bases Abdomen: normal bowel sounds, soft, nontender, no hepatosplenomegaly Musculoskeletal: Bilateral pitting edema; slightly improved from yesterday. Skin: no rashes, warm and dry normal turgor Neurologic: PERRL, EOMI, accommodation nl, no face palsy, no dysarthria CN's II- XI intact bilaterally and moves all extremities Psychiatric: A+Ox3, euthymic affect Lymphatic: no cervical or axillary lymphadenopathy : deferred Results & Data Results & Data ([facility]) Vital Signs (Past 12 Hours) Vital Signs Temp Pulse Pulse Resp BP Pulse Ox O2 Del Method 11/04/22 11:25 36.4 C L 86 18 98/55 L 91 Room Air 11/04/22 08:00 87 11/04/22 08:00 Room Air 11/04/22 07:41 36.4 C L 86 18 110/70 92 Room Air 11/04/22 03:12 36.4 C L 79 18 106/64 92 Room Air
[2022-11-04] MEDS: MIRTAZAPINE TAB 15 MG TAB PO SCH (19:57)
[2022-11-04] MEDS: ACETAMINOPHEN 325 MG TAB PO PRN (20:17)
[2022-11-04] MEDS ORDERED: traZODone HCL 50 MG TAB PO ONE (21:27)
[2022-11-04] MEDS: HEPARIN SOD 5,000 UNIT/0.5 ML VIAL SQ SCH (22:00)
[2022-11-04] MEDS: ALPRAZolam 0.5 MG TABLET PO PRN (22:30)
[2022-11-05] MEDS: HEPARIN SOD 5,000 UNIT/0.5 ML VIAL SQ SCH ×3 (06:36→21:32)
[2022-11-05 07:40] LABS: Basophils # (auto) 0.05 K/uL (0-0.2); Basophils % (auto) 0.6 %; Eosinophils # (auto) 0.38 K/uL (0-0.50); Eosinophils % (auto) 4.9 %; Hematocrit (blood only) 41.9 % (40.1-51.0); Hemoglobin 13.3 g/dl (14.0-18.0); Immature Granulocytes # (auto) 0.05 K/uL (0.00-0.02); Immature Granulocytes % (auto) 0.6 %; Lymphocytes # (auto) 1.79 K/uL (1.2-3.4); Lymphocytes % (auto) 22.9 %; Mean Corpuscular Hemoglobin 28.7 pg (25.0-34.0); Mean Corpuscular Hgb Conc 31.7 g/dL (32.0-36.0); Mean Corpuscular Volume 90.3 fL (80.0-100.0); Mean Platelet Volume 10.7 fL (9.4-12.4); Monocytes # (auto) 0.67 K/uL (0.24-0.82); Monocytes % (auto) 8.6 %; Neutrophils # (auto) 4.87 K/uL (1.4-6.5); Neutrophils % (auto) 62.4 %; Platelet Count 177 K/uL (130-400); RDW Coefficient of Variation 15.7 % (11.5-14.5); Red Blood Count 4.64 M/uL (4.63-6.08); White Blood Count 7.81 K/ul (4.8-10.8)
[2022-11-05] MEDS: METOPROLOL SUCC 50MG EXT REL TAB PO SCH (08:08)
[2022-11-05] MEDS: BUMETANIDE 1 MG in SYRINGE 0 ML IV SCH ×2 (08:08→16:24)
[2022-11-05] MEDS: ISOSORBIDE MONO EXTENDED REL 30 MG TABCR PO SCH (08:09)
[2022-11-05] MEDS: CLOPIDOGREL BISULFATE 75 MG TAB PO SCH (08:09)
[2022-11-05] MEDS: allopurinoL 300 MG TAB PO SCH (08:09)
[2022-11-05] MEDS: ATORVASTATIN 40 MG TAB PO SCH (08:09)
[2022-11-05] MEDS: lisinopril 10 MG TAB PO SCH (08:09)
[2022-11-05] MEDS: SPIRONOLACTONE 12.5 MG TAB PO SCH (08:09)
[2022-11-05] MEDS: ASPIRIN 81 MG ECTAB PO SCH (08:09)
[2022-11-05 08:12] LABS: Albumin Level 3.4 gm/dl (3.4-5.0); Calcium 9.6 mg/dl (8.5-10.1); Potassium 3.7 mmol/L (3.5-5.1)
[2022-11-05 08:18] LABS: Albumin Globulin Ratio 1.4 (0.9-2); BUN Creatinine Ratio 36.7 (10-20); Creatinine Clr Calc Pharmacy 62.8 ml/min; Est GFR (African American) 82.3 ml/min; Globulin 2.4 gm/dl (2.5-4.0); Total Protein 5.8 gm/dl (6.0-8.3)
[2022-11-05] MEDS: INSULIN ASPART PER UNIT SC SCH ×4 (08:26→20:00)
[2022-11-05] MEDS: LANTUS PER UNIT CHARGE SQ SCH (08:27)
--- NOTE | 2022-11-05 11:54 | Cardiology Progress Note ---
Date of Service November 05, 2022 Assessment & Plan (1) CHF (congestive heart failure): (2) HFrEF (heart failure with reduced ejection fraction): (3) Ischemic cardiomyopathy: (4) CAD (coronary atherosclerotic disease): Plan I had a long discussion with the patient this morning. I reviewed his cardiac catheterization films from September with cardiothoracic surgery and interventional cardiology at [facility]. All are in agreement that the risk versus benefit would favor continued medical management. Any procedure whether it surgical or interventional would be high risk with minimal benefit to the patient. At this point I think it is important that we get him out of heart failure. I think he will do well and as I explained to the patient our goal is for him to be able to manage his activities of daily living comfortably. I have added colchicine to treat his gout. I would continue the diuretics at the current dosage. He is still little volume overloaded. Unfortunately, the diuretics will cause him to have gout but at this time he really needs to be on high doses. Admission and Anticipated Discharge Date Admission Date: November 02, 2022 Subjective The patient had an uneventful night. He does have some left knee discomfort which he blames on the gout which could be possible with the diuretics were giving him. He is on allopurinol but no anti-inflammatory medications. Review of Systems Review of Systems: Review of Systems: See HPI for pertinent positives. All other 10 point review of systems are negative. Physical Exam Physical Exam: General: no acute distress and stated age Head: normocephalic, no masses, lesions, tenderness or abnormalities Eyes: conjunctiva are pink and non-injected, sclera clear Neck: supple, no adenopathy, no bruits, normal jugular venous pulse, no hepatojugular reflux Chest: normal shape and normal respiratory effort Lungs: Wheezing and rales Cardiac Exam: - regular rate & rhythm, no murmurs gallops or rubs - normal S1, normal S2 Pulses: 2(+) throughout Abdomen: abdomen soft, non-tender, no abnormal masses and no hepatosplenomegaly Musculoskeletal: no gait disturbance, no joint inflammation, no deforming arthritis Extremities: Bilateral lower extremity edema Neuro: grossly normal exam Results & Data ([facility]) Vital Signs (Past 12 Hours) Vital Signs Temp Pulse Pulse Resp BP Pulse Ox O2 Del Method 11/05/22 11:07 36.7 C 83 21 150/74 H 97 Room Air 11/05/22 08:00 Room Air 11/05/22 07:11 36.7 C 83 18 97/60 L 93 Room Air 11/05/22 07:04 85 11/05/22 03:01 36.4 C L 83 20 96/58 L 94 Room Air Laboratory Results Laboratory Results - last 24 hr 11/04/22 11/04/22 11/05/22 16:33 19:42 07:17 WBC 7.81 RBC 4.64 Hgb 13.3 L Hct 41.9 MCV 90.3 MCH 28.7 MCHC 31.7 L RDW Std Deviation 51.0 H RDW Coeff of [place] 15.7 H Plt Count 177 MPV 10.7 Immature Gran % (Auto) 0.6 Neut % (Auto) 62.4 Lymph % (Auto) 22.9 [place] % (Auto) 8.6 Eos % (Auto) 4.9 Baso % (Auto) 0.6 Neut # (Auto) 4.87 Lymph # (Auto) 1.79 [place] # (Auto) 0.67 Eos # (Auto) 0.38 Baso # (Auto) 0.05 Immature Gran # (Auto) 0.05 H Sodium Potassium Chloride Carbon Dioxide Anion Gap BUN Creatinine Est Cr Clr Drug Dosing Est GFR ( Amer) Est GFR (Non-Af Amer) BUN/Creatinine Ratio Glucose POC Glucose 146 H 203 H Calcium Total Bilirubin AST ALT Alkaline Phosphatase Total Protein Albumin Globulin Albumin/Globulin Ratio 11/05/22 11/05/22 11/05/22 07:17 07:41 11:23 WBC RBC Hgb Hct MCV MCH MCHC RDW Std Deviation RDW Coeff of [place] Plt Count MPV Immature Gran % (Auto) Neut % (Auto) Lymph % (Auto) [place] % (Auto) Eos % (Auto) Baso % (Auto) Neut # (Auto) Lymph # (Auto) [place] # (Auto) Eos # (Auto) Baso # (Auto) Immature Gran # (Auto) Sodium 141 Potassium 3.7 Chloride 104 Carbon Dioxide 26 Anion Gap 11 BUN 36 H Creatinine 0.98 Est Cr Clr Drug Dosing 62.8 Est GFR ( Amer) 82.3 Est GFR (Non-Af Amer) 71.0 BUN/Creatinine Ratio 36.7 H Glucose 149 H POC Glucose 131 H 212 H Calcium 9.6 Total Bilirubin 1.0 AST 13 ALT 16 Alkaline Phosphatase 63 Total Protein 5.8 L Albumin 3.4 Globulin 2.4 L Albumin/Globulin Ratio 1.4 Medications Administered Current Inpatient Medications Acetaminophen (Acetaminophen 325 Mg Tab) 650 mg PO Q4H PRN PRN Reason: Pain or Fever Stop: 12/02/22 23:34 Last Admin: 11/04/22 20:17 Dose: 650 mg Albuterol (Albuterol Hfa 8 Gm Inhaler) 2 puffs INH Q4 PRN PRN Reason: Shortness Of Breath Stop: 12/02/22 23:34 Allopurinol (Allopurinol 300 Mg Tab) 300 mg PO DAILY [facility] Stop: 12/03/22 08:59 Last Admin: 11/05/22 08:09 Dose: 300 mg Alprazolam (Alprazolam 0.5 Mg Tablet) 0.5 mg PO Q8H PRN PRN Reason: Anxiety Stop: 12/02/22 23:34 Last Admin: 11/04/22 22:30 Dose: 0.5 mg Aspirin (Aspirin 81 Mg Ectab) [facility] Stop: 12/03/22 08:59 Last Admin: 11/05/22 08:09 Dose: 81 mg Atorvastatin Calcium (Atorvastatin 40 Mg Tab) 40 mg PO [facility] Stop: 12/03/22 08:59 Last Admin: 11/05/22 08:09 Dose: 40 mg Clopidogrel Bisulfate (Clopidogrel Bisulfate 75 Mg Tab) 75 mg PO [facility] Stop: 12/04/22 12:44 Last Admin: 11/05/22 08:09 Dose: 75 mg Colchicine (Colchicine 0.6 Mg Tab) 0.6 mg PO BID [facility] Stop: 12/05/22 11:59 Dextrose (Dextrose 50% 50 Ml Syringe) 25 - 50 ml IV UD PRN; Protocol PRN Reason: Hypoglycemia Protocol Stop: 12/02/22 23:34 Glucagon (Glucagon For Inj 1 Mg Vial) 1 mg SQ UD PRN; Protocol PRN Reason: Hypoglycemia Protocol Stop: 12/02/22 23:34 Glucose (Glucose 40% Gel 15 Gm Tube) 15 - 30 gm PO UD PRN; Protocol PRN Reason: Hypoglycemia Protocol Stop: 12/02/22 23:34 Glucose (Glucose 10 Tab/Tube) 4 - 8 tab PO UD PRN; Protocol PRN Reason: Hypoglycemia Treatment Stop: 12/02/22 23:34 Heparin Sodium (Porcine) (Heparin Sod 5,000 Unit/0.5 Ml Vial) 5,000 units SQ Q8 [facility] Stop: 12/04/22 21:59 Last Admin: 11/05/22 06:36 Dose: 5,000 units Bumetanide 1 mg/ Syringe 4 mls @ 4 mls/min IV BID@0900,1700 [facility] Stop: 12/03/22 08:59 Last Admin: 11/05/22 08:08 Dose: 4 mls/min Insulin Aspart (Insulin Aspart Per Unit) 0 units SC ACHS [facility] Stop: 12/03/22 20:59 Last Admin: 11/05/22 08:26 Dose: 4 units Insulin Glargine (Lantus Per Unit Charge) 5 units SQ DAILY [facility] Stop: 12/03/22 08:59 Last Admin: 11/05/22 08:27 Dose: 5 units Isosorbide Mononitrate (Isosorbide [place] Extended Rel 30 Mg Tabcr) 30 mg PO QAM [facility] Stop: 12/03/22 08:59 Last Admin: 11/05/22 08:09 Dose: 30 mg Lisinopril (Lisinopril 10 Mg Tab) 10 mg PO QAM [facility] Stop: 12/04/22 08:59 Last Admin: 11/05/22 08:09 Dose: 10 mg Metoprolol Succinate (Metoprolol Succ 50mg Ext Rel Tab) 100 mg PO DAILY [facility] Stop: 12/03/22 08:59 Last Admin: 11/05/22 08:08 Dose: 100 mg Mirtazapine (Mirtazapine Tab 15 Mg Tab) 15 mg PO HS [facility] Stop: 12/03/22 20:59 Last Admin: 11/04/22 19:57 Dose: 15 mg Miscellaneous (Carbohydrates For Hypoglycemia ) 15 - 30 gm PO UD PRN PRN Reason: Hypoglycemia Protocol Stop: 12/02/22 23:34 Nitroglycerin (Nitroglycerin Sl 0.4 Mg/Tab Tab) 0.4 mg SL UD PRN PRN Reason: Chest Pain Stop: 12/02/22 23:34 Polyethylene Glycol (Polyethylene (Miralax) 17 Gm Pack) 17 gm PO DAILY PRN PRN Reason: Constipation Stop: 12/02/22 23:34 Sodium Chloride (Sodium Chloride 0.65% Na Soln 45 Ml ([place])) 2 sprays NA Q2H PRN PRN Reason: congestion Stop: 12/03/22 14:44 Spironolactone (Spironolactone 12.5 Mg Tab) 12.5 mg PO DAILY [facility] Stop: 12/04/22 10:44 Last Admin: 11/05/22 08:09 Dose: 12.5 mg (1) CAD (coronary atherosclerotic disease) Associated angina: unspecified whether angina present Coronary Disease- Associated Artery/Lesion type: unspecified vessel or lesion type [place] vs. transplanted heart: [place] heart Qualified Code(s): I25.10 - Atherosclerotic heart disease of [place] coronary artery without angina pectoris (2) CHF (congestive heart failure) Heart failure chronicity: acute on chronic Heart failure type: unspecified Qualified Code(s): I50.9 - Heart failure, unspecified
--- NOTE | 2022-11-05 12:15 | Hospitalist Progress Note ---
Date of Service November 05, 2022 Assessment & Plan (1) Acute on chronic systolic (congestive) heart failure: (2) Ischemic cardiomyopathy: (3) SOB (shortness of breath): (4) NSTEMI (non-ST elevated myocardial infarction): Plan History of ischemic cardiomyopathy with reduced ejection fraction. Last echo in September 2022 with EF of 20 to 25% History of severe diffuse coronary artery disease; managed medically. Last cardiac cath was done in September 2022. Was on Lasix 60 mg at home; presented with lower extremity edema and shortness of breath. Chest x-ray shows vascular congestion. CT chest also shows bilateral patchy infiltrates. High-sensitivity troponin up trended from 24 to 900; down trended to 383 Pro-Zach negative Plan; -Appreciate cardiology's input; will continue on diuretics; Bumex 1 mg twice daily. Spironolactone added by cardiology during the hospitalization. -Received heparin drip earlier in the hospitalization; discontinued on November 04. Currently on aspirin and Plavix. -Strict input and output monitoring. -Daily weights -Lisinopril dose increased to 10 mg as per cardiology. On metoprolol as well. -Monitor daily BMP Left knee pain: Reports history of gout. On examination; left knee is slightly swollen; no overlying skin changes or tenderness present. On allopurinol 300 mg once daily Used to take indomethacin prescribed by his primary care doctor as outpatient Started on colchicine 0.6 mg twice daily by cardiology. Other conditions; Type 2 diabetes mellituscontinue on Lantus and NovoLog. Hyperlipidemiacontinue on statin Hypertensioncontinue on metoprolol, lisinopril and isosorbide mononitrate. Full code Heparin for DVT prophylaxis Admission and Anticipated Discharge Date Admission Date: November 02, 2022 Subjective Patient seen and examined at bedside. Is sitting up on the chair comfortably. He reports that the bilateral leg edema has decreased significantly. Reports improvement in shortness of breath on exertion. He also complains of left knee pain which he attributes to gout. His weight is 88 kg down from 91kg yesterday. Review of Systems Review of Systems: All systems reviewed & are unremarkable except as noted in Subjective Physical Exam Physical Exam: Constitutional: WD/WN, vitals as above, NAD, sitting up in bed, pleasant, conversing easily Respiratory: normal respiratory effort, lungs clear to auscultation, no wheeze, rales, rhonchi. Normal insp/exp effort, no accessory muscle use Cardiovascular: RRR, no murmur, no edema Vessels: no JVD or carotid bruit Chest: Crackles present at bases. Improved Abdomen: normal bowel sounds, soft, nontender, no hepatosplenomegaly Musculoskeletal: Trace pitting edema bilaterally; left knee slightly swollen compared to right; no overlying skin changes present. Skin: no rashes, warm and dry normal turgor Neurologic: PERRL, EOMI, accommodation nl, no face palsy, no dysarthria CN's II- XI intact bilaterally and moves all extremities Psychiatric: A+Ox3, euthymic affect Lymphatic: no cervical or axillary lymphadenopathy : deferred Results & Data Results & Data ([facility]) Vital Signs (Past 12 Hours) Vital Signs Temp Pulse Pulse Resp BP Pulse Ox O2 Del Method 11/05/22 11:07 36.7 C 83 21 150/74 H 97 Room Air 11/05/22 08:00 Room Air 11/05/22 07:11 36.7 C 83 18 97/60 L 93 Room Air 11/05/22 07:04 85 11/05/22 03:01 36.4 C L 83 20 96/58 L 94 Room Air Laboratory Results Laboratory Results WBC 7.81 K/ul (4.8-10.8) 11/05/22 07:17 RBC 4.64 M/uL (4.63-6.08) 11/05/22 07:17 Hgb 13.3 g/dl (14.0-18.0) L 11/05/22 07:17 Hct 41.9 % (40.1-51.0) 11/05/22 07:17 MCV 90.3 fL (80.0-100.0) 11/05/22 07:17 MCH 28.7 pg (25.0-34.0) 11/05/22 07:17 MCHC 31.7 g/dL (32.0-36.0) L 11/05/22 07:17 RDW Std Deviation 51.0 fL (36.4-46.3) H 11/05/22 07:17 RDW Coeff of Niya 15.7 % (11.5-14.5) H 11/05/22 07:17 Plt Count 177 K/uL (130-400) 11/05/22 07:17 MPV 10.7 fL (9.4-12.4) 11/05/22 07:17 Immature Gran % (Auto) 0.6 % 11/05/22 07:17 Neut % (Auto) 62.4 % 11/05/22 07:17 Lymph % (Auto) 22.9 % 11/05/22 07:17 [place] % (Auto) 8.6 % 11/05/22 07:17 Eos % (Auto) 4.9 % 11/05/22 07:17 Baso % (Auto) 0.6 % 11/05/22 07:17 Neut # (Auto) 4.87 K/uL (1.4-6.5) 11/05/22 07:17 Lymph # (Auto) 1.79 K/uL (1.2-3.4) 11/05/22 07:17 [place] # (Auto) 0.67 K/uL (0.24-0.82) 11/05/22 07:17 Eos # (Auto) 0.38 K/uL (0-0.50) 11/05/22 07:17 Baso # (Auto) 0.05 K/uL (0-0.2) 11/05/22 07:17 Immature Gran # (Auto) 0.05 K/uL (0.00-0.02) H 11/05/22 07:17 PT 12.4 Seconds (9.0-12.0) H 11/02/22 18:15 INR 1.2 (0.9-1.1) H 11/02/22 18:15 APTT 43.8 Seconds (21.0-31.0) H 11/04/22 10:06 PTT Ratio 1.6 11/04/22 10:06 Sodium 141 mmol/L (136-145) 11/05/22 07:17 Potassium 3.7 mmol/L (3.5-5.1) 11/05/22 07:17 Chloride 104 mmol/L (98-107) 11/05/22 07:17 Carbon Dioxide 26 mmol/L (21-32) 11/05/22 07:17 Anion Gap 11 (3-11) 11/05/22 07:17 BUN 36 mg/dl (6-23) H 11/05/22 07:17 Creatinine 0.98 mg/dl (0.6-1.4) 11/05/22 07:17 Est Cr Clr Drug Dosing 62.8 ml/min 11/05/22 07:17 Est GFR ( Amer) 82.3 ml/min 11/05/22 07:17 Est GFR (Non-Af Amer) 71.0 ml/min 11/05/22 07:17 BUN/Creatinine Ratio 36.7 (10-20) H 11/05/22 07:17 Glucose 149 mg/dl (70-99(Fasting)) H 11/05/22 07:17 POC Glucose 212 mg/dl (70-99) H 11/05/22 11:23 Fasting Glucose 176 mg/dl (70-99) H 11/04/22 09:18 Estimat Average Glucose 183 mg/dl 11/03/22 05:49 Hemoglobin A1c 8.0 % (4.5-5.6) H 11/03/22 05:49 Calcium 9.6 mg/dl (8.5-10.1) 11/05/22 07:17 Magnesium 1.9 mg/dl (1.7-2.4) 11/03/22 05:49 Total Bilirubin 1.0 mg/dl (0.2-1.0) 11/05/22 07:17 AST 13 U/L (13-39) 11/05/22 07:17 ALT 16 U/L (7-52) 11/05/22 07:17 Alkaline Phosphatase 63 U/L (34-104) 11/05/22 07:17 Troponin I High Sens 383.9 pg/ml (0-20) H* D 11/04/22 08:29 B-Natriuretic Peptide 509 pg/ml (0-100) H 11/02/22 18:15 Total Protein 5.8 gm/dl (6.0-8.3) L 11/05/22 07:17 Albumin 3.4 gm/dl (3.4-5.0) 11/05/22 07:17 Globulin 2.4 gm/dl (2.5-4.0) L 11/05/22 07:17 Albumin/Globulin Ratio 1.4 (0.9-2) 11/05/22 07:17 Procalcitonin < 0.05 ng/ml (0-0.5) 11/03/22 14:03 SARS-CoV-2 (PCR) NEGATIVE (Negative) 11/03/22 05:40 Influenza Type A (PCR) Negative (Neg) 11/03/22 05:40 Influenza Type B (PCR) Negative (Neg) 11/03/22 05:40 RSV (RT-PCR) Negative (Neg) 11/03/22 05:40 SARS-CoV-2, RNA, NAAT NEGATIVE (NEGATIVE) 11/02/22 18:15 Impressions Chest X-Ray 11/02/22 16:28 XR chest 1V portable HISTORY: Atypical chest pain. COMPARISON: Chest 09/21/2022. FINDINGS: No pneumothorax. No pleural effusions. The heart remains mildly enlarged. Diffuse interstitial thickening with patchy bibasilar airspace opacities persist. IMPRESSION: 1. No significant change in the diffuse interstitial thickening with patchy bibasilar airspace opacities. This may represent an atypical pneumonia with superimposed mild congestive change. 2. Stable mild cardiomegaly. ACT 112: Negative or not required by law. Electronically signed by: Haris Grier M.D. 11/02/2022 6:[address] 11/02/22 21:11 CT SCAN OF THE CHEST WITHOUT IV CONTRAST CLINICAL HISTORY: Dyspnea. Congestive heart failure. COMPARISON STUDY: Chest x-ray dated 11/02/2022. Chest CT dated 09/21/2022. TECHNIQUE: CT scan of the thorax was performed from the thoracic inlet to the upper abdomen. Images are reviewed in the axial, sagittal, and coronal planes. IV contrast was not administered for this examination as per the referring clinician. A dose lowering technique was utilized adhering to the principles of ALARA. CT DOSE: 572.00 mGy.cm FINDINGS: Thyroid: Imaged portions of the thyroid gland are normal in size and attenuation. Thoracic aorta: There is atherosclerotic calcification of the thoracic aorta, which is normal in caliber and demonstrates standard 3-vessel arch anatomy. Heart: The heart is enlarged and without pericardial effusion. The coronary arteries are densely calcified. The pulmonary trunk is dilated, measuring 3.8 cm. This suggests pulmonary artery hypertension. Lungs and pleural spaces: Subpleural reticulation is seen throughout both lungs. Intralobular septal thickening is noted in the lower lobes. There are small pleural effusions with dependent atelectasis. Foci of groundglass consolidation are seen throughout the lungs, greatest at the lung bases. The trachea and central airways are clear. Mild bronchiectasis is seen in the lower lobes. There are scattered calcified granulomas. Mediastinum: There are mildly enlarged mediastinal lymph nodes. A right peritracheal node on image #98 measures 15 mm in short axis. A subcarinal node measures 20 mm in short axis. Katherin: Not well assessed without IV contrast. Axillae: There is no axillary lymphadenopathy. Upper abdomen: There is a small hiatal hernia. A 2 mm calculus is seen in the upper pole of the left kidney. Diverticulosis is noted in the partially imaged left colon. Skeletal structures: The skeletal structures are osteopenic. Spondylotic changes in the spine. No lytic or blastic bony lesions are seen. IMPRESSION: 1. Cardiomegaly with evidence of pulmonary artery hypertension and congestive failure. 2. Small pleural effusions. 3. Multifocal groundglass consolidation is seen throughout both lungs, greatest at the lung bases. This could represent pulmonary edema and/or multifocal pneumonia. Clinical correlation will be required and radiographic follow-up to resolution is recommended. 4. Mildly enlarged mediastinal lymph nodes are pathologically indeterminant and similar to previous. 5. Additional findings as above. ACT 112: Negative or not required by law. Electronically signed by: Aldo Menendez M.D. 11/03/2022 9:42 AM
[2022-11-05] MEDS: COLCHICINE 0.6 MG TAB PO SCH ×2 (13:21→20:44)
[2022-11-05] MEDS: MIRTAZAPINE TAB 15 MG TAB PO SCH (20:43)
[2022-11-05] MEDS: ACETAMINOPHEN 325 MG TAB PO PRN (20:43)
[2022-11-05] MEDS: ALPRAZolam 0.25 MG TABLET PO PRN (20:45)
[2022-11-06] MEDS: ACETAMINOPHEN 325 MG TAB PO PRN (05:11)
[2022-11-06] MEDS: HEPARIN SOD 5,000 UNIT/0.5 ML VIAL SQ SCH ×3 (05:12→21:30)
[2022-11-06 06:45] LABS: Basophils # (auto) 0.05 K/uL (0-0.2); Basophils % (auto) 0.6 %; Eosinophils # (auto) 0.31 K/uL (0-0.50); Eosinophils % (auto) 3.8 %; Hemoglobin 13.4 g/dl (14.0-18.0); Immature Granulocytes # (auto) 0.06 K/uL (0.00-0.02); Immature Granulocytes % (auto) 0.7 %; Lymphocytes # (auto) 2.08 K/uL (1.2-3.4); Lymphocytes % (auto) 25.4 %; Mean Corpuscular Hemoglobin 28.9 pg (25.0-34.0); Mean Corpuscular Hgb Conc 32.7 g/dL (32.0-36.0); Mean Corpuscular Volume 88.4 fL (80.0-100.0); Mean Platelet Volume 10.8 fL (9.4-12.4); Monocytes # (auto) 0.74 K/uL (0.24-0.82); Neutrophils # (auto) 4.96 K/uL (1.4-6.5); Neutrophils % (auto) 60.5 %; Platelet Count 184 K/uL (130-400); RDW Coefficient of Variation 15.5 % (11.5-14.5); RDW Standard Deviation 50.1 fL (36.4-46.3); Red Blood Count 4.64 M/uL (4.63-6.08)
[2022-11-06 07:56] LABS: Calcium 9.5 mg/dl (8.5-10.1); Magnesium 1.6 mg/dl (1.7-2.4); Potassium 3.9 mmol/L (3.5-5.1)
[2022-11-06 08:01] LABS: Creatinine Clr Calc Pharmacy 52.8 ml/min; Est GFR (African American) 66.4 ml/min; Est GFR (Non-African American) 57.3 ml/min
[2022-11-06] MEDS: BUMETANIDE 1 MG in SYRINGE 0 ML IV SCH (08:35)
[2022-11-06] MEDS: SPIRONOLACTONE 12.5 MG TAB PO SCH (08:35)
[2022-11-06] MEDS: COLCHICINE 0.6 MG TAB PO SCH ×2 (08:35→20:23)
[2022-11-06] MEDS: CLOPIDOGREL BISULFATE 75 MG TAB PO SCH (08:35)
[2022-11-06] MEDS: ASPIRIN 81 MG ECTAB PO SCH (08:35)
[2022-11-06] MEDS: lisinopril 10 MG TAB PO SCH (08:36)
[2022-11-06] MEDS: ISOSORBIDE MONO EXTENDED REL 30 MG TABCR PO SCH (08:36)
[2022-11-06] MEDS: METOPROLOL SUCC 50MG EXT REL TAB PO SCH (08:36)
[2022-11-06] MEDS: allopurinoL 300 MG TAB PO SCH (08:36)
[2022-11-06] MEDS: LANTUS PER UNIT CHARGE SQ SCH (08:47)
[2022-11-06] MEDS: INSULIN ASPART PER UNIT SC SCH ×4 (08:47→20:34)
[2022-11-06] MEDS: MAGNESIUM SULFATE / D5W 1 GM/100 ML BAG IV SCH ×2 (09:41→11:34)
[2022-11-06] MEDS: ATORVASTATIN 40 MG TAB PO SCH (09:42)
--- NOTE | 2022-11-06 10:07 | Cardiology Progress Note ---
Date of Service November 06, 2022 Assessment & Plan (1) CHF (congestive heart failure): (2) HFrEF (heart failure with reduced ejection fraction): (3) Ischemic cardiomyopathy: (4) CAD (coronary atherosclerotic disease): Plan Believe the patient is out of heart failure and we can back down on his diuretics and make them oral. I have added a fluid restriction and explained to him the need for 2000 cc/day fluid restriction. In regard to his left knee pain. He does have a history of gout but the knee does not appear to be inflamed and I am wondering if this is gout versus osteoarthritis. In any case the colchicine seems to be helping. I have held his atorvastatin as there is a rare likelihood of myositis developing with the combination of atorvastatin and colchicine. Continue in-hospital treatment for today and reassess tomorrow. Admission and Anticipated Discharge Date Admission Date: November 02, 2022 Subjective The patient had an uneventful night. His arthritis which I am uncertain as to whether this is osteoarthritis of his left knee or actual gout seems to have improved with colchicine. Review of Systems Review of Systems: Review of Systems: See HPI for pertinent positives. All other 10 point review of systems are negative. Physical Exam Physical Exam: General: no acute distress and stated age Head: normocephalic, no masses, lesions, tenderness or abnormalities Eyes: conjunctiva are pink and non-injected, sclera clear Neck: supple, no adenopathy, no bruits, normal jugular venous pulse, no hepatojugular reflux Chest: normal shape and normal respiratory effort Lungs: Wheezing and rales Cardiac Exam: - regular rate & rhythm, no murmurs gallops or rubs - normal S1, normal S2 Pulses: 2(+) throughout Abdomen: abdomen soft, non-tender, no abnormal masses and no hepatosplenomegaly Musculoskeletal: no gait disturbance, no joint inflammation, no deforming arthritis Extremities: Bilateral lower extremity edema Neuro: grossly normal exam Results & Data ([facility]) Vital Signs (Past 12 Hours) Vital Signs Temp Pulse Pulse Resp BP BP Pulse Ox 11/06/22 08:37 125/81 11/06/22 07:25 36.8 C 89 19 96/59 L 92 11/06/22 07:06 77 11/06/22 03:49 36.6 C 86 16 123/76 95 11/05/22 22:29 36.7 C 82 14 109/51 L 93 O2 Del Method 11/06/22 08:37 11/06/22 07:25 Room Air 11/06/22 07:06 11/06/22 03:49 Room Air 11/05/22 22:29 Room Air Laboratory Results Laboratory Results - last 24 hr 11/05/22 11/05/22 11/05/22 11:23 16:05 19:33 WBC RBC Hgb Hct MCV MCH MCHC RDW Std Deviation RDW Coeff of Niya Plt Count MPV Immature Gran % (Auto) Neut % (Auto) Lymph % (Auto) Bailey % (Auto) Eos % (Auto) Baso % (Auto) Neut # (Auto) Lymph # (Auto) Bailey # (Auto) Eos # (Auto) Baso # (Auto) Immature Gran # (Auto) Sodium Potassium Chloride Carbon Dioxide Anion Gap BUN Creatinine Est Cr Clr Drug Dosing Est GFR ( Amer) Est GFR (Non-Af Amer) BUN/Creatinine Ratio Glucose POC Glucose 212 H 141 H 228 H Calcium Magnesium 11/06/22 11/06/22 11/06/22 06:29 06:29 07:24 WBC 8.20 RBC 4.64 Hgb 13.4 L Hct 41.0 MCV 88.4 MCH 28.9 MCHC 32.7 RDW Std Deviation 50.1 H RDW Coeff of Niya 15.5 H Plt Count 184 MPV 10.8 Immature Gran % (Auto) 0.7 Neut % (Auto) 60.5 Lymph % (Auto) 25.4 Bailey % (Auto) 9.0 Eos % (Auto) 3.8 Baso % (Auto) 0.6 Neut # (Auto) 4.96 Lymph # (Auto) 2.08 Bailey # (Auto) 0.74 Eos # (Auto) 0.31 Baso # (Auto) 0.05 Immature Gran # (Auto) 0.06 H Sodium 139 Potassium 3.9 Chloride 103 Carbon Dioxide 27 Anion Gap 9 BUN 41 H Creatinine 1.17 Est Cr Clr Drug Dosing 52.8 Est GFR ( Amer) 66.4 Est GFR (Non-Af Amer) 57.3 BUN/Creatinine Ratio 35.0 H Glucose 198 H POC Glucose 172 H Calcium 9.5 Magnesium 1.6 L Medications Administered Current Inpatient Medications Acetaminophen (Acetaminophen 325 Mg Tab) 650 mg PO Q4H PRN PRN Reason: Pain or Fever Stop: 12/02/22 23:34 Last Admin: 11/06/22 05:11 Dose: 650 mg Albuterol (Albuterol Hfa 8 Gm Inhaler) 2 puffs INH Q4 PRN PRN Reason: Shortness Of Breath Stop: 12/02/22 23:34 Allopurinol (Allopurinol 300 Mg Tab) 300 mg PO DAILY [facility] Stop: 12/03/22 08:59 Last Admin: 11/06/22 08:36 Dose: 300 mg Alprazolam (Alprazolam 0.25 Mg Tablet) 0.25 mg PO Q8H PRN PRN Reason: Anxiety Stop: 12/02/22 23:34 Last Admin: 11/05/22 20:45 Dose: 0.25 mg Aspirin (Aspirin 81 Mg Ectab) 81 mg PO QAM [facility] Stop: 12/03/22 08:59 Last Admin: 11/06/22 08:35 Dose: 81 mg Atorvastatin Calcium (Atorvastatin 40 Mg Tab) 40 mg PO QAM [facility] Stop: 12/03/22 08:59 Last Admin: 11/06/22 09:42 Dose: 40 mg Clopidogrel Bisulfate (Clopidogrel Bisulfate 75 Mg Tab) 75 mg PO QAM [facility] Stop: 12/04/22 12:44 Last Admin: 11/06/22 08:35 Dose: 75 mg Colchicine (Colchicine 0.6 Mg Tab) 0.6 mg PO BID [facility] Stop: 12/05/22 12:14 Last Admin: 11/06/22 08:35 Dose: 0.6 mg Dextrose (Dextrose 50% 50 Ml Syringe) 25 - 50 ml IV UD PRN; Protocol PRN Reason: Hypoglycemia Protocol Stop: 12/02/22 23:34 Furosemide (Furosemide 40 Mg Tab) 40 mg PO [id number] [facility] Stop: 12/06/22 16:59 Glucagon (Glucagon For Inj 1 Mg Vial) 1 mg SQ UD PRN; Protocol PRN Reason: Hypoglycemia Protocol Stop: 12/02/22 23:34 Glucose (Glucose 40% Gel 15 Gm Tube) 15 - 30 gm PO UD PRN; Protocol PRN Reason: Hypoglycemia Protocol Stop: 12/02/22 23:34 Glucose (Glucose 10 Tab/Tube) 4 - 8 tab PO UD PRN; Protocol PRN Reason: Hypoglycemia Treatment Stop: 12/02/22 23:34 Heparin Sodium (Porcine) (Heparin Sod 5,000 Unit/0.5 Ml Vial) 5,000 units SQ Q8 [facility] Stop: 12/04/22 21:59 Last Admin: 11/06/22 05:12 Dose: 5,000 units Magnesium Sulfate/Dextrose (Magnesium Sulfate / D5w) 1 gm in 100 mls @ 50 mls/hr IV Q2H [facility] Stop: 11/06/22 12:59 Last Admin: 11/06/22 09:41 Dose: 50 mls/hr Insulin Aspart (Insulin Aspart Per Unit) 0 units SC ACHS [facility] Stop: 12/03/22 20:59 Last Admin: 11/06/22 08:47 Dose: 7 units Insulin Glargine (Lantus Per Unit Charge) 5 units SQ DAILY [facility] Stop: 12/03/22 08:59 Last Admin: 11/06/22 08:47 Dose: 5 units Isosorbide Mononitrate (Isosorbide Bailey Extended Rel 30 Mg Tabcr) 30 mg PO QAM [facility] Stop: 12/03/22 08:59 Last Admin: 11/06/22 08:36 Dose: 30 mg Lisinopril (Lisinopril 10 Mg Tab) 10 mg PO QAM [facility] Stop: 12/04/22 08:59 Last Admin: 11/06/22 08:36 Dose: 10 mg Metoprolol Succinate (Metoprolol Succ 50mg Ext Rel Tab) 100 mg PO DAILY [facility] Stop: 12/03/22 08:59 Last Admin: 11/06/22 08:36 Dose: 100 mg Mirtazapine (Mirtazapine Tab 15 Mg Tab) 15 mg PO HS [facility] Stop: 12/03/22 20:59 Last Admin: 11/05/22 20:43 Dose: 15 mg Miscellaneous (Carbohydrates For Hypoglycemia ) 15 - 30 gm PO UD PRN PRN Reason: Hypoglycemia Protocol Stop: 12/02/22 23:34 Nitroglycerin (Nitroglycerin Sl 0.4 Mg/Tab Tab) 0.4 mg SL UD PRN PRN Reason: Chest Pain Stop: 12/02/22 23:34 Polyethylene Glycol (Polyethylene (Miralax) 17 Gm Pack) 17 gm PO DAILY PRN PRN Reason: Constipation Stop: 12/02/22 23:34 Sodium Chloride (Sodium Chloride 0.65% Na Soln 45 Ml ([place])) 2 sprays NA Q2H PRN PRN Reason: congestion Stop: 12/03/22 14:44 Spironolactone (Spironolactone 12.5 Mg Tab) 12.5 mg PO DAILY [facility] Stop: 12/04/22 10:44 Last Admin: 11/06/22 08:35 Dose: 12.5 mg (1) CAD (coronary atherosclerotic disease) Associated angina: unspecified whether angina present Coronary Disease-Associ ated Artery/Lesion type: unspecified vessel or lesion type [place] vs. transplanted heart: [place] heart Qualified Code(s): I25.10 - Atherosclerotic heart disease of [place] coronary artery without angina pectoris (2) CHF (congestive heart failure) Heart failure chronicity: acute on chronic Heart failure type: unspecified Qualified Code(s): I50.9 - Heart failure, unspecified
--- NOTE | 2022-11-06 12:36 | XRay Report ---
XR knee LT 3V HISTORY: 82 years-old Male Left knee pain acute left knee pain without reported trauma COMPARISON: None TECHNIQUE: 3 views of the left knee FINDINGS: Small joint effusion. 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 No acute fr acture, dislocation or intra-articular loose body. Mild anteromedial soft tissue swelling. Arterial c alcifications. 1.3 cm subcortical lucent focus of the medial femoral condyle may represent a geode or osteochondral defect. IMPRESSION: 1. Small joint effusion without acute fracture or dislocation. 2. Moderate medial compartment osteoarthritis. ACT 112: Negative or not required by law. The above report was generated using voice recognition software. It may contain grammatical, syntax o r spelling errors. Electronically signed by: Haile Zamora M.D. 11/06/2022 12:35 PM
--- NOTE | 2022-11-06 13:23 | Hospitalist Progress Note ---
Date of Service November 06, 2022 Assessment & Plan (1) Acute on chronic systolic (congestive) heart failure: (2) Ischemic cardiomyopathy: (3) SOB (shortness of breath): (4) NSTEMI (non-ST elevated myocardial infarction): Plan History of ischemic cardiomyopathy with reduced ejection fraction. Last echo in September 2022 with EF of 20 to 25% History of severe diffuse coronary artery disease; managed medically. Last cardiac cath was done in September 2022. Was on Lasix 60 mg at home; presented with lower extremity edema and shortness of breath. Chest x-ray shows vascular congestion. CT chest also shows bilateral patchy infiltrates. High-sensitivity troponin up trended from 24 to 900; down trended to 383 Pro-Zach negative Plan; -Appreciate cardiology's input; diuretics changed to p.o with Lasix 40 mg twice daily.. Spironolactone added by cardiology during the hospitalization. -Received heparin drip earlier in the hospitalization; discontinued on November 04. Currently on aspirin and Plavix. -Strict input and output monitoring. -Daily weights -Lisinopril dose increased to 10 mg as per cardiology. On metoprolol as well. -Monitor daily BMP Left knee pain( likely OA, ?Gout) Reports history of gout. On examination; left knee is slightly swollen; no overlying skin changes or tenderness present. On allopurinol 300 mg once daily Used to take indomethacin prescribed by his primary care doctor as outpatient X-ray shows small effusion; no fracture or dislocation. Will get Ortho pending evaluation for possible intra-articular steroid as it has caused significant decrease in mobility of the patient. Other conditions; Type 2 diabetes mellituscontinue on Lantus and NovoLog. Hyperlipidemiacontinue on statin Hypertensioncontinue on metoprolol, lisinopril and isosorbide mononitrate. Full code Heparin for DVT prophylaxis PT OT eval pending Admission and Anticipated Discharge Date Admission Date: November 02, 2022 Subjective Patient seen and examined at bedside. Is comfortably lying in the bed; reports that he is bilateral leg swelling has improved significantly. He continues to complain significant pain in his left knee. He reports difficulty on movement due to the pain. Review of Systems Review of Systems: All systems reviewed & are unremarkable except as noted in Subjective Physical Exam Physical Exam: Constitutional: WD/WN, vitals as above, NAD, sitting up in bed, pleasant, conversing easily Respiratory: normal respiratory effort, lungs clear to auscultation, no wheeze, rales, rhonchi. Normal insp/exp effort, no accessory muscle use Cardiovascular: RRR, no murmur, no edema Vessels: no JVD or carotid bruit Chest: Crackles present at bases. Improved Abdomen: normal bowel sounds, soft, nontender, no hepatosplenomegaly Musculoskeletal: Trace pitting edema bilaterally; left knee slightly swollen compared to right; no overlying skin changes present. Skin: no rashes, warm and dry normal turgor Neurologic: PERRL, EOMI, accommodation nl, no face palsy, no dysarthria CN's II- XI intact bilaterally and moves all extremities Psychiatric: A+Ox3, euthymic affect Lymphatic: no cervical or axillary lymphadenopathy : deferred Results & Data Results & Data ([facility]) Vital Signs (Past 12 Hours) Vital Signs Temp Pulse Pulse Resp BP BP Pulse Ox 11/06/22 10:55 36.5 C 82 18 100/63 94 11/06/22 08:37 125/81 11/06/22 07:25 36.8 C 89 19 96/59 L 92 11/06/22 07:06 77 11/06/22 03:49 36.6 C 86 16 123/76 95 O2 Del Method 11/06/22 10:55 Room Air 11/06/22 08:37 11/06/22 07:25 Room Air 11/06/22 07:06 11/06/22 03:49 Room Air Laboratory Results Laboratory Results WBC 8.20 K/ul (4.8-10.8) 11/06/22 06:29 RBC 4.64 M/uL (4.63-6.08) 11/06/22 06:29 Hgb 13.4 g/dl (14.0-18.0) L 11/06/22 06:29 Hct 41.0 % (40.1-51.0) 11/06/22 06:29 MCV 88.4 fL (80.0-100.0) 11/06/22 06:29 MCH 28.9 pg (25.0-34.0) 11/06/22 06:29 MCHC 32.7 g/dL (32.0-36.0) 11/06/22 06:29 RDW Std Deviation 50.1 fL (36.4-46.3) H 11/06/22 06:29 RDW Coeff of Niya 15.5 % (11.5-14.5) H 11/06/22 06:29 Plt Count 184 K/uL (130-400) 11/06/22 06:29 MPV 10.8 fL (9.4-12.4) 11/06/22 06:29 Immature Gran % (Auto) 0.7 % 11/06/22 06:29 Neut % (Auto) 60.5 % 11/06/22 06:29 Lymph % (Auto) 25.4 % 11/06/22 06:29 [place] % (Auto) 9.0 % 11/06/22 06:29 Eos % (Auto) 3.8 % 11/06/22 06:29 Baso % (Auto) 0.6 % 11/06/22 06:29 Neut # (Auto) 4.96 K/uL (1.4-6.5) 11/06/22 06:29 Lymph # (Auto) 2.08 K/uL (1.2-3.4) 11/06/22 06:29 [place] # (Auto) 0.74 K/uL (0.24-0.82) 11/06/22 06:29 Eos # (Auto) 0.31 K/uL (0-0.50) 11/06/22 06:29 Baso # (Auto) 0.05 K/uL (0-0.2) 11/06/22 06:29 Immature Gran # (Auto) 0.06 K/uL (0.00-0.02) H 11/06/22 06:29 PT 12.4 Seconds (9.0-12.0) H 11/02/22 18:15 INR 1.2 (0.9-1.1) H 11/02/22 18:15 APTT 43.8 Seconds (21.0-31.0) H 11/04/22 10:06 PTT Ratio 1.6 11/04/22 10:06 Sodium 139 mmol/L (136-145) 11/06/22 06:29 Potassium 3.9 mmol/L (3.5-5.1) 11/06/22 06:29 Chloride 103 mmol/L (98-107) 11/06/22 06:29 Carbon Dioxide 27 mmol/L (21-32) 11/06/22 06:29 Anion Gap 9 (3-11) 11/06/22 06:29 BUN 41 mg/dl (6-23) H 11/06/22 06:29 Creatinine 1.17 mg/dl (0.6-1.4) 11/06/22 06:29 Est Cr Clr Drug Dosing 52.8 ml/min 11/06/22 06:29 Est GFR ( Amer) 66.4 ml/min 11/06/22 06:29 Est GFR (Non-Af Amer) 57.3 ml/min 11/06/22 06:29 BUN/Creatinine Ratio 35.0 (10-20) H 11/06/22 06:29 Glucose 198 mg/dl (70-99(Fasting)) H 11/06/22 06:29 POC Glucose 251 mg/dl (70-99) H 11/06/22 11:22 Fasting Glucose 176 mg/dl (70-99) H 11/04/22 09:18 Estimat Average Glucose 183 mg/dl 11/03/22 05:49 Hemoglobin A1c 8.0 % (4.5-5.6) H 11/03/22 05:49 Calcium 9.5 mg/dl (8.5-10.1) 11/06/22 06:29 Magnesium 1.6 mg/dl (1.7-2.4) L 11/06/22 06:29 Total Bilirubin 1.0 mg/dl (0.2-1.0) 11/05/22 07:17 AST 13 U/L (13-39) 11/05/22 07:17 ALT 16 U/L (7-52) 11/05/22 07:17 Alkaline Phosphatase 63 U/L (34-104) 11/05/22 07:17 Troponin I High Sens 383.9 pg/ml (0-20) H* D 11/04/22 08:29 B-Natriuretic Peptide 509 pg/ml (0-100) H 11/02/22 18:15 Total Protein 5.8 gm/dl (6.0-8.3) L 11/05/22 07:17 Albumin 3.4 gm/dl (3.4-5.0) 11/05/22 07:17 Globulin 2.4 gm/dl (2.5-4.0) L 11/05/22 07:17 Albumin/Globulin Ratio 1.4 (0.9-2) 11/05/22 07:17 Procalcitonin < 0.05 ng/ml (0-0.5) 11/03/22 14:03 SARS-CoV-2 (PCR) NEGATIVE (Negative) 11/03/22 05:40 Influenza Type A (PCR) Negative (Neg) 11/03/22 05:40 Influenza Type B (PCR) Negative (Neg) 11/03/22 05:40 RSV (RT-PCR) Negative (Neg) 11/03/22 05:40 SARS-CoV-2, RNA, NAAT NEGATIVE (NEGATIVE) 11/02/22 18:15 Impressions Chest X-Ray 11/02/22 16:28 XR chest 1V portable HISTORY: Atypical chest pain. COMPARISON: Chest 09/21/2022. FINDINGS: No pneumothorax. No pleural effusions. The heart remains mildly enlarged. Diffuse interstitial thickening with patchy bibasilar airspace opacities persist. IMPRESSION: 1. No significant change in the diffuse interstitial thickening with patchy bibasilar airspace opacities. This may represent an atypical pneumonia with superimposed mild congestive change. 2. Stable mild cardiomegaly. ACT 112: Negative or not required by law. Electronically signed by: Haris Grier M.D. 11/02/2022 6:[address] 11/02/22 21:11 CT SCAN OF THE CHEST WITHOUT IV CONTRAST CLINICAL HISTORY: Dyspnea. Congestive heart failure. COMPARISON STUDY: Chest x-ray dated 11/02/2022. Chest CT dated 09/21/2022. TECHNIQUE: CT scan of the thorax was performed from the thoracic inlet to the upper abdomen. Images are reviewed in the axial, sagittal, and coronal planes. IV contrast was not administered for this examination as per the referring clinician. A dose lowering technique was utilized adhering to the principles of ALARA. CT DOSE: 572.00 mGy.cm FINDINGS: Thyroid: Imaged portions of the thyroid gland are normal in size and attenuation. Thoracic aorta: There is atherosclerotic calcification of the thoracic aorta, which is normal in caliber and demonstrates standard 3-vessel arch anatomy. Heart: The heart is enlarged and without pericardial effusion. The coronary arteries are densely calcified. The pulmonary trunk is dilated, measuring 3.8 cm. This suggests pulmonary artery hypertension. Lungs and pleural spaces: Subpleural reticulation is seen throughout both lungs. Intralobular septal thickening is noted in the lower lobes. There are small pleural effusions with dependent atelectasis. Foci of groundglass consolidation are seen throughout the lungs, greatest at the lung bases. The trachea and central airways are clear. Mild bronchiectasis is seen in the lower lobes. There are scattered calcified granulomas. Mediastinum: There are mildly enlarged mediastinal lymph nodes. A right peritracheal node on image #98 measures 15 mm in short axis. A subcarinal node measures 20 mm in short axis. [place]: Not well assessed without IV contrast. Axillae: There is no axillary lymphadenopathy. Upper abdomen: There is a small hiatal hernia. A 2 mm calculus is seen in the upper pole of the left kidney. Diverticulosis is noted in the partially imaged left colon. Skeletal structures: The skeletal structures are osteopenic. Spondylotic changes in the spine. No lytic or blastic bony lesions are seen. IMPRESSION: 1. Cardiomegaly with evidence of pulmonary artery hypertension and congestive failure. 2. Small pleural effusions. 3. Multifocal groundglass consolidation is seen throughout both lungs, greatest at the lung bases. This could represent pulmonary edema and/or multifocal pneumonia. Clinical correlation will be required and radiographic follow-up to resolution is recommended. 4. Mildly enlarged mediastinal lymph nodes are pathologically indeterminant and similar to previous. 5. Additional findings as above. ACT 112: Negative or not required by law. Electronically signed by: Aldo Menendez M.D. 11/03/2022 9:42 AM Knee X-Ray 11/06/22 10:23 XR knee LT 3V HISTORY: 82 years-old Male Left knee pain acute left knee pain without reported trauma COMPARISON: None TECHNIQUE: 3 views of the left knee FINDINGS: Small joint effusion. 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 No acute fracture, dislocation or intra-articular loose body. Mild anteromedial soft tissue swelling. Arterial calcifications. 1.3 cm subcortical lucent focus of the medial femoral condyle may represent a geode or osteochondral defect. IMPRESSION: 1. Small joint effusion without acute fracture or dislocation. 2. Moderate medial compartment osteoarthritis. ACT 112: Negative or not required by law. The above report was generated using voice recognition software. It may contain grammatical, syntax or spelling errors. Electronically signed by: Haile Zamora M.D. 11/06/2022 12:35 PM
[2022-11-06] MEDS: ALPRAZolam 0.25 MG TABLET PO PRN ×2 (13:30→21:30)
[2022-11-06] MEDS: ACETAMINOPHEN 325 MG TAB PO SCH ×2 (13:38→20:21)
[2022-11-06] MEDS: FUROSEMIDE 40 MG TAB PO SCH (17:47)
[2022-11-06] MEDS: MIRTAZAPINE TAB 15 MG TAB PO SCH (20:23)
[2022-11-07] MEDS: ACETAMINOPHEN 325 MG TAB PO SCH ×4 (03:53→19:41)
[2022-11-07] MEDS: HEPARIN SOD 5,000 UNIT/0.5 ML VIAL SQ SCH ×3 (05:23→21:22)
[2022-11-07 06:06] LABS: Basophils # (auto) 0.05 K/uL (0-0.2); Basophils % (auto) 0.6 %; Eosinophils # (auto) 0.39 K/uL (0-0.50); Eosinophils % (auto) 4.7 %; Hematocrit (blood only) 40.6 % (40.1-51.0); Hemoglobin 13.4 g/dl (14.0-18.0); Immature Granulocytes # (auto) 0.06 K/uL (0.00-0.02); Immature Granulocytes % (auto) 0.7 %; Lymphocytes # (auto) 2.35 K/uL (1.2-3.4); Lymphocytes % (auto) 28.1 %; Mean Corpuscular Volume 87.9 fL (80.0-100.0); Mean Platelet Volume 10.7 fL (9.4-12.4); Monocytes # (auto) 0.76 K/uL (0.24-0.82); Monocytes % (auto) 9.1 %; Neutrophils # (auto) 4.75 K/uL (1.4-6.5); Neutrophils % (auto) 56.8 %; Platelet Count 184 K/uL (130-400); RDW Coefficient of Variation 15.6 % (11.5-14.5); RDW Standard Deviation 50.1 fL (36.4-46.3); Red Blood Count 4.62 M/uL (4.63-6.08); White Blood Count 8.36 K/ul (4.8-10.8)
[2022-11-07 06:40] LABS: BUN Creatinine Ratio 37.6 (10-20); Calcium 9.9 mg/dl (8.5-10.1); Creatinine Clr Calc Pharmacy 56.5 ml/min; Est GFR (African American) 72.4 ml/min; Est GFR (Non-African American) 62.4 ml/min; Magnesium 1.8 mg/dl (1.7-2.4); Potassium 3.9 mmol/L (3.5-5.1)
[2022-11-07] MEDS: FUROSEMIDE 40 MG TAB PO SCH ×2 (08:22→17:55)
[2022-11-07] MEDS: SPIRONOLACTONE 12.5 MG TAB PO SCH (08:23)
[2022-11-07] MEDS: lisinopril 10 MG TAB PO SCH (08:23)
[2022-11-07] MEDS: allopurinoL 300 MG TAB PO SCH (08:23)
[2022-11-07] MEDS: COLCHICINE 0.6 MG TAB PO SCH ×2 (08:23→21:20)
[2022-11-07] MEDS: CLOPIDOGREL BISULFATE 75 MG TAB PO SCH (08:23)
[2022-11-07] MEDS: ISOSORBIDE MONO EXTENDED REL 30 MG TABCR PO SCH (08:24)
[2022-11-07] MEDS: METOPROLOL SUCC 50MG EXT REL TAB PO SCH (08:24)
[2022-11-07] MEDS: ASPIRIN 81 MG ECTAB PO SCH (08:24)
[2022-11-07] MEDS: INSULIN ASPART PER UNIT SC SCH ×4 (08:33→21:10)
[2022-11-07] MEDS: LANTUS PER UNIT CHARGE SQ SCH (08:34)
--- NOTE | 2022-11-07 09:26 | Cardiology Progress Note ---
Date of Service November 07, 2022 Assessment & Plan (1) CHF (congestive heart failure): (2) HFrEF (heart failure with reduced ejection fraction): (3) Ischemic cardiomyopathy: (4) CAD (coronary atherosclerotic disease): (5) Gout attack: Plan The patient's main complaint continues to be left knee pain. He does have a history of gout however, I am uncertain as to whether this is an acute attack of gout perhaps related to diuretics or just due to degenerative joint disease. I had put him on colchicine which provided some relief but he still has significant pain in his left knee. I agree with a consultation with orthopedics. We are kind of in a rock and a hard place as the patient usually takes indomethacin at home for his acute gout however, given his history of heart failure this is not a good medication for him. I will start him on Celebrex this morning 100 mg twice daily. Hopefully this anti-inflammatory medication will provide some relief of his pain. From a cardiac standpoint he is stable and I believe he is out of heart failure. Continue oral diuretics. Admission and Anticipated Discharge Date Admission Date: November 02, 2022 Subjective The patient's main complaint today is left knee pain. Review of Systems Review of Systems: Review of Systems: See HPI for pertinent positives. All other 10 point review of systems are negative. Physical Exam Physical Exam: General: no acute distress and stated age Head: normocephalic, no masses, lesions, tenderness or abnormalities Eyes: conjunctiva are pink and non-injected, sclera clear Neck: supple, no adenopathy, no bruits, normal jugular venous pulse, no hepatojugular reflux Chest: normal shape and normal respiratory effort Lungs: Wheezing and rales Cardiac Exam: - regular rate & rhythm, no murmurs gallops or rubs - normal S1, normal S2 Pulses: 2(+) throughout Abdomen: abdomen soft, non-tender, no abnormal masses and no hepatosplenomegaly Musculoskeletal: no gait disturbance, no joint inflammation, no deforming arthritis Extremities: Bilateral lower extremity edema Neuro: grossly normal exam Results & Data ([facility]) Vital Signs (Past 12 Hours) Vital Signs Temp Pulse Pulse Resp BP Pulse Ox O2 Del Method 11/07/22 07:31 36.9 C 89 18 110/54 L 95 Room Air 11/07/22 07:16 84 11/06/22 21:57 79 11/07/22 03:59 36.7 C 90 19 91/56 L 94 Room Air 11/06/22 23:05 36.5 C 80 18 105/68 94 Room Air Laboratory Results Laboratory Results - last 24 hr 11/06/22 11/06/22 11/06/22 11:22 16:28 20:16 WBC RBC Hgb Hct MCV MCH MCHC RDW Std Deviation RDW Coeff of Niya Plt Count MPV Immature Gran % (Auto) Neut % (Auto) Lymph % (Auto) [place] % (Auto) Eos % (Auto) Baso % (Auto) Neut # (Auto) Lymph # (Auto) [place] # (Auto) Eos # (Auto) Baso # (Auto) Immature Gran # (Auto) Sodium Potassium Chloride Carbon Dioxide Anion Gap BUN Creatinine Est Cr Clr Drug Dosing Est GFR ( Amer) Est GFR (Non-Af Amer) BUN/Creatinine Ratio Glucose POC Glucose 251 H 172 H 212 H Calcium Magnesium 11/07/22 11/07/22 11/07/22 05:37 05:37 07:28 WBC 8.36 RBC 4.62 L Hgb 13.4 L Hct 40.6 MCV 87.9 MCH 29.0 MCHC 33.0 RDW Std Deviation 50.1 H RDW Coeff of Niya 15.6 H Plt Count 184 MPV 10.7 Immature Gran % (Auto) 0.7 Neut % (Auto) 56.8 Lymph % (Auto) 28.1 [place] % (Auto) 9.1 Eos % (Auto) 4.7 Baso % (Auto) 0.6 Neut # (Auto) 4.75 Lymph # (Auto) 2.35 [place] # (Auto) 0.76 Eos # (Auto) 0.39 Baso # (Auto) 0.05 Immature Gran # (Auto) 0.06 H Sodium 139 Potassium 3.9 Chloride 102 Carbon Dioxide 27 Anion Gap 10 BUN 41 H Creatinine 1.09 Est Cr Clr Drug Dosing 56.5 Est GFR ( Amer) 72.4 Est GFR (Non-Af Amer) 62.4 BUN/Creatinine Ratio 37.6 H Glucose 191 H POC Glucose 187 H Calcium 9.9 Magnesium 1.8 Medications Administered Current Inpatient Medications Acetaminophen (Acetaminophen 325 Mg Tab) 650 mg PO Q6H [facility] Stop: 12/06/22 13:59 Last Admin: 11/07/22 08:22 Dose: 650 mg Albuterol (Albuterol Hfa 8 Gm Inhaler) 2 puffs INH Q4 PRN PRN Reason: Shortness Of Breath Stop: 12/02/22 23:34 Allopurinol (Allopurinol 300 Mg Tab) 300 mg PO DAILY [facility] Stop: 12/03/22 08:59 Last Admin: 11/07/22 08:23 Dose: 300 mg Alprazolam (Alprazolam 0.25 Mg Tablet) 0.25 mg PO Q8H PRN PRN Reason: Anxiety Stop: 12/02/22 23:34 Last Admin: 11/06/22 21:30 Dose: 0.25 mg Aspirin (Aspirin 81 Mg Ectab) 81 mg PO QAM [facility] Stop: 12/03/22 08:59 Last Admin: 11/07/22 08:24 Dose: 81 mg Atorvastatin Calcium (Atorvastatin 40 Mg Tab) 40 mg PO QAM [facility] Stop: 12/03/22 08:59 Last Admin: 11/06/22 09:42 Dose: 40 mg Celecoxib (Celecoxib 100 Mg Cap) 100 mg PO BID [facility] Stop: 12/07/22 09:29 Clopidogrel Bisulfate (Clopidogrel Bisulfate 75 Mg Tab) 75 mg PO QAM [facility] Stop: 12/04/22 12:44 Last Admin: 11/07/22 08:23 Dose: 75 mg Colchicine (Colchicine 0.6 Mg Tab) 0.6 mg PO BID [facility] Stop: 12/05/22 12:14 Last Admin: 11/07/22 08:23 Dose: 0.6 mg Dextrose (Dextrose 50% 50 Ml Syringe) 25 - 50 ml IV UD PRN; Protocol PRN Reason: Hypoglycemia Protocol Stop: 12/02/22 23:34 Furosemide (Furosemide 40 Mg Tab) 40 mg PO [id number] [facility] Stop: 12/06/22 16:59 Last Admin: 11/07/22 08:22 Dose: 40 mg Glucagon (Glucagon For Inj 1 Mg Vial) 1 mg SQ UD PRN; Protocol PRN Reason: Hypoglycemia Protocol Stop: 12/02/22 23:34 Glucose (Glucose 40% Gel 15 Gm Tube) 15 - 30 gm PO UD PRN; Protocol PRN Reason: Hypoglycemia Protocol Stop: 12/02/22 23:34 Glucose (Glucose 10 Tab/Tube) 4 - 8 tab PO UD PRN; Protocol PRN Reason: Hypoglycemia Treatment Stop: 12/02/22 23:34 Heparin Sodium (Porcine) (Heparin Sod 5,000 Unit/0.5 Ml Vial) 5,000 units SQ Q8 [facility] Stop: 12/04/22 21:59 Last Admin: 11/07/22 05:23 Dose: 5,000 units Insulin Aspart (Insulin Aspart Per Unit) 0 units SC ACHS [facility] Stop: 12/03/22 20:59 Last Admin: 11/07/22 08:33 Dose: 8 units Insulin Glargine (Lantus Per Unit Charge) 5 units SQ DAILY [facility] Stop: 12/03/22 08:59 Last Admin: 11/07/22 08:34 Dose: 5 units Isosorbide Mononitrate (Isosorbide [place] Extended Rel 30 Mg Tabcr) 30 mg PO QAM [facility] Stop: 12/03/22 08:59 Last Admin: 11/07/22 08:24 Dose: 30 mg Lisinopril (Lisinopril 10 Mg Tab) 10 mg PO QAM [facility] Stop: 12/04/22 08:59 Last Admin: 11/07/22 08:23 Dose: 10 mg Metoprolol Succinate (Metoprolol Succ 50mg Ext Rel Tab) 100 mg PO DAILY [facility] Stop: 12/03/22 08:59 Last Admin: 11/07/22 08:24 Dose: 100 mg Mirtazapine (Mirtazapine Tab 15 Mg Tab) 15 mg PO HS [facility] Stop: 12/03/22 20:59 Last Admin: 11/06/22 20:23 Dose: 15 mg Miscellaneous (Carbohydrates For Hypoglycemia ) 15 - 30 gm PO UD PRN PRN Reason: Hypoglycemia Protocol Stop: 12/02/22 23:34 Nitroglycerin (Nitroglycerin Sl 0.4 Mg/Tab Tab) 0.4 mg SL UD PRN PRN Reason: Chest Pain Stop: 12/02/22 23:34 Polyethylene Glycol (Polyethylene (Miralax) 17 Gm Pack) 17 gm PO DAILY PRN PRN Reason: Constipation Stop: 12/02/22 23:34 Sodium Chloride (Sodium Chloride 0.65% Na Soln 45 Ml ([place])) 2 sprays NA Q2H PRN PRN Reason: congestion Stop: 12/03/22 14:44 Spironolactone (Spironolactone 12.5 Mg Tab) 12.5 mg PO DAILY [facility] Stop: 12/04/22 10:44 Last Admin: 11/07/22 08:23 Dose: 12.5 mg (1) CAD (coronary atherosclerotic disease) Associated angina: unspecified whether angina present Coronary Disease- Associated Artery/Lesion type: unspecified vessel or lesion type [place] vs. transplanted heart: samish heart Qualified Code(s): I25.10 - Atherosclerotic heart disease of [place] coronary artery without angina pectoris (2) CHF (congestive heart failure) Heart failure chronicity: acute on chronic Heart failure type: unspecified Qualified Code(s): I50.9 - Heart failure, unspecified
[2022-11-07] MEDS: CELECOXIB 100 MG CAP PO SCH ×2 (10:12→21:21)
--- NOTE | 2022-11-07 12:40 | Hospitalist Progress Note ---
Date of Service November 07, 2022 Assessment & Plan (1) Acute on chronic systolic (congestive) heart failure: (2) Ischemic cardiomyopathy: (3) SOB (shortness of breath): (4) NSTEMI (non-ST elevated myocardial infarction): Plan History of ischemic cardiomyopathy with reduced ejection fraction. Last echo in September 2022 with EF of 20 to 25% History of severe diffuse coronary artery disease; managed medically. Last cardiac cath was done in September 2022. Was on Lasix 60 mg at home; presented with lower extremity edema and shortness of breath. Chest x-ray shows vascular congestion. CT chest also shows bilateral patchy infiltrates. High-sensitivity troponin up trended from 24 to 900; down trended to 383 Pro-Zach negative Plan; -Appreciate cardiology's input; diuretics changed to p.o with Lasix 40 mg twice daily.. Spironolactone added by cardiology during the hospitalization. -Received heparin drip earlier in the hospitalization; discontinued on November 04. Currently on aspirin and Plavix. -Strict input and output monitoring. -Daily weights -Lisinopril dose increased to 10 mg as per cardiology. On metoprolol as well. -Monitor daily BMP Left knee pain( ?Gout) Reports history of gout. On examination; left knee is slightly swollen; tenderness present. On allopurinol 300 mg once daily Used to take indomethacin prescribed by his primary care doctor as outpatient X-ray shows small effusion; no fracture or dislocation. Will get Ortho pending evaluation for possible intra-articular steroid as it has caused significant decrease in mobility of the patient. Patient is started on celecoxib and colchicine. Other conditions; Type 2 diabetes mellituscontinue on Lantus and NovoLog. Hyperlipidemiacontinue on statin Hypertensioncontinue on metoprolol, lisinopril and isosorbide mononitrate. Full code Heparin for DVT prophylaxis PT OT eval pending Admission and Anticipated Discharge Date Admission Date: November 02, 2022 Subjective Patient seen and examined at bedside. Reports that he is lower extremity edema has resolved foot but pain in left knee has progressed and has been unable to walk. Review of Systems Review of Systems: All systems reviewed & are unremarkable except as noted in Subjective Physical Exam Physical Exam: Constitutional: WD/WN, vitals as above, NAD, sitting up in bed, pleasant, conversing easily Respiratory: normal respiratory effort, lungs clear to auscultation, no wheeze, rales, rhonchi. Normal insp/exp effort, no accessory muscle use Cardiovascular: RRR, no murmur, no edema Vessels: no JVD or carotid bruit Chest: Crackles present at bases. Improved Abdomen: normal bowel sounds, soft, nontender, no hepatosplenomegaly Musculoskeletal: Bilateral pitting edema resolved; left knee slightly swollen compared to right; tender on palpation. Skin: no rashes, warm and dry normal turgor Neurologic: PERRL, EOMI, accommodation nl, no face palsy, no dysarthria CN's II- XI intact bilaterally and moves all extremities Psychiatric: A+Ox3, euthymic affect Lymphatic: no cervical or axillary lymphadenopathy : deferred Results & Data Results & Data ([facility]) Vital Signs (Past 12 Hours) Vital Signs Temp Pulse Pulse Resp BP Pulse Ox O2 Del Method 11/07/22 11:40 36.3 C L 91 H 18 112/68 95 Room Air 11/07/22 07:31 36.9 C 89 18 110/54 L 95 Room Air 11/07/22 07:16 84 11/07/22 03:59 36.7 C 90 19 91/56 L 94 Room Air Laboratory Results Laboratory Results WBC 8.36 K/ul (4.8-10.8) 11/07/22 05:37 RBC 4.62 M/uL (4.63-6.08) L 11/07/22 05:37 Hgb 13.4 g/dl (14.0-18.0) L 11/07/22 05:37 Hct 40.6 % (40.1-51.0) 11/07/22 05:37 MCV 87.9 fL (80.0-100.0) 11/07/22 05:37 MCH 29.0 pg (25.0-34.0) 11/07/22 05:37 MCHC 33.0 g/dL (32.0-36.0) 11/07/22 05:37 RDW Std Deviation 50.1 fL (36.4-46.3) H 11/07/22 05:37 RDW Coeff of Niya 15.6 % (11.5-14.5) H 11/07/22 05:37 Plt Count 184 K/uL (130-400) 11/07/22 05:37 MPV 10.7 fL (9.4-12.4) 11/07/22 05:37 Immature Gran % (Auto) 0.7 % 11/07/22 05:37 Neut % (Auto) 56.8 % 11/07/22 05:37 Lymph % (Auto) 28.1 % 11/07/22 05:37 [place] % (Auto) 9.1 % 11/07/22 05:37 Eos % (Auto) 4.7 % 11/07/22 05:37 Baso % (Auto) 0.6 % 11/07/22 05:37 Neut # (Auto) 4.75 K/uL (1.4-6.5) 11/07/22 05:37 Lymph # (Auto) 2.35 K/uL (1.2-3.4) 11/07/22 05:37 [place] # (Auto) 0.76 K/uL (0.24-0.82) 11/07/22 05:37 Eos # (Auto) 0.39 K/uL (0-0.50) 11/07/22 05:37 Baso # (Auto) 0.05 K/uL (0-0.2) 11/07/22 05:37 Immature Gran # (Auto) 0.06 K/uL (0.00-0.02) H 11/07/22 05:37 PT 12.4 Seconds (9.0-12.0) H 11/02/22 18:15 INR 1.2 (0.9-1.1) H 11/02/22 18:15 APTT 43.8 Seconds (21.0-31.0) H 11/04/22 10:06 PTT Ratio 1.6 11/04/22 10:06 Sodium 139 mmol/L (136-145) 11/07/22 05:37 Potassium 3.9 mmol/L (3.5-5.1) 11/07/22 05:37 Chloride 102 mmol/L (98-107) 11/07/22 05:37 Carbon Dioxide 27 mmol/L (21-32) 11/07/22 05:37 Anion Gap 10 (3-11) 11/07/22 05:37 BUN 41 mg/dl (6-23) H 11/07/22 05:37 Creatinine 1.09 mg/dl (0.6-1.4) 11/07/22 05:37 Est Cr Clr Drug Dosing 56.5 ml/min 11/07/22 05:37 Est GFR ( Amer) 72.4 ml/min 11/07/22 05:37 Est GFR (Non-Af Amer) 62.4 ml/min 11/07/22 05:37 BUN/Creatinine Ratio 37.6 (10-20) H 11/07/22 05:37 Glucose 191 mg/dl (70-99(Fasting)) H 11/07/22 05:37 POC Glucose 266 mg/dl (70-99) H 11/07/22 11:26 Fasting Glucose 176 mg/dl (70-99) H 11/04/22 09:18 Estimat Average Glucose 183 mg/dl 11/03/22 05:49 Hemoglobin A1c 8.0 % (4.5-5.6) H 11/03/22 05:49 Calcium 9.9 mg/dl (8.5-10.1) 11/07/22 05:37 Magnesium 1.8 mg/dl (1.7-2.4) 11/07/22 05:37 Total Bilirubin 1.0 mg/dl (0.2-1.0) 11/05/22 07:17 AST 13 U/L (13-39) 11/05/22 07:17 ALT 16 U/L (7-52) 11/05/22 07:17 Alkaline Phosphatase 63 U/L (34-104) 11/05/22 07:17 Troponin I High Sens 383.9 pg/ml (0-20) H* D 11/04/22 08:29 B-Natriuretic Peptide 509 pg/ml (0-100) H 11/02/22 18:15 Total Protein 5.8 gm/dl (6.0-8.3) L 11/05/22 07:17 Albumin 3.4 gm/dl (3.4-5.0) 11/05/22 07:17 Globulin 2.4 gm/dl (2.5-4.0) L 11/05/22 07:17 Albumin/Globulin Ratio 1.4 (0.9-2) 11/05/22 07:17 Procalcitonin < 0.05 ng/ml (0-0.5) 11/03/22 14:03 SARS-CoV-2 (PCR) NEGATIVE (Negative) 11/03/22 05:40 Influenza Type A (PCR) Negative (Neg) 11/03/22 05:40 Influenza Type B (PCR) Negative (Neg) 11/03/22 05:40 RSV (RT-PCR) Negative (Neg) 11/03/22 05:40 SARS-CoV-2, RNA, NAAT NEGATIVE (NEGATIVE) 11/02/22 18:15 Impressions Chest X-Ray 11/02/22 16:28 XR chest 1V portable HISTORY: Atypical chest pain. COMPARISON: Chest 09/21/2022. FINDINGS: No pneumothorax. No pleural effusions. The heart remains mildly enlarged. Diffuse interstitial thickening with patchy bibasilar airspace opacities persist. IMPRESSION: 1. No significant change in the diffuse interstitial thickening with patchy bibasilar airspace opacities. This may represent an atypical pneumonia with superimposed mild congestive change. 2. Stable mild cardiomegaly. ACT 112: Negative or not required by law. Electronically signed by: Haris Grier M.D. 11/02/2022 6:[address] 11/02/22 21:11 CT SCAN OF THE CHEST WITHOUT IV CONTRAST CLINICAL HISTORY: Dyspnea. Congestive heart failure. COMPARISON STUDY: Chest x-ray dated 11/02/2022. Chest CT dated 09/21/2022. TECHNIQUE: CT scan of the thorax was performed from the thoracic inlet to the upper abdomen. Images are reviewed in the axial, sagittal, and coronal planes. IV contrast was not administered for this examination as per the referring clinician. A dose lowering technique was utilized adhering to the principles of ALARA. CT DOSE: 572.00 mGy.cm FINDINGS: Thyroid: Imaged portions of the thyroid gland are normal in size and attenuation. Thoracic aorta: There is atherosclerotic calcification of the thoracic aorta, which is normal in caliber and demonstrates standard 3-vessel arch anatomy. Heart: The heart is enlarged and without pericardial effusion. The coronary arteries are densely calcified. The pulmonary trunk is dilated, measuring 3.8 cm. This suggests pulmonary artery hypertension. Lungs and pleural spaces: Subpleural reticulation is seen throughout both lungs. Intralobular septal thickening is noted in the lower lobes. There are small pleural effusions with dependent atelectasis. Foci of groundglass consolidation are seen throughout the lungs, greatest at the lung bases. The trachea and central airways are clear. Mild bronchiectasis is seen in the lower lobes. There are scattered calcified granulomas. Mediastinum: There are mildly enlarged mediastinal lymph nodes. A right peritracheal node on image #98 measures 15 mm in short axis. A subcarinal node measures 20 mm in short axis. Katherin: Not well assessed without IV contrast. Axillae: There is no axillary lymphadenopathy. Upper abdomen: There is a small hiatal hernia. A 2 mm calculus is seen in the upper pole of the left kidney. Diverticulosis is noted in the partially imaged left colon. Skeletal structures: The skeletal structures are osteopenic. Spondylotic changes in the spine. No lytic or blastic bony lesions are seen. IMPRESSION: 1. Cardiomegaly with evidence of pulmonary artery hypertension and congestive failure. 2. Small pleural effusions. 3. Multifocal groundglass consolidation is seen throughout both lungs, greatest at the lung bases. This could represent pulmonary edema and/or multifocal pneumonia. Clinical correlation will be required and radiographic follow-up to resolution is recommended. 4. Mildly enlarged mediastinal lymph nodes are pathologically indeterminant and similar to previous. 5. Additional findings as above. ACT 112: Negative or not required by law. Electronically signed by: Aldo Menendez M.D. 11/03/2022 9:42 AM Knee X-Ray 11/06/22 10:23 XR knee LT 3V HISTORY: 82 years-old Male Left knee pain acute left knee pain without reported trauma COMPARISON: None TECHNIQUE: 3 views of the left knee FINDINGS: Small joint effusion. 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 No acute fracture, dislocation or intra-articular loose body. Mild anteromedial soft tissue swelling. Arterial calcifications. 1.3 cm subcortical lucent focus of the medial femoral condyle may represent a geode or osteochondral defect. IMPRESSION: 1. Small joint effusion without acute fracture or dislocation. 2. Moderate medial compartment osteoarthritis. ACT 112: Negative or not required by law. The above report was generated using voice recognition software. It may contain grammatical, syntax or spelling errors. Electronically signed by: Haile Zamora M.D. 11/06/2022 12:35 PM
--- NOTE | 2022-11-07 13:34 | Orthopedic Consultation ---
Date of Consultation November 07, 2022 Assessment & Plan (1) Osteoarthritis of left knee: X-ray results reviewed with the patient. We discussed conservative measures. Since the indomethacin seems to work the best but needed to be discontinued because of its adverse effects, we discussed a corticosteroid injection into the left knee that may be the best treatment option. If at the time of the injection there is an effusion, it may be aspirated prior to the corticosteroid injection. The injection can be done tomorrow if he is still admitted. If he is going to be discharged soon, we may follow-up with the patient on an outpatient basis. (2) Effusion, left knee: History of Present Illness Reason for Consultation: Left knee pain and swelling Attending Physician: David Torres MD History of Present Illness This Is a Patient with a Previous History of gout. When he was originally diagnosed with gout, the pain was in the first MTP joints of his great toes. More recently, his PCP placed him on indomethacin which he feels helped his pain significantly. However, upon admission the indomethacin was stopped secondary to lower extremity swelling. The patient states that he feels the left knee has been swollen and painful over the past month. Allergies Allergy/AdvReac Type Severity Reaction Status Date / Time alfuzosin Allergy Unknown UNKN Verified 11/02/22 21:03 Home Medications Medication Instructions Recorded Confirmed Type albuterol sulfate 90 mcg/actuation 2 puff inhalation Q4 PRN Shortness 09/21/22 11/02/22 History aerosol inhaler Of Breath alprazolam 0.5 mg tablet 0.5 mg PO HS PRN Anxiety 09/21/22 11/02/22 History glipizide 10 mg tablet, extended 10 mg PO AMHS 09/21/22 11/02/22 History release 24 hr loteprednol etabonate 0.5 % eye 1 drp OPR DIRECTED PRN 09/21/22 11/02/22 History drops,suspension .Irritation metoprolol succinate 100 mg 100 mg PO DAILY 09/21/22 11/02/22 History tablet,extended release 24 hr metronidazole 0.75 % topical gel 1 applic topical DAILY 09/21/22 11/02/22 History silver sulfadiazine 1 % topical 1 applic topical DAILY 09/21/22 11/02/22 History cream vit C 226 mg-vit E 90 mg-copper 1 cap PO BID 09/22/22 11/02/22 History 0.8 mg-zinc oxide-lutein 5 mg capsule (PreserVision Lutein) aspirin 81 mg tablet,delayed 81 mg PO QAM #30 tabs 09/24/22 11/02/22 Rx release atorvastatin 20 mg tablet 40 mg PO QAM #60 tabs 09/24/22 11/02/22 Rx isosorbide mononitrate 30 mg 30 mg PO QAM #30 tabs 09/24/22 11/02/22 Rx tablet,extended release 24 hr Ropivacaine 1.5mg 0.3 ml OPB DIRECTED 11/02/22 11/02/22 History aflibercept 2 mg/0.05 mL 0 mg intravitreal DIRECTED 11/02/22 11/02/22 History intravitreal solution for injection (Eylea) allopurinol 300 mg tablet 450 mg PO QAM 11/02/22 11/02/22 History empagliflozin 25 mg tablet 25 mg PO QAM 11/02/22 11/02/22 History (Jardiance) furosemide 20 mg tablet 20 mg PO QPM 11/02/22 11/02/22 History furosemide 20 mg tablet (Lasix) 40 mg PO QAM 11/02/22 11/02/22 History indomethacin 50 mg capsule 50 mg PO TID PRN Pain 11/02/22 11/02/22 History lisinopril 5 mg tablet 5 mg PO QAM 11/02/22 11/02/22 History mirtazapine 15 mg tablet 15 mg PO HS 11/02/22 11/02/22 History Patient History Medical History Acute HFrEF (heart failure with reduced ejection fraction) CAD (coronary artery disease) CHF (congestive heart failure) Diabetes No pertinent family history Surgical History No pertinent past surgical history Social History Smoking Status: Former smoker Tobacco Type: Cigarettes Second Hand Exposure: No; Do You Dip or Chew Tobacco: No; Hx Alcohol Use: Yes Alcohol type: beer, wine and hard liquor Hx Substance Use: No Preferred Language: Telugu Communication Ability: Effective Pre Sales Architect Required: No Beliefs That Will Affect Care: None Current Living Situation: Alone Feels Safe at Home: Yes Safety Concerns: Feels Safe At This Time Assistive Devices: Cane Physical Exam Constitutional: WD/WN, vitals as above no acute distress Neck: trachea midline Musculoskeletal: Knee: + effusion (Mild left knee effusion with mild warmth to touch.), + limited ROM of knee (Left knee: Extension to approximately 25 degrees. Flexion to 95 degrees.) and + joint line tenderness (Tender throughout the left knee, most prominent medial/lateral joint spaces); no skin erythema and no ecchymosis Skin: no rashes, warm and dry Trauma: no evidence of skin trauma Neurologic: normal touch/pain/proprioception Psychiatric: A+Ox3, euthymic affect Speech: normal rate/rhythm/volume of speech Results & Data ([facility]) Vital Signs (Past 12 Hours) Vital Signs Temp Pulse Pulse Resp BP Pulse Ox O2 Del Method 11/07/22 11:40 36.3 C L 91 H 18 112/68 95 Room Air 11/07/22 07:31 36.9 C 89 18 110/54 L 95 Room Air 11/07/22 07:16 84 11/07/22 03:59 36.7 C 90 19 91/56 L 94 Room Air Diagnostic Findings Left knee plain film x-rays were reviewed. Patient has moderate tricompartmental arthritic changes with significant medial joint line narrowing. Marginal osteophytes in all 3 compartments.
[2022-11-07] MEDS ORDERED: ETHYL CHLORIDE AER SPR 100 ML CAN EXT ONE (13:40)
[2022-11-07] MEDS ORDERED: BUPIVACAINE 0.5 % 5 MG/1 ML MPF 30ML VIAL INFIL ONE (13:40)
[2022-11-07] MEDS ORDERED: methylPREDNISolone acetate 80 MG/ML VIAL IA ONE (13:40)
[2022-11-07] MEDS: ALPRAZolam 0.25 MG TABLET PO PRN (13:49)
[2022-11-07] MEDS: MIRTAZAPINE TAB 15 MG TAB PO SCH (21:21)
[2022-11-08] MEDS: ACETAMINOPHEN 325 MG TAB PO SCH ×2 (06:05→08:35)
[2022-11-08] MEDS: HEPARIN SOD 5,000 UNIT/0.5 ML VIAL SQ SCH (06:05)
[2022-11-08 06:10] LABS: Basophils # (auto) 0.07 K/uL (0-0.2); Eosinophils % (auto) 5.6 %; Hematocrit (blood only) 41.1 % (40.1-51.0); Hemoglobin 13.4 g/dl (14.0-18.0); Immature Granulocytes # (auto) 0.06 K/uL (0.00-0.02); Immature Granulocytes % (auto) 0.8 %; Lymphocytes # (auto) 2.65 K/uL (1.2-3.4); Lymphocytes % (auto) 36.9 %; Mean Corpuscular Hemoglobin 28.8 pg (25.0-34.0); Mean Corpuscular Hgb Conc 32.6 g/dL (32.0-36.0); Mean Corpuscular Volume 88.4 fL (80.0-100.0); Mean Platelet Volume 10.8 fL (9.4-12.4); Monocytes # (auto) 0.61 K/uL (0.24-0.82); Monocytes % (auto) 8.5 %; Neutrophils # (auto) 3.39 K/uL (1.4-6.5); Neutrophils % (auto) 47.2 %; Platelet Count 189 K/uL (130-400); RDW Coefficient of Variation 15.4 % (11.5-14.5); RDW Standard Deviation 50.2 fL (36.4-46.3); Red Blood Count 4.65 M/uL (4.63-6.08); White Blood Count 7.18 K/ul (4.8-10.8)
[2022-11-08 06:31] LABS: Albumin Level 3.3 gm/dl (3.4-5.0); Bilirubin,Total 0.9 mg/dl (0.2-1.0); Calcium 9.8 mg/dl (8.5-10.1); Magnesium 1.7 mg/dl (1.7-2.4)
[2022-11-08 06:37] LABS: Albumin Globulin Ratio 1.2 (0.9-2); BUN Creatinine Ratio 36.8 (10-20); Creatinine Clr Calc Pharmacy 52.7 ml/min; Est GFR (African American) 66.4 ml/min; Est GFR (Non-African American) 57.3 ml/min; Globulin 2.7 gm/dl (2.5-4.0)
[2022-11-08] MEDS: LANTUS PER UNIT CHARGE SQ SCH (08:27)
[2022-11-08] MEDS: INSULIN ASPART PER UNIT SC SCH ×2 (08:27→12:08)
[2022-11-08] MEDS: allopurinoL 300 MG TAB PO SCH (08:35)
[2022-11-08] MEDS: CELECOXIB 100 MG CAP PO SCH (08:35)
[2022-11-08] MEDS: METOPROLOL SUCC 50MG EXT REL TAB PO SCH (08:35)
[2022-11-08] MEDS: CLOPIDOGREL BISULFATE 75 MG TAB PO SCH (08:36)
[2022-11-08] MEDS: ASPIRIN 81 MG ECTAB PO SCH (08:36)
[2022-11-08] MEDS: lisinopril 10 MG TAB PO SCH (08:36)
[2022-11-08] MEDS: FUROSEMIDE 40 MG TAB PO SCH (08:36)
[2022-11-08] MEDS: ISOSORBIDE MONO EXTENDED REL 30 MG TABCR PO SCH (08:36)
[2022-11-08] MEDS: COLCHICINE 0.6 MG TAB PO SCH (08:36)
[2022-11-08] MEDS: SPIRONOLACTONE 12.5 MG TAB PO SCH (08:36)
[2022-11-08] MEDS ORDERED: BUPIVACAINE 0.5 % 5 MG/1 ML MPF 30ML VIAL INFIL ONE (10:45)
[2022-11-08] MEDS ORDERED: methylPREDNISolone acetate 80 MG/ML VIAL IA ONE (10:45)
[2022-11-08] MEDS ORDERED: ETHYL CHLORIDE AER SPR 100 ML CAN EXT ONE (10:45)
--- NOTE | 2022-11-08 11:21 | Cardiology Progress Note ---
Date of Service November 08, 2022 Assessment & Plan (1) CHF (congestive heart failure): (2) HFrEF (heart failure with reduced ejection fraction): (3) Ischemic cardiomyopathy: (4) CAD (coronary atherosclerotic disease): (5) Gout attack: Plan As mentioned, the patient had his knee injected this morning. Believe he is stable from a cardiac standpoint so if he wanted to go home later today I think that would be reasonable especially in light of the snow that is predicted from tomorrow. I would send him home on his current medications. I will arrange follow-up through our clinic. Admission and Anticipated Discharge Date Admission Date: November 02, 2022 Subjective The patient had his knee injected this morning. No new cardiac complaints. Review of Systems Review of Systems: Review of Systems: See HPI for pertinent positives. All other 10 point review of systems are negative. Physical Exam Physical Exam: General: no acute distress and stated age Head: normocephalic, no masses, lesions, tenderness or abnormalities Eyes: conjunctiva are pink and non-injected, sclera clear Neck: supple, no adenopathy, no bruits, normal jugular venous pulse, no hepatojugular reflux Chest: normal shape and normal respiratory effort Lungs: Wheezing and rales Cardiac Exam: - regular rate & rhythm, no murmurs gallops or rubs - normal S1, normal S2 Pulses: 2(+) throughout Abdomen: abdomen soft, non-tender, no abnormal masses and no hepatosplenomegaly Musculoskeletal: no gait disturbance, no joint inflammation, no deforming arthritis Extremities: Bilateral lower extremity edema Neuro: grossly normal exam Results & Data ([facility]) Vital Signs (Past 12 Hours) Vital Signs Temp Pulse Pulse Pulse Pulse Pulse Resp 11/08/22 10:03 96 H 80 80 11/08/22 07:00 86 11/08/22 06:57 36.5 C 85 18 11/08/22 04:09 36.9 C 83 11/07/22 23:51 36.9 C 91 H Resp Resp Resp BP BP Pulse Ox Pulse Ox 11/08/22 10:03 20 20 16 98 11/08/22 07:00 11/08/22 06:57 122/71 92 11/08/22 04:09 108/75 96 11/07/22 23:51 104/70 95 Pulse Ox Pulse Ox O2 Del Method O2 Flow Rate 11/08/22 10:03 98 95 11/08/22 07:00 11/08/22 06:57 Room Air 11/08/22 04:09 Room Air 11/07/22 23:51 Nasal Cannula 2 Laboratory Results Laboratory Results - last 24 hr 11/07/22 11/07/22 11/07/22 11:26 16:40 20:36 WBC RBC Hgb Hct MCV MCH MCHC RDW Std Deviation RDW Coeff of Niya Plt Count MPV Immature Gran % (Auto) Neut % (Auto) Lymph % (Auto) [place] % (Auto) Eos % (Auto) Baso % (Auto) Neut # (Auto) Lymph # (Auto) [place] # (Auto) Eos # (Auto) Baso # (Auto) Immature Gran # (Auto) Sodium Potassium Chloride Carbon Dioxide Anion Gap BUN Creatinine Est Cr Clr Drug Dosing Est GFR ( Amer) Est GFR (Non-Af Amer) BUN/Creatinine Ratio Glucose POC Glucose 266 H 129 H 182 H Calcium Magnesium Total Bilirubin AST ALT Alkaline Phosphatase Total Protein Albumin Globulin Albumin/Globulin Ratio 11/08/22 11/08/22 11/08/22 05:27 05:27 07:30 WBC 7.18 RBC 4.65 Hgb 13.4 L Hct 41.1 MCV 88.4 MCH 28.8 MCHC 32.6 RDW Std Deviation 50.2 H RDW Coeff of Niya 15.4 H Plt Count 189 MPV 10.8 Immature Gran % (Auto) 0.8 Neut % (Auto) 47.2 Lymph % (Auto) 36.9 [place] % (Auto) 8.5 Eos % (Auto) 5.6 Baso % (Auto) 1.0 Neut # (Auto) 3.39 Lymph # (Auto) 2.65 [place] # (Auto) 0.61 Eos # (Auto) 0.40 Baso # (Auto) 0.07 Immature Gran # (Auto) 0.06 H Sodium 139 Potassium 4.0 Chloride 104 Carbon Dioxide 28 Anion Gap 7 BUN 43 H Creatinine 1.17 Est Cr Clr Drug Dosing 52.7 Est GFR ( Amer) 66.4 Est GFR (Non-Af Amer) 57.3 BUN/Creatinine Ratio 36.8 H Glucose 189 H POC Glucose 180 H Calcium 9.8 Magnesium 1.7 Total Bilirubin 0.9 AST 17 ALT 20 Alkaline Phosphatase 60 Total Protein 6.0 Albumin 3.3 L Globulin 2.7 Albumin/Globulin Ratio 1.2 Medications Administered Current Inpatient Medications Acetaminophen (Acetaminophen 325 Mg Tab) 650 mg PO Q6H [facility] Stop: 12/06/22 13:59 Last Admin: 11/08/22 08:35 Dose: 650 mg Albuterol (Albuterol Hfa 8 Gm Inhaler) 2 puffs INH Q4 PRN PRN Reason: Shortness Of Breath Stop: 12/02/22 23:34 Allopurinol (Allopurinol 300 Mg Tab) 300 mg PO DAILY [facility] Stop: 12/03/22 08:59 Last Admin: 11/08/22 08:35 Dose: 300 mg Alprazolam (Alprazolam 0.25 Mg Tablet) 0.25 mg PO Q8H PRN PRN Reason: Anxiety Stop: 12/02/22 23:34 Last Admin: 11/07/22 13:49 Dose: 0.25 mg Aspirin (Aspirin 81 Mg Ectab) 81 mg PO QAM [facility] Stop: 12/03/22 08:59 Last Admin: 11/08/22 08:36 Dose: 81 mg Atorvastatin Calcium (Atorvastatin 40 Mg Tab) [facility] [place] Stop: 12/03/22 08:59 Last Admin: 11/06/22 09:42 Dose: 40 mg Clopidogrel Bisulfate (Clopidogrel Bisulfate 75 Mg Tab) 75 mg PO [facility] Stop: 12/04/22 12:44 Last Admin: 11/08/22 08:36 Dose: 75 mg Dextrose (Dextrose 50% 50 Ml Syringe) 25 - 50 ml IV UD PRN; Protocol PRN Reason: Hypoglycemia Protocol Stop: 12/02/22 23:34 Furosemide (Furosemide 40 Mg Tab) 40 mg PO [id number] [facility] Stop: 12/06/22 16:59 Last Admin: 11/08/22 08:36 Dose: 40 mg Glucagon (Glucagon For Inj 1 Mg Vial) 1 mg SQ UD PRN; Protocol PRN Reason: Hypoglycemia Protocol Stop: 12/02/22 23:34 Glucose (Glucose 40% Gel 15 Gm Tube) 15 - 30 gm PO UD PRN; Protocol PRN Reason: Hypoglycemia Protocol Stop: 12/02/22 23:34 Glucose (Glucose 10 Tab/Tube) 4 - 8 tab PO UD PRN; Protocol PRN Reason: Hypoglycemia Treatment Stop: 12/02/22 23:34 Heparin Sodium (Porcine) (Heparin Sod 5,000 Unit/0.5 Ml Vial) 5,000 units SQ Q8 [facility] Stop: 12/04/22 21:59 Last Admin: 11/08/22 06:05 Dose: 5,000 units Insulin Aspart (Insulin Aspart Per Unit) 0 units SC ACHS [facility] Stop: 12/03/22 20:59 Last Admin: 11/08/22 08:27 Dose: 4 units Insulin Glargine (Lantus Per Unit Charge) 5 units SQ DAILY [facility] Stop: 12/03/22 08:59 Last Admin: 11/08/22 08:27 Dose: 5 units Isosorbide Mononitrate (Isosorbide [place] Extended Rel 30 Mg Tabcr) 30 mg PO QAM [facility] Stop: 12/03/22 08:59 Last Admin: 11/08/22 08:36 Dose: 30 mg Lisinopril (Lisinopril 10 Mg Tab) 10 mg PO QAM [facility] Stop: 12/04/22 08:59 Last Admin: 11/08/22 08:36 Dose: 10 mg Metoprolol Succinate (Metoprolol Succ 50mg Ext Rel Tab) 100 mg PO DAILY [facility] Stop: 12/03/22 08:59 Last Admin: 11/08/22 08:35 Dose: 100 mg Mirtazapine (Mirtazapine Tab 15 Mg Tab) 15 mg PO HS [facility] Stop: 12/03/22 20:59 Last Admin: 11/07/22 21:21 Dose: 15 mg Miscellaneous (Carbohydrates For Hypoglycemia ) 15 - 30 gm PO UD PRN PRN Reason: Hypoglycemia Protocol Stop: 12/02/22 23:34 Nitroglycerin (Nitroglycerin Sl 0.4 Mg/Tab Tab) 0.4 mg SL UD PRN PRN Reason: Chest Pain Stop: 12/02/22 23:34 Polyethylene Glycol (Polyethylene (Miralax) 17 Gm Pack) 17 gm PO DAILY PRN PRN Reason: Constipation Stop: 12/02/22 23:34 Sodium Chloride (Sodium Chloride 0.65% Na Soln 45 Ml ([place])) 2 sprays NA Q2H PRN PRN Reason: congestion Stop: 12/03/22 14:44 Spironolactone (Spironolactone 12.5 Mg Tab) 12.5 mg PO DAILY [facility] Stop: 12/04/22 10:44 Last Admin: 11/08/22 08:36 Dose: 12.5 mg (1) CHF (congestive heart failure) Heart failure chronicity: acute on chronic Heart failure type: unspecified Qualified Code(s): I50.9 - Heart failure, unspecified (2) CAD (coronary atherosclerotic disease) Associated angina: unspecified whether angina present Coronary Disease- Associated Artery/Lesion type: unspecified vessel or lesion type [place] vs. transplanted heart: [place] heart Qualified Code(s): I25.10 - Atherosclerotic heart disease of [place] coronary artery without angina pectoris
--- NOTE | 2022-11-08 11:57 | Orthopedic Progress Note ---
Date of Service November 08, 2022 Assessment & Plan (1) Osteoarthritis of left knee: Plan: I discussed with the patient the risks and benefits of intra-articular steroid injection including but not all-inclusive to steroid flare, cellulitis of the injection site, intra-articular infection. Patient understood the risks and discussed the possible benefits from the steroid being diminishing pain which could be for 2 weeks to up to a year. Patient understands and would like to go ahead with the steroid injection. An injection site was chosen at the anterolateral joint line. A pressure malik was made and then cleansed with 3 alcohol swabs and 3 Betadine swabs and let the dry. At that time 80 mg of methylprednisolone and 2 cc of bupivacaine without epi were injected into the left knee joint. Patient had a small amount of bleeding at the injection site and pressure was applied to the injection site with a sterile 4 x 4. Once releasing the pressure, the patient did not have any bleeding and a Band-Aid was placed over the injection site. Patient tolerated the procedure well. Gentle range of motion of the knee was then performed postinjection. The patient understands that he might see results within 24 to 48 hours of the injection. We also discussed steroid flare that he may have increased pain initially before it gets better. If patient is still admitted the next several days, we can stop by and see how the injection is working. Once the patient is discharged to home, he can follow-up with [facility] in [facility] or orthopedic physician of his choice as needed. Continue gentle range of motion of the left knee. Ambulation as tolerated. Ice to the injection site if needed. (2) Effusion, left knee: Admission and Anticipated Discharge Date Admission Date: November 02, 2022 Subjective Patient sitting in his chair at bedside alert and oriented. Continues to state he is still having moderate pain in the left knee. Patient went for a walk with his walker around the unit and states that his walking is limited secondary to the pain. He was seen yesterday in consult by Asha Hunter PA-C/Dr. Marcia KEY. X-rays were reviewed and with the patient's cardiac history, Indocin of which she has taken in the past, was not an option. He was started on Celebrex 100 mg p.o. twice daily by Dr. Barboza of which has helped a little bit but his real trouble is during ambulation. It was discussed with him about doing an intra-articular injection of steroid in the left knee. Patient states that he has had injections in his knees in the past but its been at least 5 years or longer. This was done by the [facility]. He states that the shots lasted quite a while. He would like to go forward with an injection of his left knee. Physical Exam Physical Exam: On examination, the patient has a mild effusion of the left knee compared to the right. I am able to take him through range of motion slowly but he is having some pain and crepitus during range of motion. He has a little bit better extension today compared to yesterday and range of motion is around 5 to 95 degrees. He has pain on both the medial and lateral joint line. Mild pain over the patella on palpitation. He does not have a tense effusion. Mild laxity of the lateral compartment. There is no erythema. He has some slight warmth to the left knee compared to the right. Calves are soft and nontender. And neurovascular intact. Results & Data ([facility]) Vital Signs (Past 12 Hours) Vital Signs Temp Pulse Pulse Pulse Pulse Pulse Resp 11/08/22 11:19 36.5 C 77 17 11/08/22 10:03 96 H 80 80 11/08/22 07:00 86 11/08/22 06:57 36.5 C 85 18 11/08/22 04:09 36.9 C 83 Resp Resp Resp BP BP Pulse Ox Pulse Ox 11/08/22 11:19 91/59 L 95 11/08/22 10:03 20 20 16 98 11/08/22 07:00 11/08/22 06:57 122/71 92 11/08/22 04:09 108/75 96 Pulse Ox Pulse Ox O2 Del Method 11/08/22 11:19 Room Air 11/08/22 10:03 98 95 11/08/22 07:00 11/08/22 06:57 Room Air 11/08/22 04:09 Room Air
--- NOTE | 2022-11-08 13:27 | Discharge Summary ---
Date of Service November 08, 2022 Admission HPI Per Admitting Provider This is an 82-year-old male with past medical history significant for type 2 diabetes, gout, hypercholesterolemia, hypertension, macular degeneration of both eyes, CAD, CHF, EF of 20%-25%, proteinuria, presents with shortness of breath. The patient was here in the hospital in September with shortness of breath and cough. At that time, his echo showed EF of 20%-25% and is status post Cardiac cath at that time showing multivessel disease and extensive stenosis, but not amennable to PCI. Cardiology proceeded with medical management at that time due to the risk of CABG. The patient was discharged on Lasix 60 mg daily .Patient says his sob intially improved, but then since last 2 or 3 days got progressively worse and last night, he could not sleep has sit on the bed all night.Also his lower extremity edema got worse . Couple of weeks ago in the [employer] moving his cart, he was getting chest pains.. Says he interested in stent placement or surgery if possible. The patient is resting comfortably, hemodynamically stable in the ER. ER ordering IV Bumex. The patient denies any fever or chills. Has mild cough with occasional phlegm. Denies any chest pain currently. No nausea, no abdominal pain. Somewhat constipated. Denies blood in stool or black stools. He says he is micturating okay except with some difficulty with because of prostate problems. Denies any burning micturition or any blood in the urine. Denies any headache. Has some chronic mild back pain. Vision is okay. No earaches, no runny nose, no sore throat. Appetite is okay. No difficulty swallowing. Afebrile Admission Exam Per Admitting Provider GENERAL: The patient is of moderate build, not in acute distress. VITAL SIGNS: Temperature 36.5, pulse 80, respiratory rate 27, blood pressure 125/74, oxygen 96% on room air. HEENT: Pupils equal, round and reactive to light. Oral mucosa moist. NECK: No JVD. No neck masses. CARDIOVASCULAR: S1 and S2 heard. Regular rate and rhythm. No murmur, no gallop. RESPIRATORY SYSTEM: Normal AP diameter. No accessory muscle use. Mild bibasilar crackles. No wheezing. ABDOMEN: Soft, bowel sounds present, nontender, no distention. CENTRAL NERVOUS SYSTEM: Cranial nerves II-XII grossly intact. Nonfocal. EXTREMITIES: Bilateral gross pedal edema present with mild erythema. Principal Diagnosis (1) Acute on chronic systolic (congestive) heart failure: (2) Ischemic cardiomyopathy: (3) SOB (shortness of breath): (4) NSTEMI (non-ST elevated myocardial infarction) (5) Left knee pain ( Likely Gout) Discharge Exam Constitutional: WD/WN, vitals as above, NAD, sitting up in bed, pleasant, conversing easily Respiratory: normal respiratory effort, lungs clear to auscultation, no wheeze, rales, rhonchi. Normal insp/exp effort, no accessory muscle use Cardiovascular: RRR, no murmur, no edema Vessels: no JVD or carotid bruit Chest: Crackles present at bases. Improved Abdomen: normal bowel sounds, soft, nontender, no hepatosplenomegaly Musculoskeletal: Bilateral pitting edema resolved; left knee slightly swollen compared to right; tender on palpation. Skin: no rashes, warm and dry normal turgor Neurologic: PERRL, EOMI, accommodation nl, no face palsy, no dysarthria CN's II- XI intact bilaterally and moves all extremities Psychiatric: A+Ox3, euthymic affect Lymphatic: no cervical or axillary lymphadenopathy : deferred Discharge Data Allergies Allergy/AdvReac Type Severity Reaction Status Date / Time alfuzosin Allergy Unknown UNKN Verified 11/02/22 21:03 Consultations 11/02/22 20:19 ED Decision to Admit Stat 11/03/22 08:00 Consult Cardiology Routine 11/06/22 10:48 Consult Orthopedic Surgery Routine Ordered Studies 11/02/22 21:11 CT chest diagnostic wo con Urgent Hospital Course (1) Acute on chronic systolic (congestive) heart failure: (2) Ischemic cardiomyopathy: (3) SOB (shortness of breath): (4) NSTEMI (non-ST elevated myocardial infarction): Plan History of ischemic cardiomyopathy with reduced ejection fraction. Last echo in September 2022 with EF of 20 to 25% History of severe diffuse coronary artery disease; managed medically. Last cardiac cath was done in September 2022. Was on Lasix 60 mg at home; presented with lower extremity edema and shortness of breath. Chest x-ray shows vascular congestion. CT chest also shows bilateral patchy infiltrates. High-sensitivity troponin up trended from 24 to 900; down trended to 383 Pro-Zach negative Plan; -Patient received heparin drip initially in the hospitalization for NSTEMI. Cardiology was consulted; recommended addition of spironolactone, increasing lisinopril from 5 mg to 10 mg. He was diuresed with Bumex 1 mg twice daily; lower extremity edema and shortness of breath improved. At discharge, patient was placed on Lasix 40 mg twice daily. Follow-up with primary care doctor and cardiology. Left knee pain( likely Acute Gout) Reports history of gout. On examination; left knee is slightly swollen; tenderness present. On allopurinol 300 mg once daily Used to take indomethacin prescribed by his primary care doctor as outpatient X-ray shows small effusion; no fracture or dislocation. Patient underwent intra-articular steroid on November 08 by orthopedic PT OT recommended; home with 08/05 supervision and home PT OT. Patient has good family support; requested to be discharged home. Case management was consulted for home PT OT. Total Time Total Time Spent Total Time Spent (In Minutes): 45 Total Time Includes: Examination of the Patient, Discharge Planning, Medication Reconciliation, Communication With Other Providers and Other Discharge Plan Discharge Items Patient Disposition: Home - Home Health Services Reason For Visit: SOB, CHF Discharge Diagnosis: Acute on chronic systolic heart failure NSTEMI Acute gout Condition on Discharge: Fair Activity: Resume your previous activity Non-emergency contact: Primary Care Provider Call non-emergency contact if: you have any medication questions and your symptoms worsen Follow-up/Referrals: Rene Green DO [Primary Care Provider] - 11/15/22 11:00 am (Date & Time 11/15/2022 11:00 AM Provider Rene Green DO Department [facility] ) Diet: Regular Addtl Attending Provider Instructions: You were admitted to the hospital with heart failure. The following medication changes are recommended by the circus hand. 1) Take Lasix 40 mg twice daily (morning and at lunch). Prescription of Lasix 40 mg is sent to your pharmacy. 2) Start taking clopidogrel 75 mg once daily. 3) Dose of lisinopril has been increased from 5mg to 10 mg once daily. New prescription for lisinopril 10 mg is sent to your pharmacy. 4) Spironolactone is added to your medication regimen. Take half tablet(12.5mg) once a day. No other medication changes have been done. Please measure your blood weight on the weighing scale every morning at the same time. Please record your weight. If your weight has increased by 3 to 4 pounds and he started to notice swelling in your legs; please call your doctor. Adjustment to your diuretic dose may be needed. You have a follow-up set up with your primary care doctor for November 15 at 11 AM. Pending Studies at Discharge: No Stand-Alone Forms: [facility], Smoking Cessation Medications and DC Order Prescriptions: New furosemide 40 mg Tablet 40 mg PO BID17 Qty: 60 0RF clopidogrel 75 mg Tablet 75 mg PO QAM Qty: 30 0RF spironolactone 25 mg Tablet 12.5 mg PO DAILY Qty: 30 0RF lisinopril 10 mg Tablet 10 mg PO QAM Qty: 30 0RF Continued mirtazapine 15 mg tablet 15 mg PO HS Eylea 2 mg/0.05 mL Solution 0 mg INTRAVITREAL DIRECTED Jardiance 25 mg tablet 25 mg PO QAM Ropivacaine 1.5mg 0.3 ml OPB DIRECTED silver sulfadiazine 1 % cream 1 applic TOPICAL DAILY glipizide 10 mg tablet extended release 24hr 10 mg PO AMHS metoprolol succinate 100 mg Tablet Extended Release 24 Hr 100 mg PO DAILY alprazolam 0.5 mg Tablet 0.5 mg PO HS PRN (Reason: Anxiety) loteprednol etabonate 0.5 % drops,suspension 1 drp OPR DIRECTED PRN (Reason: .Irritation) albuterol sulfate 90 mcg/actuation HFA aerosol inhaler 2 puff INHALATION Q4 PRN (Reason: Shortness Of Breath) metronidazole 0.75 % Gel 1 applic TOPICAL DAILY PreserVision Lutein 226-90-0.8-5 mg Capsule 1 cap PO BID isosorbide mononitrate 30 mg Tablet Extended Release 24 Hr 30 mg PO QAM Qty: 30 0RF aspirin 81 mg Tablet,Delayed Release (Dr/Ec) 81 mg PO QAM Qty: 30 0RF atorvastatin 20 mg tablet 40 mg PO QAM Qty: 60 0RF Changed allopurinol 300 mg tablet 300 mg PO QAM Qty: 30 0RF Discontinued indomethacin 50 mg capsule 50 mg PO TID PRN (Reason: Pain) lisinopril 5 mg tablet 5 mg PO QAM furosemide 20 mg tablet 20 mg PO QPM furosemide [Lasix] 20 mg tablet 40 mg PO QAM Discharge Orders: Discharge Order- CHF (Routine); Ordered 11/08/22 Ordered By: David Carey/Other Patient Handouts: Managing Type 2 Diabetes Admission Data Admit Date/Time: 11/02/22 21:11 Attending Provider: David Torres Admit Provider: Ravi Bliss Primary Care Provider: Rene Green Other Providers: Ravi Bliss ; Demar Rocha ; Saqib Marx ; Aram Romero ; Efrain Saunders ; Zion Barboza ; Misael Romero ; Michelle Sims ; Lyly De Guzman ; Inocencia Finney ; Oracio Curiel ; Haile Jerry
== END 2022-11-08 15:13 | disposition home health service (06) | DRG 280 ==
LOC: ED 16:17 → 2S 21:11

== ENCOUNTER 2022-11-30 17:35 | Inpatient (IN) ==
--- NOTE | 2022-11-30 17:40 | ED Triage Note ---
Date of Service November 30, 2022 History of Present Illness This patient was briefly evaluated while in triage. An abbreviated physical exam was performed. This patient is a 82-year-old Male with past medical history of CAD, CHF, and diabetes who presents to the ED for evaluation of episodes of lightheadedness. He states when these occur his heart rate drops down into the 30s and stays there for some time before coming back up. Physical Exam VITALS: Vitals are noted on the nurse's note and reviewed by myself. GENERAL: This is an 82-year-old male, in no acute distress, well-developed well- nourished. SKIN: The skin was without rashes. HEART: Regular rate and rhythm without murmurs gallops or rubs. LUNGS: Clear to auscultation bilaterally without wheezes, rales or rhonchi. NEURO: Patient was alert and oriented to person place and time. Initial orders for labs and / or imaging were placed and patient was placed in the waiting area until a bed is available. Please see further documentation for the full ED course.
--- NOTE | 2022-11-30 18:54 | Emergency Department Note ---
Impression & Plan Near syncope, Dizziness, Bradycardia ED Provider Note NAME: MINAL ORTIZ Jr AGE: 82 SEX: M : 1940 ARRIVES VIA: Walk-In INFORMANT: [Patient] ED PROVIDER(S): [Aldo Gaona MD] CHIEF COMPLAINT: Arrhythmia, near syncope HISTORY OF PRESENT ILLNESS: The patient is an 82-year-old male who had an [place] around 40 years ago. Recently, over the last few months, he has been diagnosed with heart failure. He is on a diuretic. The patient states that in the last 3 or 4 days, he has had dizzy spells. It does not matter if he is sitting or standing. Patient states that he put on his finger heart monitor during the spells and his heart rate would go below 30. He would feel near syncopal but never lost consciousness. No chest pain or shortness of breath. He did not sweat. After a short timeframe, he would begin to feel better and the heart rate would start to increase and get back to the 70s or 80s. He had 8-10 episodes yesterday and more than 10 today. He spoke with his day porter, he was referred to the ER for monitoring, likely hospitalization. PMHx/PSHx: See Below SOCIAL HISTORY: See Below. PHYSICAL EXAM: GENERAL: Patient is in no acute distress. HEENT: No acute trauma, normocephalic atraumatic, mucous membranes moist, no nasal congestion. NECK: No stridor, no adenopathy, no meningismus, trachea is midline. LUNGS: Clear to auscultation bilaterally, no wheeze, no rhonchi, breath sounds equal. HEART: Heart tones are distant, rhythm seems regular, I cannot really assess for murmurs. ABDOMEN: Soft, nontender, bowel sounds positive, no peritonitis. EXTREMITIES: No cyanosis, mild bilateral pedal edema, full range of motion of all the joints without pain or difficulty, no signs for acute trauma. NEUROLOGIC: Oriented x 3, no acute motor or sensory deficits, no focal weakness. SKIN: No rash, no jaundice, no diaphoresis. DIFFERENTIAL DIAGNOSIS: Dysrhythmia, heart block, A-fib, a flutter, SVT, V. tach, [place], electrolyte imbalance, among others. EMERGENCY DEPARTMENT COURSE/PROCEDURES: Prior/Outside records reviewed: None. ECG per my interpretation: Indication was palpitations and near syncope. The ECG shows a sinus rhythm with a first-degree AV block. A PVC was noted. The rate was 89. There was a nonspecific interventricular conduction block. No ST elevation. QTc was 455. Continuous Cardiac Monitoring per my interpretation: An order was placed for continuous cardiac monitoring. The monitor shows a rate of 88 with sinus rhythm with a first-degree AV block. MEDICAL DECISION MAKING: There is no leukocytosis or concerning anemia. There is a normal platelet count. No coagulopathy. No renal failure or significant electrolyte abnormality. No concerning liver enzyme elevation. The patient appeared to be in a euthyroid state. ECG shows a sinus rhythm with a first-degree AV block, no dysrhythmia. Cardiac enzyme testing x1 was not consistent with acute cardiac injury. Lyme disease testing was negative. COVID testing returned negative. On exam, the patient was resting comfortably, he had a sinus rhythm on the monitor. The patient presents with near syncopal episodes and reported bradycardia. He has had multiple episodes per day the last few days. He was sent in by cardiology with concerns for dysrhythmia or heart block. I do think a hospital stay, monitoring and cardiology consult are warranted. Patient is aware of his findings thus far. I did speak with case management, the on-call hospitalist was consulted. DISPOSITION: Patient's presentation warrants a hospital stay and further monitoring. Past Med/Surg History Medical History Acute HFrEF (heart failure with reduced ejection fraction) CAD (coronary artery disease) CHF (congestive heart failure) Chronic gout Chronic systolic heart failure Diabetes Diabetes mellitus, type II HLD (hyperlipidemia) HTN (hypertension) Ischemic cardiomyopathy No pertinent family history Surgical History (Updated 11/30/22 @ 20:34 by Denisha Larry PA-C) History of angioplasty History of cardiac cath History of colonoscopy Family History (Updated 11/30/22 @ 20:34 by Denisha Larry PA-C) Other Diabetes Heart disease Social History Smoking Status: Former smoker Tobacco Type: Cigarettes Second Hand Exposure: No; Do You Dip or Chew Tobacco: No; Tobacco Cessation Education Requested by Patient: No Hx Alcohol Use: Yes Alcohol type: beer Hx Substance Use: No Preferred Language: [place]er Communication Ability: Effective 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 Beliefs That Will Affect Care: None Current Living Situation: Alone Other Information That Helps Us Care for You: No Feels Safe at Home: Yes Safety Concerns: Feels Safe At This Time Assistive Devices: Cane, Glasses and Walker Assistive Devices Comment: Uses walker or cane oonly for longer distances Allergies Allergies Allergy/AdvReac Type Severity Reaction Status Date / Time alfuzosin AdvReac Mild NASAL Verified 11/30/22 18:53 CONGESTION Home Meds Home Medications Medication Instructions Recorded Confirmed albuterol sulfate 90 mcg/actuation 2 puff inhalation Q4 PRN Shortness 09/21/22 11/30/22 aerosol inhaler Of Breath alprazolam 0.5 mg tablet 0.5 mg PO HS PRN Anxiety 09/21/22 11/30/22 glipizide 10 mg tablet, extended 10 mg PO AMHS 09/21/22 11/30/22 release 24 hr loteprednol etabonate 0.5 % eye 1 drp OPR DIRECTED PRN 09/21/22 11/30/22 drops,suspension .Irritation metoprolol succinate 100 mg 100 mg PO DAILY 09/21/22 11/30/22 tablet,extended release 24 hr metronidazole 0.75 % topical gel 1 applic topical DAILY 09/21/22 11/30/22 silver sulfadiazine 1 % topical 1 applic topical DAILY PRN BURN 09/21/22 11/30/22 cream AREA vit C 226 mg-vit E 90 mg-copper 1 cap PO BID 09/22/22 11/30/22 0.8 mg-zinc oxide-lutein 5 mg capsule (PreserVision Lutein) aflibercept 2 mg/0.05 mL 2 mg intravitreal DIRECTED 11/02/22 11/30/22 intravitreal solution for injection (Eylea) empagliflozin 25 mg tablet 25 mg PO QAM 11/02/22 11/30/22 (Jardiance) mirtazapine 15 mg tablet 15 mg PO HS 11/02/22 11/30/22 atorvastatin 40 mg tablet 40 mg PO QAM 11/30/22 11/30/22 furosemide 40 mg tablet 40 mg PO BID 11/30/22 11/30/22 nitroglycerin 0.4 mg sublingual 0.4 mg sublingual DIRECTED PRN 11/30/22 11/30/22 tablet Chest Pain Previous Rx's Medication Instructions Recorded aspirin 81 mg tablet,delayed 81 mg PO QAM #30 tabs 09/24/22 release isosorbide mononitrate 30 mg 30 mg PO QAM #30 tabs 09/24/22 tablet,extended release 24 hr allopurinol 300 mg tablet 300 mg PO QAM #30 tabs 11/08/22 clopidogrel 75 mg tablet 75 mg PO QAM #30 tabs 11/08/22 lisinopril 10 mg tablet 10 mg PO QAM #30 tabs 11/08/22 spironolactone 25 mg tablet 12.5 mg PO DAILY #30 tabs 11/08/22 Results & Data (ED) Vital Signs Vital Signs - 24 hr 11/30/22 17:40 11/30/22 18:00 11/30/22 18:24 Temperature 36.5 C Temperature Source Skin Pulse Rate 96 H 85 93 H Pulse Rate from SpO2 Sensor Respiratory Rate 18 20 Respiratory Effort / Characteristics Non-Labored Spontaneous Respiratory Depth Normal Respiratory Pattern Regular Blood Pressure 114/69 96/52 L Blood Pressure Mean 84 66 Blood Pressure Position Sitting Pulse Oximetry 96 96 Oxygen Delivery Method Room Air Sepsis Recent Fever Within 48 Hours No Sepsis New/Unexplained Change in Mental Status N/A Sepsis Action Taken by Nursing No Action Required 11/30/22 19:30 11/30/22 20:00 Temperature Temperature Source Pulse Rate 80 Pulse Rate from SpO2 Sensor 76 Respiratory Rate 20 14 Respiratory Effort / Characteristics Respiratory Depth Respiratory Pattern Blood Pressure 104/62 104/61 Blood Pressure Mean 76 75 Blood Pressure Position Pulse Oximetry 98 98 Oxygen Delivery Method Room Air Room Air Sepsis Recent Fever Within 48 Hours Sepsis New/Unexplained Change in Mental Status Sepsis Action Taken by Correction Medications Current Medication List: was personally reviewed by me Laboratory Data Attestation: I reviewed the patient's lab results. 11/30/22 18:15 11/30/22 18:15 Lab Results 11/30/22 11/30/22 11/30/22 Range/Units 18:15 18:15 18:15 WBC 8.00 (4.8-10.8) K/ul RBC 5.32 (4.70-6.10) M/uL Hgb 15.3 (14.0-18.0) g/dl Hct 46.5 (42.0-52.0) % MCV 87.4 (80.0-100.0) fL MCH 28.8 (25.0-34.0) pg MCHC 32.9 (32.0-36.0) g/dL RDW Std Deviation 50.2 H (36.4-46.3) fL RDW Coeff of Niya 16.0 H (11.5-14.5) % Plt Count 199 (130-400) K/uL MPV 11.2 (9.4-12.4) fL Immature Gran % (Auto) 0.6 % Neut % (Auto) 56.5 % Lymph % (Auto) 28.5 % [place] % (Auto) 7.5 % Eos % (Auto) 6.0 % Baso % (Auto) 0.9 % Neut # (Auto) 4.52 (1.40-6.50) K/uL Lymph # (Auto) 2.28 (1.2-3.4) K/uL [place] # (Auto) 0.60 H (0.11-0.59) K/uL Eos # (Auto) 0.48 (0-0.50) K/uL Baso # (Auto) 0.07 (0-0.2) K/uL Immature Gran # (Auto) 0.05 (0.01-0.20) K/uL PT Cancelled INR Cancelled APTT Cancelled PTT Ratio Cancelled Sodium TNP Potassium TNP Chloride 102 (98-107) mmol/L Carbon Dioxide 23 (21-32) mmol/L Anion Gap TNP BUN 55 H (6-23) mg/dl Creatinine 1.32 (0.6-1.4) mg/dl Est Cr Clr Drug Dosing 42.4 ml/min Est GFR ( Amer) 57.4 ml/min Est GFR (Non-Af Amer) 49.5 ml/min BUN/Creatinine Ratio 41.7 H (10-20) Glucose 132 H (70-99(Fasting)) mg/dl Calcium 10.4 H (8.5-10.1) mg/dl Magnesium TNP Total Bilirubin 0.8 (0.2-1.0) mg/dl AST TNP ALT 18 (7-52) U/L Alkaline Phosphatase TNP Troponin I High Sens 14.0 (0-20) pg/ml Total Protein 7.6 (6.0-8.3) gm/dl Albumin TNP Globulin TNP Albumin/Globulin Ratio TNP 25-OH Vitamin D Total (30-100) ng/ml TSH (0.300-4.500) uIu/ml PTH Intact (12.0-88.0) pg/ml Lyme Disease IgG Ab Lyme Disease IgM Ab SARS-CoV-2, RNA, NAAT (NEGATIVE) 11/30/22 11/30/22 11/30/22 Range/Units 18:15 18:15 19:28 WBC (4.8-10.8) K/ul RBC (4.70-6.10) M/uL Hgb (14.0-18.0) g/dl Hct (42.0-52.0) % MCV (80.0-100.0) fL MCH (25.0-34.0) pg MCHC (32.0-36.0) g/dL RDW Std Deviation (36.4-46.3) fL RDW Coeff of Niya (11.5-14.5) % Plt Count (130-400) K/uL MPV (9.4-12.4) fL Immature Gran % (Auto) % Neut % (Auto) % Lymph % (Auto) % [place] % (Auto) % Eos % (Auto) % Baso % (Auto) % Neut # (Auto) (1.40-6.50) K/uL Lymph # (Auto) (1.2-3.4) K/uL [place] # (Auto) (0.11-0.59) K/uL Eos # (Auto) (0-0.50) K/uL Baso # (Auto) (0-0.2) K/uL Immature Gran # (Auto) (0.01-0.20) K/uL PT 11.8 INR 1.1 APTT 29.2 PTT Ratio 1.1 Sodium Potassium Chloride (98-107) mmol/L Carbon Dioxide (21-32) mmol/L Anion Gap BUN (6-23) mg/dl Creatinine (0.6-1.4) mg/dl Est Cr Clr Drug Dosing ml/min Est GFR ( Amer) ml/min Est GFR (Non-Af Amer) ml/min BUN/Creatinine Ratio (10-20) Glucose (70-99(Fasting)) mg/dl Calcium (8.5-10.1) mg/dl Magnesium Total Bilirubin (0.2-1.0) mg/dl AST ALT (7-52) U/L Alkaline Phosphatase Troponin I High Sens (0-20) pg/ml Total Protein (6.0-8.3) gm/dl Albumin Globulin Albumin/Globulin Ratio 25-OH Vitamin D Total (30-100) ng/ml TSH 3.288 (0.300-4.500) uIu/ml PTH Intact (12.0-88.0) pg/ml Lyme Disease IgG Ab Cancelled Lyme Disease IgM Ab Cancelled SARS-CoV-2, RNA, NAAT (NEGATIVE) 11/30/22 11/30/22 11/30/22 Range/Units 19:28 19:28 19:28 WBC (4.8-10.8) K/ul RBC (4.70-6.10) M/uL Hgb (14.0-18.0) g/dl Hct (42.0-52.0) % MCV (80.0-100.0) fL MCH (25.0-34.0) pg MCHC (32.0-36.0) g/dL RDW Std Deviation (36.4-46.3) fL RDW Coeff of Niya (11.5-14.5) % Plt Count (130-400) K/uL MPV (9.4-12.4) fL Immature Gran % (Auto) % Neut % (Auto) % Lymph % (Auto) % [place] % (Auto) % Eos % (Auto) % Baso % (Auto) % Neut # (Auto) (1.40-6.50) K/uL Lymph # (Auto) (1.2-3.4) K/uL [place] # (Auto) (0.11-0.59) K/uL Eos # (Auto) (0-0.50) K/uL Baso # (Auto) (0-0.2) K/uL Immature Gran # (Auto) (0.01-0.20) K/uL PT INR APTT PTT Ratio Sodium 137 Potassium 4.6 Chloride (98-107) mmol/L Carbon Dioxide (21-32) mmol/L Anion Gap BUN (6-23) mg/dl Creatinine (0.6-1.4) mg/dl Est Cr Clr Drug Dosing ml/min Est GFR ( Amer) ml/min Est GFR (Non-Af Amer) ml/min BUN/Creatinine Ratio (10-20) Glucose (70-99(Fasting)) mg/dl Calcium (8.5-10.1) mg/dl Magnesium 2.3 Total Bilirubin (0.2-1.0) mg/dl AST 18 ALT (7-52) U/L Alkaline Phosphatase 76 Troponin I High Sens (0-20) pg/ml Total Protein (6.0-8.3) gm/dl Albumin 4.3 Globulin Albumin/Globulin Ratio 25-OH Vitamin D Total (30-100) ng/ml TSH (0.300-4.500) uIu/ml PTH Intact 133.3 H (12.0-88.0) pg/ml Lyme Disease IgG Ab Negative Lyme Disease IgM Ab Negative SARS-CoV-2, RNA, NAAT (NEGATIVE) 11/30/22 11/30/22 Range/Units 19:28 19:45 WBC (4.8-10.8) K/ul RBC (4.70-6.10) M/uL Hgb (14.0-18.0) g/dl Hct (42.0-52.0) % MCV (80.0-100.0) fL MCH (25.0-34.0) pg MCHC (32.0-36.0) g/dL RDW Std Deviation (36.4-46.3) fL RDW Coeff of Niya (11.5-14.5) % Plt Count (130-400) K/uL MPV (9.4-12.4) fL Immature Gran % (Auto) % Neut % (Auto) % Lymph % (Auto) % [place] % (Auto) % Eos % (Auto) % Baso % (Auto) % Neut # (Auto) (1.40-6.50) K/uL Lymph # (Auto) (1.2-3.4) K/uL [place] # (Auto) (0.11-0.59) K/uL Eos # (Auto) (0-0.50) K/uL Baso # (Auto) (0-0.2) K/uL Immature Gran # (Auto) (0.01-0.20) K/uL PT INR APTT PTT Ratio Sodium Potassium Chloride (98-107) mmol/L Carbon Dioxide (21-32) mmol/L Anion Gap BUN (6-23) mg/dl Creatinine (0.6-1.4) mg/dl Est Cr Clr Drug Dosing ml/min Est GFR ( Amer) ml/min Est GFR (Non-Af Amer) ml/min BUN/Creatinine Ratio (10-20) Glucose (70-99(Fasting)) mg/dl Calcium (8.5-10.1) mg/dl Magnesium Total Bilirubin (0.2-1.0) mg/dl AST ALT (7-52) U/L Alkaline Phosphatase Troponin I High Sens (0-20) pg/ml Total Protein (6.0-8.3) gm/dl Albumin Globulin Albumin/Globulin Ratio 25-OH Vitamin D Total 30.5 (30-100) ng/ml TSH (0.300-4.500) uIu/ml PTH Intact (12.0-88.0) pg/ml Lyme Disease IgG Ab Lyme Disease IgM Ab SARS-CoV-2, RNA, NAAT NEGATIVE (NEGATIVE) Administered Medications Alprazolam (Alprazolam 0.5 Mg Tablet) 0.5 mg PO HS PRN PRN Reason: Anxiety Stop: 12/30/22 22:25 Last Admin: 12/01/22 00:45 Dose: 0.5 mg Documented By: MESFIN Heparin Sodium (Porcine) (Heparin Sod 5,000 Unit/0.5 Ml Vial) 5,000 units SQ Q12 MARTA Stop: 12/30/22 22:59 Last Admin: 12/01/22 00:45 Dose: 5,000 units Documented By: MESFIN Insulin Aspart (Insulin Aspart Per Unit) 0 units SC Q6 MARTA Stop: 12/30/22 22:59 Last Admin: 12/01/22 00:45 Dose: Not Given Documented By: MESFIN Mirtazapine (Mirtazapine Tab 15 Mg Tab) 15 mg PO HS MARAT Stop: 12/30/22 22:25 Last Admin: 12/01/22 00:45 Dose: 15 mg Documented By: MESFIN Discharge Plan Visit Data Chief Complaint: Arrhythmia/Palpitations Stated Complaint: DIZZY SPELL, REF BY DOC,HEART SLOWING DOWN ED Provider: Aldo Gaona Discharge Problem: Near syncope, Dizziness, Bradycardia Patient Disposition: Admitted As Inpatient Condition: Good Discharge Instructions Interventions: ED Discharge Assessment Last Done: 11/30/22 20:55
[2022-11-30 18:55] LABS: Basophils # (auto) 0.07 K/uL (0-0.2); Basophils % (auto) 0.9 %; Eosinophils # (auto) 0.48 K/uL (0-0.50); Hematocrit (blood only) 46.5 % (42.0-52.0); Hemoglobin 15.3 g/dl (14.0-18.0); Immature Granulocytes # (auto) 0.05 K/uL (0.01-0.20); Immature Granulocytes % (auto) 0.6 %; Lymphocytes # (auto) 2.28 K/uL (1.2-3.4); Lymphocytes % (auto) 28.5 %; Mean Corpuscular Hemoglobin 28.8 pg (25.0-34.0); Mean Corpuscular Hgb Conc 32.9 g/dL (32.0-36.0); Mean Corpuscular Volume 87.4 fL (80.0-100.0); Mean Platelet Volume 11.2 fL (9.4-12.4); Monocytes % (auto) 7.5 %; Neutrophils # (auto) 4.52 K/uL (1.40-6.50); Neutrophils % (auto) 56.5 %; Platelet Count 199 K/uL (130-400); RDW Standard Deviation 50.2 fL (36.4-46.3); Red Blood Count 5.32 M/uL (4.70-6.10)
[2022-11-30 19:21] LABS: Alanine Aminotransferase 18 U/L (7-52); BUN Creatinine Ratio 41.7 (10-20); Bilirubin,Total 0.8 mg/dl (0.2-1.0); Blood Urea Nitrogen 55 mg/dl (6-23); Calcium 10.4 mg/dl (8.5-10.1); Carbon Dioxide 23 mmol/L (21-32); Chloride 102 mmol/L (98-107); Creatinine Clr Calc Pharmacy 42.4 ml/min; Est GFR (African American) 57.4 ml/min; Est GFR (Non-African American) 49.5 ml/min; Glucose 132 mg/dl (70-99(Fasting)); Total Protein 7.6 gm/dl (6.0-8.3)
--- NOTE | 2022-11-30 19:50 | History & Physical Report ---
Date of Service November 30, 2022 Assessment & Plan (1) Symptomatic bradycardia: Plan: Patient is 82-year-old male with PMH CAD, ischemic cardiomyopathy, chronic systolic heart failure, DM II, HTN, HLD, gout scented to ER with complaint of dizzy episodes x 4 days with associated noted bradycardia on pulse oximeter. Denies syncope, CP, SOB, palpitations In ER patient afebrile, vital stable. EKG sinus rhythm first-degree AV block, PVC. No significant electrolyte abnormality. Initial high-sensitivity troponin negative. Negative Lyme, negative SARS-CoV-2 Monitor on telemetry Hold metoprolol succinate EKG in a.m. N.p.o. midnight Cardiology consult (2) Hypercalcemia: Plan: Ca: 10.4. Noted to be elevated back in September 2022 as well. Was 9.8 on 11/08/2022 PTH, ionized calcium, vitamin D pending (3) Chronic systolic heart failure: (4) Ischemic cardiomyopathy: Plan: 09/22/2022 echo: EF: 20-25% Currently appears euvolemic Continue low-sodium diet Continue Lasix, spironolactone (5) CAD (coronary atherosclerotic disease): Plan: History multivessel disease and extensive stenosis, but not amenable to PCI on last cardiac cath. Treated medically Continue Plavix, aspirin, isosorbide, lisinopril, atorvastatin Hold metoprolol succinate with possible symptomatic bradycardia (6) Diabetes mellitus, type II: Plan: A1c: 8.0 on 11/03/2022 Hold home medication NovoLog sliding scale per protocol (7) HTN (hypertension): Plan: Continue lisinopril Holding metoprolol succinate (8) HLD (hyperlipidemia): Plan: Continue atorvastatin (9) Chronic gout: Plan: Continue allopurinol DVT Prophylaxis Heparin SQ Full Code as per discussion with pt Follows with Dr Rene Green for routine care Pt was seen and care coordinated with Dr Sellers. See addendum I spent a total of 70 minutes reviewing notes, outpatient records, labs, medication, coordinating, documenting and providing care for this patient excluding time spent in the performance of separately billed services. History of Present Illness Chief Complaint: Dizzy episodes Primary Care Provider: Rene Green DO Patient is 82-year-old male with PMH CAD, ischemic cardiomyopathy, chronic systolic heart failure, DM II, HTN, HLD, gout scented to ER with complaint of dizzy episodes. Patient reports for the past 4 days has had episodes of feeling dizzy described as lightheaded, sometimes with associated tingling throughout his body. Denies any associated chest pain, shortness of breath, syncope, palpitations. Home health nurse was to see patient yesterday and BPs were normal. Patient states today when he had a lightheaded episode he place his pulse oximeter on his finger and noted that it was reading that his heart rate was dropping during his episodes and then heart rate return up to the 80s. He contacted cardiology office who had recommended patient present to ER. Patient with recent hospitalizations for acute on chronic systolic heart failure. Patient reports has been doing well since recent hospital discharge without any weight gain and without any increased lower extremity edema. Denies fever/chills, diaphoresis, N/V/D/C, ARMENDARIZ, vision changes, neck pain, orthopnea, cough, sore throat, choking, otalgia, rhinorrhea, abdominal pain, paresthesias, weakness, extremity weakness, rashes, urinary symptoms. Allergies Allergy/AdvReac Type Severity Reaction Status Date / Time alfuzosin AdvReac Mild NASAL Verified 11/30/22 18:53 CONGESTION Home Medications Medication Instructions Recorded Confirmed Type albuterol sulfate 90 mcg/actuation 2 puff inhalation Q4 PRN Shortness 09/21/22 11/30/22 History aerosol inhaler Of Breath alprazolam 0.5 mg tablet 0.5 mg PO HS PRN Anxiety 09/21/22 11/30/22 History glipizide 10 mg tablet, extended 10 mg PO AMHS 09/21/22 11/30/22 History release 24 hr loteprednol etabonate 0.5 % eye 1 drp OPR DIRECTED PRN 09/21/22 11/30/22 History drops,suspension .Irritation metoprolol succinate 100 mg 100 mg PO DAILY 09/21/22 11/30/22 History tablet,extended release 24 hr metronidazole 0.75 % topical gel 1 applic topical DAILY 09/21/22 11/30/22 History silver sulfadiazine 1 % topical 1 applic topical DAILY PRN BURN 09/21/22 11/30/22 History cream AREA vit C 226 mg-vit E 90 mg-copper 1 cap PO BID 09/22/22 11/30/22 History 0.8 mg-zinc oxide-lutein 5 mg capsule (PreserVision Lutein) aspirin 81 mg tablet,delayed 81 mg PO QAM #30 tabs 09/24/22 11/30/22 Rx release isosorbide mononitrate 30 mg 30 mg PO QAM #30 tabs 09/24/22 11/30/22 Rx tablet,extended release 24 hr aflibercept 2 mg/0.05 mL 2 mg intravitreal DIRECTED 11/02/22 11/30/22 History intravitreal solution for injection (Eylea) empagliflozin 25 mg tablet 25 mg PO QAM 11/02/22 11/30/22 History (Jardiance) mirtazapine 15 mg tablet 15 mg PO HS 11/02/22 11/30/22 History allopurinol 300 mg tablet 300 mg PO QAM #30 tabs 11/08/22 11/30/22 Rx clopidogrel 75 mg tablet 75 mg PO QAM #30 tabs 11/08/22 11/30/22 Rx lisinopril 10 mg tablet 10 mg PO QAM #30 tabs 11/08/22 11/30/22 Rx spironolactone 25 mg tablet 12.5 mg PO DAILY #30 tabs 11/08/22 11/30/22 Rx atorvastatin 40 mg tablet 40 mg PO QAM 11/30/22 11/30/22 History furosemide 40 mg tablet 40 mg PO BID 11/30/22 11/30/22 History nitroglycerin 0.4 mg sublingual 0.4 mg sublingual DIRECTED PRN 11/30/22 11/30/22 History tablet Chest Pain Past Med/Surg History Medical History Acute HFrEF (heart failure with reduced ejection fraction) CAD (coronary artery disease) CHF (congestive heart failure) Chronic gout Chronic systolic heart failure Diabetes Diabetes mellitus, type II HLD (hyperlipidemia) HTN (hypertension) Ischemic cardiomyopathy No pertinent family history Surgical History (Updated 11/30/22 @ 20:34 by Denisha Larry PA-C) History of angioplasty History of cardiac cath History of colonoscopy Family History (Updated 11/30/22 @ 20:34 by Denisha Larry PA-C) Other Diabetes Heart disease Social History Smoking Status: Former smoker Tobacco Type: Cigarettes Second Hand Exposure: No; Do You Dip or Chew Tobacco: No; Tobacco Cessation Education Requested by Patient: No Hx Alcohol Use: Yes Alcohol type: beer Hx Substance Use: No Preferred Language: [place] Communication Ability: Effective Lisw Required: No Beliefs That Will Affect Care: None Current Living Situation: Alone Other Information That Helps Us Care for You: No Feels Safe at Home: Yes Safety Concerns: Feels Safe At This Time Assistive Devices: Cane, Glasses and Walker Assistive Devices Comment: Uses walker or cane oonly for longer distances Review of Systems Review of Systems: All systems reviewed & are unremarkable except as noted in HPI & below Physical Exam Physical Exam: General: no distress, WDWN, appears younger than stated age Head: normocephalic, atraumatic Eyes: conjunctiva non-injected, anicteric ENT: normal inspection external ears, nose, mucous membranes moist Neck: supple, trachea midline Lungs: clear, no respiratory distress, no wheezing/rhonchi/rales CV: RRR, no murmur, no pretibial edema Abd: normal BS, soft, non-tender Ext: no cyanosis, no calf tenderness Neuro: A&O x 3, no focal deficits noted, normal affect Skin: warm, dry Results & Data Results & Data ([facility]) Vital Signs (Past 12 Hours) Vital Signs Temp Pulse Resp BP Pulse Ox O2 Del Method 11/30/22 19:30 20 104/62 98 Room Air 11/30/22 18:24 93 H 11/30/22 18:00 85 20 96/52 L 96 11/30/22 17:40 36.5 C 96 H 18 114/69 96 Room Air Laboratory Results Short CBC 11/30/22 Range/Units 18:15 WBC 8.00 (4.8-10.8) K/ul Hgb 15.3 (14.0-18.0) g/dl Hct 46.5 (42.0-52.0) % Plt Count 199 (130-400) K/uL BMP 11/30/22 11/30/22 18:15 19:28 Sodium TNP 137 Potassium TNP 4.6 Chloride 102 Carbon Dioxide 23 BUN 55 H Creatinine 1.32 Glucose 132 H Calcium 10.4 H Liver Function 11/30/22 11/30/22 Range/Units 18:15 19:28 Total Bilirubin 0.8 (0.2-1.0) mg/dl AST TNP 18 ALT 18 (7-52) U/L Alkaline Phosphatase TNP 76 Albumin TNP 4.3 ECG Rate (beats per minute): 89 Rhythm: sinus rhythm Findings: + 1st degree AV block and + PVC Supervising Physician Co-Signing Physician Notes I have seen and examined the patient and have discussed the case with the provider above. I agree with the assessment and plan as stated. Patient is an 82-year-old diabetic man with a history of heart failure with significant coronary artery disease with reduced ejection fraction. Recently discharged after heart failure exacerbation. Patient reports having dizzy spells that have increased over the past 48 hours. Patient states that he was on the phone with the cardiology nurse and noted his pulse was dropping him on his pulse oximeter at home which was associated with a dizzy spell, improved when his heart rate came back up. After hearing this he was sent immediately to the emergency room. Today he has no EKG abnormalities that would indicate a significant block. There is a chronic first-degree block present. He has no chest pain, shortness of breath. He examines as euvolemic. He reports watching his weight and having Apsley no changes in his weight. He reports compliance with his medications. He otherwise has no other symptoms. On exam he is well-nourished well-developed older man who appears younger than stated age. ENT exam is unremarkable. Cardiac exam reveals a regular rate and rhythm with S1-S2 heard and no evidence of murmur. Pulmonary auscultation is clear throughout. Very trace bilateral lower extremity edema. No JVD. Extremities are warm and well-perfused. There is no gross focal neuromuscular deficits. Mentating clearly. Work-up today reveals EKG with sinus rhythm with first-degree AV block with associated PVCs, heart rate 89. Lab work reveals a CBC within normal limits, coag panel is pending, BMP is unremarkable and around his baseline. Notable rise in creatinine from 1.1 to 1.3 today. Calcium is 10.4, mag is 2.3. TSH within normal limits. A Lyme panel is pending and COVID panel is pending. No imaging was performed. He was not given any medications in the ER. 1. Symptomatic bradycardia 2. chronic systolic heart failure-stable, no exacerbation 3. Severe multi-vessel CAD, no good targets for CABG, medical therapy only 4. DMII This is an 82-year-old man with severe CAD and ischemic cardiomyopathy presenting with new onset symptomatic bradycardia. Continue telemetry monitoring in PCU with treatment as needed. Monitor rhythm for dropped beats or development of block. Consult cardiology for definitive therapy. He appears stable from a heart failure standpoint and not in any exacerbation. Continue his medications aside from beta-more which will be held. Lyme panel is pending. He is a confirmed full code. DO Marlo (5) CAD (coronary atherosclerotic disease) Associated angina: unspecified whether angina present Coronary Disease- Associated Artery/Lesion type: unspecified vessel or lesion type [place] vs. transplanted heart: [place] heart Qualified Code(s): I25.10 - Atherosclerotic heart disease of [place] coronary artery without angina pectoris
[2022-11-30 19:58] LABS: Albumin Level 4.3 gm/dl (3.4-5.0); Magnesium 2.3 mg/dl (1.7-2.4); Potassium 4.6 mmol/L (3.5-5.1)
--- NOTE | 2022-11-30 20:13 | Communication Note ---
Date of Service: November 30, 2022 ATTENDING ADDENDUM: Patient is an 82-year-old diabetic man with a history of heart failure with significant coronary artery disease with reduced ejection fraction. Recently discharged after heart failure exacerbation. Patient reports having dizzy spells that have increased over the past 48 hours. Patient states that he was on the phone with the cardiology nurse and noted his pulse was dropping him on his pulse oximeter at home which was associated with a dizzy spell, improved when his heart rate came back up. After hearing this he was sent immediately to the emergency room. Today he has no EKG abnormalities that would indicate a significant block. There is a chronic first-degree block present. He has no chest pain, shortness of breath. He examines as euvolemic. He reports watching his weight and having Apsley no changes in his weight. He reports compliance with his medications. He otherwise has no other symptoms. On exam he is well-nourished well-developed older man who appears younger than stated age. ENT exam is unremarkable. Cardiac exam reveals a regular rate and rhythm with S1-S2 heard and no evidence of murmur. Pulmonary auscultation is clear throughout. Very trace bilateral lower extremity edema. No JVD. Extremities are warm and well-perfused. There is no gross focal neuromuscular deficits. Mentating clearly. Work-up today reveals EKG with sinus rhythm with first-degree AV block with associated PVCs, heart rate 89. Lab work reveals a CBC within normal limits, coag panel is pending, BMP is unremarkable and around his baseline. Notable rise in creatinine from 1.1 to 1.3 today. Calcium is 10.4, mag is 2.3. TSH within normal limits. A Lyme panel is pending and COVID panel is pending. No imaging was performed. He was not given any medications in the ER. 1. Symptomatic bradycardia 2. chronic systolic heart failure-stable, no exacerbation 3. Severe multi-vessel CAD, no good targets for CABG, medical therapy only 4. DMII This is an 82-year-old man with severe CAD and ischemic cardiomyopathy presenting with new onset symptomatic bradycardia. Continue telemetry monitoring in PCU with treatment as needed. Monitor rhythm for dropped beats or development of block. Consult cardiology for definitive therapy. He appears stable from a heart failure standpoint and not in any exacerbation. Continue his medications aside from beta-more which will be held. Lyme panel is pending. He is a confirmed full code. Marlo,
[2022-11-30 20:18] LABS: INR 1.1 (0.9-1.1); Partial Thromboplastin Ratio 1.1; Partial Thromboplastin Time 29.2 Seconds (21.0-31.0); Prothrombin Time 11.8 Seconds (9.0-12.0)
[2022-11-30 20:25] LABS: Lyme Ab IgG w/WB Rflx Negative (Negative); Lyme Ab IgM w/WB Rflx Negative (Negative)
[2022-11-30] MEDS ORDERED: GLUCAGON FOR INJ 1 MG VIAL SQ PRN (22:26)
[2022-11-30] MEDS ORDERED: DEXTROSE 50% 50 ML SYRINGE IV PRN (22:26)
[2022-11-30] MEDS ORDERED: ALBUTEROL HFA 8 GM INHALER INH PRN (22:26)
[2022-11-30] MEDS ORDERED: POLYETHYLENE (MIRALAX) 17 GM PACK PO PRN (22:26)
[2022-11-30] MEDS ORDERED: GLUCOSE 10 TAB/TUBE PO PRN (22:26)
[2022-11-30] MEDS ORDERED: CARBOHYDRATES FOR HYPOGLYCEMIA PO PRN (22:26)
[2022-11-30] MEDS ORDERED: GLUCOSE 40% GEL 15 GM TUBE PO PRN (22:26)
[2022-12-01] MEDS: HEPARIN SOD 5,000 UNIT/0.5 ML VIAL SQ SCH ×3 (00:45→20:53)
[2022-12-01] MEDS: ALPRAZolam 0.5 MG TABLET PO PRN ×2 (00:45→22:57)
[2022-12-01] MEDS: MIRTAZAPINE TAB 15 MG TAB PO SCH ×2 (00:45→20:53)
[2022-12-01] MEDS: INSULIN ASPART PER UNIT SC SCH ×5 (00:45→20:53)
[2022-12-01 06:11] LABS: Hemoglobin 13.8 g/dl (14.0-18.0); Mean Corpuscular Hemoglobin 28.4 pg (25.0-34.0); Mean Corpuscular Hgb Conc 32.1 g/dL (32.0-36.0); Mean Corpuscular Volume 88.5 fL (80.0-100.0); Mean Platelet Volume 10.6 fL (9.4-12.4); Platelet Count 156 K/uL (130-400); RDW Coefficient of Variation 15.9 % (11.5-14.5); RDW Standard Deviation 51.8 fL (36.4-46.3); Red Blood Count 4.86 M/uL (4.70-6.10); White Blood Count 6.66 K/ul (4.8-10.8)
[2022-12-01 06:22] LABS: BUN Creatinine Ratio 37.6 (10-20); Creatinine Clr Calc Pharmacy 43.6 ml/min; Est GFR (Non-African American) 45.7 ml/min; Potassium 4.6 mmol/L (3.5-5.1)
[2022-12-01] MEDS ORDERED: lisinopril 10 MG TAB PO SCH (09:00)
[2022-12-01] MEDS: ISOSORBIDE MONO EXTENDED REL 30 MG TABCR PO SCH (09:05)
[2022-12-01] MEDS: allopurinoL 300 MG TAB PO SCH (09:05)
[2022-12-01] MEDS: ASPIRIN 81 MG ECTAB PO SCH (09:05)
[2022-12-01] MEDS: ATORVASTATIN 40 MG TAB PO SCH (09:05)
[2022-12-01] MEDS: FUROSEMIDE 40 MG TAB PO SCH ×2 (09:05→17:53)
[2022-12-01] MEDS: CLOPIDOGREL BISULFATE 75 MG TAB PO SCH (09:06)
[2022-12-01] MEDS: SPIRONOLACTONE 12.5 MG TAB PO SCH (09:06)
--- NOTE | 2022-12-01 09:57 | Electrocardiogram Report ---
Test Reason : Blood Pressure : / mmHG Vent. Rate : 089 BPM Atrial Rate : 089 BPM P-R Int : 228 ms QRS Dur : 136 ms QT Int : 374 ms P-R-T Axes : 038 001 025 degrees QTc Int : 455 ms Poor data quality, interpretation may be adversely affected Sinus rhythm with 1st degree A-V block with occasional Premature ventricular complexes Left bundle branch block Abnormal ECG When compared with ECG of 02-NOV-2022 18:05, No significant change was found Confirmed by Larry Moreno ([id number]) on 12/01/2022 9:56:59 AM Referred By: REFERRED SELF Confirmed By:Jeremy Moreno
--- NOTE | 2022-12-01 10:15 | Cardiology Consultation ---
Date of Consultation December 01, 2022 Assessment & Plan (1) Dizziness: (2) Ischemic cardiomyopathy: (3) NYHA class 3 heart failure with reduced ejection fraction: (4) CHF (congestive heart failure): (5) CAD (coronary atherosclerotic disease): Plan 82 year old male with severe multivessel coronary artery disease, severe ischemic cardiomyopathy. NYHA Class III CHF. EF 20-25%. Patient maintaining sinus rhythm with chronic frequent ventricular ectopy. Admission EKG was sinus rhythm at 89 bpm with a first-degree AV block with occasional premature ventricular complexes, left bundle branch block pattern with QRS duration of 136 ms. Patient presents this admission with complaints of significant dizziness with observed bradycardia on home pulse oximetry monitor. No true syncope. Symptoms appear to be multifactorial, possible arrhythmia, probable element of mild volume depletion. Continuous telemetry monitoring, off of metoprolol succinate 100 mg/day, reveals sinus rhythm in the 90s with chronic frequent ectopy. Options of management discussed with patient. Resting echocardiography requested to reassess LV systolic function. Recommend maintaining continuous telemetry monitoring while reinstituting evidence-based beta-more therapy, reduced dose metoprolol succinate, 25 mg/day. Possible future dual-chamber pacemaker defibrillator discussed. Further recommendations pending the above, patient's hospitalization, evaluation by Dr. Romero. Supervising Physician Co-Signing Physician Notes Patient seen and examined, chart and medications reviewed Full assessment as well outlined above 82-year-old male with known severe multivessel coronary disease and ischemic cardiomyopathy on guideline directed optimal medical regimen and compensated heart failure with recent symptoms of bradycardia and lightheadedness, near syncope. Patient with underlying conduction abnormality including left bundle branch block and first-degree AV block Plan as above would reduce beta-more dosing though suspect patient would benefit from pacer defibrillator implantation. We will review with EP patient to be kept n.p.o. Echocardiogram to be reviewed History of Present Illness Reason for Consultation: Arrhythmia Requesting Physician: Kendy Attending Physician: Marshall Casper MD History of Present Illness Mr. Antonio Bauer Jr is a very pleasant 82 year-old male patient with a long standing history of complex coronary artery disease. The patient suffered an acute anterior wall myocardial infarction, undergoing plain old balloon angioplasty of the mid LAD stenosis in 1984. The patient did reasonably well until the end of 2021 when he began to experience shortness of breath consistent with NYHA class III status. The patient was admitted to [facility] where resting echocardiography revealed severe reduction in LV systolic function with an ejection fraction of 20 to 25%. Diagnostic cardiac catheterization at that time revealed right dominant coronary anatomy with severe multivessel coronary artery disease including a proximal right coronary artery occlusion, subtotal mid LAD stenosis, diffuse atherosclerosis of all vessels. Limited interventional targets noted. Left ventricular end-diastolic pressures were normal. Mild aortic valve gradient, 10 mm peak to peak, noted. Discussion was had with both cardiothoracic surgery and interventional cardiology with management deemed medical therapy only. Prior to the hospitalization in September 2022 the patient was already on optimal guideline directed medical therapy. Patient readmitted to [facility] at the end of October with progressive heart failure and volume overload. The patient was aggressively diuresed with guideline directed medications titrated as tolerated. Despite optimization of volume, the patient has continued to have [place] Heart Association class III dyspnea and fatigue but is able to complete activities of daily living as needed. Shortly after seeing Dr. Barboza on November 24, 2022, the patient began to experience dizzy spells that would come on randomly, while sitting, while standing making breakfast, etc. The spells seem to be more frequent after breakfast at which time he takes the majority of his medications. No true syncope. The episodes last approximately 5 seconds with patient feeling like he has to "grab hold of something until it passes." Symptoms increased over the last couple days. Yesterday Mr. Bauer notes checking heart rate via a home pulse oximetry when experiencing a dizzines spells with the monitor showing "0" briefly then gradually increasing to the 30s or 40s and then back to the 80's. Patient notes that the monitor readings "scared the dickens out of me." Due to the progressive nature of the symptoms the patient presented to the emergency room. Patient notes experiencing no further episodes since his left him off in the parking lot. Past Medical/Surgical History: Anterior wall myocardial infarction in 1984 Status post plain old balloon angioplasty of the mid LAD in 1984 Ischemic cardiomyopathy. Ejection fraction preserved on testing in 2012 and 2014, 20 to 25% in September 2022. Chronic systolic congestive heart failure Cardiac catheterization last on September 23, 2022 revealing right dominant coronary anatomy with severe multivessel coronary artery disease including a proximal right coronary artery occlusion, subtotal mid LAD stenosis, and diffuse atherosclerosis of all vessels with limited interventional targets, deemed medical management only Hypertension Dyslipidemia Chronic symptomatic ventricular ectopy Type 2 diabetes mellitus Gout Macular degeneration Hyperplastic colonic polyps Nonmelanoma skin cancer, basal cell carcinoma right lateral upper arm Insomnia Rosacea Family History: Notable for coronary artery disease in his father. Father passed following an acute [place]. Mother with CVA. Social History: Quit smoking in 1983 after smoking three packs for over twenty years. No smokeless tobacco use. Moderate alcohol consumption. with four grown children. 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 Allergies Allergy/AdvReac Type Severity Reaction Status Date / Time alfuzosin AdvReac Mild NASAL Verified 11/30/22 18:53 CONGESTION Home Medications Medication Instructions Recorded Confirmed Type albuterol sulfate 90 mcg/actuation 2 puff inhalation Q4 PRN Shortness 09/21/22 11/30/22 History aerosol inhaler Of Breath alprazolam 0.5 mg tablet 0.5 mg PO HS PRN Anxiety 09/21/22 11/30/22 History glipizide 10 mg tablet, extended 10 mg PO AMHS 09/21/22 11/30/22 History release 24 hr loteprednol etabonate 0.5 % eye 1 drp OPR DIRECTED PRN 09/21/22 11/30/22 History drops,suspension .Irritation metoprolol succinate 100 mg 100 mg PO DAILY 09/21/22 11/30/22 History tablet,extended release 24 hr metronidazole 0.75 % topical gel 1 applic topical DAILY 09/21/22 11/30/22 History silver sulfadiazine 1 % topical 1 applic topical DAILY PRN BURN 09/21/22 11/30/22 History cream AREA vit C 226 mg-vit E 90 mg-copper 1 cap PO BID 09/22/22 11/30/22 History 0.8 mg-zinc oxide-lutein 5 mg capsule (PreserVision Lutein) aspirin 81 mg tablet,delayed 81 mg PO QAM #30 tabs 09/24/22 11/30/22 Rx release isosorbide mononitrate 30 mg 30 mg PO QAM #30 tabs 09/24/22 11/30/22 Rx tablet,extended release 24 hr aflibercept 2 mg/0.05 mL 2 mg intravitreal DIRECTED 11/02/22 11/30/22 History intravitreal solution for injection (Eylea) empagliflozin 25 mg tablet 25 mg PO QAM 11/02/22 11/30/22 History (Jardiance) mirtazapine 15 mg tablet 15 mg PO HS 11/02/22 11/30/22 History allopurinol 300 mg tablet 300 mg PO QAM #30 tabs 11/08/22 11/30/22 Rx clopidogrel 75 mg tablet 75 mg PO QAM #30 tabs 11/08/22 11/30/22 Rx lisinopril 10 mg tablet 10 mg PO QAM #30 tabs 11/08/22 11/30/22 Rx spironolactone 25 mg tablet 12.5 mg PO DAILY #30 tabs 11/08/22 11/30/22 Rx atorvastatin 40 mg tablet 40 mg PO QAM 11/30/22 11/30/22 History furosemide 40 mg tablet 40 mg PO BID 11/30/22 11/30/22 History nitroglycerin 0.4 mg sublingual 0.4 mg sublingual DIRECTED PRN 11/30/22 11/30/22 History tablet Chest Pain Patient History Medical History Acute HFrEF (heart failure with reduced ejection fraction) CAD (coronary artery disease) CHF (congestive heart failure) Chronic gout Chronic systolic heart failure Diabetes Diabetes mellitus, type II HLD (hyperlipidemia) HTN (hypertension) Ischemic cardiomyopathy No pertinent family history Surgical History History of angioplasty History of cardiac cath History of colonoscopy Family History Other Diabetes Heart disease Social History Smoking Status: Former smoker Tobacco Type: Cigarettes Second Hand Exposure: No; Do You Dip or Chew Tobacco: No; Tobacco Cessation Education Requested by Patient: No Hx Alcohol Use: Yes Alcohol type: beer Hx Substance Use: No Preferred Language: Urdu Communication Ability: Effective Yarn Weight And Strength Tester Required: No Beliefs That Will Affect Care: None Current Living Situation: Alone Other Information That Helps Us Care for You: No Feels Safe at Home: Yes Safety Concerns: Feels Safe At This Time Assistive Devices: Cane Assistive Devices Comment: Uses walker or cane oonly for longer distances Physical Exam Physical Exam: General: A&Ox3. NAD. HENT: Normocephalic. Atraumatic. Eyes: PER. Conjunctiva pink, sclera clear. Neck: Carotid bruits. No JVD. Heart: Regular at 90 bpm. Systolic murmur, LLSB. No rub. Lungs: Clear to auscultation. Abdomen: +BS. Soft. Nontender. No masses or organomegaly. Extremities: Stasis changes. No edema. No clubbing. No cyanosis. Limited neurological examination is without focal deficits. Pulses: radial=2/4, posterior tibial=2/4. Results & Data ([facility]) Vital Signs (Past 12 Hours) Vital Signs Temp Pulse Pulse Resp BP BP Pulse Ox 12/01/22 07:57 36.4 C L 74 17 102/65 97 12/01/22 04:30 36.5 C 80 16 106/68 96 11/30/22 23:00 79 11/30/22 23:46 36.5 C 88 20 104/62 96 O2 Del Method 12/01/22 07:57 Room Air 12/01/22 04:30 Room Air 11/30/22 23:00 11/30/22 23:46 Room Air Laboratory Results Cardiac Enzymes 11/30/22 11/30/22 Range/Units 18:15 19:28 AST TNP 18 Troponin I High Sens 14.0 (0-20) pg/ml Coagulation 11/30/22 11/30/22 Range/Units 18:15 19:28 PT Cancelled 11.8 APTT Cancelled 29.2 CBC 11/30/22 12/01/22 Range/Units 18:15 05:33 WBC 8.00 6.66 (4.8-10.8) K/ul RBC 5.32 4.86 (4.70-6.10) M/uL Hgb 15.3 13.8 L (14.0-18.0) g/dl Hct 46.5 43.0 (42.0-52.0) % Plt Count 199 156 (130-400) K/uL Neut # (Auto) 4.52 (1.40-6.50) K/uL Lymph # (Auto) 2.28 (1.2-3.4) K/uL [place] # (Auto) 0.60 H (0.11-0.59) K/uL Eos # (Auto) 0.48 (0-0.50) K/uL Baso # (Auto) 0.07 (0-0.2) K/uL Comprehensive Metabolic Panel 11/30/22 11/30/22 12/01/22 Range/Units 18:15 19:28 05:33 Sodium TNP 137 139 Potassium TNP 4.6 4.6 Chloride 102 103 (98-107) mmol/L Carbon Dioxide 23 30 (21-32) mmol/L BUN 55 H 53 H (6-23) mg/dl Creatinine 1.32 1.41 H (0.6-1.4) mg/dl Glucose 132 H 138 H (70-99(Fasting)) mg/dl Calcium 10.4 H 10.0 (8.5-10.1) mg/dl AST TNP 18 ALT 18 (7-52) U/L Alkaline Phosphatase TNP 76 Total Protein 7.6 (6.0-8.3) gm/dl Albumin TNP 4.3 Intake and Output 11/30/22 12/01/22 12/01/22 22:59 06:59 14:59 Other: Weight 86.409 kg 88 kg Weight Measurement Method Standing Scale Built in [facility] Diagnostic Findings September 22, 2022 TTE Interpretation Summary ([facility], Dr. Rocha): Mildly dilated LV chamber size with moderate concentric LVH. Severely reduced LV systolic function, with severe global hypokinesis, ejection fraction 20 to 25%. Moderately calcified, trileaflet aortic valve. Moderate aortic regurgitation. At least mild aortic stenosis with gradients likely falsely lowered due to reduced ejection fraction. Moderate to severe mitral regurgitation. Moderate left atrial enlargement. September 23, 2022 Coronary Angiography ([facility], Dr. Romero): Right dominant anatomy (visualized via collateral fill) Left main: Long with moderate calcification and a 25% distal taper Left anterior descending: Type III in distribution. It gives rise to a large septal branch in its proximal portion, a large diagonal branch at the end of its proximal third. The left anterior descending is diffusely diseased with a long calcified 60% stenosis shortly after its origin. The vessel was then subtotally occluded 99% in its mid portion after the diagonal branch, the distal vessel filling faintly via bridge collaterals. The left anterior descending diagonal has an 75% stenosis in its proximal third. This is a long vessel which parallels the left anterior descending to the apex Left circumflex: Gives rise to an early high marginal branch large in caliber and trifurcating in its distribution and turns along the AV groove to give rise to a small posterolateral branch. Left circumflex has diffuse calcification in its proximal portion. The large obtuse marginal has a 50% narrowing in its proximal portion with mild diffuse ectasia. The circumflex beyond the obtuse marginal has a 99% subtotal stenosis and continues to thinly fill the posterolateral branch Right coronary artery: Dominant vessel that is bluntly occluded shortly after its origin. There is minimal filling of the mid vessel via bridge collaterals. The distal vessel fills via left to right collaterals retrograde to the AV groove demonstrating two thin, diffusely diseased posterolateral branches and a thin posterior descending artery. The mid vessel is heavily calcified and not opacified with contrast LV angiography: Left ventricle was dilated. There is akinesis of the inferior wall base to apex and severe hypokinesis of all other segments EF 20 to 25%. There is mild mitral insufficiency Hemodynamics left ventricular end-diastolic pressure was 8. There is a 10 mm peak to peak aortic valve gradient on pullback Continuous telemetry monitoring reveals sinus rhythm, currently with heart rates in the 90s, with occasional to frequent premature ventricular complexes. No atrial fibrillation. No ventricular tachycardia/fibrillation. No significant bradycardia. No pauses. Admission EKG dated November 30, 2022 revealed sinus rhythm at 89 bpm with a first-degree AV block with occasional premature ventricular complexes, left bundle branch block pattern with QRS duration of 136 ms. (4) CHF (congestive heart failure) Heart failure chronicity: acute on chronic Heart failure type: unspecified Qualified Code(s): I50.9 - Heart failure, unspecified (5) CAD (coronary atherosclerotic disease) Associated angina: unspecified whether angina present Coronary Disease- Associated Artery/Lesion type: unspecified vessel or lesion type [place] vs. transplanted heart: [place] heart Qualified Code(s): I25.10 - Atherosclerotic heart disease of [place] coronary artery without angina pectoris
[2022-12-01] MEDS ORDERED: Nursing to Pharmacy Communication SCH (11:00)
[2022-12-01] MEDS: METOPROLOL SUCC 25MG EXT REL TAB PO SCH (12:36)
--- NOTE | 2022-12-01 16:31 | Hospitalist Progress Note ---
Date of Service December 01, 2022 Assessment & Plan (1) Symptomatic bradycardia: Plan: Patient is 82-year-old male with PMH CAD, ischemic cardiomyopathy, chronic systolic heart failure, DM II, HTN, HLD, gout scented to ER with complaint of dizzy episodes x 4 days with associated noted bradycardia on pulse oximeter. Denies syncope, CP, SOB, palpitations Symptomatic bradycardia Near syncope H/O ischemic cardiomyopathy Likely due to conduction abnormality given LBBB, first-degree AV block --Normal TSH --Negative Lyme screen --ECHO: Left ventricle is mildly dilated. Moderate concentric LVH. Moderate to severe global hypokinesis of the left ventricle. EF 20 to 25%. Left atrium is moderately dilated. Aortic valve sclerosis moderate, without significant aortic valvular stenosis. Trace aortic regurgitation. Moderate to severe mitral regurgitation. Trace tricuspid regurgitation. 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 Noted to be elevated back in September 2022 as well. Was 9.8 on 11/08/2022 Mild elevated PTH Ionized calcium, vitamin D normal DD hypercalcemia secondary to hyperparathyroidism Thought to be secondary to HCTZ on prior admission, was discontinued at the time Will need further work-up, possible ENT evaluation as outpatient Avoid calcium, vitamin D supplement (3) Chronic systolic heart failure: (4) Ischemic cardiomyopathy: Plan: Currently appears euvolemic Continue low-sodium diet Continue Lasix, spironolactone Monitor volume status (5) CAD (coronary atherosclerotic disease): Plan: History multivessel disease and extensive stenosis, but not amenable to PCI on last cardiac cath. Treated medically Continue Plavix, aspirin, isosorbide, lisinopril, atorvastatin Continue low-dose metoprolol (6) Diabetes mellitus, type II: Plan: A1c: 8.0 on 11/03/2022 Hold home medication NovoLog sliding scale per protocol (7) HTN (hypertension): Plan: Continue lisinopril Will need to hold lisinopril if creatinine levels continue to rise (8) HLD (hyperlipidemia): Plan: Continue atorvastatin (9) Chronic gout: Plan: Continue allopurinol DVT Px Heparin SQ Code Status Full Code Admission and Anticipated Discharge Date Admission Date: November 30, 2022 Subjective Patient is seen and examined at bedside No dizziness this morning Denies any chest pain, shortness of breath, nausea, vomiting, abdominal pain No other complaints Review of Systems Review of Systems: All systems reviewed & are unremarkable except as noted in Subjective Physical Exam Physical Exam: Physical Exam: Vitals signs as noted above General Appearance:Moderately built and nourished, no apparent distress Head: normocephalic, Atraumatic Eyes: normal inspection, EOMI Neck: supple, Trachea midline Respiratory/Chest: Normal breath sounds, R basal crackles, No accessory muscle use Cardiovascular: S1, S2,+ murmur Abdomen/GI:Soft, Non tender, Bowel sounds present Extremities/Musculoskeletal:normal inspection, 1+ B/L LE edema Neurologic/Psych:AAOX3, grossly no focal neurological deficits Skin: normal color, warm Results & Data Results & Data ([facility]) Vital Signs (Past 12 Hours) Vital Signs Temp Pulse Resp BP Pulse Ox O2 Del Method 12/01/22 15:57 36.3 C L 81 16 126/80 95 Room Air 12/01/22 08:00 Room Air 12/01/22 11:37 36.4 C L 82 16 91/57 L 94 Room Air 12/01/22 07:57 36.4 C L 74 17 102/65 97 Room Air 12/01/22 04:30 36.5 C 80 16 106/68 96 Room Air Laboratory Results Short CBC 11/30/22 12/01/22 Range/Units 18:15 05:33 WBC 8.00 6.66 (4.8-10.8) K/ul Hgb 15.3 13.8 L (14.0-18.0) g/dl Hct 46.5 43.0 (42.0-52.0) % Plt Count 199 156 (130-400) K/uL BMP 11/30/22 11/30/22 12/01/22 18:15 19:28 05:33 Sodium TNP 137 139 Potassium TNP 4.6 4.6 Chloride 102 103 Carbon Dioxide 23 30 BUN 55 H 53 H Creatinine 1.32 1.41 H Glucose 132 H 138 H Calcium 10.4 H 10.0 Liver Function 11/30/22 11/30/22 Range/Units 18:15 19:28 Total Bilirubin 0.8 (0.2-1.0) mg/dl AST TNP 18 ALT 18 (7-52) U/L Alkaline Phosphatase TNP 76 Albumin TNP 4.3 (5) CAD (coronary atherosclerotic disease) Associated angina: unspecified whether angina present Coronary Disease- Associated Artery/Lesion type: unspecified vessel or lesion type [place] vs. tr ansplanted heart: [place] heart Qualified Code(s): I25.10 - Atherosclerotic heart disease of [place] coronary artery without angina pectoris
[2022-12-02] MEDS: HEPARIN SOD 5,000 UNIT/0.5 ML VIAL SQ SCH ×2 (07:13→20:39)
[2022-12-02] MEDS: INSULIN ASPART PER UNIT SC SCH ×4 (07:21→20:39)
[2022-12-02 07:39] LABS: Hematocrit (blood only) 43.4 % (42.0-52.0); Hemoglobin 14.2 g/dl (14.0-18.0); Mean Corpuscular Hemoglobin 28.3 pg (25.0-34.0); Mean Corpuscular Hgb Conc 32.7 g/dL (32.0-36.0); Mean Corpuscular Volume 86.6 fL (80.0-100.0); Mean Platelet Volume 10.7 fL (9.4-12.4); Platelet Count 156 K/uL (130-400); RDW Coefficient of Variation 15.9 % (11.5-14.5); RDW Standard Deviation 49.6 fL (36.4-46.3); Red Blood Count 5.01 M/uL (4.70-6.10); White Blood Count 7.62 K/ul (4.8-10.8)
[2022-12-02 07:45] LABS: BUN Creatinine Ratio 41.5 (10-20); Creatinine Clr Calc Pharmacy 51.9 ml/min; Est GFR (African American) 65.7 ml/min; Est GFR (Non-African American) 56.7 ml/min; Potassium 4.1 mmol/L (3.5-5.1)
[2022-12-02] MEDS: SPIRONOLACTONE 12.5 MG TAB PO SCH (08:33)
[2022-12-02] MEDS: ISOSORBIDE MONO EXTENDED REL 30 MG TABCR PO SCH (08:33)
[2022-12-02] MEDS: allopurinoL 300 MG TAB PO SCH (08:33)
[2022-12-02] MEDS: ATORVASTATIN 40 MG TAB PO SCH (08:34)
[2022-12-02] MEDS: METOPROLOL SUCC 25MG EXT REL TAB PO SCH (08:34)
[2022-12-02] MEDS: ASPIRIN 81 MG ECTAB PO SCH (08:34)
[2022-12-02] MEDS: FUROSEMIDE 40 MG TAB PO SCH ×2 (08:34→16:56)
[2022-12-02] MEDS: CLOPIDOGREL BISULFATE 75 MG TAB PO SCH (08:42)
[2022-12-02] MEDS: lisinopril 5 MG TAB PO SCH (10:40)
--- NOTE | 2022-12-02 11:22 | Cardiology Progress Note ---
Date of Service December 02, 2022 Assessment & Plan (1) Dizziness: (2) Ischemic cardiomyopathy: (3) NYHA class 3 heart failure with reduced ejection fraction: (4) CHF (congestive heart failure): (5) CAD (coronary atherosclerotic disease): Plan Medically complex 82 year old male with severe multivessel coronary artery disease, severe ischemic cardiomyopathy. NYHA Class III CHF. EF 20-25%. Patient maintaining sinus rhythm with chronic frequent ventricular ectopy. Admission EKG was sinus rhythm at 89 bpm with a first-degree AV block with occasional premature ventricular complexes, left bundle branch block pattern with QRS duration of 136 ms. Patient presents this admission with complaints of significant dizziness with observed bradycardia on home pulse oximetry monitor. No true syncope. Symptoms appear to be multifactorial, possible arrhythmia, probable element of mild volume depletion. Continuous telemetry monitoring, off of metoprolol succinate 100 mg/day, reveals sinus rhythm in the 90s with chronic frequent ectopy. Echo obtained 12/01/2021: LVEF severely reduced at 20-25%, moderate concentric LVH, mod to severe global hypokinesis of the LV, Moderate aortic sclerosis without stenosis, Trace AI, mod to severe MR, trace TR PLAN: Plans for PRINCIPAL CONSULTANT with BIV-ICD placement this afternoon. Patient remains NPO. Recommend maintaining continuous telemetry monitoring while reinstituting evidence-based beta-more therapy, reduced dose metoprolol succinate, 25 mg/day. Once device is placed can consider increasing BB therapy at that time for further suppression of ventricular arrhythmias. Case discussed with Dr. Romero- will follow. Admission and Anticipated Discharge Date Admission Date: November 30, 2022 Supervising Physician Co-Signing Physician Notes Patient seen and examined, chart, medications, telemetry reviewed Patient underwent pacer defibrillator this afternoon patient examined this morning Short run of ventricular tachycardia last night Observe on telemetry post device implantation Increase metoprolol succinate to 50 mg twice per day now that device in place Follow-up to be arranged through device clinic with potential discharge in a.m. Subjective Medically complex 82 year old male with history of complex CAD and ischemic cardiomyopathy with a left bundle branch block. Patient seen and examined at bedside. Chart and telemetry reviewed. Upon entrance into the room patient was sitting on edge of bed- eager to have his procedure. No acute concerns. No chest pain, sob, or palptiations. Had some episodes of dizziness last night, none this morning. Tele: SR in the 80s, 16 beat run of VT (around 1 am) Review of Systems Review of Systems: All systems reviewed & are unremarkable except as noted in HPI & below Physical Exam Physical Exam: General: A&Ox3. NAD. HENT: Normocephalic. Atraumatic. Eyes: PER. Conjunctiva pink, sclera clear. Neck: Carotid bruits. No JVD. Heart: Regular at 90 bpm. +Systolic murmur, LLSB. No rub. Lungs: Clear to auscultation. Abdomen: +BS. Soft. Nontender. No masses or organomegaly. Extremities: Stasis changes. No edema. No clubbing. No cyanosis. Limited neurological examination is without focal deficits. Pulses: radial=2/4, posterior tibial=2/4. Results & Data ([facility]) Vital Signs (Past 12 Hours) Vital Signs Temp Pulse Pulse Resp BP Pulse Ox O2 Del Method 12/02/22 09:55 88 12/02/22 07:31 36.4 C L 87 16 111/71 94 Room Air 12/02/22 00:00 85 12/02/22 02:51 36.6 C 78 20 100/65 93 Room Air Laboratory Results CBC 12/02/22 Range/Units 06:01 WBC 7.62 (4.8-10.8) K/ul RBC 5.01 (4.70-6.10) M/uL Hgb 14.2 (14.0-18.0) g/dl Hct 43.4 (42.0-52.0) % Plt Count 156 (130-400) K/uL Comprehensive Metabolic Panel 12/02/22 Range/Units 06:01 Sodium 137 (136-145) mmol/L Potassium 4.1 (3.5-5.1) mmol/L Chloride 102 (98-107) mmol/L Carbon Dioxide 26 (21-32) mmol/L BUN 49 H (6-23) mg/dl Creatinine 1.18 (0.6-1.4) mg/dl Glucose 141 H (70-99(Fasting)) mg/dl Calcium 10.0 (8.5-10.1) mg/dl Intake and Output 12/01/22 12/02/22 12/02/22 22:59 06:59 14:59 Intake Total 990 / 1490 500 / 1490 Output Total 1300 / 1300 650 / 650 Balance -310 / 190 500 / 190 -650 / -650 Intake: Oral 990 / 1490 500 / 1490 Output: Urine 1300 / 1300 650 / 650 Other: Weight 87.3 kg Weight Measurement Method Standing Scale (4) CHF (congestive heart failure) Heart failure chronicity: acute on chronic Heart failure type: unspecified Qualified Code(s): I50.9 - Heart failure, unspecified (5) CAD (coronary atherosclerotic disease) Associated angina: unspecified whether angina present Coronary Disease- Associated Artery/Lesion type: unspecified vessel or lesion type [place] vs. transplanted heart: [place] heart Qualified Code(s): I25.10 - Atherosclerotic heart disease of [place] coronary artery without angina pectoris
--- NOTE | 2022-12-02 11:48 | Hospitalist Progress Note ---
Date of Service December 02, 2022 Assessment & Plan (1) Symptomatic bradycardia: Plan: Patient is 82-year-old male with PMH CAD, ischemic cardiomyopathy, chronic systolic heart failure, DM II, HTN, HLD, gout scented to ER with complaint of dizzy episodes x 4 days with associated noted bradycardia on pulse oximeter. Denies syncope, CP, SOB, palpitations Symptomatic bradycardia Near syncope H/O ischemic cardiomyopathy Likely due to conduction abnormality given LBBB, first-degree AV block --Normal TSH --Negative Lyme screen --ECHO: Left ventricle is mildly dilated. Moderate concentric LVH. Moderate to severe global hypokinesis of the left ventricle. EF 20 to 25%. Left atrium is moderately dilated. Aortic valve sclerosis moderate, without significant aortic valvular stenosis. Trace aortic regurgitation. Moderate to severe mitral regurgitation. Trace tricuspid regurgitation. Cardiology on board Cardiology plan to start metoprolol 50 mg twice daily once ICD placement done Plan for ICD placement this afternoon by Dr. Gab Langston n.p.o. for now (2) Hypercalcemia: Plan: Ca: 10.4. Noted to be elevated back in September 2022 as well. Was 9.8 on 11/08/2022 Mild elevated PTH Ionized calcium, vitamin D normal DD hypercalcemia secondary to hyperparathyroidism Thought to be secondary to HCTZ on prior admission, was discontinued at the time Calcium today 10 Avoid calcium, vitamin D supplement (3) Chronic systolic heart failure: (4) Ischemic cardiomyopathy: Plan: Currently appears euvolemic Continue low-sodium diet Continue Lasix, spironolactone Monitor volume status (5) CAD (coronary atherosclerotic disease): Plan: History multivessel disease and extensive stenosis, but not amenable to PCI on last cardiac cath. Treated medically Continue Plavix, aspirin, isosorbide, lisinopril, atorvastatin Continue low-dose metoprolol (6) Diabetes mellitus, type II: Plan: A1c: 8.0 on 11/03/2022 Hold home medication NovoLog sliding scale per protocol (7) HTN (hypertension): Plan: Continue lisinopril BP stable (8) HLD (hyperlipidemia): Plan: Continue atorvastatin (9) Chronic gout: Plan: Continue allopurinol DVT Px Heparin SQ Code Status Full Code Admission and Anticipated Discharge Date Admission Date: November 30, 2022 Subjective Patient was seen and evaluated for follow-up of dizziness due to symptomatic bradycardia Sitting in bed with no acute distress feeling bored He is scheduled later to have the ICD placement Denies any chest pain, palpitation, dizziness, shortness of breath. Review of Systems Review of Systems: All systems reviewed & are unremarkable except as noted in Subjective Physical Exam Physical Exam: General- No acute distress Head- atraumatic Eyes- PERRL, EOMI, ENT- oropharynx clear Neck- supple, no JVD Lungs- clear to auscultation Heart- regular rhythm; +murmur Abdomen- normal bowel sounds, soft, nontender Extremities- no calf tenderness Neuro- alert, oriented x 3; PERRL, EOMI; no facial palsy; no dysarthria Skin- warm & dry Results & Data Results & Data ([facility]) Vital Signs (Past 12 Hours) Vital Signs Temp Pulse Pulse Resp BP Pulse Ox O2 Del Method 12/02/22 11:22 36.6 C 89 16 128/78 96 Room Air 12/02/22 09:55 88 12/02/22 07:31 36.4 C L 87 16 111/71 94 Room Air 12/02/22 00:00 85 12/02/22 02:51 36.6 C 78 20 100/65 93 Room Air (5) CAD (coronary atherosclerotic disease) Associated angina: unspecified whether angina present Coronary Disease-Assoc iated Artery/Lesion type: unspecified vessel or lesion type [place] vs. transplanted heart: [place] heart Qualified Code(s): I25.10 - Atherosclerotic heart disease of [place] coronary artery without angina pectoris
--- NOTE | 2022-12-02 12:56 | History & Physical Bridge Note ---
Date of Service December 02, 2022 History & Physical Bridge Note I have examined the patient, reviewed the History & Physical and in the interval since the performance of the History & Physical I have noted the following changes of clinical significance: pt with LBBB, SB, CHF, ICM; for a BiV ICD. DIsucssed the procedure and potential risks; consents signed.
--- NOTE | 2022-12-02 12:58 | Pre Anesthesia Assessment ---
Date of Service December 02, 2022 Pre Sedation Assessment Vital Signs Temp Pulse Pulse Resp BP Pulse Ox O2 Del Method 12/02/22 11:22 36.6 C 89 16 128/78 96 Room Air 12/02/22 09:55 88 12/02/22 07:31 36.4 C L 87 16 111/71 94 Room Air 12/02/22 00:00 85 12/02/22 02:51 36.6 C 78 20 100/65 93 Room Air 12/01/22 23:00 36.7 C 83 18 123/79 96 Room Air 12/01/22 19:00 36.7 C 86 20 100/66 94 Room Air 12/01/22 15:57 36.3 C L 81 16 126/80 95 Room Air Cardiovascular RRR, no murmur, no edema Respiratory normal respiratory effort, lungs clear to auscultation Pre-Sedation Airway Assessment Smoking Status: Former smoker Hx Sleep Apnea: No Hx Difficult Intubation: No Short, Thick Neck: No Oral Cavity: + Dentures Mallampati Class: II ASA: ASA3 NPO Status Date of Last Intake of Fluids: 12/01/22 Date of Last Intake of Solid Food: 12/01/22 Procedure Planning Contraindications for Sedation: none Current Medications Reviewed: Yes Notes The planned sedation has been discussed with the patient. Informed Consent was obtained. I have identified the patient, determined the appropriateness of sedation and have assessed the patient immediately prior to the procedure. All medicine(s) and interventions are by my order.
[2022-12-02] MEDS ORDERED: BUPIVACAINE 0.25% 30 ML VIAL ONE (13:02)
[2022-12-02] MEDS ORDERED: VANCOMYCIN HCL 1000MG/20ML VIAL ONE (13:02)
[2022-12-02] MEDS ORDERED: WATER, STERILE FOR INJ 10 ML VIAL ONE (13:02)
[2022-12-02] MEDS ORDERED: LIDOCAINE 1% LOCAL 20 ML VIAL ONE (13:02)
[2022-12-02] MEDS ORDERED: ceFAZolin 330 MG/ML 1 GM VIAL ONE (13:17)
[2022-12-02] MEDS ORDERED: fentaNYL citrate 100 MCG/2 ML VIAL ONE ×2 (13:17→14:10)
[2022-12-02] MEDS ORDERED: MIDAZOLAM HCL 5 MG/ML 1 ML VIAL ONE (13:17)
[2022-12-02] MEDS ORDERED: MIDAZOLAM HCL 1 MG/ML 2ML VIAL ONE (14:10)
--- NOTE | 2022-12-02 15:01 | Post Anesthesia Assessment ---
Date of Service December 02, 2022 Post Sedation Assessment Vital Signs Temp Pulse Pulse Resp BP Pulse Ox O2 Del Method 12/02/22 12:54 87 16 101/56 L 96 Room Air 12/02/22 11:22 36.6 C 89 16 128/78 96 Room Air 12/02/22 09:55 88 12/02/22 07:31 36.4 C L 87 16 111/71 94 Room Air 12/02/22 00:00 85 12/02/22 02:51 36.6 C 78 20 100/65 93 Room Air 12/01/22 23:00 36.7 C 83 18 123/79 96 Room Air 12/01/22 19:00 36.7 C 86 20 100/66 94 Room Air 12/01/22 15:57 36.3 C L 81 16 126/80 95 Room Air Recovery Score Activity: Moves 4 extremities Respiration: Deep Breath/Cough Circulation: +/-20% PreAnes Value Consciousness: Fully Awake Oxygen Saturation: > 92% On Room Air Discharge Sedation Level of Care: Fast Track Phase II Post Sedation Plan On clinical assessment, the patient appears to have tolerated the sedation without complications. Patient is recovering as anticipated. Patient will continue to be monitored by nursing and may be discharged when sedation discharge criteria are met per below protocol. Upon Completions of procedure up to 15 minutes continue every 5 minute vital signs and the P.A.R. score; then discharge to a Phase I or Fast Track to Phase II per the following guidelines: * Discharge Patient to appropriate Phase II area if PAR is 8 or greater or return to pre- procedure baseline. The post - procedure orders will be as directed. * If PAR score is less than 8 or not return to pre-procedure baseline then patient will follow Phase I monitoring till PAR is reached for Phase II. The Phase I may be done in procedure room or may call to secure a Phase I area. * If naloxone or flumazenil are used for reversal, hold in Phase I for continued monitoring from when last reversal dose was given for a minimum of 60 minutes or longer pending the nurse and/or physician discretion of patient condition before discharge to Phase II. Please call the Sedation Physician to re-evaluate and complete post-note for discharge to Phase II area. Do NOT discharge from procedure sedation or Phase 1 until post- sedation evaluation note is complete by procedure /sedation MD Sedation Discharge Instructions to be given to the patient at discharge to home.
--- NOTE | 2022-12-02 15:03 | Operative Report ---
Post Operative Report Pre & Post Diagnosis ICM, CHF, SB, LBBB Operation Date: 12/01/22 12:00 <No data on this case meets the specified criteria> Operation Date: 12/02/22 12:00 <No data on this case meets the specified criteria> I identified the patient and participated in the time-out.: Yes Procedure Operation Date: 12/01/22 12:00 <No data on this case meets the specified criteria> Operation Date: 12/02/22 12:00 Actual Procedures p ICD Biventricular Implant - Lyly De Guzman DO peripheral venogram Intracardiac HIS bundle recordings Surgeon Lyly De Guzman, Ignition Specialist none Estimated Blood Loss 40 Findings Consistent with Post-Op Diagnosis Specimens none Description of Procedure see official report I attest to the content of the Intraoperative Record and any orders documented therein. Any exceptions are noted below.
--- NOTE | 2022-12-02 17:20 | XRay Report ---
SINGLE VIEW CHEST CLINICAL HISTORY: Status post pacemaker implantation. FINDINGS: An AP, portable, upright chest radiograph is compared to study dated 11/02/2022 and correlat ed with chest CT dated 11/02/2022. A 3-lead cardiac AICD has been placed and partially obscures the le ft upper chest. Leads project over the right atrial appendage and both ventricles. The heart is enlar ged noting atherosclerotic calcification of the thoracic aorta. The pulmonary vasculature is nondiste nded congested. Chronic reticular thickening similar to previous. The lungs and pleural spaces are cl ear noting bibasilar scarring/atelectasis. No pneumothorax is seen. The skeletal structures are osteo penic. The bony thorax is grossly intact. Postsurgical change is noted in the right humeral head. IMPRESSION: 1. A cardiac AICD has been placed as above. No pneumothorax is seen post procedure. 2. Cardiomegaly without radiographic evidence of congestive failure. 3. No airspace consolidation or large pleural effusion is identified. ACT 112: Negative or not required by law. Electronically signed by: Aldo Menendez M.D. 12/02/2022 5:19 PM
[2022-12-02] MEDS: ACETAMINOPHEN 325 MG TAB PO PRN ×2 (18:01→23:04)
[2022-12-02] MEDS: MIRTAZAPINE TAB 15 MG TAB PO SCH (20:36)
[2022-12-02] MEDS: METOPROLOL SUCC 50MG EXT REL TAB PO SCH (20:39)
--- NOTE | 2022-12-02 22:47 | Electrocardiogram Report ---
Test Reason : Blood Pressure : / mmHG Vent. Rate : 086 BPM Atrial Rate : 086 BPM P-R Int : 218 ms QRS Dur : 140 ms QT Int : 388 ms P-R-T Axes : 077 016 001 degrees QTc Int : 464 ms Sinus rhythm with 1st degree A-V block Left bundle branch block Abnormal ECG When compared with ECG of 30-NOV-2022 17:54, Premature ventricular complexes are no longer Present Confirmed by Larry Wray ([id number]) on 12/02/2022 10:46:55 PM Referred By: REFERRED SELF Confirmed By:Jeremy Wray
[2022-12-02] MEDS: ALPRAZolam 0.5 MG TABLET PO PRN (23:04)
[2022-12-03 06:31] LABS: Hematocrit (blood only) 44.8 % (42.0-52.0); Hemoglobin 14.6 g/dl (14.0-18.0); Mean Corpuscular Hemoglobin 28.9 pg (25.0-34.0); Mean Corpuscular Hgb Conc 32.6 g/dL (32.0-36.0); Mean Corpuscular Volume 88.5 fL (80.0-100.0); Mean Platelet Volume 10.4 fL (9.4-12.4); Platelet Count 144 K/uL (130-400); Red Blood Count 5.06 M/uL (4.70-6.10)
[2022-12-03] MEDS: ASPIRIN 81 MG ECTAB PO SCH (08:04)
[2022-12-03] MEDS: allopurinoL 300 MG TAB PO SCH (08:04)
[2022-12-03] MEDS: METOPROLOL SUCC 50MG EXT REL TAB PO SCH (08:05)
[2022-12-03] MEDS: FUROSEMIDE 40 MG TAB PO SCH (08:05)
[2022-12-03] MEDS: ATORVASTATIN 40 MG TAB PO SCH (08:05)
[2022-12-03] MEDS: lisinopril 5 MG TAB PO SCH (08:05)
[2022-12-03] MEDS: ISOSORBIDE MONO EXTENDED REL 30 MG TABCR PO SCH (08:05)
[2022-12-03] MEDS: CLOPIDOGREL BISULFATE 75 MG TAB PO SCH (08:05)
[2022-12-03] MEDS: SPIRONOLACTONE 12.5 MG TAB PO SCH (08:05)
[2022-12-03] MEDS: HEPARIN SOD 5,000 UNIT/0.5 ML VIAL SQ SCH (08:14)
[2022-12-03] MEDS: INSULIN ASPART PER UNIT SC SCH ×2 (08:14→12:13)
--- NOTE | 2022-12-03 10:47 | Electrocardiogram Report ---
Test Reason : Blood Pressure : / mmHG Vent. Rate : 091 BPM Atrial Rate : 091 BPM P-R Int : 000 ms QRS Dur : 218 ms QT Int : 482 ms P-R-T Axes : 064 041 -10 degrees QTc Int : 592 ms Normal sinus rhythm Ventricular-paced rhythm Abnormal ECG When compared with ECG of 02-DEC-2022 05:47, Electronic ventricular pacemaker is now present Confirmed by Ronald Coleman ([id number]) on 12/03/2022 10:47:49 AM Referred By: REFERRED SELF Confirmed By:Ronald Coleman
--- NOTE | 2022-12-03 11:27 | Electrocardiogram Report ---
Test Reason : Blood Pressure : / mmHG Vent. Rate : 087 BPM Atrial Rate : 087 BPM P-R Int : 114 ms QRS Dur : 186 ms QT Int : 464 ms P-R-T Axes : 065 087 035 degrees QTc Int : 558 ms Suspect unspecified pacemaker failure Atrial-sensed ventricular-paced rhythm Abnormal ECG When compared with ECG of 02-DEC-2022 15:05, (unconfirmed) Vent. rate has decreased BY 4 BPM Confirmed by Ronald Coleman ([id number]) on 12/03/2022 11:27:16 AM Referred By: REFERRED SELF Confirmed By:Ronald Coleman
[2022-12-03] MEDS: ACETAMINOPHEN 325 MG TAB PO PRN (12:32)
--- NOTE | 2022-12-03 15:35 | Cardiology Progress Note ---
Date of Service December 03, 2022 Assessment & Plan (1) Dizziness: (2) Ischemic cardiomyopathy: (3) NYHA class 3 heart failure with reduced ejection fraction: (4) CHF (congestive heart failure): (5) CAD (coronary atherosclerotic disease): Plan Medically complex 82 year old male with severe multivessel coronary artery disease, severe ischemic cardiomyopathy. NYHA Class III CHF. EF 20-25%. Patient maintaining sinus rhythm with chronic frequent ventricular ectopy. Admission EKG was sinus rhythm at 89 bpm with a first-degree AV block with occasional premature ventricular complexes, left bundle branch block pattern with QRS duration of 136 ms. Patient presents this admission with complaints of significant dizziness with observed bradycardia on home pulse oximetry monitor. No true syncope. Symptoms appear to be multifactorial, possible arrhythmia, probable element of mild volume depletion. Continuous telemetry monitoring, off of metoprolol succinate 100 mg/day, reveals sinus rhythm in the 90s with chronic frequent ectopy. Echo obtained 12/01/2021: LVEF severely reduced at 20-25%, moderate concentric LVH, mod to severe global hypokinesis of the LV, Moderate aortic sclerosis without stenosis, Trace AI, mod to severe MR, trace TR PLAN: Plans for ORBITREAD OPERATOR with BIV-ICD placement this afternoon. Patient remains NPO. Recommend maintaining continuous telemetry monitoring while reinstituting evidence-based beta-more therapy, reduced dose metoprolol succinate, 25 mg/day. Once device is placed can consider increasing BB therapy at that time for further suppression of ventricular arrhythmias. 12/03/2022 Status post BiV ICD placement, tolerated well. Placement and function confirmed Recommend discharge to home on current guideline directed medical therapy My office will call to arrange device clinic evaluation later this week along wi th wound check Admission and Anticipated Discharge Date Admission Date: November 30, 2022 Subjective Patient seen and examined. Chart reviewed. Telemetry reviewed. States he is feeling well with no discomfort at the pacer pocket site. Review of Systems Review of Systems: All systems reviewed & are unremarkable except as noted in HPI & below Physical Exam Physical Exam: General: Awake, alert and oriented x 3. No acute distress. HEENT: Normocephalic, atraumatic. Pupils equal, round and reactive to light and accommodation. Extraocular muscles are intact. Anicteric sclera. Moist mucous membranes. Neck: No JVD. No bruit. Cardiovascular: Regular. Positive S-4. Normal S-1 and S-2. No S-3. 3/6 holosystolic ejection murmur, left sternal border, mid-clavicular line with radiation to the axilla. No rubs. Pulmonary: Clear to auscultation bilaterally. No rales, rhonchi, or wheezing. Abdomen: Bowel sounds x 4, soft. No rebound, guarding or tenderness. No organomegaly. Extremities: No clubbing, cyanosis or edema. +2 pedal pulses bilaterally. Skin: Warm and dry. Results & Data ([facility]) Vital Signs (Past 12 Hours) Vital Signs Temp Pulse Pulse Resp BP BP Pulse Ox 12/03/22 14:48 36.3 C L 96 H 18 99/65 L 95 12/03/22 11:29 36.6 C 87 19 138/74 97 12/03/22 07:49 88 12/03/22 07:32 36.3 C L 85 20 113/69 95 O2 Del Method 12/03/22 14:48 Room Air 12/03/22 11:29 Room Air 12/03/22 07:49 12/03/22 07:32 Room Air (4) CHF (congestive heart failure) Heart failure chronicity: acute on chronic Heart failure type: unspecified Qualified Code(s): I50.9 - Heart failure, unspecified (5) CAD (coronary atherosclerotic disease) Associated angina: unspecified whether angina present Coronary Disease- Associated Artery/Lesion type: unspecified vessel or lesion type [place] vs. transplanted heart: [place] heart Qualified Code(s): I25.10 - Atherosclerotic heart disease of [place] coronary artery without angina pectoris
--- NOTE | 2022-12-14 17:41 | Operative Report (OR) ---
DATE OF PROCEDURE: 12/02/2022. PREOPERATIVE DIAGNOSES: Ischemic cardiomyopathy, chronic heart failure with reduced ejection fractio n, [place] Heart Association class II-III, left bundle-branch block. POSTOPERATIVE DIAGNOSES: Ischemic cardiomyopathy, chronic heart failure with reduced ejection fracti on, [place] Heart Association class II-III, left bundle-branch block. PROCEDURE: Biventricular rate responsive implantable cardiac defibrillator under fluoroscopic guidan ce along with peripheral venogram and intracardiac electrogram His bundle recordings. SURGEON: Lyly De Guzman DO. FOREST SCIENCE PROFESSOR: None. ANESTHESIA: Monitored conscious sedation administered under my supervision by Winter Dunn. Start time 01:26. End time 02:58. A total of 7 mg of Versed and 150 mcg of fentanyl. INTRAVENOUS FLUIDS: 100 mL CONTRAST: 20 mL ANTIBIOTICS: 2 grams of Ancef. BLOOD LOSS: 40 mL URINE OUTPUT: Not applicable. SPECIMENS: None. FINDINGS: See below. DRAINS: None. INDICATIONS: This is an 82-year-old gentleman with a past medical history for diabetes, hypertension , hyperlipidemia, coronary artery disease with myocardial infarction in 1984. Most recent catheteriz ation in 09/2022, I believe, no intervention was done, ischemic cardiomyopathy where the ejection fra ction was normal, dating back to 2012, but has been abnormal and remains abnormal on his echo from . He had an occluded proximal RCA with a subtotal mid LAD and was recommended medical management and nonmelanoma skin cancer along with basal cell cancer. Due to his ischemic cardiomyopathy, left bundle branch block and worsening heart failure, he was recommended a BiV-ICD. Nonmelanoma skin cance r, gout, chronic heart failure with reduced ejection fraction, [place] Heart Association class II-II I. The patient was admitted to [facility] on 11/30/2022 secondary to dizziness and near syncope. The patient was having a lot of ectopy and PVCs and then with symptomatic bradycardia a nd was recommended a BiV-ICD prior to discharge. CONSENT: Consent was obtained prior to the patient going into the electrophysiology lab. The patien t was informed of the risks, benefits, and alternatives to the procedure. Risks include, but not lugo ited to, sudden cardiac , cardiac arrhythmia, cerebrovascular accident, myocardial infarction, i njury to the blood vessels, chamber of the heart and lung, bleeding and infection. The patient under stood these risks and agreed to the procedure as planned. Informed consent was obtained. DESCRIPTION OF PROCEDURE: The patient was brought into the electrophysiology lab in a fasting state. He was connected to continuous cardiac monitoring. A time-out was performed to ensure patient's id entity and procedure correctly. He was prepped and draped in the left infraclavicular space in norm al surgical standard fashion. Monitored conscious sedation was given throughout the procedure for frederick solis's comfort level. [place] precautions were maintained throughout the procedure. He received pr ophylactic antibiotics prior to incision. A 10 mL of 1% lidocaine-bupivacaine mixture were given in the left deltopectoral groove. An incision was made in the left deltopectoral groove. Blunt dissection was performed down to the pectoralis mu scle. Then, a defibrillator pocket was created using blunt dissection over the pectoralis muscle wit hin the pectoralis fascia. Then, a peripheral venogram was performed to identify the axillary vein. Venous axillary access was obtained through a needlestick on 2 separate occasions. On the more later al stick, a 7-[place] sheath was inserted over the guidewire. The dilator was removed and a second gu idewire was inserted through the sheath to allow for retained venous access and the sheath was remove d, flushed and reinserted over one of the dilators. A 9.5-Central [place] sheath was inserted over one of the guidewires in the more lateral stick. The guidewire and dilator were removed and the right ventricular defibrillator lead was advanced into right ventri eve, positioned into the right ventricular apex under fluoroscopic guidance. There was adequate paci ng and sensing thresholds and no diaphragmatic stimulation with high output pacing. The 9.5-Central African s shannen was peeled away and the lead was fixated to pectoralis muscle using 0 silk suture. A 7-Central [place] sheath was inserted over the more medial stick guidewire, the guidewire and dilator were r emoved. Then the His C315 sheath was advanced through the 7-Central African sheath over a Glidewire into the r ight ventricle. The Glidewire and dilator removed and then the left bundle pacing lead was advanced through the His C315 sheath and intracardiac electrogram His bundle recordings was performed with the camera was in STAPLES 10, once I found where the His bundle is, I then moved the camera to STAPLES 30 and I marked where the His was on my fluoroscopy screens. Then, I came down about 2 cm from this in a line that would extend out to the apex to start positioning my left bundle lead. I came on pacing and on ce I found an area where I had a nice W form to pace complex in V1, I then moved the camera to WALLISIAN 30 and started giving a series of clockwise turns to screw the lead into the septum. Of note, I did marlow ve to reposition it one time because it was not really advancing nicely, but ultimately the next part was good, advanced nicely. I developed a nice R prime in my V1 paced complex and impedance dropped. I gave contrast through the sheath to see how I was well into the septum. I then flipped the His C3 15 sheath under fluoroscopic guidance, leaving the 7-Central African sheath in while I positioned the right at rial lead. A second 7-Central African sheath was advanced through the retained guidewire in the more lateral stick. The guidewire and dilator were removed, then the right atrial lead was advanced into right atrium and pos itioned in the appendage under fluoroscopic guidance. There was adequate pacing and sensing th resholds and no diaphragmatic stimulation on high output pacing. The 7-Central African sheath was peeled away and the lead was fixated to pectoralis muscle using 0 silk suture. A 7-Central African sheath around the left bundle lead was then peeled away and the lead was fixated to pector justin muscle using 0 silk suture. The pocket was flushed with copious amounts of vancomycin and salin e wash and inspected for hemostasis. The pulse generator was then placed in the antibiotic pouch fol lowed then by being placed in the pocket, making sure the leads were lying flat beneath the device. The incision was closed in a 3-layer fashion using 2-0 Vicryl interrupted suture, followed by 3-0 Logan ryl interrupted suture, followed by 4-0 Monocryl running stitch and Dermabond was applied followed by Telfa and Tegaderm dressing. EQUIPMENT: 1. Pulse generator is a Medtronic [email or web address] MRI SCOW DERRICK OPERATOR-D SureScan [id number], serial number [id number]. 2. TYRX pouch, reference [id number], lot number [id number]. 3. Right atrial lead, Medtronic 5076-52 cm, serial number [id number]. 4. Right ventricular lead, Medtronic 6935M-62 cm, serial number [id number]. 5. Left bundle lead, Medtronic 3830-69 cm, serial number [id number]. Intraprocedural findings: 1. Intracardiac electrogram His bundle recordings, AH 120 milliseconds, HV 60 milliseconds. 2. Right atrial lead, P waves 3.1 millivolts, impedance 714 ohms, threshold 0.5 volts at 0.4 millise conds. 3. Right ventricular lead, R waves 9.6 millivolts, impedance 633 ohms, threshold 0.6 volts at 0.5 mi lliseconds. 4. Left bundle lead, impedance 735 ohms, threshold 0.8 volts at 0.5 milliseconds. FINAL MEASUREMENTS THROUGH THE DEVICE. 1. Right atrial lead P-wave 3.1 millivolts, impedance 513 ohms, threshold 0.5 volts at 0.4 milliseco nds. 2. Right ventricular lead, R waves 11 millivolts, impedance 589 ohms, threshold 0.75 volts at 0.4 mi lliseconds. 3. Left bundle lead, impedance 665 ohms, threshold 0.75 volts at 0.4 milliseconds. FINAL PARAMETERS: DDD 60/130. Right atrial and right ventricular amplitude 3.5 volts, pulse width 0 .4 milliseconds, sensitivity 0.3 millivolts. Left bundle lead amplitude 4 volts, pulse width 0.4 mil liseconds. VT monitor zone 150 beats per minute for 32 detection intervals and VF zone at 200 beats per minute f or 30 detection intervals. IMPRESSION: Successful rate responsive biventricular implantable cardiac defibrillator along with pe ripheral venogram and intracardiac electrogram His bundle recording secondary to ischemic cardiomyopa thy, chronic heart failure with reduced ejection fraction, [place] Heart Association class III, and left bundle-branch block. PLAN: Transfer back to telemetry and he cannot lift the left elbow or left shoulder for 1 month. He cannot lift more than 10 pounds with left arm for 2 weeks. He is to keep the dressing on and dry un til his wound check next week. Job ID: [id number]
== END 2022-12-03 17:09 | disposition home health service (06) | DRG 227 ==
LOC: ED 17:35 → SUATTDRO 20:01 → 2S 20:01
PROC: EPB.ICD (2022-12-02 12:00)

== ENCOUNTER 2023-03-26 01:47 | Inpatient (IN) ==
[2023-03-26] MEDS ORDERED: FUROSEMIDE 40 MG/4 ML VIAL IV ONE (02:08)
--- NOTE | 2023-03-26 02:14 | Emergency Department Note ---
History of Present Illness General Chief complaint: Respiratory Problems Stated complaint: HARD TO BREATHE Time Seen by Provider: 03/26/23 01:53 History of Present Illness 82-year-old male presents emergency department with a history of CHF he is currently on Lasix and states worsening shortness of breath for the past 3 days; he states for the past few months, he has been taking increased doses of Lasix. Patient states for the past 3 days now has had worsening shortness of breath he has dyspnea on exertion denies any cough denies chest pain. Patient states that he has had increased leg edema bilaterally despite not in taking any salt. Patient does not use oxygen at home. Patient has no other complaints such as fever nausea vomiting diarrhea. There are no other mitigating or alleviating factors Home Medications Medication Instructions Recorded Confirmed Type albuterol sulfate 90 mcg/actuation 2 puff inhalation Q4 PRN Shortness 09/21/22 11/30/22 History aerosol inhaler Of Breath alprazolam 0.5 mg tablet 0.5 mg PO HS PRN Anxiety 09/21/22 11/30/22 History glipizide 10 mg tablet, extended 10 mg PO AMHS 09/21/22 11/30/22 History release 24 hr loteprednol etabonate 0.5 % eye 1 drp OPR DIRECTED PRN 09/21/22 11/30/22 History drops,suspension .Irritation metronidazole 0.75 % topical gel 1 applic topical DAILY 09/21/22 11/30/22 History silver sulfadiazine 1 % topical 1 applic topical DAILY PRN BURN 09/21/22 11/30/22 History cream AREA vit C 226 mg-vit E 90 mg-copper 1 cap PO BID 09/22/22 11/30/22 History 0.8 mg-zinc oxide-lutein 5 mg capsule (PreserVision Lutein) aspirin 81 mg tablet,delayed 81 mg PO QAM #30 tabs 09/24/22 11/30/22 Rx release isosorbide mononitrate 30 mg 30 mg PO QAM #30 tabs 09/24/22 11/30/22 Rx tablet,extended release 24 hr aflibercept 2 mg/0.05 mL 2 mg intravitreal DIRECTED 11/02/22 11/30/22 History intravitreal solution for injection (Eylea) empagliflozin 25 mg tablet 25 mg PO QAM 11/02/22 11/30/22 History (Jardiance) mirtazapine 15 mg tablet 15 mg PO HS 11/02/22 11/30/22 History allopurinol 300 mg tablet 300 mg PO QAM #30 tabs 11/08/22 11/30/22 Rx clopidogrel 75 mg tablet 75 mg PO QAM #30 tabs 11/08/22 11/30/22 Rx spironolactone 25 mg tablet 12.5 mg PO DAILY #30 tabs 11/08/22 11/30/22 Rx atorvastatin 40 mg tablet 40 mg PO QAM 11/30/22 11/30/22 History furosemide 40 mg tablet 40 mg PO BID 11/30/22 11/30/22 History nitroglycerin 0.4 mg sublingual 0.4 mg sublingual DIRECTED PRN 11/30/22 0 11/30/22 History tablet Chest Pain Allergies Allergy/AdvReac Type Severity Reaction Status Date / Time alfuzosin AdvReac Mild NASAL Verified 11/30/22 18:53 CONGESTION Past Med/Surg History Medical History Acute HFrEF (heart failure with reduced ejection fraction) CAD (coronary artery disease) CHF (congestive heart failure) Chronic gout Chronic systolic heart failure Diabetes Diabetes mellitus, type II HLD (hyperlipidemia) HTN (hypertension) Ischemic cardiomyopathy No pertinent family history Surgical History History of angioplasty History of cardiac cath History of colonoscopy Family History Other Diabetes Heart disease Social History Smoking Status: Former smoker Tobacco Type: Cigarettes Second Hand Exposure: No; Do You Dip or Chew Tobacco: No; Hx Alcohol Use: Yes Alcohol type: beer Hx Substance Use: No Preferred Language: [place]ralt[place] Communication Ability: Effective Dish Technician Required: No Beliefs That Will Affect Care: None Current Living Situation: Alone Feels Safe at Home: Yes Assistive Devices: Cane Review of Systems A total of 10 systems reviewed and were otherwise negative Respiratory: + dyspnea Cardiovascular: no chest pain Musculoskeletal: + swelling Physical Exam Vital Signs Vital Signs - 24 hr 03/26/23 01:57 03/26/23 02:15 03/26/23 02:26 Temperature 36.8 C Temperature Source Temporal Artery Scan Pulse Rate 84 67 Pulse Rate from SpO2 Sensor Respiratory Rate 18 20 Respiratory Effort / Characteristics Non-Labored Spontaneous Short of Breath SOB on Exertion Respiratory Depth Normal Blood Pressure 112/97 Blood Pressure Mean 102 Pulse Oximetry 88 L 96 Oxygen Delivery Method Room Air Room Air Sepsis Recent Fever Within 48 Hours No Sepsis New/Unexplained Change in Mental Status No Sepsis Action Taken by Nursing No Action Required 03/26/23 02:47 03/26/23 02:25 03/26/23 02:30 Temperature Temperature Source Pulse Rate 68 71 67 Pulse Rate from SpO2 Sensor 67 67 Respiratory Rate 34 H Respiratory Effort / Characteristics Respiratory Depth Blood Pressure Blood Pressure Mean Pulse Oximetry 100 95 Oxygen Delivery Method Sepsis Recent Fever Within 48 Hours Sepsis New/Unexplained Change in Mental Status Sepsis Action Taken by Nursing 03/26/23 03:00 03/26/23 03:18 03/26/23 03:18 Temperature Temperature Source Pulse Rate 69 75 Pulse Rate from SpO2 Sensor 67 75 Respiratory Rate 26 H Respiratory Effort / Characteristics Respiratory Depth Blood Pressure 125/71 125/71 Blood Pressure Mean 89 102 Pulse Oximetry 100 98 Oxygen Delivery Method Sepsis Recent Fever Within 48 Hours Sepsis New/Unexplained Change in Mental Status Sepsis Action Taken by Nursing 03/26/23 03:30 Temperature Temperature Source Pulse Rate 74 Pulse Rate from SpO2 Sensor 74 Respiratory Rate Respiratory Effort / Characteristics Respiratory Depth Blood Pressure 130/61 Blood Pressure Mean 84 Pulse Oximetry 98 Oxygen Delivery Method Sepsis Recent Fever Within 48 Hours Sepsis New/Unexplained Change in Mental Status Sepsis Action Taken by Nursing GENERAL: Patient is awake alert mild respiratory distress, pale EYES: The conjunctivae are clear. The pupils are round and reactive. EARS, NOSE, MOUTH AND THROAT: The nose is without any evidence of any deformity. Mucous membranes are moist. Tongue is midline. NECK: The neck is nontender and supple. RESPIRATORY: Patient has mild respiratory distress, decreased breath sounds bilaterally no overt crackles CARDIOVASCULAR: Regular rate and rhythm noted there no murmurs rubs or gallops normal S1 normal S2. GASTROINTESTINAL: The abdomen is soft. Abdomen is nontender. BACK: No midline tenderness or or step-off noted range of motion in flexion extension as well as rotation no signs of muscle spasm noted MUSCULOSKELETAL/EXTREMITIES: There is no evidence of gross deformity full range of motion is noted in the hips and shoulders. bilateral lower extremity pitting edema SKIN: There is no obvious evidence of any rash. Patient has cyanotic nailbeds, his hands are cold NEUROLOGIC: Patient is awake alert and oriented x3 strength is symmetric Course Reevaluation(s) Reevaluation #1: Patient was hypoxic was started on oxygen, given IV Lasix Time: 02:57 Reevaluation #2: Patient is improved on oxygen on repeat examination Time: 03:19 Consultations Consultation #1: [facility] Time: 03:19 Administered Medications Discontinued Medications Furosemide (Furosemide 40 Mg/4 Ml Vial) 80 mg IV ONE ONE Stop: 03/26/23 02:09 Last Admin: 03/26/23 03:15 Dose: 80 mg Documented By: SUELLEN Critical Care Time Critical Care Time: Yes Total Critical Care Time: 35 I have personally spent greater than 35 minutes of critical care time in the direct management of this patient. This includes bedside care, interpretation o f diagnostic studies, and testing, discussion with consultants, patient, and family members, and other required patient management activities. These minutes are in excess of all separately billable procedures. Medical Decision Making Medical Records Attestation: I reviewed the patient's medical records. Home Medications Current Medication List: was personally reviewed by me Laboratory Data Attestation: I reviewed the patient's lab results. Patient has an elevated BNP consistent with CHF 03/26/23 02:18 03/26/23 02:18 Lab Results 03/26/23 03/26/23 03/26/23 Range/Units 02:18 02:18 02:18 WBC 9.86 (4.8-10.8) K/ul RBC 5.71 (4.70-6.10) M/uL Hgb 16.2 (14.0-18.0) g/dl Hct 51.9 (42.0-52.0) % MCV 90.9 (80.0-100.0) fL MCH 28.4 (25.0-34.0) pg MCHC 31.2 L (32.0-36.0) g/dL RDW Std Deviation 57.7 H (36.4-46.3) fL RDW Coeff of Niya 18.6 H (11.5-14.5) % Plt Count 215 (130-400) K/uL MPV 12.0 (9.4-12.4) fL Immature Gran % (Auto) 1.0 % Neut % (Auto) 61.3 % Lymph % (Auto) 28.1 % Winn % (Auto) 6.8 % Eos % (Auto) 1.9 % Baso % (Auto) 0.9 % Neut # (Auto) 6.04 (1.40-6.50) K/uL Lymph # (Auto) 2.77 (1.2-3.4) K/uL Winn # (Auto) 0.67 H (0.11-0.59) K/uL Eos # (Auto) 0.19 (0-0.50) K/uL Baso # (Auto) 0.09 (0-0.2) K/uL Immature Gran # (Auto) 0.10 (0.01-0.20) K/uL Absolute Nucleated RBC 0.02 (0-0.12) K/uL Nucleated RBC % (auto) 0.2 % Sodium 137 (136-145) mmol/L Potassium 5.0 (3.5-5.1) mmol/L Chloride 99 (98-107) mmol/L Carbon Dioxide 21 (21-32) mmol/L Anion Gap 17 H (3-11) BUN 57 H (6-23) mg/dl Creatinine 2.72 H (0.6-1.4) mg/dl Est Cr Clr Drug Dosing Not Reportable Est GFR ( Amer) 24.0 ml/min Est GFR (Non-Af Amer) 20.7 ml/min BUN/Creatinine Ratio 21.0 H (10-20) Glucose 182 H (70-99(Fasting)) mg/dl Calcium 10.9 H (8.6-10.3) mg/dl Magnesium 2.4 (1.7-2.4) mg/dl Total Bilirubin 1.9 H (0.2-1.0) mg/dl AST 139 H (13-39) U/L ALT 114 H (7-52) U/L Alkaline Phosphatase 203 H (34-104) U/L Troponin I High Sens 10.9 (0-20) pg/ml B-Natriuretic Peptide 2425 H (0-100) pg/ml Total Protein 7.2 (6.0-8.3) gm/dl Albumin 4.5 (3.4-5.0) gm/dl Globulin 2.7 (2.5-4.0) gm/dl Albumin/Globulin Ratio 1.7 (0.9-2) Imaging Data Attestation: I personally reviewed and interpreted this imaging study as follows: My Impression: Chest x-ray interpreted by me cardiomegaly, pacemaker present, CHF ECG Data Attestation: I personally reviewed and interpreted this ECG as follows: MDM Narrative Medical decision making differential diagnosis includes CHF, pneumonia, anemia, cardiac dysrhythmia, acute coronary syndrome Plan is to check labs, cardiac evaluation, was started on 4 L of oxygen, will be given 80 mg of IV Lasix External medical records were reviewed Patient has a nonischemic EKG, elevated BNP, normal given IV diuretics, is hypoxic, will be admitted Patient's heart score is greater than 4 Impression & Plan CHF (congestive heart failure), Hypoxia, NADIA (acute kidney injury) Discharge Plan Visit Data Chief Complaint: Respiratory Problems Stated Complaint: HARD TO BREATHE ED Provider: Demar Bran Discharge Problem: CHF (congestive heart failure), Hypoxia, NADIA (acute kidney injury) Patient Disposition: Admitted As Inpatient Forms Stand Alone Forms: My [facility] Prescriptions Prescriptions: No Action mirtazapine 15 mg tablet 15 mg PO HS Eylea 2 mg/0.05 mL Solution 2 mg INTRAVITREAL DIRECTED Jardiance 25 mg tablet 25 mg PO QAM clopidogrel 75 mg Tablet 75 mg PO QAM Qty: 30 0RF spironolactone 25 mg Tablet 12.5 mg PO DAILY Qty: 30 0RF Rx Instructions: PER PT'S MED LIST--TAKES 12.5 MG QAM, G MED LIST--TAKES 25 MG QAM. allopurinol 300 mg tablet 300 mg PO QAM Qty: 30 0RF furosemide 40 mg tablet 40 mg PO BID atorvastatin 40 mg tablet 40 mg PO QAM nitroglycerin 0.4 mg tablet, sublingual 0.4 mg sublingual DIRECTED PRN (Reason: Chest Pain) silver sulfadiazine 1 % cream 1 applic TOPICAL DAILY PRN (Reason: BURN AREA) glipizide 10 mg tablet extended release 24hr 10 mg PO AMHS alprazolam 0.5 mg Tablet 0.5 mg PO HS PRN (Reason: Anxiety) loteprednol etabonate 0.5 % drops,suspension 1 drp OPR DIRECTED PRN (Reason: .Irritation) albuterol sulfate 90 mcg/actuation HFA aerosol inhaler 2 puff INHALATION Q4 PRN (Reason: Shortness Of Breath) metronidazole 0.75 % Gel 1 applic TOPICAL DAILY Rx Instructions: APPLY TO FACE PreserVision Lutein 226-90-0.8-5 mg Capsule 1 cap PO BID isosorbide mononitrate 30 mg Tablet Extended Release 24 Hr 30 mg PO QAM Qty: 30 0RF aspirin 81 mg Tablet,Delayed Release (Dr/Ec) 81 mg PO QAM Qty: 30 0RF Referrals Referrals: Rene Green DO [Primary Care Provider] -
[2023-03-26 02:33] LABS: Basophils # (auto) 0.09 K/uL (0-0.2); Basophils % (auto) 0.9 %; Eosinophils # (auto) 0.19 K/uL (0-0.50); Eosinophils % (auto) 1.9 %; Hematocrit (blood only) 51.9 % (42.0-52.0); Hemoglobin 16.2 g/dl (14.0-18.0); Lymphocytes # (auto) 2.77 K/uL (1.2-3.4); Lymphocytes % (auto) 28.1 %; Mean Corpuscular Hemoglobin 28.4 pg (25.0-34.0); Mean Corpuscular Hgb Conc 31.2 g/dL (32.0-36.0); Mean Corpuscular Volume 90.9 fL (80.0-100.0); Monocytes # (auto) 0.67 K/uL (0.11-0.59); Monocytes % (auto) 6.8 %; Neutrophils # (auto) 6.04 K/uL (1.40-6.50); Neutrophils % (auto) 61.3 %; Nucleated RBC # (auto) 0.02 K/uL (0-0.12); Nucleated RBC % (auto) 0.2 %; Platelet Count 215 K/uL (130-400); RDW Coefficient of Variation 18.6 % (11.5-14.5); RDW Standard Deviation 57.7 fL (36.4-46.3); Red Blood Count 5.71 M/uL (4.70-6.10); White Blood Count 9.86 K/ul (4.8-10.8)
[2023-03-26 02:52] LABS: Alanine Aminotransferase 114 U/L (7-52); Albumin Globulin Ratio 1.7 (0.9-2); Albumin Level 4.5 gm/dl (3.4-5.0); Alkaline Phosphatase 203 U/L (34-104); Anion Gap 17 (3-11); Aspartate Aminotransferase 139 U/L (13-39); Bilirubin,Total 1.9 mg/dl (0.2-1.0); Blood Urea Nitrogen 57 mg/dl (6-23); Calcium 10.9 mg/dl (8.6-10.3); Carbon Dioxide 21 mmol/L (21-32); Chloride 99 mmol/L (98-107); Est GFR (Non-African American) 20.7 ml/min; Globulin 2.7 gm/dl (2.5-4.0); Glucose 182 mg/dl (70-99(Fasting)); Magnesium 2.4 mg/dl (1.7-2.4); Sodium 137 mmol/L (136-145); Total Protein 7.2 gm/dl (6.0-8.3)
[2023-03-26 02:58] LABS: Troponin I High Sensitivity 10.9 pg/ml (0-20)
[2023-03-26 03:52] LABS: INR 1.6 (0.9-1.1); Partial Thromboplastin Ratio 1.1; Partial Thromboplastin Time 30.7 Seconds (21.0-31.0); Prothrombin Time 17.2 Seconds (9.0-12.0)
[2023-03-26] MEDS ORDERED: ALBUTEROL HFA 8 GM INHALER INH PRN (05:16)
--- NOTE | 2023-03-26 07:39 | Electrocardiogram Report ---
Test Reason : Blood Pressure : / mmHG Vent. Rate : 068 BPM Atrial Rate : 234 BPM P-R Int : 000 ms QRS Dur : 144 ms QT Int : 542 ms P-R-T Axes : 027 021 -70 degrees QTc Int : 576 ms Ventricular-paced rhythm Abnormal ECG When compared with ECG of 03-DEC-2022 05:44, Vent. rate has decreased BY 19 BPM Confirmed by Larry Moreno ([id number]) on 03/26/2023 7:39:21 AM Referred By: REFERRED SELF Confirmed By:Jeremy Moreno
[2023-03-26] MEDS ORDERED: GLUCOSE 40% GEL 15 GM TUBE PO PRN (08:20)
[2023-03-26] MEDS ORDERED: CARBOHYDRATES FOR HYPOGLYCEMIA PO PRN (08:20)
[2023-03-26] MEDS ORDERED: NITROGLYCERIN SL 0.4 MG/TAB TAB SL PRN (08:20)
[2023-03-26] MEDS ORDERED: GLUCAGON FOR INJ 1 MG VIAL SQ PRN (08:20)
[2023-03-26] MEDS ORDERED: POLYETHYLENE (MIRALAX) 17 GM PACK PO PRN (08:20)
[2023-03-26] MEDS ORDERED: DEXTROSE 50% 50 ML SYRINGE IV PRN (08:20)
[2023-03-26] MEDS ORDERED: ACETAMINOPHEN 325 MG TAB PO PRN (08:20)
[2023-03-26] MEDS ORDERED: GLUCOSE 10 TAB/TUBE PO PRN (08:20)
--- NOTE | 2023-03-26 08:36 | XRay Report ---
XR chest 1V portable CLINICAL HISTORY: Dyspnea TECHNIQUE: Single frontal radiograph of the chest was obtained. Comparison: Comparison is made to chest radiograph 12/02/2022 FINDINGS: Pacemaker defibrillator is seen. Cardiomegaly is noted. The lungs are clear. No evidence of pleural e ffusion or pneumothorax. IMPRESSION: No acute chest disease. Cardiomegaly is noted. ACT 112: Negative or not required by law. Electronically signed by: Felipe Guido M.D. 03/26/2023 8:34 AM
--- NOTE | 2023-03-26 08:56 | History and Physical Report ---
DATE OF ADMISSION: 03/26/2023 CHIEF COMPLAINT: Shortness of breath. HISTORY OF PRESENT ILLNESS: An 82-year-old male with past medical history significant for type 2 diabetes, gout, hypercholesterolemia, hypertension, macular degeneration, CAD, history of ischemic cardiomyopathy, EF of 20-25% in echo done in 11/2022, status post AICD, chronic kidney disease stage III. The patient lives at home with his , presents with ongoing shortness of breath. Patient says sob is going on for some time, but lately it has become worse. He could not lie flat. He is not ambulating much. He just goes to the bathroom and comes back, but making short walk make him short of breath. Denies any chest pain, denies any cough, no fevers, no headache, no blurred visions, no earache, no runny nose, no sore throat, no difficulty swallowing. No nausea, no abdominal pain. He is somewhat constipated. Denies any blood in stools or black stools. No hematuria. Normal micturition. Currently, resting comfortably, hemodynamically stable when he came in his oxygen sat was 88%. He was given a dose of IV Lasix feeling somewhat better now. ALLERGIES: ALFUZOSIN. PAST MEDICAL HISTORY: As mentioned above. PAST SURGICAL HISTORY: Angioplasty, colonoscopy with biopsy, injection of eye drug, and AICD replacement. MEDICATIONS: The patient is on albuterol 2 puffs inhalation p.o. p.r.n., allopurinol 300 mg p.o. a.m., alprazolam 0.5 mg p.o. at bedtime p.r.n., amiodarone 200 mg p.o. at bedtime, aspirin 81 mg p.o. daily, atorvastatin 40 mg p.o. daily, Plavix 75 mg p.o. daily, eylea 2 mg intravitreal as directed, Lasix 40 mg p.o. b.i.d., glipizide 10 mg p.o. b.i.d., isosorbide mononitrate 45 mg p.o. a.m., Jardiance 25 mg p.o. a.m., metoprolol succinate 50 mg p.o. b.i.d., mirtazapine 15 mg p.o. at bedtime, nitroglycerin 0.4 mg sublingual p.r.n., spironolactone 25 mg p.o. daily. FAMILY HISTORY: Significant for father had acute GA, mother had stroke. SOCIAL HISTORY: . Quit smoking in 1983. Smoked 2-1/2 packs a day for 20 years. Alcohol occasional. No drug use. REVIEW OF SYSTEMS: As per HPI. Rest of the review of systems is negative. PHYSICAL EXAMINATION: GENERAL: The patient is of moderate build, currently not in acute distress. VITAL SIGNS: Temperature 36.8, pulse 73, respiratory rate 26, blood pressure 104/74, oxygen 99% on room air. HEENT: Pupils equal, round and reactive to light. Oral mucosa moist. NECK: No JVD, no neck masses. CARDIOVASCULAR: S1 and S2 heard. Regular rate and rhythm. No murmur, no gallop. RESPIRATORY SYSTEM: Normal AP diameter. No accessory muscle use. No wheezing. Mild bibasilar crackles. ABDOMEN: Soft, bowel sounds present, nontender, no distention. CENTRAL NERVOUS SYSTEM: Alert and oriented. Speech is clear. No facial droop. Obeys simple commands. Moves extremities. EXTREMITIES: Bilateral lower extremity, +2 edema present with chronic skin changes. LABORATORY DATA: WBC 9.8, hemoglobin 16.2, hematocrit 51.9, platelets 215. PT 17.2, INR 1.6. Sodium 136, potassium 5, chloride 99, CO2 of 21, BUN 57, creatinine 2.7, serum glucose 182, calcium 10.9, magnesium 2.4, total bilirubin 1.9, AST 139, ALT 114, alkaline phosphatase 203. Troponin-I high sensitivity 10.9. BNP 2400. IMAGING DATA: Chest x-ray, pulmonary congestion seen. EKG: Ventricular paced rhythm at a rate of 68. ASSESSMENT AND PLAN: This is an 82-year-old male who presents with shortness of breath, found to be in [id number] systolic congestive heart failure. 1. Beuym-dl-[id number] systolic congestive heart failure, EF of 20%-25% on echo done in 11/2022, status post AICD.Recently seen by cardiology telemedicine and stopped his Entresto because the patient was worried about causing lower extremity edema and also his blood pressures started running low, currently on metoprolol succinate, which will be continued. We will continue Imdur. On Lasix 40 b.i.d., which we will hold and place him on IV Lasix 40 b.i.d. Daily weights, I's and O's.Received iv lasix 80mg in er. We will follow the repeat echocardiogram. Closely monitor in tele floor. Consult Cardiology for further recommendations. 2. Elevated LFTs, most likely Hepatic congestion from congestive heart failure. We will follow the repeat labs and also follow liver ultrasound.Patient on amiodarone. 3. History of coronary artery disease, cardiac catheterization in 09/2022 showing multiple vessel disease, medical management and recommended aspirin, Plavix, statin and beta more. 4. Hyperlipidemia, on statin. 5. Hypertension, currently Entresto on hold. On metoprolol succinate and Imdur, and getting iv lasix. will hold spironolactone for now as potassium is 5 and minerva..We will monitor the blood pressure.Await cardio inputs. 6. Gout, on allopurinol. 7. Acute kidney injury and chronic kidney disease stage III. Baseline creatinine 1.2 Today creatinine is 2.7, could be cardiorenal. Getting Lasix. Holding aldactone. We will follow the repeat labs if worsening, we will consult Nephrology. 8.Diabetes. Hold home po meds. ISS. Will monitor. 9. Deep venous thrombosis prophylaxis: Placed on heparin subcutaneous. DISPOSITION: Closely monitor in tele floor. Level 1 full code as per my discussion with the patient. Job ID: [id number] MTDD
[2023-03-26] MEDS ORDERED: METOPROLOL SUCC 50MG EXT REL TAB PO SCH (09:00)
[2023-03-26] MEDS ORDERED: FUROSEMIDE 40 MG/4 ML VIAL IV SCH (09:00)
[2023-03-26] MEDS ORDERED: ATORVASTATIN 40 MG TAB PO SCH (09:00)
[2023-03-26] MEDS ORDERED: ISOSORBIDE MONO EXTENDED REL 30 MG TABCR PO SCH (09:00)
[2023-03-26 10:05] LABS: Basophils # (auto) 0.04 K/uL (0-0.2); Basophils % (auto) 0.5 %; Eosinophils # (auto) 0.09 K/uL (0-0.50); Hemoglobin 13.6 g/dl (14.0-18.0); Immature Granulocytes # (auto) 0.07 K/uL (0.01-0.20); Immature Granulocytes % (auto) 0.8 %; Lymphocytes # (auto) 2.18 K/uL (1.2-3.4); Lymphocytes % (auto) 25.4 %; Mean Corpuscular Hemoglobin 27.9 pg (25.0-34.0); Mean Corpuscular Hgb Conc 31.6 g/dL (32.0-36.0); Mean Corpuscular Volume 88.3 fL (80.0-100.0); Mean Platelet Volume 11.3 fL (9.4-12.4); Monocytes # (auto) 0.74 K/uL (0.11-0.59); Monocytes % (auto) 8.6 %; Neutrophils # (auto) 5.47 K/uL (1.40-6.50); Neutrophils % (auto) 63.7 %; Platelet Count 147 K/uL (130-400); RDW Coefficient of Variation 17.4 % (11.5-14.5); RDW Standard Deviation 55.2 fL (36.4-46.3); Red Blood Count 4.87 M/uL (4.70-6.10); White Blood Count 8.59 K/ul (4.8-10.8)
[2023-03-26 10:06] LABS: Estimated Average Glucose 166 mg/dl; Hemoglobin A1C 7.4 % (4.5-5.6)
[2023-03-26] MEDS ORDERED: ASPIRIN 81 MG CHEW ONE (10:07)
[2023-03-26] MEDS ORDERED: METOPROLOL TARTRATE 50 MG TAB ONE (10:07)
[2023-03-26 10:10] LABS: Albumin Level 3.7 gm/dl (3.4-5.0); BUN Creatinine Ratio 26.8 (10-20); Bilirubin Direct 0.6 mg/dl (0-0.2); Bilirubin,Total 1.3 mg/dl (0.2-1.0); Calcium 9.8 mg/dl (8.6-10.3); Creatinine Clr Calc Pharmacy 30.2 ml/min; Est GFR (African American) 32.2 ml/min; Est GFR (Non-African American) 27.8 ml/min; Magnesium 2.1 mg/dl (1.7-2.4); Potassium 3.8 mmol/L (3.5-5.1); Total Protein 5.8 gm/dl (6.0-8.3)
[2023-03-26] MEDS: FUROSEMIDE 40 MG/4 ML VIAL IV SCH ×2 (10:14→20:24)
[2023-03-26] MEDS: CLOPIDOGREL BISULFATE 75 MG TAB PO SCH (10:14)
[2023-03-26] MEDS: INSULIN ASPART PER UNIT CHARGE SC SCH ×4 (10:15→20:35)
[2023-03-26 10:16] LABS: Troponin I High Sensitivity 12.4 pg/ml (0-20)
[2023-03-26] MEDS ORDERED: STAT IV Infusion **Titration per Protocol STA (11:06)
--- NOTE | 2023-03-26 11:16 | Cardiology Consultation ---
Date of Consultation March 26, 2023 Assessment & Plan (1) Acute on chronic systolic (congestive) heart failure: (2) Ischemic cardiomyopathy: (3) NADIA (acute kidney injury): Plan Patient is an 82-year-old male with complex constellation of ischemic heart disease with severe ischemic cardiomyopathy and worsening congestive heart failure. Presentation notable for worsening edema shortness of breath as well as acute renal insufficiency and elevated hepatic enzymes. Recent medication changes include transient treatment with Entresto discontinued 03/17/2023 Recent addition of amiodarone Currently patient with decompensated systolic heart failure right greater than left with increasing abdominal girth weight and lower extremity edema as well as hypoxia and mild pulmonary edema Impression: 1. Acute decompensated systolic heart failure right greater than left 2. Acute renal insufficiency 3. Severe ischemic cardiomyopathy 4. Elevated hepatic enzymes question congestive versus recent amiodarone initiation Plan: Given declining renal function we will add dobutamine at 3 mcg/kg/min without plans for titration to augment LV systolic function and diuresis. Continue IV furosemide but will need to follow renal function closely Reduce metoprolol succinate to 25 mg twice per day Hold atorvastatin given hepatic enzyme elevation History of Present Illness Reason for Consultation: Acute on chronic systolic heart failure, acute renal insufficiency Requesting Physician: Dr. Huston Attending Physician: Bogdan Huston MD History of Present Illness Patient is a complex 82-year-old male with ongoing cardiac issues which include 1. Chronic ischemic heart disease,Anterior wall myocardial infarction in 1984 Status post plain old balloon angioplasty of the mid LAD in 1984 Cardiac catheterization last on September 23, 2022 revealing right dominant coronary anatomy with severe multivessel coronary artery disease including a proximal right coronary artery occlusion, subtotal mid LAD stenosis, and diffuse atherosclerosis of all vessels with limited interventional targets, deemed medical management only 2. Ischemic cardiomyopathy with severe LV dysfunction, moderate to severe mitral sufficiency 3. Chronic class III+ congestive heart failure 4. Status post BiV ICD pacemaker implantation every 2022 5. Hypertension 6. Dyslipidemia 7. Mild calcific aortic stenosis Patient presents this admission noting gradually worsening signs and symptoms of congestive heart failure over the past 2 months time with gradual upward titration of diuretics. Was initiated on Entresto on 02/17/2023 but discontinued 03/17/2023 during telemedicine appointment. Begun on oral amiodarone 02/14/2023 He presents now noting worsening symptoms of dyspnea on exertion orthopnea worsening lower extremity and hypoxia at home. Has been treated with IV furosemide in the ER with some improvement as well as oxygen administration. Initial laboratory studies notable for significant decline in renal function over 6 weeks He denies chest pains, tachypalpitations, syncope or near syncope though feels weak and fatigued. No bleeding difficulties. Lower extremities have been significantly more edematous with ruborous changes Allergies Allergy/AdvReac Type Severity Reaction Status Date / Time alfuzosin AdvReac Mild NASAL Verified 11/30/22 18:53 CONGESTION Home Medications Medication Instructions Recorded Confirmed Type albuterol sulfate 90 mcg/actuation 2 puff inhalation Q4 PRN Shortness 09/21/22 11/30/22 History aerosol inhaler Of Breath alprazolam 0.5 mg tablet 0.5 mg PO HS PRN Anxiety 09/21/22 11/30/22 History glipizide 10 mg tablet, extended 10 mg PO AMHS 09/21/22 11/30/22 History release 24 hr loteprednol etabonate 0.5 % eye 1 drp OPR DIRECTED PRN 09/21/22 11/30/22 History drops,suspension .Irritation metronidazole 0.75 % topical gel 1 applic topical DAILY 09/21/22 11/30/22 History silver sulfadiazine 1 % topical 1 applic topical DAILY PRN BURN 09/21/22 11/30/22 History cream AREA vit C 226 mg-vit E 90 mg-copper 1 cap PO BID 09/22/22 11/30/22 History 0.8 mg-zinc oxide-lutein 5 mg capsule (PreserVision Lutein) aspirin 81 mg tablet,delayed 81 mg PO QAM #30 tabs 09/24/22 11/30/22 Rx release aflibercept 2 mg/0.05 mL 2 mg intravitreal DIRECTED 11/02/22 11/30/22 History intravitreal solution for injection (Eylea) empagliflozin 25 mg tablet 25 mg PO QAM 11/02/22 11/30/22 History (Jardiance) mirtazapine 15 mg tablet 15 mg PO HS 11/02/22 11/30/22 History allopurinol 300 mg tablet 300 mg PO QAM #30 tabs 11/08/22 11/30/22 Rx clopidogrel 75 mg tablet 75 mg PO QAM #30 tabs 11/08/22 11/30/22 Rx atorvastatin 40 mg tablet 40 mg PO QAM 11/30/22 11/30/22 History furosemide 40 mg tablet 40 mg PO BID 11/30/22 11/30/22 History nitroglycerin 0.4 mg sublingual 0.4 mg sublingual DIRECTED PRN 11/30/22 11/30/22 History tablet Chest Pain amiodarone 200 mg tablet 200 mg PO HS 03/26/23 03/26/23 History isosorbide mononitrate 30 mg 45 mg PO QAM 03/26/23 History tablet,extended release 24 hr metoprolol succinate 100 mg 50 mg PO BID 03/26/23 03/26/23 History tablet,extended release 24 hr spironolactone 25 mg tablet 25 mg PO DAILY 03/26/23 History Patient History Medical History Acute HFrEF (heart failure with reduced ejection fraction) CAD (coronary artery disease) CHF (congestive heart failure) Chronic gout Chronic systolic heart failure Diabetes Diabetes mellitus, type II HLD (hyperlipidemia) HTN (hypertension) Ischemic cardiomyopathy No pertinent family history Surgical History History of angioplasty History of cardiac cath History of colonoscopy Family History Other Diabetes Heart disease Social History Smoking Status: Former smoker Tobacco Type: Cigarettes Second Hand Exposure: No; Do You Dip or Chew Tobacco: No; Hx Alcohol Use: Yes Alcohol type: beer Hx Substance Use: No Preferred Language: Ukrainian Communication Ability: Effective Cardiac Rehab Nurse Required: No Beliefs That Will Affect Care: None Current Living Situation: Spouse Feels Safe at Home: Yes Safety Concerns: Feels Safe At This Time Assistive Devices: Cane Review of Systems Review of Systems: All systems reviewed & are unremarkable except as noted in HPI & below Physical Exam Constitutional: + ill appearing Eyes: PERRL, conjunctivae normal, anicteric sclerae ENMT: external ear and nose normal, oropharynx normal Neck: trachea midline, no thyromegaly Respiratory: Auscultation: + rales (Bibasilar) Cardiovascular: Rate/Rhythm: regular rhythm (Biventricular pacing) Heart Sounds: + murmur (Grade 1-2 or 6 systolic murmur) Vessels: + JVD Extremities: + edema (With ruborous changes both lower extremity) Gastrointestinal (Abdomen): Percussion/Palpation: abdomen soft (Mild distention) Results & Data Vital Signs (Past 12 Hours) Vital Signs Temp Pulse Pulse Resp BP BP Pulse Ox 03/26/23 09:00 74 18 115/86 97 03/26/23 08:05 70 03/26/23 06:31 139/100 84 L 03/26/23 06:30 97 03/26/23 06:00 107/78 95 03/26/23 05:45 71 25 H 95 03/26/23 05:30 71 26 H 97 03/26/23 05:30 105/71 03/26/23 05:15 104/69 03/26/23 05:15 70 26 H 96 03/26/23 05:00 72 33 H 103/68 97 03/26/23 04:45 71 20 102/62 97 03/26/23 04:45 102/62 03/26/23 04:30 73 26 H 104/74 99 03/26/23 04:16 75 16 123/84 91 03/26/23 04:01 75 28 H 97 03/26/23 04:01 113/79 03/26/23 04:00 75 26 H 97 03/26/23 03:45 106/76 03/26/23 03:45 74 98 03/26/23 03:31 74 95 03/26/23 03:30 74 130/61 98 03/26/23 03:18 125/71 03/26/23 03:18 75 98 03/26/23 03:00 69 26 H 125/71 100 03/26/23 02:30 67 34 H 95 03/26/23 02:25 71 100 03/26/23 02:47 68 03/26/23 02:15 67 20 96 03/26/23 01:57 36.8 C 84 18 112/97 88 L O2 Del Method O2 Flow Rate 03/26/23 09:00 Nasal Cannula 3 03/26/23 08:05 03/26/23 06:31 03/26/23 06:30 03/26/23 06:00 03/26/23 05:45 03/26/23 05:30 03/26/23 05:30 03/26/23 05:15 03/26/23 05:15 03/26/23 05:00 03/26/23 04:45 03/26/23 04:45 03/26/23 04:30 03/26/23 04:16 03/26/23 04:01 03/26/23 04:01 03/26/23 04:00 03/26/23 03:45 03/26/23 03:45 03/26/23 03:31 03/26/23 03:30 03/26/23 03:18 03/26/23 03:18 03/26/23 03:00 03/26/23 02:30 03/26/23 02:25 03/26/23 02:47 03/26/23 02:15 Room Air 03/26/23 01:57 Room Air Laboratory Results Laboratory Results - last 24 hr 03/26/23 03/26/23 03/26/23 02:18 02:18 02:18 WBC 9.86 RBC 5.71 Hgb 16.2 Hct 51.9 MCV 90.9 MCH 28.4 MCHC 31.2 L RDW Std Deviation 57.7 H RDW Coeff of Niya 18.6 H Plt Count 215 MPV 12.0 Immature Gran % (Auto) 1.0 Neut % (Auto) 61.3 Lymph % (Auto) 28.1 [place] % (Auto) 6.8 Eos % (Auto) 1.9 Baso % (Auto) 0.9 Neut # (Auto) 6.04 Lymph # (Auto) 2.77 [place] # (Auto) 0.67 H Eos # (Auto) 0.19 Baso # (Auto) 0.09 Immature Gran # (Auto) 0.10 Absolute Nucleated RBC 0.02 Nucleated RBC % (auto) 0.2 PT 17.2 H INR 1.6 H APTT 30.7 PTT Ratio 1.1 Sodium 137 Potassium 5.0 Chloride 99 Carbon Dioxide 21 Anion Gap 17 H BUN 57 H Creatinine 2.72 H Est Cr Clr Drug Dosing Not Reportable Est GFR ( Amer) 24.0 Est GFR (Non-Af Amer) 20.7 BUN/Creatinine Ratio 21.0 H Glucose 182 H POC Glucose Estimat Average Glucose Hemoglobin A1c Calcium 10.9 H Magnesium 2.4 Total Bilirubin 1.9 H Direct Bilirubin AST 139 H ALT 114 H Alkaline Phosphatase 203 H Troponin I High Sens 10.9 B-Natriuretic Peptide Total Protein 7.2 Albumin 4.5 Globulin 2.7 Albumin/Globulin Ratio 1.7 SARS-CoV-2, RNA, NAAT 03/26/23 03/26/23 03/26/23 02:18 09:13 09:25 WBC 8.59 RBC 4.87 Hgb 13.6 L Hct 43.0 MCV 88.3 MCH 27.9 MCHC 31.6 L RDW Std Deviation 55.2 H RDW Coeff of Niya 17.4 H Plt Count 147 MPV 11.3 Immature Gran % (Auto) 0.8 Neut % (Auto) 63.7 Lymph % (Auto) 25.4 [place] % (Auto) 8.6 Eos % (Auto) 1.0 Baso % (Auto) 0.5 Neut # (Auto) 5.47 Lymph # (Auto) 2.18 [place] # (Auto) 0.74 H Eos # (Auto) 0.09 Baso # (Auto) 0.04 Immature Gran # (Auto) 0.07 Absolute Nucleated RBC Nucleated RBC % (auto) PT INR APTT PTT Ratio Sodium Potassium Chloride Carbon Dioxide Anion Gap BUN Creatinine Est Cr Clr Drug Dosing Est GFR ( Amer) Est GFR (Non-Af Amer) BUN/Creatinine Ratio Glucose POC Glucose 150 H Estimat Average Glucose Hemoglobin A1c Calcium Magnesium Total Bilirubin Direct Bilirubin AST ALT Alkaline Phosphatase Troponin I High Sens B-Natriuretic Peptide 2425 H Total Protein Albumin Globulin Albumin/Globulin Ratio SARS-CoV-2, RNA, NAAT 03/26/23 03/26/23 03/26/23 09:25 09:25 Unknown WBC RBC Hgb Hct MCV MCH MCHC RDW Std Deviation RDW Coeff of [place] Plt Count MPV Immature Gran % (Auto) Neut % (Auto) Lymph % (Auto) [place] % (Auto) Eos % (Auto) Baso % (Auto) Neut # (Auto) Lymph # (Auto) [place] # (Auto) Eos # (Auto) Baso # (Auto) Immature Gran # (Auto) Absolute Nucleated RBC Nucleated RBC % (auto) PT INR APTT PTT Ratio Sodium 138 Potassium 3.8 D Chloride 102 Carbon Dioxide 26 Anion Gap 10 BUN 57 H Creatinine 2.13 H D Est Cr Clr Drug Dosing 30.2 Est GFR ( Amer) 32.2 Est GFR (Non-Af Amer) 27.8 BUN/Creatinine Ratio 26.8 H Glucose 133 H POC Glucose Estimat Average Glucose 166 Hemoglobin A1c 7.4 H Calcium 9.8 Magnesium 2.1 Total Bilirubin 1.3 H Direct Bilirubin 0.6 H AST 346 H ALT 304 H Alkaline Phosphatase 180 H Troponin I High Sens 12.4 B-Natriuretic Peptide Total Protein 5.8 L Albumin 3.7 Globulin Albumin/Globulin Ratio SARS-CoV-2, RNA, NAAT NEGATIVE Diagnostic Findings Echocardiogram 03/26/2023 Left ventricle is mildly dilated There is severe global hypokinesis of the ventricle EF 20 to 25% Aortic valve is calcified with restricted leaflet mobility but no hemodynamic significant aortic stenosis at worst mild Trace aortic insufficiency Moderate to severe mitral insufficiency Mild to moderate tricuspid insufficiency Right ventricular systolic pressure elevated 40-50 mmHg
[2023-03-26] MEDS: ASPIRIN 81 MG ECTAB PO SCH (11:46)
[2023-03-26] MEDS: CEROVITE ADV FORMULA TAB PO SCH (11:47)
[2023-03-26] MEDS: allopurinoL 300 MG TAB PO SCH (11:47)
[2023-03-26] MEDS: ISOSORBIDE MONO EXTENDED REL 30 MG TABCR PO SCH (11:48)
[2023-03-26] MEDS: HEPARIN SOD 5,000 UNIT/0.5 ML VIAL SQ SCH ×2 (11:48→20:25)
[2023-03-26] MEDS: DOBUTamine / D5W 500 MG/250 ML BAG IV SCH (12:01)
--- NOTE | 2023-03-26 14:46 | Ultrasound Report ---
US liver CLINICAL HISTORY: elevated lft TECHNIQUE: Multiple real-time sonographic images of the right upper quadrant were obtained. Comparison: None available at the time of this dictation. FINDINGS: The liver is diffusely homogenous with normal contour and echogenicity. No focal mass lesions are see n. No intrahepatic ductal dilatation is seen. Low level internal echoes are identified layering d ependently within the gallbladder, which is consistent with gallbladder sludge. Gallbladder wall thic kening is seen measuring up to 4 mm. There is no pericholecystic fluid present. A sonographic Duckworth 's sign was not elicited by the turn out. The common duct measures 0.6 cm in diameter at the lev el of the hepatic artery. The visualized portions of the pancreas appear normal. The right kidney shows normal echogenicity, cortical thickness and renal contour. The right kidney sh ows no evidence of hydronephrosis or mass. No ascites or free fluid is seen in Sandra's pouch. IMPRESSION: Gallbladder sludge is seen with mild wall thickening but negative Duckworth's sign. No acute abnormaliti es. ACT 112: Negative or not required by law. Electronically signed by: Felipe Guido M.D. 03/26/2023 2:45 PM
--- NOTE | 2023-03-26 17:48 | Hospitalist Progress Note ---
Date of Service March 26, 2023 Assessment & Plan (1) NYHA class 3 heart failure with reduced ejection fraction: Plan: Patient is an 82 yr male who presents with shortness of breath, found to be in vxbmo-iy-dlwqqqa systolic congestive heart failure. Acute on chronic systolic heart failure Acute respiratory failure with hypoxia secondary to above --CXR:No acute chest disease. Cardiomegaly is noted. --ECHO: Rhythm biventricular paced. Left ventricle is mildly dilated. Normal left ventricular wall thickness. Severe global hypokinesis of the left ventricle. EF 20 to 25%. Aortic valve leaflets are moderately calcified but appear mobile with mild restriction leaflet mobility. No hemodynamically significant valvular aortic stenosis. Trace aortic regurgitation. Mitral valve leaflets are mildly thickened and there is annular dilatation. Moderate to severe mitral regurgitation. Mild to moderate tricuspid regurgitation. Right ventricular systolic pressure is elevated at 40 to 55 mmHg --Hold PO diuretics --Added dobutamine per cardiology Appreciate cardiology input Continue IV Lasix, Isosorbide Monitor I's and O's, daily weight, volume status Metoprolol succinate dose decreased to 25 mg twice daily Continue supplemental oxygen as needed Transaminitis Likely hepatic congestion Amiodarone could have contributed as well Liver USD:Gallbladder sludge is seen with mild wall thickening but negative Duckworth's sign. No acute abnormalities. Hold statin Monitor LFTs Avoid hepatotoxic agents as able NADIA on CKD III Cr 2.7>2.1 Hold Entresto Monitor renal function Avoid nephrotoxic agents as able H/O ventricular arrhythmias S/P BiV ICD Continue amiodarone CAD S/P cardiac catheterization in 09/2022 showing multiple vessel disease, medical management recommended Continue aspirin, Plavix, beta more Statin on hold as above Hyperlipidemia Resume statin as able Hypertension Entresto on hold Continue Metoprolol Gout on allopurinol. DM II HbA1c: 7.4 Continue Insulin per protocol Monitor BGs DVT Px: Heparin SQ CODE STATUS Full code for now Admission and Anticipated Discharge Date Admission Date: March 26, 2023 Subjective Patient is seen and examined at bedside States having dyspnea, leg edema Denies any chest pain, nausea, vomiting, abdominal pain Also reports dizziness intermittently Discussed with cardiology today Saturating well on 3 L supplemental oxygen Review of Systems Review of Systems: All systems reviewed & are unremarkable except as noted in Subjective Physical Exam Physical Exam: Physical Exam: Vitals signs as noted above General Appearance:Moderately built and nourished, Chronic ill appearing no apparent distress Head: normocephalic, Atraumatic Eyes: normal inspection, EOMI Neck: supple, Trachea midline Respiratory/Chest: Normal breath sounds, basal crackles, No accessory muscle use Cardiovascular: S1, S2, + murmur Abdomen/GI:Soft, Non tender, Bowel sounds present Extremities/Musculoskeletal:normal inspection, 2+ B/L LE edema Neurologic/Psych:AAOX3, grossly no focal neurological deficits Skin: normal color, warm Results & Data Results & Data Vital Signs (Past 12 Hours) Vital Signs Temp Pulse Pulse Resp BP BP Pulse Ox 03/26/23 16:38 68 03/26/23 14:14 03/26/23 12:10 36.6 C 68 22 99/66 L 98 03/26/23 09:00 74 18 115/86 97 03/26/23 08:05 70 03/26/23 06:31 139/100 84 L 03/26/23 06:30 97 03/26/23 06:00 107/78 95 03/26/23 05:45 71 25 H 95 O2 Del Method O2 Flow Rate 03/26/23 16:38 03/26/23 14:14 Nasal Cannula 3 03/26/23 12:10 Nasal Cannula 4 03/26/23 09:00 Nasal Cannula 3 03/26/23 08:05 03/26/23 06:31 03/26/23 06:30 03/26/23 06:00 03/26/23 05:45 Laboratory Results Short CBC 03/26/23 03/26/23 Range/Units 02:18 09:25 WBC 9.86 8.59 (4.8-10.8) K/ul Hgb 16.2 13.6 L (14.0-18.0) g/dl Hct 51.9 43.0 (42.0-52.0) % Plt Count 215 147 (130-400) K/uL BMP 03/26/23 03/26/23 02:18 09:25 Sodium 137 138 Potassium 5.0 3.8 D Chloride 99 102 Carbon Dioxide 21 26 BUN 57 H 57 H Creatinine 2.72 H 2.13 H D Glucose 182 H 133 H Calcium 10.9 H 9.8 Liver Function 03/26/23 03/26/23 Range/Units 02:18 09:25 Total Bilirubin 1.9 H 1.3 H (0.2-1.0) mg/dl Direct Bilirubin 0.6 H (0-0.2) mg/dl AST 139 H 346 H (13-39) U/L ALT 114 H 304 H (7-52) U/L Alkaline Phosphatase 203 H 180 H (34-104) U/L Albumin 4.5 3.7 (3.4-5.0) gm/dl
[2023-03-26] MEDS: METOPROLOL SUCC 25MG EXT REL TAB PO SCH (20:01)
[2023-03-26] MEDS: AMIODARONE 200 MG TAB PO SCH (20:24)
[2023-03-26] MEDS: ALPRAZolam 0.5 MG TABLET PO PRN (20:24)
[2023-03-26] MEDS: MIRTAZAPINE TAB 15 MG TAB PO SCH (20:24)
[2023-03-27 04:56] LABS: Hematocrit (blood only) 39.6 % (42.0-52.0); Hemoglobin 12.6 g/dl (14.0-18.0); Mean Corpuscular Hemoglobin 27.9 pg (25.0-34.0); Mean Corpuscular Hgb Conc 31.8 g/dL (32.0-36.0); Mean Corpuscular Volume 87.6 fL (80.0-100.0); Mean Platelet Volume 11.7 fL (9.4-12.4); Platelet Count 133 K/uL (130-400); RDW Coefficient of Variation 17.5 % (11.5-14.5); RDW Standard Deviation 54.5 fL (36.4-46.3); Red Blood Count 4.52 M/uL (4.70-6.10); White Blood Count 7.85 K/ul (4.8-10.8)
[2023-03-27 05:11] LABS: Albumin Level 3.5 gm/dl (3.4-5.0); BUN Creatinine Ratio 29.6 (10-20); Bilirubin Direct 0.3 mg/dl (0-0.2); Calcium 9.6 mg/dl (8.6-10.3); Creatinine Clr Calc Pharmacy 29.7 ml/min; Est GFR (African American) 31.7 ml/min; Est GFR (Non-African American) 27.3 ml/min; Potassium 3.4 mmol/L (3.5-5.1); Total Protein 5.6 gm/dl (6.0-8.3)
[2023-03-27 05:35] LABS: INR 1.5 (0.9-1.1); Prothrombin Time 15.6 Seconds (9.0-12.0)
[2023-03-27] MEDS: CEROVITE ADV FORMULA TAB PO SCH (08:22)
[2023-03-27] MEDS: ASPIRIN 81 MG ECTAB PO SCH (08:23)
[2023-03-27] MEDS: allopurinoL 300 MG TAB PO SCH (08:23)
[2023-03-27] MEDS: CLOPIDOGREL BISULFATE 75 MG TAB PO SCH (08:23)
[2023-03-27] MEDS: ISOSORBIDE MONO EXTENDED REL 30 MG TABCR PO SCH (08:24)
[2023-03-27] MEDS: INSULIN ASPART PER UNIT CHARGE SC SCH ×4 (08:24→21:19)
[2023-03-27] MEDS: METOPROLOL SUCC 25MG EXT REL TAB PO SCH ×2 (08:24→21:12)
[2023-03-27] MEDS: HEPARIN SOD 5,000 UNIT/0.5 ML VIAL SQ SCH ×2 (08:24→21:22)
[2023-03-27] MEDS ORDERED: POTASSIUM CHLORIDE CRTAB 20 MEQ TABCR PO ONE (09:07)
[2023-03-27] MEDS: FUROSEMIDE 40 MG/4 ML VIAL IV SCH ×2 (10:07→21:21)
--- NOTE | 2023-03-27 10:59 | Cardiology Progress Note ---
Date of Service March 27, 2023 Assessment & Plan (1) Acute on chronic systolic (congestive) heart failure: (2) Ischemic cardiomyopathy: (3) NADIA (acute kidney injury): (4) Elevated LFTs: Plan Patient is an 82-year-old male with complex constellation of ischemic heart disease with severe ischemic cardiomyopathy presenting with signs/symptoms of worsening congestive heart failure (SOB, edema, abdominal bloating), complicated by NADIA and elevated LFT's Entresto discontinued as an outpatient. Creatinine improved from admission. Dobutamine added to aid with LV systolic function and diuresis. Continue dobutamine today with IV furosemide. No arrhythmias on monitor. Good urine outputs since admission. Monitor I+O's. Continue amiodarone to maintain NSR. history of non sustained Vt. LFT's improving. Elevation in enzymes likely due to hepatic congestion. Hold statin. Hold other antihypertensives with hypotension including isosorbide. Metoprolol dose reduced from 50 to 25 mg BID. Hold for systolic BP < 90. Continue diuresis today. will follow closely. Case discussed with Dr. Gaston I spent a total of 30 minutes on the date of service in preparation, delivery, and documentation of the care provided to this patient, excluding any time spent in the performance of separately billed services. Michelle Sims PA-C Department of Cardiology, [facility] This chart was completed in part utilizing Speech Voice Recognition Software. Grammatical errors, random word insertions, pronoun errors, and incomplete sentences are an occasional consequence of this system due to software limitations, ambient noise, and hardware issues. Any formal questions or martin rns about the content, text, or information contained within the body of this dictation should be directly addressed to the provider for clarification. Admission and Anticipated Discharge Date Admission Date: March 26, 2023 Supervising Physician Co-Signing Physician Notes Supervising Physician Attestation: I have personally performed a history and physical examination on the patient. I agree with the physician lpn or medical assistant's findings and plan as documented with the following additions. Subjective: Patient without acute complaint. Still with mild LE , and pedal edema. Telemetry reveals SR in the 70s. Exam: CV: Regular rhythm, no murmur 1-2+ LE edema, pedal edema Data: INR 1.5 Potassium 3.4 Creatinine 2.16 stable compared to yesterday Assessment and Plan: Acute on chronic heart failure with reduced ejection fraction with low output s ymptoms Systolic BPs in the 80s to low 100s. Continue dobutamine 3 mcg/ kg/ min Continue furosemide 40 mg IV daily Imdur and metoprolol held this am for parameters DVT prophylaxis: SQ heparin Saqib Marx, Subjective Patient resting in bed comfortably. Mild conversational dyspnea persists but improved from admission. Good urine outputs on dobutamine and IV furosemide. No dizziness reported BP has been lower but tolerating. No chest pain. Edema improving. Review of Systems Review of Systems: All systems reviewed & are unremarkable except as noted in HPI & below Physical Exam Constitutional: + ill appearing Eyes: PERRL, conjunctivae normal, anicteric sclerae ENMT: external ear and nose normal, oropharynx normal Neck: trachea midline, no thyromegaly Respiratory: Auscultation: + rales (Bibasilar) Cardiovascular: Rate/Rhythm: regular rhythm (Biventricular pacing) Heart Sounds: + murmur (Grade 1-2 or 6 systolic murmur) Vessels: + JVD Extremities: + edema (1-2+ b/l with chronic stasis changes) Gastrointestinal (Abdomen): Percussion/Palpation: abdomen soft (Mild distention) Neurologic: PERRL, EOMI, accommodation nl, no face palsy, no dysarthria Results & Data Vital Signs (Past 12 Hours) Vital Signs Temp Pulse Pulse Resp BP Pulse Ox Pulse Ox 03/27/23 08:20 96 03/27/23 08:00 03/27/23 07:00 37.3 C 69 20 96 03/27/23 07:31 92 03/27/23 07:31 92/59 L 03/27/23 07:30 93 03/27/23 07:19 90/60 L 03/27/23 07:19 70 16 96 03/27/23 07:15 89/57 L 03/27/23 07:15 70 16 95 03/27/23 07:14 100/63 03/27/23 07:14 70 15 94 03/27/23 07:00 68 16 95 03/27/23 07:00 82/48 L 03/27/23 06:30 66 15 99 03/27/23 06:00 67 18 89/50 L 96 03/27/23 05:00 81 17 84/53 L 95 03/27/23 04:01 81 18 82/61 L 100 03/27/23 03:00 69 22 83/46 L 94 03/27/23 02:00 68 19 94/56 L 94 03/27/23 01:16 70 29 H 101/67 94 03/26/23 23:00 67 20 96/57 L 92 03/26/23 23:03 67 O2 Del Method O2 Del Method O2 Flow Rate O2 Flow Rate 03/27/23 08:20 Nasal Cannula 2 03/27/23 08:00 Nasal Cannula 2 03/27/23 07:00 Nasal Cannula 2 03/27/23 07:31 03/27/23 07:31 03/27/23 07:30 03/27/23 07:19 03/27/23 07:19 03/27/23 07:15 03/27/23 07:15 03/27/23 07:14 03/27/23 07:14 03/27/23 07:00 03/27/23 07:00 03/27/23 06:30 03/27/23 06:00 2 03/27/23 05:00 2 03/27/23 04:01 2 03/27/23 03:00 2 03/27/23 02:00 2 03/27/23 01:16 Nasal Cannula 2 03/26/23 23:00 03/26/23 23:03 Laboratory Results Cardiac Enzymes 03/26/23 03/26/23 03/27/23 Range/Units 12:54 19:09 04:36 AST 203 H (13-39) U/L Troponin I High Sens 14.2 12.9 (0-20) pg/ml Coagulation 03/27/23 Range/Units 04:36 PT 15.6 H (9.0-12.0) Seconds CBC 03/27/23 Range/Units 04:36 WBC 7.85 (4.8-10.8) K/ul RBC 4.52 L (4.70-6.10) M/uL Hgb 12.6 L (14.0-18.0) g/dl Hct 39.6 L (42.0-52.0) % Plt Count 133 (130-400) K/uL Comprehensive Metabolic Panel 03/27/23 Range/Units 04:36 Sodium 139 (136-145) mmol/L Potassium 3.4 L (3.5-5.1) mmol/L Chloride 102 (98-107) mmol/L Carbon Dioxide 27 (21-32) mmol/L BUN 64 H (6-23) mg/dl Creatinine 2.16 H (0.6-1.4) mg/dl Glucose 61 L (70-99(Fasting)) mg/dl Calcium 9.6 (8.6-10.3) mg/dl Direct Bilirubin 0.3 H (0-0.2) mg/dl AST 203 H (13-39) U/L ALT 250 H (7-52) U/L Alkaline Phosphatase 158 H (34-104) U/L Total Protein 5.6 L (6.0-8.3) gm/dl Albumin 3.5 (3.4-5.0) gm/dl Intake and Output 03/26/23 03/27/23 03/27/23 22:59 06:59 14:59 Intake Total 400 / 600 200 / 600 Output Total 600 / 2000 850 / 2000 Balance -200 / -1400 -650 / -1400 Intake: Oral 400 / 600 200 / 600 Output: Urine 600 / 2000 850 / 2000 Other: # Unmeasured Voids 1 Weight 87.7 kg Weight Measurement Method Built in [facility] Patient Weight 03/28/23 06:59 Weight 87.7 kg Diagnostic Findings Telemetry reviewed: Paced. Occ PVC. No sustained arrhythmias. Medications Administered Medications albuterol sulfate 90 mcg/actuation aerosol inhaler 2 puff inhalation Q4 PRN Shortness Of Breath 09/21/22 [History Confirmed 11/30/22] alprazolam 0.5 mg tablet 0.5 mg PO HS PRN Anxiety 09/21/22 [History Confirmed 11/30/22] glipizide 10 mg tablet, extended release 24 hr 10 mg PO AMHS 09/21/22 [History Confirmed 11/30/22] loteprednol etabonate 0.5 % eye drops,suspension 1 drp OPR DIRECTED PRN .Irritation 09/21/22 [History Confirmed 11/30/22] metronidazole 0.75 % topical gel 1 applic topical DAILY 09/21/22 [History Confirmed 11/30/22] silver sulfadiazine 1 % topical cream 1 applic topical DAILY PRN BURN AREA 09/21/22 [History Confirmed 11/30/22] vit C 226 mg-vit E 90 mg-copper 0.8 mg-zinc oxide-lutein 5 mg capsule (PreserVision Lutein) 1 cap PO BID 09/22/22 [History Confirmed 11/30/22] aspirin 81 mg tablet,delayed release 81 mg PO QAM #30 tabs 09/24/22 [Rx Confirmed 11/30/22] aflibercept 2 mg/0.05 mL intravitreal solution for injection (Eylea) 2 mg intravitreal DIRECTED 11/02/22 [History Confirmed 11/30/22] empagliflozin 25 mg tablet (Jardiance) 25 mg PO QAM 11/02/22 [History Confirmed 11/30/22] mirtazapine 15 mg tablet 15 mg PO HS 11/02/22 [History Confirmed 11/30/22] allopurinol 300 mg tablet 300 mg PO QAM #30 tabs 11/08/22 [Rx Confirmed 11/30/22] clopidogrel 75 mg tablet 75 mg PO QAM #30 tabs 11/08/22 [Rx Confirmed 11/30/22] atorvastatin 40 mg tablet 40 mg PO QAM 11/30/22 [History Confirmed 11/30/22] furosemide 40 mg tablet 40 mg PO BID 11/30/22 [History Confirmed 11/30/22] nitroglycerin 0.4 mg sublingual tablet 0.4 mg sublingual DIRECTED PRN Chest Pain 11/30/22 [History Confirmed 11/30/22] amiodarone 200 mg tablet 200 mg PO HS 03/26/23 [History Confirmed 03/26/23] isosorbide mononitrate 30 mg tablet,extended release 24 hr 45 mg PO QAM 03/26/23 [History] metoprolol succinate 100 mg tablet,extended release 24 hr 50 mg PO BID 03/26/23 [History Confirmed 03/26/23] spironolactone 25 mg tablet 25 mg PO DAILY 03/26/23 [History] Home Medications Acetaminophen (Acetaminophen 325 Mg Tab) 650 mg PO Q4H PRN PRN Reason: Pain or Fever Stop: 04/25/23 08:19 Albuterol (Albuterol Hfa 8 Gm Inhaler) 2 puffs INH Q4R PRN PRN Reason: Shortness Of Breath Stop: 04/25/23 05:15 Allopurinol ([facility] 300 Mg Tab) [facility] [place]: 04/25/23 08:59 Last Admin: 03/27/23 08:23 Dose: 300 mg Alprazolam (Alprazolam 0.5 Mg Tablet) 0.5 mg PO HS PRN PRN Reason: Anxiety Stop: 04/25/23 05:15 Last Admin: 03/26/23 20:24 Dose: 0.5 mg Amiodarone HCl (Amiodarone 200 Mg Tab) 200 mg PO HS [facility] Stop: 04/25/23 20:59 Last Admin: 03/26/23 20:24 Dose: 200 mg Aspirin (Aspirin 81 Mg Ectab) 81 mg PO QAM [facility] Stop: 04/25/23 08:59 Last Admin: 03/27/23 08:23 Dose: 81 mg Clopidogrel Bisulfate (Clopidogrel Bisulfate 75 Mg Tab) 75 mg PO QAM [facility] Stop: 04/25/23 08:59 Last Admin: 03/27/23 08:23 Dose: 75 mg Dextrose (Dextrose 50% 50 Ml Syringe) 25 - 50 ml IV UD PRN; Protocol PRN Reason: Hypoglycemia Protocol Stop: 04/25/23 08:19 Furosemide (Furosemide 40 Mg/4 Ml Vial) 40 mg IV BID [facility] Stop: 04/25/23 08:59 Last Admin: 03/27/23 10:07 Dose: 40 mg Glucagon (Glucagon For Inj 1 Mg Vial) 1 mg SQ UD PRN; Protocol PRN Reason: Hypoglycemia Protocol Stop: 04/25/23 08:19 Glucose (Glucose 40% Gel 15 Gm Tube) 15 - 30 gm PO UD PRN; Protocol PRN Reason: Hypoglycemia Protocol Stop: 04/25/23 08:19 Glucose (Glucose 10 Tab/Tube) 4 - 8 tab PO UD PRN; Protocol PRN Reason: Hypoglycemia Treatment Stop: 04/25/23 08:19 Heparin Sodium (Porcine) (Heparin Sod 5,000 Unit/0.5 Ml Vial) 5,000 units SQ Q12 [facility] Stop: 04/25/23 08:59 Last Admin: 03/27/23 08:24 Dose: 5,000 units Dobutamine HCl/Dextrose (Dobutamine / D5w) 500 mg in 250 mls @ 8.397 mls/hr IV .Q24H [facility]; Protocol Stop: 04/25/23 11:14 Last Admin: 03/26/23 12:01 Dose: 8.4 mls/hr Insulin Aspart (Insulin Aspart Per Unit Charge) 0 units SC ACHS [facility] Stop: 04/25/23 08:19 Last Admin: 03/27/23 08:24 Dose: Not Given Isosorbide Mononitrate (Isosorbide [place] Extended Rel 30 Mg Tabcr) 30 mg PO QAM [facility] Stop: 04/25/23 08:59 Last Admin: 03/27/23 08:24 Dose: Not Given Metoprolol Succinate (Metoprolol Succ 25mg Ext Rel Tab) 25 mg PO BID [facility] Stop: 04/25/23 20:59 Last Admin: 03/27/23 08:24 Dose: Not Given Mirtazapine (Mirtazapine Tab 15 Mg Tab) 15 mg PO HS [facility] Stop: 04/25/23 20:59 Last Admin: 03/26/23 20:24 Dose: 15 mg Miscellaneous (Carbohydrates For Hypoglycemia ) 15 - 30 gm PO UD PRN PRN Reason: Hypoglycemia Protocol Stop: 04/25/23 08:19 Multivitamins/Minerals (Cerovite Adv Formula Tab) 1 tab PO DAILY [facility] Stop: 04/25/23 08:59 Last Admin: 03/27/23 08:22 Dose: 1 tab Nitroglycerin (Nitroglycerin Sl 0.4 Mg/Tab Tab) 0.4 mg SL Q5M PRN PRN Reason: Chest Pain Stop: 04/25/23 08:19 Polyethylene Glycol (Polyethylene (Miralax) 17 Gm Pack) 17 gm PO DAILY PRN PRN Reason: Constipation Stop: 04/25/23 08:19 Potassium Chloride (Potassium Chloride Crtab 20 Meq Tabcr) 20 meq PO BID [facility] Stop: 04/26/23 20:59
[2023-03-27] MEDS: DOBUTamine / D5W 500 MG/250 ML BAG IV SCH (12:33)
--- NOTE | 2023-03-27 15:43 | Hospitalist Progress Note ---
Date of Service March 27, 2023 Assessment & Plan (1) NYHA class 3 heart failure with reduced ejection fraction: Plan: Patient is an 82 yr male who presents with shortness of breath, found to be in [id number] systolic congestive heart failure. Acute on chronic systolic heart failure Acute respiratory failure with hypoxia secondary to above --CXR:No acute chest disease. Cardiomegaly is noted. --ECHO: Rhythm biventricular paced. Left ventricle is mildly dilated. Normal left ventricular wall thickness. Severe global hypokinesis of the left ventricle. EF 20 to 25%. Aortic valve leaflets are moderately calcified but appear mobile with mild restriction leaflet mobility. No hemodynamically significant valvular aortic stenosis. Trace aortic regurgitation. Mitral valve leaflets are mildly thickened and there is annular dilatation. Moderate to severe mitral regurgitation. Mild to moderate tricuspid regurgitation. Right ventricular systolic pressure is elevated at 40 to 55 mmHg --Hold PO diuretics --Continue dobutamine drip Appreciate cardiology input Continue IV Lasix Continue Isosorbide, beta-more with holding parameter Monitor I's and O's, daily weight, volume status Metoprolol succinate dose decreased to 25 mg twice daily Weaned off of supplemental oxygen Monitor electrolytes, renal function Hypokalemia Replete electrolytes as needed Transaminitis Likely hepatic congestion Amiodarone could have contributed as well Liver USD:Gallbladder sludge is seen with mild wall thickening but negative Duckworth's sign. No acute abnormalities. Hold statin Monitor LFTs Avoid hepatotoxic agents as able LFTs improving NADIA on CKD III Cr 2.7>2.1 Hold Entresto Monitor renal function Avoid nephrotoxic agents as able H/O ventricular arrhythmias S/P BiV ICD Continue amiodarone CAD S/P cardiac catheterization in 09/2022 showing multiple vessel disease, medical management recommended Continue aspirin, Plavix, beta more Statin on hold as above Hyperlipidemia Resume statin as able Hypertension Entresto on hold Continue Metoprolol with holding parameter Gout on allopurinol. DM II HbA1c: 7.4 Continue Insulin per protocol Monitor BGs Insulin protocol adjusted to minimize hypoglycemic episodes DVT Px: Heparin SQ CODE STATUS Full code Admission and Anticipated Discharge Date Admission Date: March 26, 2023 Subjective Patient is seen and examined at bedside Less dyspnea today Cough slowly improving Still has significant leg edema Diuresing well Denies any chest pain, nausea, vomiting, abdominal pain No dizziness today Saturating well on room air Review of Systems Review of Systems: All systems reviewed & are unremarkable except as noted in Subjective Physical Exam Physical Exam: Physical Exam: Vitals signs as noted above General Appearance:Moderately built and nourished, Chronic ill appearing no apparent distress Head: normocephalic, Atraumatic Eyes: normal inspection, EOMI Neck: supple, Trachea midline Respiratory/Chest: Normal breath sounds, minimal basal crackles, No accessory muscle use Cardiovascular: S1, S2, + murmur Abdomen/GI:Soft, Non tender, Bowel sounds present Extremities/Musculoskeletal:normal inspection, 2+ B/L LE edema Neurologic/Psych:AAOX3, grossly no focal neurological deficits Skin: normal color, warm Results & Data Results & Data Vital Signs (Past 12 Hours) Vital Signs Temp Pulse Pulse Resp BP BP Pulse Ox 03/27/23 11:00 37.0 C 82 20 113/74 97 03/27/23 08:20 03/27/23 08:00 03/27/23 07:00 37.3 C 69 20 96 03/27/23 07:31 92 03/27/23 07:31 92/59 L 03/27/23 07:30 93 03/27/23 07:19 90/60 L 03/27/23 07:19 70 16 96 03/27/23 07:15 89/57 L 03/27/23 07:15 70 16 95 03/27/23 07:14 100/63 03/27/23 07:14 70 15 94 03/27/23 07:00 68 16 95 03/27/23 07:00 82/48 L 03/27/23 06:30 66 15 99 03/27/23 06:00 67 18 89/50 L 96 03/27/23 05:00 81 17 84/53 L 95 03/27/23 04:01 81 18 82/61 L 100 Pulse Ox O2 Del Method O2 Del Method O2 Flow Rate O2 Flow Rate 03/27/23 11:00 Room Air 03/27/23 08:20 96 Nasal Cannula 2 03/27/23 08:00 Nasal Cannula 2 03/27/23 07:00 Nasal Cannula 2 03/27/23 07:31 03/27/23 07:31 03/27/23 07:30 03/27/23 07:19 03/27/23 07:19 03/27/23 07:15 03/27/23 07:15 03/27/23 07:14 03/27/23 07:14 03/27/23 07:00 03/27/23 07:00 03/27/23 06:30 03/27/23 06:00 2 03/27/23 05:00 2 03/27/23 04:01 2 Laboratory Results Short CBC 03/27/23 Range/Units 04:36 WBC 7.85 (4.8-10.8) K/ul Hgb 12.6 L (14.0-18.0) g/dl Hct 39.6 L (42.0-52.0) % Plt Count 133 (130-400) K/uL BMP 03/27/23 04:36 Sodium 139 Potassium 3.4 L Chloride 102 Carbon Dioxide 27 BUN 64 H Creatinine 2.16 H Glucose 61 L Calcium 9.6 Liver Function 03/27/23 Range/Units 04:36 Total Bilirubin 1.0 (0.2-1.0) mg/dl Direct Bilirubin 0.3 H (0-0.2) mg/dl AST 203 H (13-39) U/L ALT 250 H (7-52) U/L Alkaline Phosphatase 158 H (34-104) U/L Albumin 3.5 (3.4-5.0) gm/dl
[2023-03-27] MEDS: POTASSIUM CHLORIDE CRTAB 20 MEQ TABCR PO SCH (21:20)
[2023-03-27] MEDS: AMIODARONE 200 MG TAB PO SCH (21:20)
[2023-03-27] MEDS: MIRTAZAPINE TAB 15 MG TAB PO SCH (21:20)
[2023-03-27] MEDS: ALPRAZolam 0.5 MG TABLET PO PRN (21:23)
[2023-03-28 06:30] LABS: Albumin Level 3.4 gm/dl (3.4-5.0); BUN Creatinine Ratio 32.7 (10-20); Bilirubin Direct 0.3 mg/dl (0-0.2); Bilirubin,Total 1.1 mg/dl (0.2-1.0); Calcium 9.7 mg/dl (8.6-10.3); Creatinine Clr Calc Pharmacy 37.8 ml/min; Est GFR (Non-African American) 41.4 ml/min; Magnesium 1.9 mg/dl (1.7-2.4); Potassium 3.6 mmol/L (3.5-5.1); Total Protein 5.5 gm/dl (6.0-8.3)
[2023-03-28] MEDS: INSULIN ASPART PER UNIT CHARGE SC SCH ×4 (08:15→20:12)
[2023-03-28] MEDS: CLOPIDOGREL BISULFATE 75 MG TAB PO SCH (08:18)
[2023-03-28] MEDS: allopurinoL 300 MG TAB PO SCH (08:18)
[2023-03-28] MEDS: ASPIRIN 81 MG ECTAB PO SCH (08:18)
[2023-03-28] MEDS: HEPARIN SOD 5,000 UNIT/0.5 ML VIAL SQ SCH ×2 (08:19→20:55)
[2023-03-28] MEDS: ISOSORBIDE MONO EXTENDED REL 30 MG TABCR PO SCH (08:23)
[2023-03-28] MEDS: CEROVITE ADV FORMULA TAB PO SCH (08:24)
[2023-03-28] MEDS: METOPROLOL SUCC 25MG EXT REL TAB PO SCH ×2 (08:24→20:54)
[2023-03-28] MEDS: POTASSIUM CHLORIDE CRTAB 20 MEQ TABCR PO SCH ×2 (08:24→20:58)
[2023-03-28] MEDS: FUROSEMIDE 40 MG/4 ML VIAL IV SCH ×2 (08:27→20:59)
--- NOTE | 2023-03-28 14:32 | Hospitalist Progress Note ---
Date of Service March 28, 2023 Assessment & Plan (1) NYHA class 3 heart failure with reduced ejection fraction: Plan: Patient is an 82 yr male who presents with shortness of breath, found to be in [id number] systolic congestive heart failure. Acute on chronic systolic heart failure Acute respiratory failure with hypoxia secondary to above --CXR:No acute chest disease. Cardiomegaly is noted. --ECHO: Rhythm biventricular paced. Left ventricle is mildly dilated. Normal left ventricular wall thickness. Severe global hypokinesis of the left ventricle. EF 20 to 25%. Aortic valve leaflets are moderately calcified but appear mobile with mild restriction leaflet mobility. No hemodynamically significant valvular aortic stenosis. Trace aortic regurgitation. Mitral valve leaflets are mildly thickened and there is annular dilatation. Moderate to severe mitral regurgitation. Mild to moderate tricuspid regurgitation. Right ventricular systolic pressure is elevated at 40 to 55 mmHg --Hold PO diuretics --Continue dobutamine drip Appreciate cardiology input Continue IV Lasix Continue Isosorbide, beta-more with holding parameter Monitor I's and O's, daily weight, volume status Metoprolol succinate dose decreased to 25 mg twice daily Weaned off of supplemental oxygen Monitor electrolytes, renal function BP remains low Continue current management Saturating well on room air Hypokalemia Replete electrolytes as needed Transaminitis Likely hepatic congestion Amiodarone could have contributed as well Liver USD:Gallbladder sludge is seen with mild wall thickening but negative Duckworth's sign. No acute abnormalities. Hold statin Monitor LFTs Avoid hepatotoxic agents as able LFTs continues to improve NADIA on CKD III Cr 2.7>2.1>1.5 Hold Entresto Monitor renal function Avoid nephrotoxic agents as able H/O ventricular arrhythmias S/P BiV ICD Continue amiodarone CAD S/P cardiac catheterization in 09/2022 showing multiple vessel disease, medical management recommended Continue aspirin, Plavix, beta more Statin on hold as above Hyperlipidemia Resume statin as able Hypertension Entresto on hold Continue Metoprolol with holding parameter Gout on allopurinol. DM II HbA1c: 7.4 Continue Insulin per protocol Monitor BGs Insulin protocol adjusted to minimize hypoglycemic episodes DVT Px: Heparin SQ CODE STATUS Full code Admission and Anticipated Discharge Date Admission Date: March 26, 2023 Subjective Patient is seen and examined at bedside Dyspnea continues to improve BP remains low Cough resolved Has significant leg edema Denies any chest pain, nausea, vomiting, abdominal pain Saturating well on room air Review of Systems Review of Systems: All systems reviewed & are unremarkable except as noted in Subjective Physical Exam Physical Exam: Physical Exam: Vitals signs as noted above General Appearance:Moderately built and nourished, Chronic ill appearing no apparent distress Head: normocephalic, Atraumatic Eyes: normal inspection, EOMI Neck: supple, Trachea midline Respiratory/Chest: Normal breath sounds, CTA, No accessory muscle use Cardiovascular: S1, S2, + murmur Abdomen/GI:Soft, Non tender, Bowel sounds present Extremities/Musculoskeletal:normal inspection, 2+ B/L LE edema Neurologic/Psych:AAOX3, grossly no focal neurological deficits Skin: normal color, warm Results & Data Results & Data Vital Signs (Past 12 Hours) Vital Signs Temp Pulse Resp BP Pulse Ox O2 Del Method 03/28/23 13:00 Room Air 03/28/23 13:07 36.3 C L 89 20 101/69 97 Room Air 03/28/23 11:25 36.7 C 82 20 111/76 98 Room Air 03/28/23 07:00 Room Air 03/28/23 07:53 36.6 C 85 20 93/59 L 92 Room Air 03/28/23 03:00 36.5 C 83 16 110/68 97 Room Air Laboratory Results [facility] 03/28/23 05:36 Sodium 140 Potassium 3.6 Chloride 104 Carbon Dioxide 27 BUN 50 H Creatinine 1.53 H D Glucose 99 Calcium 9.7 Liver Function 03/28/23 Range/Units 05:36 Total Bilirubin 1.1 H (0.2-1.0) mg/dl Direct Bilirubin 0.3 H (0-0.2) mg/dl AST 107 H (13-39) U/L ALT 197 H (7-52) U/L Alkaline Phosphatase 137 H (34-104) U/L Albumin 3.4 (3.4-5.0) gm/dl
--- NOTE | 2023-03-28 14:43 | Cardiology Progress Note ---
Date of Service March 28, 2023 Assessment & Plan (1) Acute on chronic systolic (congestive) heart failure: (2) Ischemic cardiomyopathy: (3) NADIA (acute kidney injury): (4) Elevated LFTs: Plan Patient is an 82-year-old male with complex constellation of ischemic heart disease with severe ischemic cardiomyopathy presenting with signs/symptoms of worsening congestive heart failure (SOB, edema, abdominal bloating), complicated by NADIA and elevated LFT's Entresto recently discontinued as an outpatient due to NADIA. Dobutamine added upon admission to aid with LV systolic function and diuresis. Continue dobutamine today with IV furosemide. Consider transitioning off therapy tomorrow. No arrhythmias on monitor. Good urine outputs since admission. Monitor I+O's. Monitor renal function. Continue amiodarone to maintain NSR. history of non sustained Vt. LFT's improving. Elevation in enzymes likely due to hepatic congestion. Hold statin. Hold other antihypertensives with hypotension including isosorbide. Metoprolol dose reduced from 50 to 25 mg BID. Hold for systolic BP < 90. Continue diuresis today. Will follow closely. Upon discharge, will need to re-evaluate his current diuretic plan as outpatient. He was most recently taking furosemide 20 mg - 2 tablets in AM and 2 tablets in afternoon. He feels this was not "working". May need to consider transitioning and trial of torsemide or bumex. Case discussed with Dr. Marx I spent a total of 30 minutes on the date of service in preparation, delivery, and documentation of the care provided to this patient, excluding any time spent in the performance of separately billed services. Michelle Sims PA-C Department of Cardiology, [facility] This chart was completed in part utilizing Speech Voice Recognition Software. Grammatical errors, random word insertions, pronoun errors, and incomplete s entences are an occasional consequence of this system due to software limitations, ambient noise, and hardware issues. Any formal questions or concerns about the content, text, or information contained within the body of this dictation should be directly addressed to the provider for clarification. Admission and Anticipated Discharge Date Admission Date: March 26, 2023 Supervising Physician Co-Signing Physician Notes Supervising Physician Attestation: I have personally performed a history and physical examination on the patient. I agree with the physician assistant refinery operator's findings and plan as documented with the following additions. Subjective: Patient still notes ongoing lower extremity and pedal edema, but he states that this has been a somewhat chronic issue for the last 6 months, and that he had not been without edema since his hospital stay in September. His overall perfusion is improved on dobutamine. Telemetry reveals sinus rhythm with ventricular pacing in the 80s and no significant arrhythmias. Device interrogated, settings optimized today. Exam: Cardiovascular: Regular rhythm, no murmurs, 1-2+ bilateral lower extremity and pedal edema Data: Total urine output in last 24 hours 3.9 L, -2.5 L Assessment and Plan: Acute on chronic heart failure with reduced ejection fraction, ischemic cardiomyopathy -Continue low-dose dobutamine 3 mcg/kg/min, will revisit perhaps discontinue on . -Systolic blood pressures remain relatively low in the 90s to 100s, but this has been his recent baseline. -Continue IV furosemide 40 mg IV twice daily. DVT prophylaxis: Subcutaneous heparin Saqib Marx, DO Subjective Patient resting in bed comfortably. Reports great improvement in his dyspnea/SOB over the last 24 hours. No longer requiring supplemental O2. Aggre ssive diuresis and good urine outputs over the last 24 hours. renal function also improving. No chest pain. No palpitations or dizziness. BP remains low but tolerating meds. Review of Systems Review of Systems: All systems reviewed & are unremarkable except as noted in HPI & below Physical Exam Constitutional: + ill appearing; no acute distress Eyes: PERRL, conjunctivae normal, anicteric sclerae ENMT: external ear and nose normal, oropharynx normal Neck: trachea midline, no thyromegaly Respiratory: Auscultation: + rales (Bibasilar) Cardiovascular: Rate/Rhythm: regular rhythm (Biventricular pacing) Heart Sounds: + murmur (Grade 1-2 or 6 systolic murmur) Vessels: + JVD Extremities: + edema (1-2+ b/l with chronic stasis changes) Gastrointestinal (Abdomen): Percussion/Palpation: abdomen soft (Mild distention) Neurologic: PERRL, EOMI, accommodation nl, no face palsy, no dysarthria Results & Data Vital Signs (Past 12 Hours) Vital Signs Temp Pulse Resp BP Pulse Ox O2 Del Method 03/28/23 13:00 Room Air 03/28/23 13:07 36.3 C L 89 20 101/69 97 Room Air 03/28/23 11:25 36.7 C 82 20 111/76 98 Room Air 03/28/23 07:00 Room Air 03/28/23 07:53 36.6 C 85 20 93/59 L 92 Room Air 03/28/23 03:00 36.5 C 83 16 110/68 97 Room Air Laboratory Results Cardiac Enzymes 03/28/23 Range/Units 05:36 AST 107 H (13-39) U/L Comprehensive Metabolic Panel 03/28/23 Range/Units 05:36 Sodium 140 (136-145) mmol/L Potassium 3.6 (3.5-5.1) mmol/L Chloride 104 (98-107) mmol/L Carbon Dioxide 27 (21-32) mmol/L BUN 50 H (6-23) mg/dl Creatinine 1.53 H D (0.6-1.4) mg/dl Glucose 99 (70-99(Fasting)) mg/dl Calcium 9.7 (8.6-10.3) mg/dl Direct Bilirubin 0.3 H (0-0.2) mg/dl AST 107 H (13-39) U/L ALT 197 H (7-52) U/L Alkaline Phosphatase 137 H (34-104) U/L Total Protein 5.5 L (6.0-8.3) gm/dl Albumin 3.4 (3.4-5.0) gm/dl Intake and Output 03/27/23 03/28/23 03/28/23 22:59 06:59 14:59 Intake Total 250 / 1156.08 840 / 840 Output Total 1550 / 2650 2099 Balance -1300 / -1493.92 -1260 / -1260 Intake: Oral 250 / 950 840 / 840 Output: Urine 1550 / 2650 2099 Other: Other Intake Source sips # Unmeasured Voids 1 Weight 87.2 kg Weight Measurement Method Built in [facility] Diagnostic Findings Telemetry reviewed: Paced in the 70-90 bpm range Medications Administered Current Inpatient Medications Acetaminophen (Acetaminophen 325 Mg Tab) 650 mg PO Q4H PRN PRN Reason: Pain or Fever Stop: 04/25/23 08:19 Albuterol (Albuterol Hfa 8 Gm Inhaler) 2 puffs INH Q4R PRN PRN Reason: Shortness Of Breath Stop: 04/25/23 05:15 Allopurinol (Allopurinol 300 Mg Tab) 300 mg PO QAM [facility] Stop: 04/25/23 08:59 Last Admin: 03/28/23 08:18 Dose: 300 mg Alprazolam (Alprazolam 0.5 Mg Tablet) 0.5 mg PO HS PRN PRN Reason: Anxiety Stop: 04/25/23 05:15 Last Admin: 03/27/23 21:23 Dose: 0.5 mg Amiodarone HCl (Amiodarone 200 Mg Tab) 200 mg PO HS [facility] Stop: 04/25/23 20:59 Last Admin: 03/27/23 21:20 Dose: 200 mg Aspirin (Aspirin 81 Mg Ectab) [facility]: 04/25/23 08:59 Last Admin: 03/28/23 08:18 Dose: 81 mg Clopidogrel Bisulfate (Clopidogrel Bisulfate 75 Mg Tab) 75 [facility] [place] Stop: 04/25/23 08:59 Last Admin: 03/28/23 08:18 Dose: 75 mg Dextrose (Dextrose 50% 50 Ml Syringe) 25 - 50 ml IV UD PRN; Protocol PRN Reason: Hypoglycemia Protocol Stop: 04/25/23 08:19 Furosemide (Furosemide 40 Mg/4 Ml Vial) 40 mg IV BID [facility] Stop: 04/25/23 08:59 Last Admin: 03/28/23 08:27 Dose: 40 mg Glucagon (Glucagon For Inj 1 Mg Vial) 1 mg SQ UD PRN; Protocol PRN Reason: Hypoglycemia Protocol Stop: 04/25/23 08:19 Glucose (Glucose 40% Gel 15 Gm Tube) 15 - 30 gm PO UD PRN; Protocol PRN Reason: Hypoglycemia Protocol Stop: 04/25/23 08:19 Glucose (Glucose 10 Tab/Tube) 4 - 8 tab PO UD PRN; Protocol PRN Reason: Hypoglycemia Treatment Stop: 04/25/23 08:19 Heparin Sodium (Porcine) (Heparin Sod 5,000 Unit/0.5 Ml Vial) 5,000 units SQ Q12 [facility] Stop: 04/25/23 08:59 Last Admin: 03/28/23 08:19 Dose: 5,000 units Dobutamine HCl/Dextrose (Dobutamine / D5w) 500 mg in 250 mls @ 8.397 mls/hr IV .Q24H [facility]; Protocol Stop: 04/25/23 11:14 Last Admin: 03/27/23 12:33 Dose: 8.4 mls/hr Insulin Aspart (Insulin Aspart Per Unit Charge) 0 units SC ACHS [facility] Stop: 04/25/23 08:19 Last Admin: 03/28/23 12:21 Dose: 2 units Isosorbide Mononitrate (Isosorbide [place] Extended Rel 30 Mg Tabcr) 30 mg PO QAM [facility] Stop: 04/25/23 08:59 Last Admin: 03/28/23 08:23 Dose: Not Given Metoprolol Succinate (Metoprolol Succ 25mg Ext Rel Tab) 25 mg PO BID [facility] Stop: 04/25/23 20:59 Last Admin: 03/28/23 08:24 Dose: Not Given Mirtazapine (Mirtazapine Tab 15 Mg Tab) 15 mg PO HS [facility] Stop: 04/25/23 20:59 Last Admin: 03/27/23 21:20 Dose: 15 mg Miscellaneous (Carbohydrates For Hypoglycemia ) 15 - 30 gm PO UD PRN PRN Reason: Hypoglycemia Protocol Stop: 04/25/23 08:19 Multivitamins/Minerals (Cerovite Adv Formula Tab) 1 tab PO DAILY [facility] Stop: 04/25/23 08:59 Last Admin: 03/28/23 08:24 Dose: 1 tab Nitroglycerin (Nitroglycerin Sl 0.4 Mg/Tab Tab) 0.4 mg SL Q5M PRN PRN Reason: Chest Pain Stop: 04/25/23 08:19 Polyethylene Glycol (Polyethylene (Miralax) 17 Gm Pack) 17 gm PO DAILY PRN PRN Reason: Constipation Stop: 04/25/23 08:19 Potassium Chloride (Potassium Chloride Crtab 20 Meq Tabcr) 20 meq PO BID [facility] Stop: 04/26/23 20:59 Last Admin: 03/28/23 08:24 Dose: 20 meq
[2023-03-28] MEDS: DOBUTamine / D5W 500 MG/250 ML BAG IV SCH (15:24)
[2023-03-28] MEDS: MIRTAZAPINE TAB 15 MG TAB PO SCH (20:55)
[2023-03-28] MEDS: AMIODARONE 200 MG TAB PO SCH (20:56)
[2023-03-28] MEDS: ALPRAZolam 0.5 MG TABLET PO PRN (21:06)
[2023-03-29 06:20] LABS: Hematocrit (blood only) 40.9 % (42.0-52.0); Mean Corpuscular Hemoglobin 28.1 pg (25.0-34.0); Mean Corpuscular Hgb Conc 31.8 g/dL (32.0-36.0); Mean Corpuscular Volume 88.3 fL (80.0-100.0); Mean Platelet Volume 11.3 fL (9.4-12.4); Platelet Count 130 K/uL (130-400); RDW Coefficient of Variation 17.9 % (11.5-14.5); RDW Standard Deviation 56.5 fL (36.4-46.3); Red Blood Count 4.63 M/uL (4.70-6.10); White Blood Count 6.82 K/ul (4.8-10.8)
[2023-03-29 06:36] LABS: Albumin Level 3.5 gm/dl (3.4-5.0); BUN Creatinine Ratio 32.3 (10-20); Bilirubin Direct 0.4 mg/dl (0-0.2); Bilirubin,Total 1.3 mg/dl (0.2-1.0); Calcium 9.9 mg/dl (8.6-10.3); Creatinine Clr Calc Pharmacy 48.1 ml/min; Est GFR (African American) 58.5 ml/min; Est GFR (Non-African American) 50.5 ml/min; Potassium 3.9 mmol/L (3.5-5.1); Total Protein 5.8 gm/dl (6.0-8.3)
[2023-03-29] MEDS: CLOPIDOGREL BISULFATE 75 MG TAB PO SCH (08:50)
[2023-03-29] MEDS: ISOSORBIDE MONO EXTENDED REL 30 MG TABCR PO SCH (08:50)
[2023-03-29] MEDS: CEROVITE ADV FORMULA TAB PO SCH (08:50)
[2023-03-29] MEDS: FUROSEMIDE 40 MG/4 ML VIAL IV SCH (08:50)
[2023-03-29] MEDS: allopurinoL 300 MG TAB PO SCH (08:50)
[2023-03-29] MEDS: ASPIRIN 81 MG ECTAB PO SCH (08:51)
[2023-03-29] MEDS: HEPARIN SOD 5,000 UNIT/0.5 ML VIAL SQ SCH ×2 (08:51→20:40)
[2023-03-29] MEDS: INSULIN ASPART PER UNIT CHARGE SC SCH ×4 (08:54→20:38)
[2023-03-29] MEDS: POTASSIUM CHLORIDE CRTAB 20 MEQ TABCR PO SCH ×2 (08:59→20:44)
--- NOTE | 2023-03-29 09:53 | Cardiology Progress Note ---
Date of Service March 29, 2023 Assessment & Plan (1) Acute on chronic systolic (congestive) heart failure: (2) Ischemic cardiomyopathy: (3) NADIA (acute kidney injury): (4) Elevated LFTs: Plan Patient is an 82-year-old male with complex constellation of ischemic heart disease with severe ischemic cardiomyopathy presenting with signs/symptoms of worsening congestive heart failure (SOB, edema, abdominal bloating), complicated by NADIA and elevated LFT's Entresto recently discontinued as an outpatient due to NADIA. Dobutamine added upon admission to aid with LV systolic function and diuresis. Patient has diuresed approx 9.7 L since admission, -6.6 L. Down approx 5 kg. Improved SOB and edema, but not at baseline. Give additional IV furosemide 60 mg this morning with dobutamine gtt. Plan to turn off dobutamine at noon today. Will need to monitor BP off dobutamine. Tentatively schedule furosemide 40 mg IV this afternoon. Monitor I+O's. Monitor renal function. Continue amiodarone to maintain NSR. history of non sustained Vt. LFT's improving. Elevation in enzymes likely due to hepatic congestion. Hold statin. Hold other antihypertensives with hypotension including isosorbide. Metoprolol dose reduced from 50 to 25 mg BID. Hold for systolic BP < 90. Upon discharge, will need to re-evaluate his current diuretic plan as outpatient. He was most recently taking furosemide 20 mg - 2 tablets in AM and 2 tablets in afternoon. He feels this was "not working". May need to consider transitioning and trial of torsemide or bumex. Case discussed with Dr. Marx I spent a total of 30 minutes on the date of service in preparation, delivery, and documentation of the care provided to this patient, excluding any time spent in the performance of separately billed services. Michelle Sims PA-C Department of Cardiology, [facility] This chart was completed in part utilizing Speech Voice Recognition Software. Grammatical errors, random word insertions, pronoun errors, and incomplete sentences are an occasional consequence of this system due to software limitations, ambient noise, and hardware issues. Any formal questions or concerns about the content, text, or information contained within the body of this dictation should be directly addressed to the provider for clarification. Admission and Anticipated Discharge Date Admission Date: March 26, 2023 Supervising Physician Co-Signing Physician Notes Supervising Physician Attestation: I have personally performed a history and physical examination on the patient. I agree with the physician special events assistant's findings and plan as documented with the following additions. Subjective: Patient notes feeling generalized improvement every day while hospitalized. Vague nauseousness noted today. Telemetry reveals atrial sensed ventricular paced rhythm in the 80s to 90s. Exam: Cardiovascular: Irregular rhythm, no murmur, 1+ ankle and pedal edema, improved compared to yesterday Pulmonary: Mildly reduced breath sounds the bases Data: Creatinine had been 2.72 on date of admission, 03/26/2023, and has improved to 1.3 as of 03/29/2023 Assessment and Plan: Acute decompensation, chronic heart failure with reduced ejection fraction, ischemic cardiomyopathy, acute kidney injury * Discontinue dobutamine * Increase furosemide to 60 mg every morning, 40 mg at 1600. DVT prophylaxis: Subcutaneous heparin I spent a total of 20 minutes on the date of service in preparation, delivery, and documentation of the care provided to this patient, excluding any time spent in the performance of separately billed services. Saqib Marx, DO Subjective Patient resting in bed. Feels "about the same" as yesterday. SOB with exertion noted with PT yesterday afternoon. Denies chest pain. No dizziness. Patient feels his edema has improved from yesterday. Tolerating diuretics. Review of Systems Review of Systems: All systems reviewed & are unremarkable except as noted in HPI & below Physical Exam Constitutional: + ill appearing; no acute distress Eyes: PERRL, conjunctivae normal, anicteric sclerae ENMT: external ear and nose normal, oropharynx normal Neck: trachea midline, no thyromegaly Respiratory: Auscultation: + rales (Bibasilar) Cardiovascular: Rate/Rhythm: regular rhythm (Biventricular pacing) Heart Sounds: + murmur (Grade 1-2 or 6 systolic murmur) Vessels: + JVD Extremities: + edema (1-2+ b/l with chronic stasis changes) Gastrointestinal (Abdomen): Percussion/Palpation: abdomen soft (Mild distention) Neurologic: PERRL, EOMI, accommodation nl, no face palsy, no dysarthria Results & Data Vital Signs (Past 12 Hours) Vital Signs Temp Pulse Pulse Resp BP BP Pulse Ox 03/29/23 07:46 36.3 C L 71 19 99/65 L 92 03/29/23 03:41 36.6 C 95 H 18 115/79 97 03/29/23 00:00 36.6 C 88 18 117/71 96 03/28/23 23:05 90 O2 Del Method 03/29/23 07:46 Room Air 03/29/23 03:41 Room Air 03/29/23 00:00 Room Air 03/28/23 23:05 Laboratory Results Cardiac Enzymes 03/29/23 Range/Units 05:24 AST 60 H (13-39) U/L CBC 03/29/23 Range/Units 05:24 WBC 6.82 (4.8-10.8) K/ul RBC 4.63 L (4.70-6.10) M/uL Hgb 13.0 L (14.0-18.0) g/dl Hct 40.9 L (42.0-52.0) % Plt Count 130 (130-400) K/uL Comprehensive Metabolic Panel 03/29/23 Range/Units 05:24 Sodium 140 (136-145) mmol/L Potassium 3.9 (3.5-5.1) mmol/L Chloride 103 (98-107) mmol/L Carbon Dioxide 28 (21-32) mmol/L BUN 42 H (6-23) mg/dl Creatinine 1.30 (0.6-1.4) mg/dl Glucose 126 H (70-99(Fasting)) mg/dl Calcium 9.9 (8.6-10.3) mg/dl Direct Bilirubin 0.4 H (0-0.2) mg/dl AST 60 H (13-39) U/L ALT 154 H (7-52) U/L Alkaline Phosphatase 131 H (34-104) U/L Total Protein 5.8 L (6.0-8.3) gm/dl Albumin 3.5 (3.4-5.0) gm/dl Intake and Output 03/28/23 03/29/23 03/29/23 22:59 06:59 14:59 Intake Total 615.64 / 1605.64 150 / 1605.64 Output Total 750 / 4250 1400 / 4250 800 / 800 Balance -134.36 / -2644.36 -1250 / -2644.36 -800 / -800 Intake: IV 255.64 / 255.64 DOBUTamine / D5W 500 mg In 250 255.64 / 255.64 ml @ 8.397 mls/hr IV .Q24H [facility] Rx#:[id number] Oral 360 / 1350 150 / 1350 Output: Urine 750 / 4250 1400 / 4250 800 / 800 Other: Weight 88.1 kg Weight Measurement Method Built in [facility] Diagnostic Findings Telemetry reviewed: Paced in the 90's. Medications Administered Current Inpatient Medications Acetaminophen (Acetaminophen 325 Mg Tab) 650 mg PO Q4H PRN PRN Reason: Pain or Fever Stop: 04/25/23 08:19 Albuterol (Albuterol Hfa 8 Gm Inhaler) 2 puffs INH Q4R PRN PRN Reason: Shortness Of Breath Stop: 04/25/23 05:15 Allopurinol ([facility] 300 Mg Tab) [facility]: 04/25/23 08:59 Last Admin: 03/29/23 08:50 Dose: 300 mg Alprazolam (Alprazolam 0.5 Mg Tablet) 0.5 mg PO HS PRN PRN Reason: Anxiety Stop: 04/25/23 05:15 Last Admin: 03/28/23 21:06 Dose: 0.5 mg Amiodarone HCl (Amiodarone 200 Mg Tab) 200 mg PO HS [facility] Stop: 04/25/23 20:59 Last Admin: 03/28/23 20:56 Dose: 200 mg Aspirin (Aspirin 81 Mg Ectab) [facility] Stop: 04/25/23 08:59 Last Admin: 03/29/23 08:51 Dose: 81 mg Clopidogrel Bisulfate (Clopidogrel Bisulfate 75 Mg Tab) [facility] [place] Stop: 04/25/23 08:59 Last Admin: 03/29/23 08:50 Dose: 75 mg Dextrose (Dextrose 50% 50 Ml Syringe) 25 - 50 ml IV UD PRN; Protocol PRN Reason: Hypoglycemia Protocol Stop: 04/25/23 08:19 Furosemide (Furosemide 40 Mg/4 Ml Vial) 60 [facility] [place] Stop: 04/28/23 08:59 Last Admin: 03/29/23 08:50 Dose: 60 mg Furosemide (Furosemide 40 Mg/4 Ml Vial) 40 mg IV QD@16 [facility] Stop: 04/28/23 15:59 Glucagon (Glucagon For Inj 1 Mg Vial) 1 mg SQ UD PRN; Protocol PRN Reason: Hypoglycemia Protocol Stop: 04/25/23 08:19 Glucose (Glucose 40% Gel 15 Gm Tube) 15 - 30 gm PO UD PRN; Protocol PRN Reason: Hypoglycemia Protocol Stop: 04/25/23 08:19 Glucose (Glucose 10 Tab/Tube) 4 - 8 tab PO UD PRN; Protocol PRN Reason: Hypoglycemia Treatment Stop: 04/25/23 08:19 Heparin Sodium (Porcine) (Heparin Sod 5,000 Unit/0.5 Ml Vial) 5,000 units SQ Q12 [facility] Stop: 04/25/23 08:59 Last Admin: 03/29/23 08:51 Dose: 5,000 units Dobutamine HCl/Dextrose (Dobutamine / D5w) 500 mg in 250 mls @ 8.397 mls/hr IV .Q24H [facility]; Protocol Stop: 03/29/23 12:00 Last Infusion: 03/28/23 18:59 Dose: 8.4 mls/hr Insulin Aspart (Insulin Aspart Per Unit Charge) 0 units SC ACHS [facility] Stop: 04/25/23 08:19 Last Admin: 03/29/23 08:54 Dose: Not Given Isosorbide Mononitrate (Isosorbide [place] Extended Rel 30 Mg Tabcr) 30 mg PO QAM [facility] Stop: 04/25/23 08:59 Last Admin: 03/29/23 08:50 Dose: 30 mg Metoprolol Succinate (Metoprolol Succ 25mg Ext Rel Tab) 25 mg PO BID [facility] Stop: 04/25/23 20:59 Last Admin: 03/28/23 20:54 Dose: Not Given Mirtazapine (Mirtazapine Tab 15 Mg Tab) 15 mg PO HS [facility] Stop: 04/25/23 20:59 Last Admin: 03/28/23 20:55 Dose: 15 mg Miscellaneous (Carbohydrates For Hypoglycemia ) 15 - 30 gm PO UD PRN PRN Reason: Hypoglycemia Protocol Stop: 04/25/23 08:19 Miscellaneous (Stop Order) 1 each N/A ONE ONE Stop: 03/29/23 12:01 Multivitamins/Minerals (Cerovite Adv Formula Tab) 1 tab PO DAILY [facility] Stop: 04/25/23 08:59 Last Admin: 03/29/23 08:50 Dose: 1 tab Nitroglycerin (Nitroglycerin Sl 0.4 Mg/Tab Tab) 0.4 mg SL Q5M PRN PRN Reason: Chest Pain Stop: 04/25/23 08:19 Polyethylene Glycol (Polyethylene (Miralax) 17 Gm Pack) 17 gm PO DAILY PRN PRN Reason: Constipation Stop: 04/25/23 08:19 Last Admin: 03/29/23 09:12 Dose: 17 gm Potassium Chloride (Potassium Chloride Crtab 20 Meq Tabcr) 20 meq PO BID [facility] Stop: 04/26/23 20:59 Last Admin: 03/29/23 08:59 Dose: 20 meq
[2023-03-29] MEDS: METOPROLOL SUCC 25MG EXT REL TAB PO SCH ×2 (12:02→20:41)
[2023-03-29] MEDS: DOBUTamine / D5W 500 MG/250 ML BAG IV SCH (12:03)
--- NOTE | 2023-03-29 12:04 | XRay Report ---
XR chest 1V portable CLINICAL HISTORY: CHF TECHNIQUE: Single frontal radiograph of the chest was obtained. Comparison: Comparison is made to chest radiograph 03/26/2023 FINDINGS: Pacemaker defibrillator is seen. Cardiomegaly is noted. The aortic arch is calcified. There is promin ence and cephalization of the vasculature with Caprice B lines seen. No evidence of pleural effusion o r pneumothorax. IMPRESSION: Cardiomegaly and moderate pulmonary edema. ACT 112: Negative or not required by law. Electronically signed by: Felipe Guido M.D. 03/29/2023 12:03 PM
--- NOTE | 2023-03-29 14:03 | Hospitalist Progress Note ---
Date of Service March 29, 2023 Assessment & Plan (1) NYHA class 3 heart failure with reduced ejection fraction: Plan: Patient is an 82 yr male who presents with shortness of breath, found to be in [id number] systolic congestive heart failure. Acute on chronic systolic heart failure Acute respiratory failure with hypoxia secondary to above --CXR:No acute chest disease. Cardiomegaly is noted. --ECHO: Rhythm biventricular paced. Left ventricle is mildly dilated. Normal left ventricular wall thickness. Severe global hypokinesis of the left ventricle. EF 20 to 25%. Aortic valve leaflets are moderately calcified but appear mobile with mild restriction leaflet mobility. No hemodynamically significant valvular aortic stenosis. Trace aortic regurgitation. Mitral valve leaflets are mildly thickened and there is annular dilatation. Moderate to severe mitral regurgitation. Mild to moderate tricuspid regurgitation. Right ventricular systolic pressure is elevated at 40 to 55 mmHg --Hold PO diuretics --Continue dobutamine drip--- plan to be discontinued today by cardiology Appreciate cardiology input Continue IV Lasix Continue Isosorbide, beta-more with holding parameter Monitor I's and O's, daily weight, volume status Metoprolol succinate dose decreased to 25 mg twice daily Isosorbide dose decreased to 30 mg daily Weaned off of supplemental oxygen Monitor electrolytes, renal function BP remains low Lasix dose adjusted Cardiology following Hypokalemia Replete electrolytes as needed Transaminitis Likely hepatic congestion Amiodarone could have contributed as well Liver USD:Gallbladder sludge is seen with mild wall thickening but negative Duckworth's sign. No acute abnormalities. Hold statin Monitor LFTs Avoid hepatotoxic agents as able LFTs improved Constipation Started on bowel regimen NADIA on CKD III Cr 2.7>2.1>1.5>1.3 Hold Entresto Monitor renal function Avoid nephrotoxic agents as able H/O ventricular arrhythmias S/P BiV ICD Continue amiodarone CAD S/P cardiac catheterization in 09/2022 showing multiple vessel disease, medical management recommended Continue aspirin, Plavix, beta more Statin on hold as above Hyperlipidemia Resume statin as able Hypertension Entresto discontinued Continue Metoprolol with holding parameter Gout on allopurinol. DM II HbA1c: 7.4 Continue Insulin per protocol Monitor BGs Insulin protocol adjusted to minimize hypoglycemic episodes DVT Px: Heparin SQ CODE STATUS Full code Disposition PT OT prior to discharge Admission and Anticipated Discharge Date Admission Date: March 26, 2023 Subjective Patient is seen and examined at bedside Reports dyspnea on exertion Subjectively feels leg edema slowly improving Denies any chest pain, nausea, vomiting, abdominal pain Discussed with cardiology today Reports constipation Review of Systems Review of Systems: All systems reviewed & are unremarkable except as noted in Subjective Physical Exam Physical Exam: Physical Exam: Vitals signs as noted above General Appearance:Moderately built and nourished, Chronic ill appearing no apparent distress Head: normocephalic, Atraumatic Eyes: normal inspection, EOMI Neck: supple, Trachea midline Respiratory/Chest: Normal breath sounds, CTA, No accessory muscle use Cardiovascular: S1, S2, + murmur Abdomen/GI:Soft, Non tender, Bowel sounds present Extremities/Musculoskeletal:normal inspection, 2+ B/L LE edema Neurologic/Psych:AAOX3, grossly no focal neurological deficits Skin: normal color, warm Results & Data Results & Data Vital Signs (Past 12 Hours) Vital Signs Temp Pulse Pulse Resp BP Pulse Ox O2 Del Method 03/29/23 11:28 36.5 C 92 H 19 99/54 L 96 Room Air 03/29/23 08:00 90 03/29/23 08:00 Room Air 03/29/23 07:46 36.3 C L 71 19 99/65 L 92 Room Air 03/29/23 03:41 36.6 C 95 H 18 115/79 97 Room Air Laboratory Results Short CBC 03/29/23 Range/Units 05:24 WBC 6.82 (4.8-10.8) K/ul Hgb 13.0 L (14.0-18.0) g/dl Hct 40.9 L (42.0-52.0) % Plt Count 130 (130-400) K/uL BMP 03/29/23 05:24 Sodium 140 Potassium 3.9 Chloride 103 Carbon Dioxide 28 BUN 42 H Creatinine 1.30 Glucose 126 H Calcium 9.9 Liver Function 03/29/23 Range/Units 05:24 Total Bilirubin 1.3 H (0.2-1.0) mg/dl Direct Bilirubin 0.4 H (0-0.2) mg/dl AST 60 H (13-39) U/L ALT 154 H (7-52) U/L Alkaline Phosphatase 131 H (34-104) U/L Albumin 3.5 (3.4-5.0) gm/dl
[2023-03-29] MEDS: DOCUSATE SODIUM 100 MG CAP PO SCH ×2 (14:15→20:41)
[2023-03-29] MEDS ORDERED: FUROSEMIDE 40 MG/4 ML VIAL IV SCH (16:00)
[2023-03-29] MEDS: ALPRAZolam 0.5 MG TABLET PO PRN (20:38)
[2023-03-29] MEDS: AMIODARONE 200 MG TAB PO SCH (20:40)
[2023-03-29] MEDS: MIRTAZAPINE TAB 15 MG TAB PO SCH (20:40)
[2023-03-30 07:04] LABS: BUN Creatinine Ratio 24.4 (10-20); Calcium 10.1 mg/dl (8.6-10.3); Creatinine Clr Calc Pharmacy 35.2 ml/min; Est GFR (African American) 44.2 ml/min; Est GFR (Non-African American) 38.1 ml/min; Potassium 4.3 mmol/L (3.5-5.1)
[2023-03-30] MEDS: INSULIN ASPART PER UNIT CHARGE SC SCH ×4 (08:29→20:13)
[2023-03-30] MEDS: FUROSEMIDE 40 MG/4 ML VIAL IV SCH ×2 (08:30→17:15)
[2023-03-30] MEDS: allopurinoL 300 MG TAB PO SCH (08:31)
[2023-03-30] MEDS: DOCUSATE SODIUM 100 MG CAP PO SCH (08:31)
[2023-03-30] MEDS: ISOSORBIDE MONO EXTENDED REL 30 MG TABCR PO SCH (08:32)
[2023-03-30] MEDS: CLOPIDOGREL BISULFATE 75 MG TAB PO SCH (08:32)
[2023-03-30] MEDS: ASPIRIN 81 MG ECTAB PO SCH (08:32)
[2023-03-30] MEDS: METOPROLOL SUCC 25MG EXT REL TAB PO SCH ×2 (08:32→19:18)
[2023-03-30] MEDS: HEPARIN SOD 5,000 UNIT/0.5 ML VIAL SQ SCH ×2 (08:33→19:17)
[2023-03-30] MEDS: POTASSIUM CHLORIDE CRTAB 20 MEQ TABCR PO SCH ×2 (08:33→19:37)
[2023-03-30] MEDS: CEROVITE ADV FORMULA TAB PO SCH (08:33)
[2023-03-30] MEDS ORDERED: FUROSEMIDE INJ 20 MG/2 ML VIAL IV ONE (10:28)
--- NOTE | 2023-03-30 12:36 | Cardiology Progress Note ---
Date of Service March 30, 2023 Assessment & Plan (1) Acute on chronic systolic (congestive) heart failure: (2) Ischemic cardiomyopathy: (3) NADIA (acute kidney injury): (4) Elevated LFTs: Plan Patient is an 82-year-old male with complex constellation of ischemic heart disease with severe ischemic cardiomyopathy presenting with signs/symptoms of worsening congestive heart failure (SOB, edema, abdominal bloating), complicated by NADIA and elevated LFT's Entresto recently discontinued as an outpatient due to NADIA. Dobutamine added upon admission to aid with LV systolic function and diuresis. Patient had diuresed approx 9.7 L since admission, -6.6 L. Down approx 5 kg. Patient was making progress with diuresis and dobutamine was stopped yesterday. Unfortunately today he reports worsening SOB, with worsening pulm status on exam. Increase furosemide to 80 mg IV BID today Monitor I+O's. Monitor renal function. Continue amiodarone to maintain NSR. history of non sustained Vt. LFT's improving. Elevation in enzymes likely due to hepatic congestion. Hold statin. Hold other antihypertensives with hypotension including isosorbide. Metoprolol dose reduced from 50 to 25 mg BID. Hold for systolic BP < 90. Upon discharge, will need to re-evaluate his current diuretic plan as outpatient. He was most recently taking furosemide 20 mg - 2 tablets in AM and 2 tablets in afternoon. He feels this was "not working". May need to consider transitioning and trial of torsemide or bumex. Case discussed with Dr. Marx I spent a total of 30 minutes on the date of service in preparation, delivery, and documentation of the care provided to this patient, excluding any time spent in the performance of separately billed services. Michelle Smis PA-C Department of Cardiology, [facility] This chart was completed in part utilizing Speech Voice Recognition Software. Grammatical errors, random word insertions, pronoun errors, and incomplete sentences are an occasional consequence of this system due to software limitations, ambient noise, and hardware issues. Any formal questions or concerns about the content, text, or information contained within the body of this dictation should be directly addressed to the provider for clarification. Admission and Anticipated Discharge Date Admission Date: March 26, 2023 Supervising Physician Co-Signing Physician Notes Supervising Physician Attestation: I have personally performed a history and physical examination on the patient. I agree with the physician employment legal assistant's findings and plan as documented with the following additions. Subjective: Patient with worsening shortness of breath, orthopnea today and last night. With dobutamine having been discontinued at 12 noon on 03/29/2023. Telemetry reveals atrial sensed, ventricular paced rhythm in the 80s to 100s. Exam: Cardiovascular: Regular rhythm, no murmurs, elevated jugular venous pressure, 1+ pedal, ankle edema Pulmonary: Bilateral rales at the bases Data: Creatinine 1.3 yesterday increased to 1.64 today Assessment and Plan: Acute on chronic heart failure with reduced ejection fraction NADIA on CKD -Patient symptomatically worse off of dobutamine infusion. -Increase furosemide 80 mg twice daily. -Monitor electrolytes, blood pressure. Blood pressure remains relatively the same, with systolic readings in the 90s to 100s during admission. DVT prophylaxis: Subcutaneous heparin I spent a total of 20 minutes on the date of service in preparation, delivery, and documentation of the care provided to this patient, excluding any time spent in the performance of separately billed services. Saqib Marx, DO Subjective Patient reports worsening SOB this morning. Conversational dyspnea noted. Chest xray yesterday with pulm edema/congestion. No chest pain. edema remains the same. good urine outputs overnight and weight still trending down. Review of Systems Review of Systems: All systems reviewed & are unremarkable except as noted in HPI & below Physical Exam Constitutional: + ill appearing; no acute distress Eyes: PERRL, conjunctivae normal, anicteric sclerae ENMT: external ear and nose normal, oropharynx normal Neck: trachea midline, no thyromegaly Respiratory: Auscultation: + rales (Bibasilar) Cardiovascular: Rate/Rhythm: regular rhythm (Biventricular pacing) Heart Sounds: + murmur (Grade 1-2 or 6 systolic murmur) Vessels: + JVD Extremities: + edema (1-2+ b/l with chronic stasis changes) Gastrointestinal (Abdomen): Percussion/Palpation: abdomen soft (Mild distention) Neurologic: PERRL, EOMI, accommodation nl, no face palsy, no dysarthria Results & Data Vital Signs (Past 12 Hours) Vital Signs Temp Pulse Pulse Resp BP Pulse Ox O2 Del Method 03/30/23 07:30 36.4 C L 66 18 91/65 L 93 Room Air 03/30/23 11:53 Nasal Cannula 03/30/23 11:00 36.6 C 74 16 103/64 93 Room Air 03/30/23 10:24 91 H 03/30/23 03:16 36.4 C L 99 H 18 96/62 L 96 Room Air O2 Flow Rate 03/30/23 07:30 03/30/23 11:53 2 03/30/23 11:00 03/30/23 10:24 03/30/23 03:16 Laboratory Results Comprehensive Metabolic Panel 03/30/23 Range/Units 05:21 Sodium 140 (136-145) mmol/L Potassium 4.3 (3.5-5.1) mmol/L Chloride 101 (98-107) mmol/L Carbon Dioxide 30 (21-32) mmol/L BUN 40 H (6-23) mg/dl Creatinine 1.64 H D (0.6-1.4) mg/dl Glucose 149 H (70-99(Fasting)) mg/dl Calcium 10.1 (8.6-10.3) mg/dl Intake and Output 03/29/23 03/30/23 03/30/23 22:59 06:59 14:59 Intake Total 1230 / 1373.36 Output Total 850 / 3125 675 / 3125 Balance 380 / -1751.64 -675 / -1751.64 Intake: Oral 1230 / 1230 Output: Urine 850 / 3125 675 / 3125 Other: Weight 84.7 kg Weight Measurement Method Built in [facility] Diagnostic Findings telemetry reviewed: Persistent pacing with HR's in the 90's Chest xray reviewed from yesterday: IMPRESSION: Cardiomegaly and moderate pulmonary edema. Medications Administered Current Inpatient Medications Acetaminophen (Acetaminophen 325 Mg Tab) 650 mg PO Q4H PRN PRN Reason: Pain or Fever Stop: 04/25/23 08:19 Albuterol (Albuterol Hfa 8 Gm Inhaler) 2 puffs INH Q4R PRN PRN Reason: Shortness Of Breath Stop: 04/25/23 05:15 Allopurinol (Allopurinol 300 Mg Tab) 300 mg PO QAM ON LICENSE OF [facility] Stop: 04/25/23 08:59 Last Admin: 03/30/23 08:31 Dose: 300 mg Alprazolam (Alprazolam 0.5 Mg Tablet) 0.5 mg PO HS PRN PRN Reason: Anxiety Stop: 04/25/23 05:15 Last Admin: 03/29/23 20:38 Dose: 0.5 mg Amiodarone HCl (Amiodarone 200 Mg Tab) 200 mg PO HS ON LICENSE OF [facility] Stop: 04/25/23 20:59 Last Admin: 03/29/23 20:40 Dose: 200 mg Aspirin (Aspirin 81 Mg Ectab) 81 mg PO QAM ON LICENSE OF [facility] Stop: 04/25/23 08:59 Last Admin: 03/30/23 08:32 Dose: 81 mg Clopidogrel Bisulfate (Clopidogrel Bisulfate 75 Mg Tab) 75 mg PO QAM ON LICENSE OF [facility] Stop: 04/25/23 08:59 Last Admin: 03/30/23 08:32 Dose: 75 mg Dextrose (Dextrose 50% 50 Ml Syringe) 25 - 50 ml IV UD PRN; Protocol PRN Reason: Hypoglycemia Protocol Stop: 04/25/23 08:19 Docusate Sodium (Docusate Sodium 100 Mg Cap) 100 mg PO BID ON LICENSE OF [facility] Stop: 04/28/23 11:44 Last Admin: 03/30/23 08:31 Dose: 100 mg Furosemide (Furosemide 40 Mg/4 Ml Vial) 80 mg IV BIDM ON LICENSE OF [facility] Stop: 04/29/23 16:59 Glucagon (Glucagon For Inj 1 Mg Vial) 1 mg SQ UD PRN; Protocol PRN Reason: Hypoglycemia Protocol Stop: 04/25/23 08:19 Glucose (Glucose 40% Gel 15 Gm Tube) 15 - 30 gm PO UD PRN; Protocol PRN Reason: Hypoglycemia Protocol Stop: 04/25/23 08:19 Glucose (Glucose 10 Tab/Tube) 4 - 8 tab PO UD PRN; Protocol PRN Reason: Hypoglycemia Treatment Stop: 04/25/23 08:19 Heparin Sodium (Porcine) (Heparin Sod 5,000 Unit/0.5 Ml Vial) 5,000 units SQ Q12 MARTA Stop: 04/25/23 08:59 Last Admin: 03/30/23 08:33 Dose: 5,000 units Insulin Aspart (Insulin Aspart Per Unit Charge) 0 units SC ACHS ON LICENSE OF [facility] Stop: 04/25/23 08:19 Last Admin: 03/30/23 12:24 Dose: 3 units Isosorbide Mononitrate (Isosorbide Archuleta Extended Rel 30 Mg Tabcr) 30 mg PO QAM ON LICENSE OF [facility] Stop: 04/25/23 08:59 Last Admin: 03/30/23 08:32 Dose: Not Given Metoprolol Succinate (Metoprolol Succ 25mg Ext Rel Tab) 25 mg PO BID MARTA Stop: 04/25/23 20:59 Last Admin: 03/30/23 08:32 Dose: Not Given Mirtazapine (Mirtazapine Tab 15 Mg Tab) 15 mg PO HS MARTA Stop: 04/25/23 20:59 Last Admin: 03/29/23 20:40 Dose: 15 mg Miscellaneous (Carbohydrates For Hypoglycemia ) 15 - 30 gm PO UD PRN PRN Reason: Hypoglycemia Protocol Stop: 04/25/23 08:19 Multivitamins/Minerals (Cerovite Adv Formula Tab) 1 tab PO DAILY MARTA Stop: 04/25/23 08:59 Last Admin: 03/30/23 08:33 Dose: 1 tab Nitroglycerin (Nitroglycerin Sl 0.4 Mg/Tab Tab) 0.4 mg SL Q5M PRN PRN Reason: Chest Pain Stop: 04/25/23 08:19 Polyethylene Glycol (Polyethylene (Miralax) 17 Gm Pack) 17 gm PO DAILY PRN PRN Reason: Constipation Stop: 04/25/23 08:19 Last Admin: 03/29/23 09:12 Dose: 17 gm Potassium Chloride (Potassium Chloride Crtab 20 Meq Tabcr) 20 meq PO BID MARTA Stop: 04/26/23 20:59 Last Admin: 03/30/23 08:33 Dose: 20 meq
--- NOTE | 2023-03-30 12:53 | Hospitalist Progress Note ---
Date of Service March 30, 2023 Assessment & Plan (1) NYHA class 3 heart failure with reduced ejection fraction: Plan: Patient is an 82 yr male who presents with shortness of breath, found to be in [id number] systolic congestive heart failure. Acute on chronic systolic heart failure Acute respiratory failure with hypoxia secondary to above --CXR:No acute chest disease. Cardiomegaly is noted. --ECHO: Rhythm biventricular paced. Left ventricle is mildly dilated. Normal left ventricular wall thickness. Severe global hypokinesis of the left ventricle. EF 20 to 25%. Aortic valve leaflets are moderately calcified but appear mobile with mild restriction leaflet mobility. No hemodynamically significant valvular aortic stenosis. Trace aortic regurgitation. Mitral valve leaflets are mildly thickened and there is annular dilatation. Moderate to severe mitral regurgitation. Mild to moderate tricuspid regurgitation. Right ventricular systolic pressure is elevated at 40 to 55 mmHg --Hold PO diuretics --Dobutamine drip--- discontinued on 03/29/2023 Appreciate cardiology input Continue IV Lasix Continue Isosorbide, beta-more with holding parameter Monitor I's and O's, daily weight, volume status Metoprolol succinate dose decreased to 25 mg twice daily Isosorbide dose decreased to 30 mg daily Monitor electrolytes, renal function Lasix dose increased to 80 mg twice daily Monitor electrolytes and replace as needed Saturating well on 2 L supplemental oxygen Wean off of supplemental oxygen as able Hypokalemia Replete electrolytes as needed Transaminitis Likely hepatic congestion Amiodarone could have contributed as well Liver USD:Gallbladder sludge is seen with mild wall thickening but negative Duckworth's sign. No acute abnormalities. Hold statin Monitor LFTs Avoid hepatotoxic agents as able LFTs improved Constipation Started on bowel regimen NADIA on CKD III Cr 2.7>2.1>1.6 Hold Entresto Monitor renal function Avoid nephrotoxic agents as able H/O ventricular arrhythmias S/P BiV ICD Continue amiodarone CAD S/P cardiac catheterization in 09/2022 showing multiple vessel disease, medical management recommended Continue aspirin, Plavix, beta more Statin on hold as above Hyperlipidemia Resume statin as able Hypertension Entresto discontinued Continue Metoprolol with holding parameter Gout on allopurinol. DM II HbA1c: 7.4 Continue Insulin per protocol Monitor BGs Insulin protocol adjusted to minimize hypoglycemic episodes DVT Px: Heparin SQ CODE STATUS Full code Disposition PT OT prior to discharge Admission and Anticipated Discharge Date Admission Date: March 26, 2023 Subjective Patient is seen and examined at bedside States having dyspnea on minimal exertion Poor sleep overnight Also reports orthopnea Leg edema slowly improving Denies any chest pain, nausea, vomiting, abdominal pain Discussed with cardiology today Constipation resolved Review of Systems Review of Systems: All systems reviewed & are unremarkable except as noted in Subjective Physical Exam Physical Exam: Physical Exam: Vitals signs as noted above General Appearance:Moderately built and nourished, Chronic ill appearing no apparent distress Head: normocephalic, Atraumatic Eyes: normal inspection, EOMI Neck: supple, Trachea midline Respiratory/Chest: Normal breath sounds, Basal Crackles, No accessory muscle use Cardiovascular: S1, S2, + murmur Abdomen/GI:Soft, Non tender, Bowel sounds present Extremities/Musculoskeletal:normal inspection, 2+ B/L LE edema Neurologic/Psych:AAOX3, grossly no focal neurological deficits Skin: normal color, warm Results & Data Results & Data Vital Signs (Past 12 Hours) Vital Signs Temp Pulse Pulse Resp BP Pulse Ox O2 Del Method 03/30/23 07:30 36.4 C L 66 18 91/65 L 93 Room Air 03/30/23 11:53 Nasal Cannula 03/30/23 11:00 36.6 C 74 16 103/64 93 Room Air 03/30/23 10:24 91 H 03/30/23 03:16 36.4 C L 99 H 18 96/62 L 96 Room Air O2 Flow Rate 03/30/23 07:30 03/30/23 11:53 2 03/30/23 11:00 03/30/23 10:24 03/30/23 03:16 Laboratory Results [facility] 03/30/23 05:21 Sodium 140 Potassium 4.3 Chloride 101 Carbon Dioxide 30 BUN 40 H Creatinine 1.64 H D Glucose 149 H Calcium 10.1
[2023-03-30] MEDS ORDERED: DOCUSATE SODIUM 100 MG CAP PO PRN (12:55)
[2023-03-30] MEDS: AMIODARONE 200 MG TAB PO SCH (19:17)
[2023-03-30] MEDS: MIRTAZAPINE TAB 15 MG TAB PO SCH (19:18)
[2023-03-30] MEDS: ALPRAZolam 0.5 MG TABLET PO PRN (19:37)
[2023-03-31 06:50] LABS: Hematocrit (blood only) 42.5 % (42.0-52.0); Hemoglobin 13.6 g/dl (14.0-18.0); Mean Corpuscular Hemoglobin 27.8 pg (25.0-34.0); Mean Corpuscular Volume 86.7 fL (80.0-100.0); Mean Platelet Volume 11.1 fL (9.4-12.4); Platelet Count 157 K/uL (130-400); RDW Coefficient of Variation 17.7 % (11.5-14.5); RDW Standard Deviation 54.8 fL (36.4-46.3); White Blood Count 8.05 K/ul (4.8-10.8)
[2023-03-31 07:07] LABS: Calcium 10.2 mg/dl (8.6-10.3); Creatinine Clr Calc Pharmacy 29.5 ml/min; Est GFR (African American) 35.6 ml/min; Est GFR (Non-African American) 30.7 ml/min; Magnesium 2.1 mg/dl (1.7-2.4); Potassium 4.4 mmol/L (3.5-5.1)
[2023-03-31] MEDS: INSULIN ASPART PER UNIT CHARGE SC SCH ×4 (08:30→21:09)
[2023-03-31] MEDS: allopurinoL 300 MG TAB PO SCH (09:36)
[2023-03-31] MEDS: FUROSEMIDE 40 MG/4 ML VIAL IV SCH ×2 (09:36→17:15)
[2023-03-31] MEDS: ASPIRIN 81 MG ECTAB PO SCH (09:36)
[2023-03-31] MEDS: HEPARIN SOD 5,000 UNIT/0.5 ML VIAL SQ SCH ×2 (09:36→21:04)
[2023-03-31] MEDS: ISOSORBIDE MONO EXTENDED REL 30 MG TABCR PO SCH (09:36)
[2023-03-31] MEDS: METOPROLOL SUCC 25MG EXT REL TAB PO SCH ×2 (09:36→21:04)
[2023-03-31] MEDS: CEROVITE ADV FORMULA TAB PO SCH (09:37)
[2023-03-31] MEDS: CLOPIDOGREL BISULFATE 75 MG TAB PO SCH (10:12)
[2023-03-31] MEDS: POTASSIUM CHLORIDE CRTAB 20 MEQ TABCR PO SCH ×2 (10:12→21:09)
[2023-03-31] MEDS ORDERED: ONDANSETRON 4 MG OD TAB PO PRN (11:08)
--- NOTE | 2023-03-31 11:23 | Cardiology Progress Note ---
Date of Service March 31, 2023 Assessment & Plan (1) Acute on chronic systolic (congestive) heart failure: (2) Ischemic cardiomyopathy: (3) NADIA (acute kidney injury): (4) Elevated LFTs: Plan Patient is an 82-year-old male with complex constellation of ischemic heart disease with severe ischemic cardiomyopathy presenting with signs/symptoms of worsening congestive heart failure (SOB, edema, abdominal bloating), complicated by NADIA and elevated LFT's Entresto recently discontinued as an outpatient due to NADIA. Dobutamine added upon admission to aid with LV systolic function and diuresis. Dobutamine stopped after several days as patient was improving with ongoing diuresis. Unfortunately yesterday patient became more SOB with worsening fluid status after stopping dobutamine. Furosemide increased to 80 mg IV. Today, he reports improving symptoms compared to yesterday but not at baseline. since admission, I+O's reviewed - he has had 14.5 L output, -8.7 L and down approx 10 kg in weight Continue to monitor I+O's. Monitor renal function. Continue amiodarone to maintain NSR. history of non sustained Vt. LFT's improving. Elevation in enzymes likely due to hepatic congestion. Hold statin. Hold other antihypertensives with hypotension including isosorbide. Metoprolol dose reduced from 50 to 25 mg BID. Hold for systolic BP < 90 - parameters changed. Upon discharge, will need to re-evaluate his current diuretic plan as outpatient. He was most recently taking furosemide 20 mg - 2 tablets in AM and 2 tablets in afternoon. He feels this was "not working". May need to consider transitioning and trial of torsemide or bumex. Case discussed with Dr. Marx I spent a total of 35 minutes on the date of service in preparation, delivery, and documentation of the care provided to this patient, excluding any time spent in the performance of separately billed services. Michelle Sims PA-C Department of Cardiology, [facility] This chart was completed in part utilizing Speech Voice Recognition Software. Grammatical errors, random word insertions, pronoun errors, and incomplete sentences are an occasional consequence of this system due to software limitations, ambient noise, and hardware issues. Any formal questions or concerns about the content, text, or information contained within the body of this dictation should be directly addressed to the provider for clarification. Admission and Anticipated Discharge Date Admission Date: March 26, 2023 Supervising Physician Co-Signing Physician Notes Supervising Physician Attestation: I have personally performed a history and physical examination on the patient. I agree with the physician administrative assistant receptionist's findings and plan as documented with the following additions. Subjective: 82-year-old male with recent cardiac history dating back to September, when he presented with progressive shortness of breath of 1 month duration. He was found to have newly recognized severe left ventricular systolic dysfunction, with echocardiogram 09/22/2022 revealing severe global left ventricular hypokinesis, LVEF in the range of 20-25% with moderate to severe mitral regurgitation, borderline to mild aortic valve stenosis in the setting of low flow state, left bundle branch block. Cardiac catheterization performed 09/23/2022, Dr. Romero. Per review of catheterization report, aortic blood pressure during the study was in the 90s. Left Main (% Stenosis): Distal (25) LAD (% Stenosis): Proximal (60) and Mid (99) D1 (% Stenosis): Proximal (75) Circumflex (% Stenosis): Mid (99) OM1 (% Stenosis): Proximal (50 sequentially) RCA (% Stenosis): Proximal (100) [place] to have poor surgical/interventional targets at that time. Medical management pursued. Patient has since been readmitted for additional heart failure decompensations in October,, November,. 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 Repeat echocardiogram this admission 03/26/2023 ongoing severe global left ventricular hypokinesis ejection fraction range of 20-25% ongoing moderate to severe mitral regurgitation, mild to moderate TR, right ventricular systolic pressure in the range of 40 to 50 mmHg, aortic valve calcification without aortic stenosis Exam: General appearance: Ill-appearing Pulmonary: Bibasilar Rales Cardiovascular: Regular rhythm, 2/6 systolic murmur, 1+ bilateral lower extremity, ankle, pedal edema Abdomen, soft nontender Neurologic no focal deficits Data: Creatinine 03/26/2023 2.72 Creatinine 03/29/2023: 1.3 Creatinine 03/31/2023 1.96 Assessment and Plan: Acute on chronic heart failure with reduced ejection fraction Ischemic cardiomyopathy Mitral regurgitation likely due to cardiomyopathy LV systolic dysfunction persist despite cardiac resynchronization therapy Of note, he had previously been hospitalized in September, October, and November for CHF. -Patient with low cardiac output symptoms at time of presentation this hospital stay. -Patient symptomatically improved with several days of low-dose dobutamine infusion, 3 mcg/kg/min, but has worsened since discontinuation of the infusion. Creatinine has trended back up and volume status is worsened. Systolic blood pressures persistently in the 90s to low 100s which has been his baseline dating back to September. He is not on an SANTY, ARB, or Entresto due to renal insufficiency, low blood pressure. Continue amiodarone (for history of ventricular tachycardia) aspirin, clopidogrel, Imdur 30 mg daily, metoprolol succinate 25 mg daily, furosemide 80 mg twice daily. Subcutaneous heparin for DVT prophylaxis. -Cardiac catheterization films reviewed with interventional cardiology at [facility] [place]. There is potential for high risk PCI to the LAD, but as noted, it is a small and severely calcified vessel, and attempted revascularization, and high risk including renal insufficiency and even . -I discussed the patient's prognosis with him. With his current trajectory, I would anticipate he will likely pass away within the next 6 months of severe congestive heart failure. -Patient going to consider high risk intervention. But if his creatinine worsens, this may not be feasible. -Remain of dobutamine for now, however, if patient elects attempt at revascularization, could resume it for optimization in advance of procedure. I spent a total of 20 minutes on the date of service in preparation, delivery, and documentation of the care provided to this patient, excluding any time spent in the performance of separately billed services. Saqib Marx, DO Subjective Patient out of bed, relaxing in chair this morning. He reports he had a better night last evening. Slept better. Orthopnea improved from the night before. Wore oxygen through the night and feels this helped. Reports SOB improved this morning as well with ambulation in the room. Not at baseline, but better than yesterday Review of Systems Review of Systems: All systems reviewed & are unremarkable except as noted in HPI & below Physical Exam Constitutional: + ill appearing; no acute distress Eyes: PERRL, conjunctivae normal, anicteric sclerae ENMT: external ear and nose normal, oropharynx normal Neck: trachea midline, no thyromegaly Respiratory: Auscultation: + rales (Bibasilar) Cardiovascular: Rate/Rhythm: regular rhythm (Biventricular pacing) Heart Sounds: + murmur (Grade 1-2 or 6 systolic murmur) Vessels: + JVD Extremities: + edema (1-2+ b/l with chronic stasis changes) Gastrointestinal (Abdomen): Percussion/Palpation: abdomen soft (Mild distention) Neurologic: PERRL, EOMI, accommodation nl, no face palsy, no dysarthria Results & Data Vital Signs (Past 12 Hours) Vital Signs Temp Pulse Pulse Resp BP Pulse Ox O2 Del Method 03/31/23 08:00 90 03/31/23 08:06 36.4 C L 93 H 17 105/65 98 Nasal Cannula 03/31/23 03:10 36.9 C 95 H 18 104/72 98 Nasal Cannula O2 Flow Rate 03/31/23 08:00 03/31/23 08:06 2 03/31/23 03:10 2 Laboratory Results CBC 03/31/23 Range/Units 05:43 WBC 8.05 (4.8-10.8) K/ul RBC 4.90 (4.70-6.10) M/uL Hgb 13.6 L (14.0-18.0) g/dl Hct 42.5 (42.0-52.0) % Plt Count 157 (130-400) K/uL Comprehensive Metabolic Panel 03/31/23 Range/Units 05:43 Sodium 139 (136-145) mmol/L Potassium 4.4 (3.5-5.1) mmol/L Chloride 99 (98-107) mmol/L Carbon Dioxide 29 (21-32) mmol/L BUN 49 H (6-23) mg/dl Creatinine 1.96 H D (0.6-1.4) mg/dl Glucose 177 H (70-99(Fasting)) mg/dl Calcium 10.2 (8.6-10.3) mg/dl Intake and Output 03/30/23 03/31/23 03/31/23 22:59 06:59 14:59 Intake Total 450 / 1100 250 / 1100 Output Total 1025 / 2525 550 / 2525 Balance -575 / -1425 -300 / -1425 Intake: Oral 450 / 1100 250 / 1100 Output: Urine 1025 / 2525 550 / 2525 Other: # Unmeasured Voids 2 Weight 83.8 kg Weight Measurement Method Built in [facility] Diagnostic Findings Telemetry reviewed: Paced in the 's Medications Administered Current Inpatient Medications Acetaminophen (Acetaminophen 325 Mg Tab) 650 mg PO Q4H PRN PRN Reason: Pain or Fever Stop: 04/25/23 08:19 Albuterol (Albuterol Hfa 8 Gm Inhaler) 2 puffs INH Q4R PRN PRN Reason: Shortness Of Breath Stop: 04/25/23 05:15 Allopurinol (Allopurinol 300 Mg Tab) 300 mg PO QAM [facility] Stop: 04/25/23 08:59 Last Admin: 03/31/23 09:36 Dose: 300 mg Alprazolam (Alprazolam 0.5 Mg Tablet) 0.5 mg PO HS PRN PRN Reason: Anxiety Stop: 04/25/23 05:15 Last Admin: 03/30/23 19:37 Dose: 0.5 mg Amiodarone HCl (Amiodarone 200 Mg Tab) 200 mg PO HS MARTA Stop: 04/25/23 20:59 Last Admin: 03/30/23 19:17 Dose: 200 mg Aspirin (A[facility]in 81 Mg Ectab) [facility] Stop: 04/25/23 08:59 Last Admin: 03/31/23 09:36 Dose: 81 mg Clopidogrel Bisulfate (Clopidogrel Bisulfate 75 Mg Tab) 75 mg PO QAM [facility] Stop: 04/25/23 08:59 Last Admin: 03/31/23 10:12 Dose: 75 mg Dextrose (Dextrose 50% 50 Ml Syringe) 25 - 50 ml IV UD PRN; Protocol PRN Reason: Hypoglycemia Protocol Stop: 04/25/23 08:19 Docusate Sodium (Docusate Sodium 100 Mg Cap) 100 mg PO BID PRN PRN Reason: Constipation Stop: 04/28/23 11:44 Furosemide (Furosemide 40 Mg/4 Ml Vial) 80 mg IV BIDM [facility] Stop: 04/29/23 16:59 Last Admin: 03/31/23 09:36 Dose: 80 mg Glucagon (Glucagon For Inj 1 Mg Vial) 1 mg SQ UD PRN; Protocol PRN Reason: Hypoglycemia Protocol Stop: 04/25/23 08:19 Glucose (Glucose 40% Gel 15 Gm Tube) 15 - 30 gm PO UD PRN; Protocol PRN Reason: Hypoglycemia Protocol Stop: 04/25/23 08:19 Glucose (Glucose 10 Tab/Tube) 4 - 8 tab PO UD PRN; Protocol PRN Reason: Hypoglycemia Treatment Stop: 04/25/23 08:19 Heparin Sodium (Porcine) (Heparin Sod 5,000 Unit/0.5 Ml Vial) 5,000 units SQ Q12 [facility] Stop: 04/25/23 08:59 Last Admin: 03/31/23 09:36 Dose: 5,000 units Insulin Aspart (Insulin Aspart Per Unit Charge) 0 units SC ACHS [facility] Stop: 04/25/23 08:19 Last Admin: 03/31/23 08:30 Dose: 2 units Isosorbide Mononitrate (Isosorbide [place] Extended Rel 30 Mg Tabcr) 30 mg PO QAM [facility] Stop: 04/25/23 08:59 Last Admin: 03/31/23 09:36 Dose: 30 mg Metoprolol Succinate (Metoprolol Succ 25mg Ext Rel Tab) 25 mg PO BID [facility] Stop: 04/25/23 20:59 Last Admin: 03/31/23 09:36 Dose: 25 mg Mirtazapine (Mirtazapine Tab 15 Mg Tab) 15 mg PO HS [facility] Stop: 04/25/23 20:59 Last Admin: 03/30/23 19:18 Dose: 15 mg Miscellaneous (Carbohydrates For Hypoglycemia ) 15 - 30 gm PO UD PRN PRN Reason: Hypoglycemia Protocol Stop: 04/25/23 08:19 Multivitamins/Minerals (Cerovite Adv Formula Tab) 1 tab PO DAILY [facility] Stop: 04/25/23 08:59 Last Admin: 03/31/23 09:37 Dose: 1 tab Nitroglycerin (Nitroglycerin Sl 0.4 Mg/Tab Tab) 0.4 mg SL Q5M PRN PRN Reason: Chest Pain Stop: 04/25/23 08:19 Ondansetron HCl (Ondansetron 4 Mg Od Tab) 4 mg PO Q4H PRN PRN Reason: Nausea And Vomiting Stop: 04/30/23 11:07 Polyethylene Glycol (Polyethylene (Miralax) 17 Gm Pack) 17 gm PO DAILY PRN PRN Reason: Constipation Stop: 04/25/23 08:19 Last Admin: 03/29/23 09:12 Dose: 17 gm Potassium Chloride (Potassium Chloride Crtab 20 Meq Tabcr) 20 meq PO BID [facility] Stop: 04/26/23 20:59 Last Admin: 03/31/23 10:12 Dose: 20 meq
[2023-03-31] MEDS ORDERED: STAT IV Infusion **Titration per Protocol STA (15:47)
--- NOTE | 2023-03-31 15:53 | Communication Note ---
Date of Service: March 31, 2023 The patient's case was reviewed with Dr. Baird of interventional cardiology at [facility]. Patient's cardiac catheterization films performed September, reviewed. There is a potential target for complex intervention of the LAD, but it is felt that this is very high risk, perhaps even resulting in if things were not to go well. I had a rudolph conversation with the patient and his with regards to his history of recent refractory heart failure, first diagnosed in September,, with 4 inpatient admissions for heart failure decompensation over the last 6 months. Patient presented 6 days ago with low output symptoms. Symptoms and volume status improved while on low-dose dobutamine infusion for 4 days, and his creatinine-improved. Since discontinuing the dobutamine on 03/29/2023 he has had a clinical setback with worsening orthopnea, recurrent pulmonary congestion despite high-dose furosemide. After further consideration, patient elects to proceed with consideration of high risk PCI. I called and discussed the case with Dr. Delvalle on the clinical inpatient cardiology service at [facility] who accepts the patient in transfer. -Tentative plan is to resume dobutamine at 3 mcg/kg/min. With plans to transfer the patient by [facility] ground on 04/02/2023 with plans of high risk PCI on 04/03/2023. -We will plan on making sure his dobutamine is off for 6 hours prior to cardiac catheterization, and attempt catheterization, in addition to pursuing PCI, left and right heart catheterization will be pursued to obtain his hemodynamics.
[2023-03-31] MEDS: DOBUTamine / D5W 500 MG/250 ML BAG IV SCH (16:15)
--- NOTE | 2023-03-31 16:27 | Hospitalist Progress Note ---
Date of Service March 31, 2023 Assessment & Plan (1) NYHA class 3 heart failure with reduced ejection fraction: Plan: Patient is an 82 yr male who presents with shortness of breath, found to be in [id number] systolic congestive heart failure. Acute on chronic systolic heart failure Acute respiratory failure with hypoxia secondary to above --CXR:No acute chest disease. Cardiomegaly is noted. --ECHO: Rhythm biventricular paced. Left ventricle is mildly dilated. Normal left ventricular wall thickness. Severe global hypokinesis of the left ventricle. EF 20 to 25%. Aortic valve leaflets are moderately calcified but appear mobile with mild restriction leaflet mobility. No hemodynamically significant valvular aortic stenosis. Trace aortic regurgitation. Mitral valve leaflets are mildly thickened and there is annular dilatation. Moderate to severe mitral regurgitation. Mild to moderate tricuspid regurgitation. Right ventricular systolic pressure is elevated at 40 to 55 mmHg --Hold PO diuretics, IV lasix. Kidney function noted to be worsening. --Dobutamine drip--- discontinued on 03/29/2023, however per cardiology, recent discussion with pt and family- will re-start with transfer to [facility] for further evaluation/management Appreciate cardiology input Monitor I's and O's, daily weight, volume status Metoprolol succinate dose decreased to 25 mg twice daily Isosorbide dose decreased to 30 mg daily Monitor electrolytes, renal function Wean oxygen as needed Hypokalemia Replete electrolytes as needed Transaminitis Likely secondary to hepatic congestion, amiodarone use also on the differential Liver US:Gallbladder sludge is seen with mild wall thickening but negative Duckworth's sign. No acute abnormalities. Hold statin Monitor LFTs-improving Avoid hepatotoxic agents as able Constipation Continue bowel regimen NADIA on CKD III Cr 2.7>2.1>1.6 Hold Entresto Monitor renal function Avoid nephrotoxic agents as able H/O ventricular arrhythmias S/P BiV ICD Continue amiodarone CAD S/P cardiac catheterization in 09/2022 showing multiple vessel disease, medical management recommended. However, with further cardiology discussion- pt will be transferrred to [facility] in 2 days for further evaluation and management. Continue aspirin, Plavix, beta more Statin on hold as above Hyperlipidemia Holding statin Resume statin as able Hypertension Entresto discontinued Continue Metoprolol with holding parameter Gout on allopurinol. DM II HbA1c: 7.4 Continue Insulin per protocol with adjustment to minimize hypoglycemic episodes Monitor BGs Diet: HH/DMII/soft chew DVT Px:Heparin SQ CODE STATUS: Full code Disposition: PT OT prior to discharge Admission and Anticipated Discharge Date Admission Date: March 26, 2023 Subjective Pt was laying in bed on his right side. Supplemental oxygen on, he states that his breathing is better. Discussion with Cardiology- pt and were agreeable per cardiology to pursue surgical measures to help improve his quality of life in spite of the risks. Review of Systems Review of Systems: All systems reviewed & are unremarkable except as noted in Subjective Physical Exam Physical Exam: General: Alert, oriented. No acute distress Skin: No noted rashes or bruises Psych: Appropriate mood and affect Neuro: difficulty moving on the bed HEENT: NC/AT Chest: Nontender to palpation. CV: RRR Resp: Breath sounds clear bilaterally but decreased Abdomen: Soft, nontender, nondistended. Extremities: edema in lower extremities bilaterally. Results & Data Results & Data Vital Signs (Past 12 Hours) Vital Signs Temp Pulse Pulse Resp BP Pulse Ox O2 Del Method 03/31/23 16:06 36.3 C L 95 H 20 117/70 96 Nasal Cannula 03/31/23 14:20 Nasal Cannula 03/31/23 12:02 36.5 C 96 H 18 99/73 L 95 Nasal Cannula 03/31/23 08:00 90 03/31/23 08:06 36.4 C L 93 H 17 105/65 98 Nasal Cannula O2 Flow Rate 03/31/23 16:06 2 03/31/23 14:20 2 03/31/23 12:02 2 03/31/23 08:00 03/31/23 08:06 2
[2023-03-31] MEDS: MIRTAZAPINE TAB 15 MG TAB PO SCH (21:05)
[2023-03-31] MEDS: AMIODARONE 200 MG TAB PO SCH (21:05)
[2023-03-31] MEDS: ALPRAZolam 0.5 MG TABLET PO PRN (21:09)
[2023-04-01 06:21] LABS: Basophils # (auto) 0.04 K/uL (0-0.2); Basophils % (auto) 0.5 %; Eosinophils # (auto) 0.39 K/uL (0-0.50); Hemoglobin 13.1 g/dl (14.0-18.0); Immature Granulocytes # (auto) 0.03 K/uL (0.01-0.20); Immature Granulocytes % (auto) 0.4 %; Lymphocytes # (auto) 2.79 K/uL (1.2-3.4); Mean Corpuscular Hemoglobin 27.6 pg (25.0-34.0); Mean Corpuscular Volume 86.3 fL (80.0-100.0); Mean Platelet Volume 11.4 fL (9.4-12.4); Monocytes # (auto) 0.85 K/uL (0.11-0.59); Neutrophils # (auto) 3.66 K/uL (1.40-6.50); Neutrophils % (auto) 47.1 %; Platelet Count 145 K/uL (130-400); RDW Coefficient of Variation 17.2 % (11.5-14.5); RDW Standard Deviation 53.8 fL (36.4-46.3); Red Blood Count 4.75 M/uL (4.70-6.10); White Blood Count 7.76 K/ul (4.8-10.8)
[2023-04-01 06:33] LABS: Albumin Globulin Ratio 1.4 (0.9-2); Albumin Level 3.5 gm/dl (3.4-5.0); BUN Creatinine Ratio 31.4 (10-20); Bilirubin,Total 1.4 mg/dl (0.2-1.0); Calcium 10.4 mg/dl (8.6-10.3); Creatinine Clr Calc Pharmacy 36.3 ml/min; Est GFR (African American) 45.8 ml/min; Est GFR (Non-African American) 39.6 ml/min; Globulin 2.5 gm/dl (2.5-4.0); Potassium 4.3 mmol/L (3.5-5.1)
[2023-04-01] MEDS: ASPIRIN 81 MG ECTAB PO SCH (08:04)
[2023-04-01] MEDS: CEROVITE ADV FORMULA TAB PO SCH (08:05)
[2023-04-01] MEDS: allopurinoL 300 MG TAB PO SCH (08:05)
[2023-04-01] MEDS: CLOPIDOGREL BISULFATE 75 MG TAB PO SCH (08:05)
[2023-04-01] MEDS: ISOSORBIDE MONO EXTENDED REL 30 MG TABCR PO SCH (08:05)
[2023-04-01] MEDS: METOPROLOL SUCC 25MG EXT REL TAB PO SCH ×2 (08:05→20:20)
[2023-04-01] MEDS: HEPARIN SOD 5,000 UNIT/0.5 ML VIAL SQ SCH ×2 (08:06→20:20)
[2023-04-01] MEDS: FUROSEMIDE 40 MG/4 ML VIAL IV SCH ×2 (08:06→17:31)
[2023-04-01] MEDS: POTASSIUM CHLORIDE CRTAB 20 MEQ TABCR PO SCH ×2 (08:20→20:21)
[2023-04-01] MEDS: INSULIN ASPART PER UNIT CHARGE SC SCH ×4 (08:21→21:29)
--- NOTE | 2023-04-01 11:40 | Cardiology Progress Note ---
Date of Service April 01, 2023 Assessment & Plan (1) Acute on chronic systolic (congestive) heart failure: (2) Ischemic cardiomyopathy: (3) NADIA (acute kidney injury): (4) Elevated LFTs: Plan Patient is an 82-year-old male with complex constellation of ischemic heart disease with severe ischemic cardiomyopathy presenting with signs/symptoms of worsening congestive heart failure (SOB, edema, abdominal bloating), complicated by NADIA and elevated LFT's. Clinically improved with IV dobutamine infusion and diuretic therapy. Unfortunately, renal function and clinical status declined with discontinuation of dobutamine. Intravenous dobutamine resumed with improvement of renal function today. Fluid balance negative. Tolerating IV diuresis, Lasix 80 mg twice daily. Entresto recently discontinued as an outpatient due to NADIA. Since admission, fluid balance negative with 15 L output, -8.7 L and down approx 10 kg in weight. Continue amiodarone to maintain NSR. history of non sustained Vt. LFT's improving. Elevation in enzymes likely due to hepatic congestion. Hold statin. Hold other antihypertensives with hypotension including isosorbide. Metoprolol dose reduced from 50 to 25 mg BID. Hold for systolic BP < 90mmHg. Patient with complex coronary disease and potential target for intervention of the LAD. Case was discussed with interventional cardiology at [facility] 03/31/2023. Patient is scheduled for transfer to [facility] tomorrow, 04/02/2023 for planned intervention of the LAD 04/03/2023. Admission and Anticipated Discharge Date Admission Date: March 26, 2023 Subjective Patient seen and examined at the bedside. Feeling better this morning. Creatinine trending downward. Fluid balance -587 cc. Telemetry reveals sinus rhythm with a ventricular paced rhythm. Denies chest pain or shortness of breath at rest. Lower extremity edema unchanged. Review of Systems Review of Systems: All systems reviewed & are unremarkable except as noted in Subjective Physical Exam Constitutional: well developed Respiratory: normal respiratory effort; no respiratory distress and no labored breathing Auscultation: + diminished lung sounds (Left base) and + rales (Left base and midlung field); no rhonchi Cardiovascular: Rate/Rhythm: regular rate and regular rhythm Heart Sounds: normal S1 and normal S2; no murmur Extremities: + edema (2+ bilateral ankle edema with stasis changes) Gastrointestinal (Abdomen): Inspection/Auscultation: abdomen normal to inspection and normal bowel sounds; abdomen not distended Neurologic: CN's II-XI intact bilaterally and moves all extremities Results & Data Vital Signs (Past 12 Hours) Vital Signs Temp Pulse Pulse Resp BP Pulse Ox O2 Del Method 04/01/23 07:47 36.4 C L 84 15 100/66 96 Nasal Cannula 04/01/23 07:43 Nasal Cannula 04/01/23 03:11 36.6 C 87 16 99/64 L 98 Nasal Cannula 03/31/23 23:58 91 H 03/31/23 23:49 Nasal Cannula O2 Flow Rate 04/01/23 07:47 2 04/01/23 07:43 2 04/01/23 03:11 2.0 03/31/23 23:58 03/31/23 23:49 2 Laboratory Results Cardiac Enzymes 04/01/23 Range/Units 05:57 AST 30 (13-39) U/L CBC 04/01/23 Range/Units 05:57 WBC 7.76 (4.8-10.8) K/ul RBC 4.75 (4.70-6.10) M/uL Hgb 13.1 L (14.0-18.0) g/dl Hct 41.0 L (42.0-52.0) % Plt Count 145 (130-400) K/uL Neut # (Auto) 3.66 (1.40-6.50) K/uL Lymph # (Auto) 2.79 (1.2-3.4) K/uL Barron # (Auto) 0.85 H (0.11-0.59) K/uL Eos # (Auto) 0.39 (0-0.50) K/uL Baso # (Auto) 0.04 (0-0.2) K/uL Comprehensive Metabolic Panel 04/01/23 Range/Units 05:57 Sodium 138 (136-145) mmol/L Potassium 4.3 (3.5-5.1) mmol/L Chloride 99 (98-107) mmol/L Carbon Dioxide 31 (21-32) mmol/L BUN 50 H (6-23) mg/dl Creatinine 1.59 H D (0.6-1.4) mg/dl Glucose 127 H (70-99(Fasting)) mg/dl Calcium 10.4 H (8.6-10.3) mg/dl AST 30 (13-39) U/L ALT 77 H (7-52) U/L Alkaline Phosphatase 118 H (34-104) U/L Total Protein 6.0 (6.0-8.3) gm/dl Albumin 3.5 (3.4-5.0) gm/dl Intake and Output 03/31/23 04/01/23 04/01/23 22:59 06:59 14:59 Intake Total 112.125 / 112.125 Output Total 550 / 900 Balance -550 / -700 112.125 / 112.125 Intake: IV 112.125 / 112.125 DOBUTamine / D5W 500 mg In 250 112.125 / 112.125 ml @ 3 MCG/KG/MIN 7.542 mls/hr IV .Q24H MARTA Rx#:[id number] Output: Urine 550 / 900 Other: # Unmeasured Voids 1 1 Weight 84.5 kg Weight Measurement Method Built in [facility]
[2023-04-01] MEDS: DOBUTamine / D5W 500 MG/250 ML BAG IV SCH (17:52)
--- NOTE | 2023-04-01 18:56 | Hospitalist Progress Note ---
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 Currently awaiting transfer to [facility] [place] for cardiac procedure. Acute on chronic systolic heart failure Acute respiratory failure with hypoxia secondary to above --CXR:No acute chest disease. Cardiomegaly is noted. --ECHO: Rhythm biventricular paced. Left ventricle is mildly dilated. Normal left ventricular wall thickness. Severe global hypokinesis of the left ventricle. EF 20 to 25%. Aortic valve leaflets are moderately calcified but appear mobile with mild restriction leaflet mobility. No hemodynamically significant valvular aortic stenosis. Trace aortic regurgitation. Mitral valve leaflets are mildly thickened and there is annular dilatation. Moderate to severe mitral regurgitation. Mild to moderate tricuspid regurgitation. Right ventricular systolic pressure is elevated at 40 to 55 mmHg --Holding PO diuretics, IV lasix. Kidney function noted to be worsening. --Dobutamine drip--- discontinued on 03/29/2023, however per cardiology, recent discussion with pt and family- will re-start with transfer to [facility] [place] for further evaluation/management Appreciate cardiology input Monitor I's and O's, daily weight, volume status Metoprolol succinate dose decreased to 25 mg twice daily Isosorbide dose decreased to 30 mg daily Monitor electrolytes, renal function Wean oxygen as needed Hypokalemia Replete electrolytes as needed Transaminitis Likely secondary to hepatic congestion, amiodarone use also on the differential Liver US:Gallbladder sludge is seen with mild wall thickening but negative Duckworth's sign. No acute abnormalities. Hold statin Monitor LFTs-improving Avoid hepatotoxic agents as able Constipation Continue bowel regimen NADIA on CKD III Cr 2.7>2.1>1.6 Hold Entresto Monitor renal function Avoid nephrotoxic agents as able H/O ventricular arrhythmias S/P BiV ICD Continue amiodarone CAD S/P cardiac catheterization in 09/2022 showing multiple vessel disease, medical management recommended. However, with further cardiology discussion- pt will be transferrred to [facility] [place] in 2 days for further evaluation and management. Continue aspirin, Plavix, beta more Statin on hold as above Hyperlipidemia Holding statin Resume statin as able Hypertension Entresto discontinued Continue Metoprolol with holding parameter Gout on allopurinol. DM II HbA1c: 7.4 Continue Insulin per protocol with adjustment to minimize hypoglycemic episodes Monitor BGs Diet: HH/DMII/soft chew DVT Px: Heparin SQ CODE STATUS: Full code Disposition: Transfer to [facility] [place] on 04/01/23 Admission and Anticipated Discharge Date Admission Date: March 26, 2023 Subjective Pt states that he is feeling better since dobutamine drip was restarted. States SOb improved. Aware of the plan for transfer tomorrow. Review of Systems Review of Systems: All systems reviewed & are unremarkable except as noted in Subjective Physical Exam Physical Exam: General: Alert, oriented. No acute distress Skin: No noted rashes or bruises Psych: Appropriate mood and affect Neuro: difficulty moving on the bed HEENT: NC/AT Chest: Nontender to palpation. CV: RRR Resp: Breath sounds clear bilaterally but decreased Abdomen: Soft, nontender, nondistended. Extremities: edema in lower extremities bilaterally. Results & Data Results & Data Vital Signs (Past 12 Hours) Vital Signs Temp Pulse Pulse Resp BP Pulse Ox O2 Del Method 04/01/23 07:47 36.4 C L 84 15 100/66 96 Nasal Cannula 04/01/23 07:43 Nasal Cannula 04/01/23 03:11 36.6 C 87 16 99/64 L 98 Nasal Cannula 03/31/23 23:58 91 H 03/31/23 23:49 Nasal Cannula 03/31/23 23:24 36.6 C 90 18 96/66 L 99 Nasal Cannula O2 Flow Rate 04/01/23 07:47 2 04/01/23 07:43 2 04/01/23 03:11 2.0 03/31/23 23:58 03/31/23 23:49 2 03/31/23 23:24 2.0
[2023-04-01] MEDS: AMIODARONE 200 MG TAB PO SCH (20:18)
[2023-04-01] MEDS: MIRTAZAPINE TAB 15 MG TAB PO SCH (20:20)
[2023-04-02] MEDS ORDERED: traMADol HCL 50 MG TABLET PO PRN (04:33)
[2023-04-02 05:51] LABS: Basophils # (auto) 0.04 K/uL (0-0.2); Basophils % (auto) 0.5 %; Eosinophils # (auto) 0.14 K/uL (0-0.50); Eosinophils % (auto) 1.7 %; Hematocrit (blood only) 40.4 % (42.0-52.0); Hemoglobin 12.7 g/dl (14.0-18.0); Immature Granulocytes # (auto) 0.03 K/uL (0.01-0.20); Immature Granulocytes % (auto) 0.4 %; Lymphocytes # (auto) 1.87 K/uL (1.2-3.4); Lymphocytes % (auto) 22.6 %; Mean Corpuscular Hemoglobin 27.9 pg (25.0-34.0); Mean Corpuscular Hgb Conc 31.4 g/dL (32.0-36.0); Mean Corpuscular Volume 88.8 fL (80.0-100.0); Mean Platelet Volume 11.8 fL (9.4-12.4); Monocytes # (auto) 1.04 K/uL (0.11-0.59); Monocytes % (auto) 12.6 %; Neutrophils # (auto) 5.14 K/uL (1.40-6.50); Neutrophils % (auto) 62.2 %; Platelet Count 146 K/uL (130-400); RDW Coefficient of Variation 17.3 % (11.5-14.5); RDW Standard Deviation 55.5 fL (36.4-46.3); Red Blood Count 4.55 M/uL (4.70-6.10); White Blood Count 8.26 K/ul (4.8-10.8)
[2023-04-02 06:07] LABS: Albumin Globulin Ratio 1.5 (0.9-2); Albumin Level 3.6 gm/dl (3.4-5.0); Bilirubin,Total 1.3 mg/dl (0.2-1.0); Calcium 10.1 mg/dl (8.6-10.3); Est GFR (African American) 40.8 ml/min; Est GFR (Non-African American) 35.2 ml/min; Globulin 2.4 gm/dl (2.5-4.0); Potassium 4.2 mmol/L (3.5-5.1)
[2023-04-02 06:14] LABS: Troponin I High Sensitivity 12.5 pg/ml (0-20)
[2023-04-02 06:27] LABS: Partial Thromboplastin Ratio 1.1; Partial Thromboplastin Time 30.8 Seconds (21.0-31.0)
[2023-04-02] MEDS: METOPROLOL SUCC 25MG EXT REL TAB PO SCH (08:11)
[2023-04-02] MEDS: POTASSIUM CHLORIDE CRTAB 20 MEQ TABCR PO SCH (08:12)
[2023-04-02] MEDS: CEROVITE ADV FORMULA TAB PO SCH (08:12)
[2023-04-02] MEDS: FUROSEMIDE 40 MG/4 ML VIAL IV SCH (08:12)
[2023-04-02] MEDS: allopurinoL 300 MG TAB PO SCH (08:12)
[2023-04-02] MEDS: CLOPIDOGREL BISULFATE 75 MG TAB PO SCH (08:14)
[2023-04-02] MEDS: ASPIRIN 81 MG ECTAB PO SCH (08:14)
[2023-04-02] MEDS: ISOSORBIDE MONO EXTENDED REL 30 MG TABCR PO SCH (08:17)
[2023-04-02] MEDS: HEPARIN SOD 5,000 UNIT/0.5 ML VIAL SQ SCH (08:21)
[2023-04-02] MEDS: INSULIN ASPART PER UNIT CHARGE SC SCH (08:25)
--- NOTE | 2023-04-02 08:39 | Discharge Summary ---
Date of Service April 02, 2023 Admission HPI Per Admitting Provider n 82-year-old male with past medical history significant for type 2 diabetes, gout, hypercholesterolemia, hypertension, macular degeneration, CAD, history of ischemic cardiomyopathy, EF of 20-25% in echo done in 11/2022, status post AICD, chronic kidney disease stage III. The patient lives at home with his , presents with ongoing shortness of breath. Patient says sob is going on for some time, but lately it has become worse. He could not lie flat. He is not ambulating much. He just goes to the bathroom and comes back, but making short walk make him short of breath. Denies any chest pain, denies any cough, no fevers, no headache, no blurred visions, no earache, no runny nose, no sore throat, no difficulty swallowing. No nausea, no abdominal pain. He is somewhat constipated. Denies any blood in stools or black stools. No hematuria. Normal micturition. Currently, resting comfortably, hemodynamically stable when he came in his oxygen sat was 88%. He was given a dose of IV Lasix feeling somewha t better now. Admission Exam Per Admitting Provider GENERAL: The patient is of moderate build, currently not in acute distress. VITAL SIGNS: Temperature 36.8, pulse 73, respiratory rate 26, blood pressure 104/74, oxygen 99% on room air. HEENT: Pupils equal, round and reactive to light. Oral mucosa moist. NECK: No JVD, no neck masses. CARDIOVASCULAR: S1 and S2 heard. Regular rate and rhythm. No murmur, no gallop. RESPIRATORY SYSTEM: Normal AP diameter. No accessory muscle use. No wheezing. Mild bibasilar crackles. ABDOMEN: Soft, bowel sounds present, nontender, no distention. CENTRAL NERVOUS SYSTEM: Alert and oriented. Speech is clear. No facial droop. Obeys simple commands. Moves extremities. EXTREMITIES: Bilateral lower extremity, +2 edema present with chronic skin changes. Principal Diagnosis CHF Discharge Exam General: Alert, oriented. No acute distress Skin: No noted rashes or bruises Psych: Appropriate mood and affect HEENT: NC/AT Chest: Nontender to palpation. CV: RRR Resp: Breath sounds with crackles at the bases bilaterally Abdomen: Soft, nontender, nondistended. Extremities: edema in lower extremities bilaterally. Discharge Data Allergies Allergy/AdvReac Type Severity Reaction Status Date / Time alfuzosin AdvReac Mild NASAL Verified 11/30/22 18:53 CONGESTION Consultations 03/26/23 03:18 ED Decision to Admit Stat 03/26/23 08:00 Consult Cardiology Routine 04/02/23 08:17 Burn CD for patient Stat Ordered Studies 03/26/23 08:20 US liver Routine Hospital Course (1) NYHA class 3 heart failure with reduced ejection fraction: (2) CAD (coronary atherosclerotic disease): (3) HTN (hypertension): (4) Elevated LFTs: (5) Acute respiratory failure: (6) NADIA (acute kidney injury): Plan 82yoM with recurrent exacerbations of HFrEF being transferred for high risk PCI to [facility] per recommendations from Cardiology. Acute on chronic systolic heart failure Acute respiratory failure with hypoxia secondary to above --CXR:No acute chest disease. Cardiomegaly is noted. --ECHO: Rhythm biventricular paced. Left ventricle is mildly dilated. Normal left ventricular wall thickness. Severe global hypokinesis of the left ventricle. EF 20 to 25%. Aortic valve leaflets are moderately calcified but appear mobile with mild restriction leaflet mobility. No hemodynamically significant valvular aortic stenosis. Trace aortic regurgitation. Mitral valve leaflets are mildly thickened and there is annular dilatation. Moderate to severe mitral regurgitation. Mild to moderate tricuspid regurgitation. Right ventricular systolic pressure is elevated at 40 to 55 mmHg --Holding PO diuretics, IV lasix. Kidney function noted to be worsening. --Dobutamine drip--- discontinued on 03/29/2023, however per cardiology, recent discussion with pt and family. They agree to re-start dobutamine with transfer to [facility] [place] for further evaluation/management and high risk PCI. Per cardiology case discussed with Dr. Delvalle from the General Cardiology service at [facility] [place] and procedure will be performed by Dr. Baird of Interventional Cardiology. Monitor I's and O's, daily weight, volume status Metoprolol succinate dose decreased to 25 mg twice daily Isosorbide dose decreased to 30 mg daily Monitor electrolytes, renal function Wean oxygen as needed Hypokalemia Replete electrolytes as needed Transaminitis Likely secondary to hepatic congestion, amiodarone use also on the differential Liver US: Gallbladder sludge is seen with mild wall thickening but negative Duckworth's sign. No acute abnormalities. Hold statin Monitor LFTs-improving Avoid hepatotoxic agents as able Constipation Continue bowel regimen NADIA on CKD III Cr elevated at 2.7, trended down but now trending back up Hold Entresto Monitor renal function Avoid nephrotoxic agents as able H/O ventricular arrhythmias S/P BiV ICD Continue amiodarone CAD S/P cardiac catheterization in 09/2022 showing multiple vessel disease, medical management recommended. However, with further cardiology discussion- pt will be transferred to [facility] [place] for high risk PCI (see above discussion) Consider holding aspirin, Plavix due to upcoming procedure, continue beta more Statin on hold as above Hyperlipidemia Holding statin Resume statin as able Hypertension Entresto discontinued Continue Metoprolol with holding parameter Gout on allopurinol. DM II HbA1c: 7.4 Continue Insulin per protocol with adjustment to minimize hypoglycemic episodes Monitor BGs Diet: HH/DMII/soft chew DVT Px: Hold Heparin SQ due to upcoming procedure CODE STATUS: Full code Disposition: Transfer to [facility] [place] on 04/02/23 Total Time Total Time Spent Total Time Spent (In Minutes): >30 minutes Discharge Plan Discharge Items Patient Disposition: Transfer Acute Care Hospital Reason For Visit: SOB Discharge Diagnosis: Refractory CHF Activity: Per Instructions section Non-emergency contact: Primary Care Provider and [employer] Glazier Follow-up/Referrals: Rene Green DO [Primary Care Provider] - Diet: Heart Healthy Addtl Attending Provider Instructions: 82yoM with recurrent exacerbations of HFrEF being transferred for high risk PCI to [facility] per recommendations from Cardiology. Acute on chronic systolic heart failure Acute respiratory failure with hypoxia secondary to above --CXR:No acute chest disease. Cardiomegaly is noted. --ECHO: Rhythm biventricular paced. Left ventricle is mildly dilated. Normal left ventricular wall thickness. Severe global hypokinesis of the left ventricle. EF 20 to 25%. Aortic valve leaflets are moderately calcified but appear mobile with mild restriction leaflet mobility. No hemodynamically significant valvular aortic stenosis. Trace aortic regurgitation. Mitral valve leaflets are mildly thickened and there is annular dilatation. Moderate to severe mitral regurgitation. Mild to moderate tricuspid regurgitation. Right ventricular systolic pressure is elevated at 40 to 55 mmHg --Holding PO diuretics, IV lasix. Kidney function noted to be worsening. --Dobutamine drip--- discontinued on 03/29/2023, however per cardiology, recent discussion with pt and family. They agree to re-start dobutamine with transfer to [facility] [place] for further evaluation/management and high risk PCI. Per cardiology case discussed with Dr. Delvalle from the General Cardiology service at [facility] [place] [place] and procedure will be performed by Dr. Baird of Interventional Cardiology. Monitor I's and O's, daily weight, volume status Metoprolol succinate dose decreased to 25 mg twice daily Isosorbide dose decreased to 30 mg daily Monitor electrolytes, renal function Wean oxygen as needed Hypokalemia Replete electrolytes as needed Transaminitis Likely secondary to hepatic congestion, amiodarone use also on the differential Liver US: Gallbladder sludge is seen with mild wall thickening but negative Duckworth's sign. No acute abnormalities. Hold statin Monitor LFTs-improving Avoid hepatotoxic agents as able Constipation Continue bowel regimen NADIA on CKD III Cr elevated at 2.7, trended down but now trending back up Hold Entresto Monitor renal function Avoid nephrotoxic agents as able H/O ventricular arrhythmias S/P BiV ICD Continue amiodarone CAD S/P cardiac catheterization in 09/2022 showing multiple vessel disease, medical management recommended. However, with further cardiology discussion- pt will be transferred to [facility] [place] for high risk PCI (see above discussion) Consider holding aspirin, Plavix due to upcoming procedure, continue beta more Statin on hold as above Hyperlipidemia Holding statin Resume statin as able Hypertension Entresto discontinued Continue Metoprolol with holding parameter Gout on allopurinol. DM II HbA1c: 7.4 Continue Insulin per protocol with adjustment to minimize hypoglycemic episodes Monitor BGs Diet: HH/DMII/soft chew DVT Px: Hold Heparin SQ due to upcoming procedure CODE STATUS: Full code Disposition: Transfer to [facility] [place] on 04/02/23 Pending Studies at Discharge: No Stand-Alone Forms: My [facility] Skilled Items Patient informed of condition?: Yes DNR: No Discharge Level of Care: Other Communicable Disease: No Discharge Prognosis: Stable Lines: None Urinary Catheter: No Medications and DC Order Prescriptions: New amiodarone 200 mg Tablet 200 mg PO HS Qty: 30 0RF isosorbide mononitrate 30 mg Tablet Extended Release 24 Hr 30 mg PO QAM Qty: 30 0RF clopidogrel 75 mg Tablet 75 mg PO QAM Qty: 30 0RF nitroglycerin [Nitrostat] 0.4 mg Tablet, Sublingual 0.4 mg sublingual Q5M PRN (Reason: chest pain) Qty: 30 0RF metoprolol succinate 25 mg Tablet Extended Release 24 Hr 25 mg PO BID Qty: 30 0RF furosemide 10 mg/mL Solution 80 mg IV BIDM Qty: 100 0RF acetaminophen 325 mg Tablet 650 mg PO Q4H PRN (Reason: fever or pain) Qty: 30 0RF polyethylene glycol 3350 [Miralax] 17 gram Powder In Packet 17 g PO DAILY PRN (Reason: constipation) Qty: 100 0RF tramadol 50 mg Tablet 25 - 50 mg PO Q4H PRN (Reason: pain) Qty: 30 0RF alprazolam [Xanax] 0.5 mg Tablet 0.5 mg PO HS PRN (Reason: anxiety) Qty: 30 0RF potassium chloride 20 mEq Tablet,Er Particles/Crystals 20 meq PO BID Qty: 30 0RF docusate sodium 100 mg Capsule 100 mg PO BID PRN (Reason: constipation) Qty: 30 0RF allopurinol 300 mg Tablet 300 mg PO QAM Qty: 30 0RF mirtazapine 15 mg Tablet 15 mg PO HS Qty: 30 0RF ondansetron 4 mg Tablet,Disintegrating 4 mg PO Q4H PRN (Reason: nausea and vomiting) Qty: 30 0RF Continued albuterol sulfate 90 mcg/actuation HFA aerosol inhaler 2 puff INHALATION Q4 PRN (Reason: Shortness Of Breath) Discontinued mirtazapine 15 mg tablet 15 mg PO HS Eylea 2 mg/0.05 mL Solution 2 mg INTRAVITREAL DIRECTED Jardiance 25 mg tablet 25 mg PO QAM clopidogrel 75 mg Tablet 75 mg PO QAM Qty: 30 0RF allopurinol 300 mg tablet 300 mg PO QAM Qty: 30 0RF furosemide 40 mg tablet 40 mg PO BID atorvastatin 40 mg tablet 40 mg PO QAM nitroglycerin 0.4 mg tablet, sublingual 0.4 mg sublingual DIRECTED PRN (Reason: Chest Pain) silver sulfadiazine 1 % cream 1 applic TOPICAL DAILY PRN (Reason: BURN AREA) glipizide 10 mg tablet extended release 24hr 10 mg PO AMHS alprazolam 0.5 mg Tablet 0.5 mg PO HS PRN (Reason: Anxiety) loteprednol etabonate 0.5 % drops,suspension 1 drp OPR DIRECTED PRN (Reason: .Irritation) metronidazole 0.75 % Gel 1 applic TOPICAL DAILY Rx Instructions: APPLY TO FACE PreserVision Lutein 226-90-0.8-5 mg Capsule 1 cap PO BID aspirin 81 mg Tablet,Delayed Release (Dr/Ec) 81 mg PO QAM Qty: 30 0RF isosorbide mononitrate 30 mg tablet extended release 24 hr 45 mg PO QAM spironolactone 25 mg tablet 25 mg PO DAILY Rx Instructions: PER PT'S MED LIST--TAKES 12.5 MG QAM, [facility] MED LIST--TAKES 25 MG QAM. amiodarone 200 mg tablet 200 mg PO HS metoprolol succinate 100 mg tablet extended release 24 hr 50 mg PO BID Discharge Orders: Discharge Order- CHF (Routine); Ordered 04/02/23 Ordered By: Johanny Carey/Other Patient Handouts: Managing Type 2 Diabetes Admission Data Admit Date/Time: 03/26/23 04:51 Attending Provider: Johanny Powell Admit Provider: Ravi Bliss Primary Care Provider: Rene Green Other Providers: Inocencia Mcknight ; Saqib Marx ; Aram Romero ; Efrain Saunders ; Zion Barboza ; Misael Romero ; Michelle Sims ; Lyly De Guzman ; Inocencia Finney ; Oracio Curiel ; Cyndee Ward ; Ravi Bliss ; [facility] ; Rene Green ; Marshall Casper
--- NOTE | 2023-04-02 12:01 | Cardiology Progress Note ---
Date of Service April 02, 2023 Assessment & Plan (1) Acute on chronic systolic (congestive) heart failure: (2) Ischemic cardiomyopathy: (3) NADIA (acute kidney injury): (4) Elevated LFTs: Plan Patient is an 82-year-old male with complex constellation of ischemic heart disease with severe ischemic cardiomyopathy presenting with signs/symptoms of worsening congestive heart failure (SOB, edema, abdominal bloating), complicated by NADIA and elevated LFT's. Clinically improved with IV dobutamine infusion and diuretic therapy. Unfortunately, renal function and clinical status declined with discontinuation of dobutamine. Intravenous dobutamine resumed with clinical improvement. Fluid balance negative. Although creatinine has trended upward today, remains stable overall. Entresto recently discontinued as an outpatient due to NADIA. Since admission, fluid balance negative with 15 L output, -8.7 L and down approx 10 kg in weight. Continue amiodarone to maintain NSR. history of non sustained Vt. LFT's improving. Elevation in enzymes likely due to hepatic congestion. Hold statin. Hold other antihypertensives with hypotension including isosorbide. Metoprolol dose reduced from 50 to 25 mg BID. Hold for systolic BP < 90mmHg. Patient with complex coronary disease and potential target for intervention of the LAD. Case was discussed with interventional cardiology at [facility] 03/31/2023. Patient is scheduled for transfer to [facility] today, 04/02/2023 for planned intervention of the LAD 04/03/2023. Admission and Anticipated Discharge Date Admission Date: March 26, 2023 Subjective 82-year-old patient seen and examined at the bedside. Ports episode of lower sternal discomfort this morning after coughing. Discomfort reproduced with deep breathing and cough. Edema and shortness of breath unchanged. Denies orthopnea. Fluid balance positive overnight. Serum creatinine trending upward to 1.75. Review of Systems Review of Systems: All systems reviewed & are unremarkable except as noted in Subjective Physical Exam Constitutional: well developed Respiratory: normal respiratory effort; no respiratory distress and no labored breathing Auscultation: + diminished lung sounds (Left base) and + rales (Left base and midlung field); no rhonchi Cardiovascular: Rate/Rhythm: regular rate and regular rhythm Heart Sounds: normal S1 and normal S2; no murmur Extremities: + edema (2+ bilateral ankle edema with stasis changes) Gastrointestinal (Abdomen): Inspection/Auscultation: abdomen normal to inspection and normal bowel sounds; abdomen not distended Neurologic: CN's II-XI intact bilaterally and moves all extremities Results & Data Vital Signs (Past 12 Hours) Vital Signs Temp Pulse Pulse Resp BP BP Pulse Ox 04/02/23 11:20 36.7 C 69 18 109/64 102/68 97 04/02/23 08:00 36.7 C 69 18 109/64 97 04/02/23 07:33 04/02/23 03:00 36.7 C 87 18 102/68 96 04/02/23 01:10 91 H O2 Del Method O2 Flow Rate 04/02/23 11:20 04/02/23 08:00 Room Air 04/02/23 07:33 Room Air 04/02/23 03:00 Nasal Cannula 2.0 04/02/23 01:10
--- NOTE | 2023-04-02 13:57 | Electrocardiogram Report ---
Test Reason : Blood Pressure : / mmHG Vent. Rate : 087 BPM Atrial Rate : 087 BPM P-R Int : 000 ms QRS Dur : 154 ms QT Int : 430 ms P-R-T Axes : 082 083 027 degrees QTc Int : 517 ms Ventricular-paced rhythm Abnormal ECG When compared with ECG of 26-MAR-2023 02:17, Vent. rate has increased BY 19 BPM Confirmed by Evaristo Smith ([id number]) on 04/02/2023 1:57:25 PM Referred By: REFERRED SELF Confirmed By:Evaristo Smith
== END 2023-04-02 13:20 | disposition short-term general hospital (02) | DRG 291 ==
LOC: ED 01:47 → SUATTDRO 04:51 → EDINP 04:51 → SUPCPDRO 04:51 → 1E 08:21 → 4W 03-27 20:04 → 2S 03-28 13:07

== ENCOUNTER 2023-04-29 21:17 | Inpatient (IN) ==
[2023-04-29] MEDS ORDERED: FUROSEMIDE 40 MG/4 ML VIAL IV ONE (21:30)
--- NOTE | 2023-04-29 21:33 | Emergency Department Note ---
History of Present Illness General Chief complaint: Shortness of Breath/Dyspnea Time Seen by Provider: 04/29/23 21:24 History of Present Illness 83-year-old male presents emergency department has a history of CHF cardiomyopathy is on a milrinone drip. Patient recently had his diuretic change. Patient states increased shortness of breath over the past 4 months but worsening over the past 2 to 3 days. Patient relates dyspnea on exertion orthopnea and swollen legs. Patient denies any chest pain. There are no other mitigating or alleviating factors Home Medications Medication Instructions Recorded Confirmed Type albuterol sulfate 90 mcg/actuation 2 puff inhalation Q4 PRN Shortness 09/21/22 04/29/23 History aerosol inhaler Of Breath acetaminophen 325 mg tablet 650 mg PO Q4H PRN fever or pain 04/02/23 04/29/23 Rx #30 tabs allopurinol 300 mg tablet 300 mg PO QAM #30 tabs 04/02/23 04/29/23 Rx alprazolam 0.5 mg tablet (Xanax) 0.5 mg PO HS PRN anxiety #30 tabs 04/02/23 04/29/23 Rx clopidogrel 75 mg tablet 75 mg PO QAM #30 tabs 04/02/23 04/29/23 Rx mirtazapine 15 mg tablet 15 mg PO HS #30 tabs 04/02/23 04/29/23 Rx nitroglycerin 0.4 mg sublingual 0.4 mg sublingual Q5M PRN chest 04/02/23 04/29/23 Rx tablet (Nitrostat) pain #30 tabs ondansetron 4 mg disintegrating 4 mg PO Q4H PRN nausea and 04/02/23 04/29/23 Rx tablet vomiting #30 tabs polyethylene glycol 3350 17 gram 17 g PO DAILY PRN constipation 04/02/23 04/29/23 Rx oral powder packet (Miralax) #100 ea milrinone 1 mg/mL intravenous 0 mg continuous IV infusion 04/20/23 04/29/23 History solution DIRECTED torsemide 20 mg tablet 60 mg PO BID 04/20/23 04/29/23 History warfarin 5 mg tablet 5 mg PO QPM 04/20/23 04/29/23 History amiodarone 200 mg tablet 200 mg PO QAM 04/29/23 04/29/23 History glipizide 10 mg tablet, extended 10 mg PO AMHS 04/29/23 04/29/23 History release 24 hr metoprolol succinate 25 mg 25 mg PO QAM 04/29/23 04/29/23 History tablet,extended release 24 hr potassium chloride 10 mEq 10 meq PO AMHS 04/29/23 04/29/23 History capsule,extended release Allergies Allergy/AdvReac Type Severity Reaction Status Date / Time alfuzosin AdvReac Mild NASAL Verified 04/20/23 17:19 CONGESTION Past Med/Surg History Medical History Acute HFrEF (heart failure with reduced ejection fraction) CAD (coronary artery disease) CHF (congestive heart failure) Chronic gout Chronic systolic heart failure Diabetes Diabetes mellitus, type II HLD (hyperlipidemia) HTN (hypertension) Ischemic cardiomyopathy No pertinent family history Surgical History History of angioplasty History of cardiac cath History of colonoscopy Family History Other Diabetes Heart disease Social History Smoking Status: Former smoker Tobacco Type: Cigarettes Second Hand Exposure: No; Do You Dip or Chew Tobacco: No; Hx Alcohol Use: Yes Alcohol type: beer Hx Substance Use: No Preferred Language: Serbian Communication Ability: Effective Sports Internship Required: No Beliefs That Will Affect Care: None Current Living Situation: Spouse Feels Safe at Home: Yes Assistive Devices: Cane and Walker Review of Systems A total of 10 systems reviewed and were otherwise negative Cardiovascular: + dyspnea and + dyspnea on exertion Physical Exam Vital Signs Vital Signs - 24 hr 04/29/23 21:20 04/29/23 21:20 04/29/23 21:20 Temperature 36.9 C Temperature Source Oral Pulse Rate 75 Pulse Rate from SpO2 Sensor Respiratory Rate 24 Blood Pressure 98/69 L Blood Pressure Mean 78 Blood Pressure Position Sitting Pulse Oximetry 98 99 Oxygen Delivery Method Nasal Cannula Nasal Cannula Nasal Cannula Oxygen Flow Rate 2 2 4 Sepsis Recent Fever Within 48 Hours No Sepsis New/Unexplained Change in Mental Status No Sepsis Action Taken by Nursing Physician Notified Oxygen Flow Rate - Titration 2 Pulse Oximetry Post Tiitration 98 04/29/23 21:20 04/29/23 21:24 04/29/23 21:25 Temperature Temperature Source Pulse Rate 75 65 Pulse Rate from SpO2 Sensor Respiratory Rate 24 14 Blood Pressure 98/69 L Blood Pressure Mean 83 Blood Pressure Position Pulse Oximetry 98 Oxygen Delivery Method Nasal Cannula Oxygen Flow Rate 2 Sepsis Recent Fever Within 48 Hours Sepsis New/Unexplained Change in Mental Status Sepsis Action Taken by Nursing Oxygen Flow Rate - Titration Pulse Oximetry Post Tiitration 04/29/23 21:25 04/29/23 21:30 04/29/23 21:31 Temperature Temperature Source Pulse Rate 68 82 81 Pulse Rate from SpO2 Sensor 84 84 Respiratory Rate 39 H 18 35 H Blood Pressure Blood Pressure Mean Blood Pressure Position Pulse Oximetry 100 99 Oxygen Delivery Method Oxygen Flow Rate Sepsis Recent Fever Within 48 Hours Sepsis New/Unexplained Change in Mental Status Sepsis Action Taken by Nursing Oxygen Flow Rate - Titration Pulse Oximetry Post Tiitration 04/29/23 21:36 04/29/23 21:40 04/29/23 21:45 Temperature Temperature Source Pulse Rate 76 Pulse Rate from SpO2 Sensor 94 H 83 83 Respiratory Rate 21 31 H 28 H Blood Pressure 89/64 L 109/65 Blood Pressure Mean 72 79 Blood Pressure Position Pulse Oximetry 84 L 98 83 L Oxygen Delivery Method Oxygen Flow Rate Sepsis Recent Fever Within 48 Hours Sepsis New/Unexplained Change in Mental Status Sepsis Action Taken by Nursing Oxygen Flow Rate - Titration Pulse Oximetry Post Tiitration 04/29/23 22:00 04/29/23 22:15 04/29/23 22:18 Temperature Temperature Source Pulse Rate 75 Pulse Rate from SpO2 Sensor 80 75 Respiratory Rate 25 H 28 H Blood Pressure 94/68 L 93/61 L Blood Pressure Mean 76 71 Blood Pressure Position Pulse Oximetry 98 98 Oxygen Delivery Method Oxygen Flow Rate Sepsis Recent Fever Within 48 Hours Sepsis New/Unexplained Change in Mental Status Sepsis Action Taken by Nursing Oxygen Flow Rate - Titration Pulse Oximetry Post Tiitration 04/29/23 22:16 04/29/23 22:30 04/29/23 22:45 Temperature Temperature Source Pulse Rate 76 81 Pulse Rate from SpO2 Sensor 82 77 80 Respiratory Rate 31 H 31 H 27 H Blood Pressure 93/61 L 96/60 L 96/66 L Blood Pressure Mean 71 72 76 Blood Pressure Position Pulse Oximetry 98 98 98 Oxygen Delivery Method Oxygen Flow Rate Sepsis Recent Fever Within 48 Hours Sepsis New/Unexplained Change in Mental Status Sepsis Action Taken by Nursing Oxygen Flow Rate - Titration Pulse Oximetry Post Tiitration GENERAL: Patient is awake alert in no acute distress patient is resting comf ortably and showing no signs of anxiety EYES: The conjunctivae are clear. The pupils are round and reactive. EARS, NOSE, MOUTH AND THROAT: The nose is without any evidence of any deformity. Mucous membranes are moist. Tongue is midline. NECK: The neck is nontender and supple. RESPIRATORY: Normal respiratory effort is noted there is no evidence of wheezing rhonchi or rales CARDIOVASCULAR: Regular rate and rhythm noted there no murmurs rubs or gallops normal S1 normal S2. GASTROINTESTINAL: The abdomen is soft. Abdomen is nontender. BACK: No midline tenderness or or step-off noted range of motion in flexion extension as well as rotation no signs of muscle spasm noted MUSCULOSKELETAL/EXTREMITIES: There is no evidence of gross deformity full range of motion is noted in the hips and shoulders. Bilateral lower extremity edema SKIN: There is no obvious evidence of any rash. There are no petechiae, pallor or cyanosis noted. NEUROLOGIC: Patient is awake alert and oriented x3 strength is symmetric Course Reevaluation(s) Reevaluation #1: Patient is resting in no distress he is on 2 L of oxygen, the patient was given IV Lasix 40 mg. Time: 22:53 Consultations Consultation #1: Case was discussed with the [facility] hospitalist for admission Time: 22:53 Administered Medications Discontinued Medications Furosemide (Furosemide 40 Mg/4 Ml Vial) 40 mg IV ONE ONE Stop: 04/29/23 21:31 Last Admin: 04/29/23 22:16 Dose: 40 mg Documented By: KAREN Medical Decision Making Medical Records Attestation: I reviewed the patient's medical records. Home Medications Current Medication List: was personally reviewed by me Laboratory Data Attestation: I reviewed the patient's lab results. Lab work interpreted by me shows an elevated creatinine of 1.75 and elevated BNP of 1028 Clinically suggestive of congestive heart failure 04/29/23 21:32 04/29/23 21:32 Lab Results 04/29/23 04/29/23 04/29/23 Range/Units 21:32 21:32 21:32 WBC 7.72 (4.8-10.8) K/ul RBC 4.66 L (4.70-6.10) M/uL Hgb 13.1 L (14.0-18.0) g/dl Hct 40.9 L (42.0-52.0) % MCV 87.8 (80.0-100.0) fL MCH 28.1 (25.0-34.0) pg MCHC 32.0 (32.0-36.0) g/dL RDW Std Deviation 61.0 H (36.4-46.3) fL RDW Coeff of Niya 19.9 H (11.5-14.5) % Plt Count 130 (130-400) K/uL MPV 12.0 (9.4-12.4) fL Immature Gran % (Auto) 0.5 % Neut % (Auto) 60.8 % Lymph % (Auto) 27.3 % Becker % (Auto) 8.5 % Eos % (Auto) 2.3 % Baso % (Auto) 0.6 % Neut # (Auto) 4.68 (1.40-6.50) K/uL Lymph # (Auto) 2.11 (1.2-3.4) K/uL [place] # (Auto) 0.66 H (0.11-0.59) K/uL Eos # (Auto) 0.18 (0-0.50) K/uL Baso # (Auto) 0.05 (0-0.2) K/uL Immature Gran # (Auto) 0.04 (0.01-0.20) K/uL PT (9.0-12.0) Seconds INR (0.9-1.1) Sodium 139 (136-145) mmol/L Potassium 3.8 (3.5-5.1) mmol/L Chloride 96 L (98-107) mmol/L Carbon Dioxide 27 (21-32) mmol/L Anion Gap 16 H (3-11) BUN 42 H (6-23) mg/dl Creatinine 1.75 H (0.6-1.4) mg/dl Est Cr Clr Drug Dosing 32.4 ml/min Est GFR ( Amer) 40.5 ml/min Est GFR (Non-Af Amer) 35.0 ml/min BUN/Creatinine Ratio 24.0 H (10-20) Glucose 189 H (70-99(Fasting)) mg/dl Calcium 10.4 H (8.6-10.3) mg/dl Total Bilirubin 1.3 H (0.2-1.0) mg/dl AST 19 (13-39) U/L ALT 17 (7-52) U/L Alkaline Phosphatase 133 H (34-104) U/L Troponin I High Sens 15.0 (0-20) pg/ml B-Natriuretic Peptide 1028 H (0-100) pg/ml Total Protein 6.8 (6.0-8.3) gm/dl Albumin 3.8 (3.4-5.0) gm/dl Globulin 3.0 (2.5-4.0) gm/dl Albumin/Globulin Ratio 1.3 (0.9-2) SARS-CoV-2, RNA, NAAT (NEGATIVE) 04/29/23 04/29/23 Range/Units 21:32 21:32 WBC (4.8-10.8) K/ul RBC (4.70-6.10) M/uL Hgb (14.0-18.0) g/dl Hct (42.0-52.0) % MCV (80.0-100.0) fL MCH (25.0-34.0) pg MCHC (32.0-36.0) g/dL RDW Std Deviation (36.4-46.3) fL RDW Coeff of Niya (11.5-14.5) % Plt Count (130-400) K/uL MPV (9.4-12.4) fL Immature Gran % (Auto) % Neut % (Auto) % Lymph % (Auto) % Becker % (Auto) % Eos % (Auto) % Baso % (Auto) % Neut # (Auto) (1.40-6.50) K/uL Lymph # (Auto) (1.2-3.4) K/uL Becker # (Auto) (0.11-0.59) K/uL Eos # (Auto) (0-0.50) K/uL Baso # (Auto) (0-0.2) K/uL Immature Gran # (Auto) (0.01-0.20) K/uL PT 33.5 H (9.0-12.0) Seconds INR 3.3 H (0.9-1.1) Sodium (136-145) mmol/L Potassium (3.5-5.1) mmol/L Chloride (98-107) mmol/L Carbon Dioxide (21-32) mmol/L Anion Gap (3-11) BUN (6-23) mg/dl Creatinine (0.6-1.4) mg/dl Est Cr Clr Drug Dosing ml/min Est GFR ( Amer) ml/min Est GFR (Non-Af Amer) ml/min BUN/Creatinine Ratio (10-20) Glucose (70-99(Fasting)) mg/dl Calcium (8.6-10.3) mg/dl Total Bilirubin (0.2-1.0) mg/dl AST (13-39) U/L ALT (7-52) U/L Alkaline Phosphatase (34-104) U/L Troponin I High Sens (0-20) pg/ml B-Natriuretic Peptide (0-100) pg/ml Total Protein (6.0-8.3) gm/dl Albumin (3.4-5.0) gm/dl Globulin (2.5-4.0) gm/dl Albumin/Globulin Ratio (0.9-2) SARS-CoV-2, RNA, NAAT NEGATIVE (NEGATIVE) Imaging Data Attestation: I personally reviewed and interpreted this imaging study as follows: My Impression: Chest x-ray interpreted by me cardiomegaly, pacemaker is present, CHF ECG Data Attestation: I personally reviewed and interpreted this ECG as follows: Blood Pressure Additional Comments: EKG interpreted by me paced rhythm at 83 no obvious ischemia normal axis Telemetry was ordered by me interpreted as paced rhythm rate of 83 MDM Narrative Medical decision making differential diagnosis includes CHF, pleural effusion, cardiac dysrhythmia, electrolyte abnormality, acute coronary syndrome Plan is to check labs, EKG, chest x-ray, give IV diuretics External medical records were reviewed by me Patient will be admitted for CHF Case was discussed with the [facility] hospitalist for admission Impression & Plan CHF (congestive heart failure) Discharge Plan Visit Data Chief Complaint: Shortness of Breath/Dyspnea ED Provider: Demar Bran Discharge Problem: CHF (congestive heart failure) Patient Disposition: Admitted As Inpatient Forms Stand Alone Forms: My [facility] Prescriptions Prescriptions: No Action albuterol sulfate 90 mcg/actuation HFA aerosol inhaler 2 puff INHALATION Q4 PRN (Reason: Shortness Of Breath) clopidogrel 75 mg Tablet 75 mg PO QAM Qty: 30 0RF nitroglycerin [Nitrostat] 0.4 mg Tablet, Sublingual 0.4 mg sublingual Q5M PRN (Reason: chest pain) Qty: 30 0RF acetaminophen 325 mg Tablet 650 mg PO Q4H PRN (Reason: fever or pain) Qty: 30 0RF polyethylene glycol 3350 [Miralax] 17 gram Powder In Packet 17 g PO DAILY PRN (Reason: constipation) Qty: 100 0RF alprazolam [Xanax] 0.5 mg Tablet 0.5 mg PO HS PRN (Reason: anxiety) Qty: 30 0RF allopurinol 300 mg Tablet 300 mg PO QAM Qty: 30 0RF mirtazapine 15 mg Tablet 15 mg PO HS Qty: 30 0RF ondansetron 4 mg Tablet,Disintegrating 4 mg PO Q4H PRN (Reason: nausea and vomiting) Qty: 30 0RF torsemide 20 mg tablet 60 mg PO BID warfarin 5 mg tablet 5 mg PO QPM Rx Instructions: as directed by anticoagulation clinic milrinone 1 mg/mL Solution 0 mg continuous IV infusion DIRECTED Rx Instructions: continuous = dose 0.2mcg/kg/min with weight 85 kg...call with weight change greater than 5 kg potassium chloride 10 mEq capsule, extended release 10 meq PO AMHS amiodarone 200 mg tablet 200 mg PO QAM metoprolol succinate 25 mg tablet extended release 24 hr 25 mg PO QAM Rx Instructions: may be taking differently glipizide 10 mg tablet extended release 24hr 10 mg PO AMHS Referrals Referrals: Rene Green DO [Primary Care Provider] -
[2023-04-29 21:51] LABS: Basophils # (auto) 0.05 K/uL (0-0.2); Basophils % (auto) 0.6 %; Eosinophils # (auto) 0.18 K/uL (0-0.50); Eosinophils % (auto) 2.3 %; Hematocrit (blood only) 40.9 % (42.0-52.0); Hemoglobin 13.1 g/dl (14.0-18.0); Immature Granulocytes # (auto) 0.04 K/uL (0.01-0.20); Immature Granulocytes % (auto) 0.5 %; Lymphocytes # (auto) 2.11 K/uL (1.2-3.4); Lymphocytes % (auto) 27.3 %; Mean Corpuscular Hemoglobin 28.1 pg (25.0-34.0); Mean Corpuscular Volume 87.8 fL (80.0-100.0); Monocytes # (auto) 0.66 K/uL (0.11-0.59); Monocytes % (auto) 8.5 %; Neutrophils # (auto) 4.68 K/uL (1.40-6.50); Neutrophils % (auto) 60.8 %; Platelet Count 130 K/uL (130-400); RDW Coefficient of Variation 19.9 % (11.5-14.5); Red Blood Count 4.66 M/uL (4.70-6.10); White Blood Count 7.72 K/ul (4.8-10.8)
[2023-04-29 21:59] LABS: INR 3.3 (0.9-1.1); Prothrombin Time 33.5 Seconds (9.0-12.0)
[2023-04-29 22:46] LABS: Albumin Globulin Ratio 1.3 (0.9-2); Albumin Level 3.8 gm/dl (3.4-5.0); Bilirubin,Total 1.3 mg/dl (0.2-1.0); Calcium 10.4 mg/dl (8.6-10.3); Creatinine Clr Calc Pharmacy 32.4 ml/min; Est GFR (African American) 40.5 ml/min; Potassium 3.8 mmol/L (3.5-5.1); Total Protein 6.8 gm/dl (6.0-8.3)
[2023-04-29] MEDS ORDERED: ALBUMIN 25% 12.5 GM/50 ML VIAL IV ONE (23:05)
[2023-04-29 23:35] LABS: Magnesium 1.8 mg/dl (1.7-2.4)
[2023-04-29] MEDS ORDERED: ALBUT/IPRATROP 3MG/0.5MG NEB 3 ML VIAL NEB STA (23:59)
--- NOTE | 2023-04-30 00:05 | History & Physical Report ---
Date of Service April 30, 2023 Assessment & Plan (1) Acute hypoxemic respiratory failure: Plan: Secondary to decompensated heart failure/end-stage heart disease chronic systolic heart failure (EF less than 20%, TTE 2022) currently on home milrinone infusion therapy CAD status post angioplasty hx VT status post ICD A-fib status post cardioversion on Coumadin, paced rhythm on EKG, INR therapeutic valvular heart disease (moderate to severe MR, mild to moderate TR, trace AR) pulmonary hypertension hypertension, baseline BP 90-100s this year DM2 on oral medications, reasonable control as of recent hemoglobin A1c of 7.8 this month CRI, creatinine at baseline past tobacco abuse PCU Supplemental O2 Baseline ABG Diuretic Rx dosed for renal function Strict I/Os, daily weights, CHF education, fluid restriction Cardiology consult Re: Decompensated heart failure Patient and agreeable to inpatient palliative care consultation to discuss goals of care. Patient also inquiring about arrangements for home O2 if patient qualifies. basal bolus insulin, ISS BG goal 1 10-1 40, carb count coverage DVT prophylaxis. Coumadin INR goal between 2 and 3 DNR Patient requesting updates from providers. Mikala Bauer, contact #[phone]. Text document was generated using [employer] voice recognition software. It may contain grammatical or spelling errors. Kindly contact undersigned for clarification of any documentation item in question. History of Present Illness Chief Complaint: Worsening shortness of breath Primary Care Provider: Rene Green DO History obtained from patient, family, and records. Medical history significant for chronic systolic heart failure (EF less than 20%, TTE 2022) currently on home milrinone infusion therapy, CAD status post angioplasty, hx VT status post ICD, A-fib status post cardioversion on Coumadin, valvular heart disease (moderate to severe MR, mild to moderate TR, trace AR), pulmonary hypertension, hypertension, hyperlipidemia, DM2 on oral medications, CRI (baseline creatinine 1.8), gout, skin cancer as per records, past tobacco abuse. Recent [facility] confinement March 26 to 2022 for decompensated heart failure/cardiogenic shock/worsening kidney dysfunction. Subsequent transfer to [facility] per patient stayed from April 02 to 2022. Patient started on milrinone for palliative purposes as per documentation and obtain insurance authorization for home Milrinone infusion. New onset A-fib noted during confinement status post cardioversion. Patient discharged on Coumadin. Patient not ready for hospice after multiple discussions with providers regarding goals of care in light of poor prognosis with worsening cardiac function as per documentation. Serum creatinine on discharge from [facility] was 2.1. Recent [facility] ER visit 10 days ago for vitamin K infusion for supratherapeutic INR documented outpatient without bleeding concerns. 3 days ago, patient noted worsening shortness of breath especially on exertion and some leg swelling. No chest pain, no cough symptoms. Patient trying to comply with 1.2 L fluid restriction. O2 sats 80s at 1 point during ER stay. IV Lasix administered at the ER. 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 Allergies Allergy/AdvReac Type Severity Reaction Status Date / Time alfuzosin AdvReac Mild NASAL Verified 04/20/23 17:19 CONGESTION Home Medications Medication Instructions Recorded Confirmed Type albuterol sulfate 90 mcg/actuation 2 puff inhalation Q4 PRN Shortness 09/21/22 04/29/23 History aerosol inhaler Of Breath acetaminophen 325 mg tablet 650 mg PO Q4H PRN fever or pain 04/02/23 04/29/23 Rx #30 tabs allopurinol 300 mg tablet 300 mg PO QAM #30 tabs 04/02/23 04/29/23 Rx alprazolam 0.5 mg tablet (Xanax) 0.5 mg PO HS PRN anxiety #30 tabs 04/02/23 04/29/23 Rx clopidogrel 75 mg tablet 75 mg PO QAM #30 tabs 04/02/23 04/29/23 Rx mirtazapine 15 mg tablet 15 mg PO HS #30 tabs 04/02/23 04/29/23 Rx nitroglycerin 0.4 mg sublingual 0.4 mg sublingual Q5M PRN chest 04/02/23 04/29/23 Rx tablet (Nitrostat) pain #30 tabs ondansetron 4 mg disintegrating 4 mg PO Q4H PRN nausea and 04/02/23 04/29/23 Rx tablet vomiting #30 tabs polyethylene glycol 3350 17 gram 17 g PO DAILY PRN constipation 04/02/23 04/29/23 Rx oral powder packet (Miralax) #100 ea milrinone 1 mg/mL intravenous 0 mg continuous IV infusion 04/20/23 04/29/23 History solution DIRECTED torsemide 20 mg tablet 60 mg PO BID 04/20/23 04/29/23 History warfarin 5 mg tablet 5 mg PO QPM 04/20/23 04/29/23 History amiodarone 200 mg tablet 200 mg PO QAM 04/29/23 04/29/23 History glipizide 10 mg tablet, extended 10 mg PO AMHS 04/29/23 04/29/23 History release 24 hr metoprolol succinate 25 mg 25 mg PO QAM 04/29/23 04/29/23 History tablet,extended release 24 hr potassium chloride 10 mEq 10 meq PO AMHS 04/29/23 04/29/23 History capsule,extended release Past Med/Surg History Medical History Acute HFrEF (heart failure with reduced ejection fraction) CAD (coronary artery disease) CHF (congestive heart failure) Chronic gout Chronic systolic heart failure Diabetes Diabetes mellitus, type II HLD (hyperlipidemia) HTN (hypertension) Ischemic cardiomyopathy No pertinent family history Surgical History History of angioplasty History of cardiac cath History of colonoscopy Family History Other Diabetes Heart disease Social History Smoking Status: Former smoker Tobacco Type: Cigarettes Second Hand Exposure: No; Do You Dip or Chew Tobacco: No; Hx Alcohol Use: No Hx Substance Use: No Preferred Language: Greenlandic Communication Ability: Effective [employer]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 Beliefs That Will Affect Care: None Current Living Situation: Spouse Current Living Situation Comment: With Other Information That Helps Us Care for You: No Feels Safe at Home: Yes Safety Concerns: Feels Safe At This Time Assistive Devices: Cane and Walker Review of Systems Review of Systems: As per HPI, all other systems reviewed and negative Physical Exam Physical Exam: GENERAL: Slightly uncomfortable, pleasant, minimal respiratory distress SKIN: Pallor, warm HEENT: Pale palpebral conjunctivae, no ptosis, dry buccal mucosa, nasal cannula in place NECK : Supple, no tenderness CHEST : Decreased breath sounds, no tenderness HEART : Diminished S1-S2, systolic murmur ABDOMEN: Some distention, nontender EXTREMITIES : Minimal LE swelling, no LE tenderness, no other conspicuous deformities noted NEUROLOGIC : Coherent, no facial asymmetry, no other gross focality Results & Data Results & Data Vital Signs (Past 12 Hours) Vital Signs Temp Pulse Resp BP Pulse Ox O2 Del Method O2 Flow Rate 04/29/23 23:15 70 27 H 98/63 L 98 04/29/23 23:00 63 13 99 04/29/23 23:00 103/68 04/29/23 22:45 81 27 H 96/66 L 98 04/29/23 22:30 76 31 H 96/60 L 98 04/29/23 22:16 31 H 93/61 L 98 04/29/23 22:18 75 04/29/23 22:15 28 H 93/61 L 98 04/29/23 22:00 25 H 94/68 L 98 04/29/23 21:45 28 H 109/65 83 L 04/29/23 21:40 31 H 98 04/29/23 21:36 76 21 89/64 L 84 L 04/29/23 21:31 81 35 H 99 04/29/23 21:30 82 18 100 04/29/23 21:25 68 39 H 04/29/23 21:25 98/69 L 04/29/23 21:24 65 14 04/29/23 21:20 75 24 98 Nasal Cannula 2 04/29/23 21:20 99 Nasal Cannula 4 04/29/23 21:20 36.9 C 75 24 98/69 L 98 Nasal Cannula 2 04/29/23 21:20 Nasal Cannula 2 Laboratory Results Laboratory Results WBC 7.72 K/ul (4.8-10.8) 04/29/23 21:32 RBC 4.66 M/uL (4.70-6.10) L 04/29/23 21:32 Hgb 13.1 g/dl (14.0-18.0) L 04/29/23 21:32 Hct 40.9 % (42.0-52.0) L 04/29/23 21:32 MCV 87.8 fL (80.0-100.0) 04/29/23 21:32 MCH 28.1 pg (25.0-34.0) 04/29/23 21: MCHC 32.0 g/dL (32.0-36.0) 04/29/23: RDW Std Deviation 61.0 fL (36.4-46.3) H 04/29/23: RDW Coeff of Niya 19.9 % (11.5-14.5) H 04/29/23 21: Plt Count 130 K/uL (130-400) 04/29/23 21: MPV 12.0 fL (9.4-12.4) 04/29/23 21: Immature Gran % (Auto) 0.5 % 04/29/23: Neut % (Auto) 60.8 % 04/29/23: Lymph % (Auto) 27.3 % 04/29/23: [place] % (Auto) 8.5 % 04/29/23: Eos % (Auto) 2.3 % 04/29/23: Baso % (Auto) 0.6 % 04/29/23: Neut # (Auto) 4.68 K/uL (1.40-6.50) 04/29/23 21: Lymph # (Auto) 2.11 K/uL (1.2-3.4) 04/29/23: [place] # (Auto) 0.66 K/uL (0.11-0.59) H 04/29/23 21: Eos # (Auto) 0.18 K/uL (0-0.50) 04/29/23: Baso # (Auto) 0.05 K/uL (0-0.2) 04/29/23: Immature Gran # (Auto) 0.04 K/uL (0.01-0.20) 04/29/23 21: PT 33.5 Seconds (9.0-12.0) H 04/29/23 21: INR 3.3 (0.9-1.1) H 04/29/23 21:32 Sodium 139 mmol/L (136-145) 04/29/23 21: Potassium 3.8 mmol/L (3.5-5.1) 04/29/23 21: Chloride 96 mmol/L (98-107) L 04/29/23 21:32 Carbon Dioxide 27 mmol/L (21-32) 04/29/23 21:32 Anion Gap 16 (3-11) H 04/29/23 21:32 BUN 42 mg/dl (6-23) H 04/29/23 21:32 Creatinine 1.75 mg/dl (0.6-1.4) H 04/29/23 21:32 Est Cr Clr Drug Dosing 32.4 ml/min 04/29/23 21:32 Est GFR ( Amer) 40.5 ml/min 04/29/23 21:32 Est GFR (Non-Af Amer) 35.0 ml/min 04/29/23 21:32 BUN/Creatinine Ratio 24.0 (10-20) H 04/29/23 21:32 Glucose 189 mg/dl (70-99(Fasting)) H 04/29/23 21:32 Calcium 10.4 mg/dl (8.6-10.3) H 04/29/23 21:32 Magnesium 1.8 mg/dl (1.7-2.4) 04/29/23 21:32 Total Bilirubin 1.3 mg/dl (0.2-1.0) H 04/29/23 21:32 AST 19 U/L (13-39) 04/29/23 21: ALT 17 U/L (7-52) 04/29/23 21:32 Alkaline Phosphatase 133 U/L (34-104) H 04/29/23 21:32 Troponin I High Sens 15.0 pg/ml (0-20) 04/29/23 21: B-Natriuretic Peptide 1028 pg/ml (0-100) H 04/29/23 21:32 Total Protein 6.8 gm/dl (6.0-8.3) 04/29/23 21: Albumin 3.8 gm/dl (3.4-5.0) 04/29/23 21: Globulin 3.0 gm/dl (2.5-4.0) 04/29/23 21: Albumin/Globulin Ratio 1.3 (0.9-2) 04/29/23 21:32 SARS-CoV-2, RNA, NAAT NEGATIVE (NEGATIVE) 04/29/23 21:32 Diagnostic Findings Chest x-ray as per my interpretation cardiomegaly, congestion, pacemaker EKG as per my interpretation : Rate 85, paced rhythm
[2023-04-30] MEDS ORDERED: traMADol HCL 50 MG TABLET PO PRN (00:14)
[2023-04-30] MEDS ORDERED: PROMETHAZINE HCL 6.25 MG in SODIUM CHLORIDE 0.9% 50 ML IV PRN (00:14)
[2023-04-30] MEDS ORDERED: POTASSIUM CHLORIDE CRTAB 20 MEQ TABCR PO STA ×2 (00:28→04:33)
[2023-04-30] MEDS ORDERED: MAGNESIUM SULFATE / D5W 1 GM/100 ML BAG IV ONE (00:30)
[2023-04-30 00:43] LABS: Allen Test Pos (Pos); Base Excess ABG 7.4 mEq/L (-9-1.8); HCO3 ABG 31 mmol/L (19-24); Oxygen Saturation ABG 98.8 % (90-95); PCO2 ABG 40 mmHg (35-46); PO2 ABG 98 mmHg (80-95)
[2023-04-30] MEDS ORDERED: ALBUMIN 25% 12.5 GM/50 ML VIAL IV ONE ×2 (00:51→08:00)
[2023-04-30] MEDS ORDERED: DEXTROSE 50% 50 ML SYRINGE IV PRN (02:40)
[2023-04-30] MEDS ORDERED: ACETAMINOPHEN 325 MG TAB PO PRN (02:40)
[2023-04-30] MEDS ORDERED: CARBOHYDRATES FOR HYPOGLYCEMIA PO PRN (02:40)
[2023-04-30] MEDS ORDERED: GLUCOSE 40% GEL 15 GM TUBE PO PRN (02:40)
[2023-04-30] MEDS ORDERED: GLUCAGON FOR INJ 1 MG VIAL SQ PRN (02:40)
[2023-04-30] MEDS ORDERED: GLUCOSE 10 TAB/TUBE PO PRN (02:40)
[2023-04-30] MEDS ORDERED: NITROGLYCERIN SL 0.4 MG/TAB TAB SL PRN (02:40)
[2023-04-30] MEDS ORDERED: POLYETHYLENE (MIRALAX) 17 GM PACK PO PRN (02:40)
[2023-04-30] MEDS: INSULIN ASPART PER UNIT CHARGE SC SCH ×5 (02:56→19:57)
[2023-04-30] MEDS ORDERED: MILRINONE 1 MG/ML IV SCH (03:00)
[2023-04-30] MEDS: ALPRAZolam 0.5 MG TABLET PO PRN ×2 (03:06→22:44)
[2023-04-30] MEDS: MIRTAZAPINE TAB 15 MG TAB PO SCH ×2 (03:10→20:49)
[2023-04-30 03:42] LABS: Basophils # (auto) 0.04 K/uL (0-0.2); Basophils % (auto) 0.7 %; Eosinophils # (auto) 0.17 K/uL (0-0.50); Hematocrit (blood only) 36.6 % (42.0-52.0); Hemoglobin 11.8 g/dl (14.0-18.0); Immature Granulocytes # (auto) 0.02 K/uL (0.01-0.20); Immature Granulocytes % (auto) 0.4 %; Lymphocytes # (auto) 2.22 K/uL (1.2-3.4); Lymphocytes % (auto) 39.2 %; Mean Corpuscular Hemoglobin 28.1 pg (25.0-34.0); Mean Corpuscular Hgb Conc 32.2 g/dL (32.0-36.0); Mean Corpuscular Volume 87.1 fL (80.0-100.0); Mean Platelet Volume 11.3 fL (9.4-12.4); Monocytes # (auto) 0.55 K/uL (0.11-0.59); Monocytes % (auto) 9.7 %; Neutrophils # (auto) 2.66 K/uL (1.40-6.50); Platelet Count 119 K/uL (130-400); RDW Coefficient of Variation 19.3 % (11.5-14.5); RDW Standard Deviation 59.9 fL (36.4-46.3); White Blood Count 5.66 K/ul (4.8-10.8)
[2023-04-30 03:59] LABS: Calcium 9.9 mg/dl (8.6-10.3); Creatinine Clr Calc Pharmacy 33.6 ml/min; Est GFR (African American) 42.3 ml/min; Est GFR (Non-African American) 36.5 ml/min; Potassium 3.3 mmol/L (3.5-5.1)
[2023-04-30 04:23] LABS: INR 3.3 (0.9-1.1); Prothrombin Time 33.2 Seconds (9.0-12.0)
[2023-04-30] MEDS ORDERED: POTASSIUM CHLORIDE CRTAB 20 MEQ TABCR PO SCH (08:00)
[2023-04-30] MEDS ORDERED: FUROSEMIDE 40 MG/4 ML VIAL IV ONE ×2 (08:00→14:25)
[2023-04-30] MEDS: METOPROLOL SUCC 25MG EXT REL TAB PO SCH (08:02)
[2023-04-30] MEDS: CLOPIDOGREL BISULFATE 75 MG TAB PO SCH (08:02)
[2023-04-30] MEDS: AMIODARONE 200 MG TAB PO SCH (08:03)
[2023-04-30] MEDS: allopurinoL 300 MG TAB PO SCH (08:03)
--- NOTE | 2023-04-30 08:16 | Communication Note ---
Date of Service: April 30, 2023 Pt seen this AM. States that he is SOB. Known the service and follows closely with Cardiology for severe heart failure, NYHA Class IV. Overall poor prognosis and he states that he is open to discussion of options with Palliative Care. AAO, resting cofrtably, NC in nares. RRR, noted swollen extremities. Appreciate cardiology and Palliative recommendations.
[2023-04-30] MEDS ORDERED: POTASSIUM CHLORIDE 10 MEQ TABCR PO SCH (09:00)
--- NOTE | 2023-04-30 09:25 | XRay Report ---
XR chest 1V portable CLINICAL HISTORY: Chest pain, nonspecific TECHNIQUE: Single frontal radiograph of the chest was obtained. Comparison: Comparison is made to chest radiograph 03/29/2023 FINDINGS: Pacemaker defibrillator is seen. A right subclavian venous catheter tip is in the cavoatrial junction . Cardiomegaly is noted. The aortic arch is calcified. Prominence and cephalization of the vasculatur e is seen. Faint right lower lung airspace opacity is seen. No evidence of pleural effusion or pneumo thorax. IMPRESSION: 1. Cardiomegaly and mild pulmonary edema, stable to minimally improved from prior exam. 2. Right lower lung airspace opacity may represent atelectasis, pneumonia, and/or aspiration. ACT 112: Negative or not required by law. Electronically signed by: Felipe Guido M.D. 04/30/2023 9:23 AM
--- NOTE | 2023-04-30 14:12 | Cardiology Consultation ---
Date of Consultation April 30, 2023 Assessment & Plan (1) Acute hypoxemic respiratory failure: (2) NYHA class 4 acute on chronic systolic heart failure: (3) Ischemic cardiomyopathy: Plan Patient is a 83-year-old male readmitted with acute on chronic systolic heart failure, NYHA class IV on continuous milrinone infusion. Patient hypoxic on presentation with evidence of volume overload increasing weight gain and malaise. Renal function relatively stable Plan: Continue milrinone infusion IV diuresis initially with furosemide 60 mg 3 times daily consider continuous infusion if no response Continue amiodarone and metoprolol succinate Overall prognosis extremely limited and patient aware. Family beginning to discuss hospice managed History of Present Illness Reason for Consultation: Acute on chronic systolic heart failure Attending Physician: Johanny Powell MD History of Present Illness Patient is an 83-year-old male with complex history 1. Chronic ischemic heart disease,Anterior wall myocardial infarction in 1984 Status post plain old balloon angioplasty of the mid LAD in 1984 Cardiac catheterization last on September 23, 2022 revealing right dominant coronary anatomy with severe multivessel coronary artery disease including a proximal right coronary artery occlusion, subtotal mid LAD stenosis, and diffuse atherosclerosis of all vessels with limited interventional targets, deemed medical management only 2. Ischemic cardiomyopathy with severe LV dysfunction, moderate to severe mitral sufficiency 3. Chronic class IV congestive heart failure on continuous outpatient milrinone infusion 4. Status post BiV ICD pacemaker implantation 2022 5. Hypertension 6. Dyslipidemia 7. Mild calcific aortic stenosis 8. CKD stage III Patient presents for rehospitalization with extensive hospitalization in March 2023 with class IV congestive heart failure. Patient ultimately discharged from [facility] in [place] on continuous milrinone infusion. He represents with worsening shortness of breath, hypoxia, edema and weight gain. Complains of generalized weakness and malaise. No chest pains or tachypalpitations. No syncope or near syncope. No defibrillator activation Patient has been compliant with medications. No overt bleeding difficulties. No irritation at port site. No interruption in milrinone infusion Allergies Allergy/AdvReac Type Severity Reaction Status Date / Time alfuzosin AdvReac Mild NASAL Verified 04/20/23 17:19 CONGESTION Home Medications Medication Instructions Recorded Confirmed Type albuterol sulfate 90 mcg/actuation 2 puff inhalation Q4 PRN Shortness 09/21/22 04/29/23 History aerosol inhaler Of Breath acetaminophen 325 mg tablet 650 mg PO Q4H PRN fever or pain 04/02/23 04/29/23 Rx #30 tabs allopurinol 300 mg tablet 300 mg PO QAM #30 tabs 04/02/23 04/29/23 Rx alprazolam 0.5 mg tablet (Xanax) 0.5 mg PO HS PRN anxiety #30 tabs 04/02/23 04/29/23 Rx clopidogrel 75 mg tablet 75 mg PO QAM #30 tabs 04/02/23 04/29/23 Rx mirtazapine 15 mg tablet 15 mg PO HS #30 tabs 04/02/23 04/29/23 Rx nitroglycerin 0.4 mg sublingual 0.4 mg sublingual Q5M PRN chest 04/02/23 04/29/23 Rx tablet (Nitrostat) pain #30 tabs ondansetron 4 mg disintegrating 4 mg PO Q4H PRN nausea and 04/02/23 04/29/23 Rx tablet vomiting #30 tabs polyethylene glycol 3350 17 gram 17 g PO DAILY PRN constipation 04/02/23 04/29/23 Rx oral powder packet (Miralax) #100 ea milrinone 1 mg/mL intravenous 0 mg continuous IV infusion 04/20/23 04/29/23 History solution DIRECTED torsemide 20 mg tablet 60 mg PO BID 04/20/23 04/29/23 History warfarin 5 mg tablet 5 mg PO QPM 04/20/23 04/29/23 History amiodarone 200 mg tablet 200 mg PO QAM 04/29/23 04/29/23 History glipizide 10 mg tablet, extended 10 mg PO AMHS 04/29/23 04/29/23 History release 24 hr metoprolol succinate 25 mg 25 mg PO QAM 04/29/23 04/29/23 History tablet,extended release 24 hr potassium chloride 10 mEq 10 meq PO AMHS 04/29/23 04/29/23 History capsule,extended release Patient History Medical History Acute HFrEF (heart failure with reduced ejection fraction) CAD (coronary artery disease) CHF (congestive heart failure) Chronic gout Chronic systolic heart failure Diabetes Diabetes mellitus, type II HLD (hyperlipidemia) HTN (hypertension) Ischemic cardiomyopathy No pertinent family history Surgical History History of angioplasty History of cardiac cath History of colonoscopy Family History Other Diabetes Heart disease Social History Smoking Status: Former smoker Tobacco Type: Cigarettes Second Hand Exposure: No; Do You Dip or Chew Tobacco: No; Hx Alcohol Use: No Hx Substance Use: No Preferred Language: Korean Communication Ability: Effective Severity Of Illness Coordinator Required: No Beliefs That Will Affect Care: None Current Living Situation: Spouse Current Living Situation Comment: With Other Information That Helps Us Care for You: No Feels Safe at Home: Yes Safety Concerns: Feels Safe At This Time Assistive Devices: Cane and Walker Review of Systems Review of Systems: All systems reviewed & are unremarkable except as noted in HPI & below Physical Exam Constitutional: + ill appearing; no acute distress Eyes: PERRL, conjunctivae normal, anicteric sclerae ENMT: external ear and nose normal, oropharynx normal Neck: trachea midline, no thyromegaly Respiratory: Auscultation: + diminished lung sounds Cardiovascular: Rate/Rhythm: regular rate and regular rhythm Vessels: + JVD Extremities: + edema Gastrointestinal (Abdomen): normal bowel sounds, soft, nontender, no hepatosplenomegaly Results & Data Vital Signs (Past 12 Hours) Vital Signs Temp Pulse Pulse Resp BP BP Pulse Ox 04/30/23 11:31 36.5 C 76 100/66 100 04/30/23 07:40 72 04/30/23 07:40 04/30/23 07:32 36.5 C 74 18 108/73 93 04/30/23 03:25 36.4 C L 75 16 92/61 L 97 04/30/23 02:40 04/30/23 02:40 Pulse Ox O2 Del Method O2 Del Method O2 Flow Rate O2 Flow Rate 04/30/23 11:31 Nasal Cannula 4 04/30/23 07:40 04/30/23 07:40 Nasal Cannula 3 04/30/23 07:32 Nasal Cannula 3 04/30/23 03:25 Nasal Cannula 3 04/30/23 02:40 97 Nasal Cannula 3 04/30/23 02:40 Nasal Cannula 3 Laboratory Results Laboratory Results - last 24 hr 04/29/23 04/29/23 04/29/23 21:32 21:32 21:32 WBC 7.72 RBC 4.66 L Hgb 13.1 L Hct 40.9 L MCV 87.8 MCH 28.1 MCHC 32.0 RDW Std Deviation 61.0 H RDW Coeff of Niya 19.9 H Plt Count 130 MPV 12.0 Immature Gran % (Auto) 0.5 Neut % (Auto) 60.8 Lymph % (Auto) 27.3 [place] % (Auto) 8.5 Eos % (Auto) 2.3 Baso % (Auto) 0.6 Neut # (Auto) 4.68 Lymph # (Auto) 2.11 [place] # (Auto) 0.66 H Eos # (Auto) 0.18 Baso # (Auto) 0.05 Immature Gran # (Auto) 0.04 PT INR ABG pH ABG pCO2 ABG pO2 ABG HCO3 ABG O2 Saturation ABG Base Excess Man Test Oxygen Given Sodium 139 Potassium 3.8 Chloride 96 L Carbon Dioxide 27 Anion Gap 16 H BUN 42 H Creatinine 1.75 H Est Cr Clr Drug Dosing 32.4 Est GFR ( Amer) 40.5 Est GFR (Non-Af Amer) 35.0 BUN/Creatinine Ratio 24.0 H Glucose 189 H POC Glucose Lactate Calcium 10.4 H Magnesium 1.8 Total Bilirubin 1.3 H AST 19 ALT 17 Alkaline Phosphatase 133 H Troponin I High Sens 15.0 B-Natriuretic Peptide 1028 H Total Protein 6.8 Albumin 3.8 Globulin 3.0 Albumin/Globulin Ratio 1.3 SARS-CoV-2, RNA, NAAT 04/29/23 04/29/23 04/30/23 21:32 21:32 00:12 WBC RBC Hgb Hct MCV MCH MCHC RDW Std Deviation RDW Coeff of Niya Plt Count MPV Immature Gran % (Auto) Neut % (Auto) Lymph % (Auto) [place] % (Auto) Eos % (Auto) Baso % (Auto) Neut # (Auto) Lymph # (Auto) [place] # (Auto) Eos # (Auto) Baso # (Auto) Immature Gran # (Auto) PT 33.5 H INR 3.3 H ABG pH 7.50 H ABG pCO2 40 ABG pO2 98 H ABG HCO3 31 H ABG O2 Saturation 98.8 H ABG Base Excess 7.4 H Man Test Pos Oxygen Given 2 L Sodium Potassium Chloride Carbon Dioxide Anion Gap BUN Creatinine Est Cr Clr Drug Dosing Est GFR ( Amer) Est GFR (Non-Af Amer) BUN/Creatinine Ratio Glucose POC Glucose Lactate Calcium Magnesium Total Bilirubin AST ALT Alkaline Phosphatase Troponin I High Sens B-Natriuretic Peptide Total Protein Albumin Globulin Albumin/Globulin Ratio SARS-CoV-2, RNA, NAAT NEGATIVE 04/30/23 04/30/23 04/30/23 02:50 03:26 03:26 WBC RBC Hgb Hct MCV MCH MCHC RDW Std Deviation RDW Coeff of Niya Plt Count MPV Immature Gran % (Auto) Neut % (Auto) Lymph % (Auto) [place] % (Auto) Eos % (Auto) Baso % (Auto) Neut # (Auto) Lymph # (Auto) [place] # (Auto) Eos # (Auto) Baso # (Auto) Immature Gran # (Auto) PT INR ABG pH ABG pCO2 ABG pO2 ABG HCO3 ABG O2 Saturation ABG Base Excess Man Test Oxygen Given Sodium 139 Potassium 3.3 L Chloride 96 L Carbon Dioxide 31 Anion Gap 12 H BUN 44 H Creatinine 1.69 H Est Cr Clr Drug Dosing 33.6 Est GFR ( Amer) 42.3 Est GFR (Non-Af Amer) 36.5 BUN/Creatinine Ratio 26.0 H Glucose 126 H POC Glucose 133 H Lactate 1.8 Calcium 9.9 Magnesium Total Bilirubin AST ALT Alkaline Phosphatase Troponin I High Sens B-Natriuretic Peptide Total Protein Albumin Globulin Albumin/Globulin Ratio SARS-CoV-2, RNA, NAAT 04/30/23 04/30/23 04/30/23 03:26 03:26 07:21 WBC 5.66 RBC 4.20 L Hgb 11.8 L Hct 36.6 L MCV 87.1 MCH 28.1 MCHC 32.2 RDW Std Deviation 59.9 H RDW Coeff of Niya 19.3 H Plt Count 119 L MPV 11.3 Immature Gran % (Auto) 0.4 Neut % (Auto) 47.0 Lymph % (Auto) 39.2 [place] % (Auto) 9.7 Eos % (Auto) 3.0 Baso % (Auto) 0.7 Neut # (Auto) 2.66 Lymph # (Auto) 2.22 [place] # (Auto) 0.55 Eos # (Auto) 0.17 Baso # (Auto) 0.04 Immature Gran # (Auto) 0.02 PT 33.2 H INR 3.3 H ABG pH ABG pCO2 ABG pO2 ABG HCO3 ABG O2 Saturation ABG Base Excess Man Test Oxygen Given Sodium Potassium Chloride Carbon Dioxide Anion Gap BUN Creatinine Est Cr Clr Drug Dosing Est GFR ( Amer) Est GFR (Non-Af Amer) BUN/Creatinine Ratio Glucose POC Glucose 116 H Lactate Calcium Magnesium Total Bilirubin AST ALT Alkaline Phosphatase Troponin I High Sens B-Natriuretic Peptide Total Protein Albumin Globulin Albumin/Globulin Ratio SARS-CoV-2, RNA, NAAT 04/30/23 11:21 WBC RBC Hgb Hct MCV MCH MCHC RDW Std Deviation RDW Coeff of Niya Plt Count MPV Immature Gran % (Auto) Neut % (Auto) Lymph % (Auto) [place] % (Auto) Eos % (Auto) Baso % (Auto) Neut # (Auto) Lymph # (Auto) [place] # (Auto) Eos # (Auto) Baso # (Auto) Immature Gran # (Auto) PT INR ABG pH ABG pCO2 ABG pO2 ABG HCO3 ABG O2 Saturation ABG Base Excess Man Test Oxygen Given Sodium Potassium Chloride Carbon Dioxide Anion Gap BUN Creatinine Est Cr Clr Drug Dosing Est GFR ( Amer) Est GFR (Non-Af Amer) BUN/Creatinine Ratio Glucose POC Glucose 161 H Lactate Calcium Magnesium Total Bilirubin AST ALT Alkaline Phosphatase Troponin I High Sens B-Natriuretic Peptide Total Protein Albumin Globulin Albumin/Globulin Ratio SARS-CoV-2, RNA, NAAT
[2023-04-30] MEDS: FUROSEMIDE 40 MG/4 ML VIAL IV SCH (20:49)
[2023-05-01 07:24] LABS: Basophils # (auto) 0.05 K/uL (0-0.2); Basophils % (auto) 0.8 %; Eosinophils # (auto) 0.29 K/uL (0-0.50); Eosinophils % (auto) 4.4 %; Hematocrit (blood only) 35.9 % (42.0-52.0); Hemoglobin 11.5 g/dl (14.0-18.0); Immature Granulocytes # (auto) 0.03 K/uL (0.01-0.20); Immature Granulocytes % (auto) 0.5 %; Lymphocytes # (auto) 2.24 K/uL (1.2-3.4); Mean Corpuscular Hemoglobin 27.4 pg (25.0-34.0); Mean Corpuscular Volume 85.7 fL (80.0-100.0); Mean Platelet Volume 11.7 fL (9.4-12.4); Monocytes # (auto) 0.63 K/uL (0.11-0.59); Monocytes % (auto) 9.6 %; Neutrophils # (auto) 3.34 K/uL (1.40-6.50); Neutrophils % (auto) 50.7 %; Platelet Count 122 K/uL (130-400); RDW Coefficient of Variation 19.4 % (11.5-14.5); RDW Standard Deviation 58.7 fL (36.4-46.3); Red Blood Count 4.19 M/uL (4.70-6.10); White Blood Count 6.58 K/ul (4.8-10.8)
[2023-05-01 07:44] LABS: BUN Creatinine Ratio 27.8 (10-20); Calcium 9.9 mg/dl (8.6-10.3); Creatinine Clr Calc Pharmacy 33.6 ml/min; Est GFR (African American) 42.3 ml/min; Est GFR (Non-African American) 36.5 ml/min; Potassium 3.8 mmol/L (3.5-5.1)
[2023-05-01] MEDS: CLOPIDOGREL BISULFATE 75 MG TAB PO SCH (08:36)
[2023-05-01] MEDS: AMIODARONE 200 MG TAB PO SCH (08:36)
[2023-05-01] MEDS: FUROSEMIDE 40 MG/4 ML VIAL IV SCH ×3 (08:37→20:38)
[2023-05-01] MEDS: allopurinoL 300 MG TAB PO SCH (08:37)
[2023-05-01] MEDS: METOPROLOL SUCC 25MG EXT REL TAB PO SCH (08:37)
[2023-05-01] MEDS: INSULIN ASPART PER UNIT CHARGE SC SCH ×4 (08:38→20:38)
[2023-05-01] MEDS: POTASSIUM CHLORIDE CRTAB 20 MEQ TABCR PO SCH ×2 (08:39→17:00)
--- NOTE | 2023-05-01 10:47 | Palliative Care Consultation ---
Date of Consultation May 01, 2023 Assessment & Plan (1) Dyspnea: He has noticed some improvement with diuresis in hospital. He has had -1016ml fluid balance over the last 24 hours. Episodes of air hunger are distressing for him and contributing to his anxiety. We discussed use of opioid for relief of air hunger. Morphine oral concentrate ordered at 5mg every four hours as needed. Explained role of opioids in relieving air hunger as well as side effects. With his CKD will need to monitor for opioid toxicity. If he is using regular dosing, may need to convert to alternate opioid. (2) Anxiety: Related to above. Discussed use of longer acting anxiolytic for relief. Will c onvert to lorazepam and continue dosing prn at this time. (3) Palliative care encounter: I spoke with Mr. Bauer and his about how they are coping with his illness. He is frustrated with recurrent hospitalizations, his decreased functional status, symptoms and fluid restriction. He understands that he is in the end stage of his illness and that his heart function is not likely to improve. His asked about him getting stronger to be more independent at home. Expressed concern that he is likely as good as he is able to be at this time. He tells me that he understands that he will from his heart failure. We discussed options of continued disease management as opposed to comfort and symptom management. He tells me that he feels that he would want a comfort focused approach and would prefer not to be rehospitalized. We talked about having a plan in place for episodes of dyspnea and anxiety so that he could remain at home and not have to call 911. We discussed hospice care as support to ensure this. He has considered hospice in the past but has been reluctant because "that's really the end". Reviewed hospice benefit and services provided A nswered their questions about nursing support and concern that hospice "would take over his medications". We discussed looking at medications to determine if they are actually helping him feel better or treating a problem that, unfortunately, can't be fixed. We also discussed possibility that hospice would likely not cover milrinone infusion. They are not sure if they are comfortable with stopping milrinone. Encouraged him to speak with his bus greaser about this. Asked case management to confirm if hospice would be able to take him on service with milrinone infusion. Discussed with RN. Palliative care will follow. History of Present Illness Reason for Consultation: goals of care Requesting Physician: Dr. Forbes Attending Physician: Laura Sellers DO History of Present Illness 83 yo gentleman with ischemic cardiomyopathy and NYHA Class IV heart failure. He had prolonged hospitalization last month with transfer to [facility]. He was discharged from [facility] on milrinone infusion. He has severe multivessel CAD as well as valvular heart disease and EF of 20-25%. He did have ICD implantation in 2022. He also has Stage III CKD. He was admitted yesterday with decompensated heart failure. He denies pain or dyspnea at rest. He does complain of overall weakness limiting his independence which is concerning for him. He also expresses some frustration about fluid restriction. His most troublesome symptom is anxiety, often related to episodes of air hunger. He describes feeling like he needs to get out of bed and go somewhere. He has had some relief with alprazolam but has noticed that it is not as helpful as it had been. Allergies Allergy/AdvReac Type Severity Reaction Status Date / Time alfuzosin AdvReac Mild NASAL Verified 04/20/23 17:19 CONGESTION Home Medications Medication Instructions Recorded Confirmed Type albuterol sulfate 90 mcg/actuation 2 puff inhalation Q4 PRN Shortness 09/21/22 04/29/23 History aerosol inhaler Of Breath acetaminophen 325 mg tablet 650 mg PO Q4H PRN fever or pain 04/02/23 04/29/23 Rx #30 tabs allopurinol 300 mg tablet 300 mg PO QAM #30 tabs 04/02/23 04/29/23 Rx alprazolam 0.5 mg tablet (Xanax) 0.5 mg PO HS PRN anxiety #30 tabs 04/02/23 04/29/23 Rx clopidogrel 75 mg tablet 75 mg PO QAM #30 tabs 04/02/23 04/29/23 Rx mirtazapine 15 mg tablet 15 mg PO HS #30 tabs 04/02/23 04/29/23 Rx nitroglycerin 0.4 mg sublingual 0.4 mg sublingual Q5M PRN chest 04/02/23 04/29/23 Rx tablet (Nitrostat) pain #30 tabs ondansetron 4 mg disintegrating 4 mg PO Q4H PRN nausea and 04/02/23 04/29/23 Rx tablet vomiting #30 tabs polyethylene glycol 3350 17 gram 17 g PO DAILY PRN constipation 04/02/23 04/29/23 Rx oral powder packet (Miralax) #100 ea milrinone 1 mg/mL intravenous 0 mg continuous IV infusion 04/20/23 04/29/23 History solution DIRECTED torsemide 20 mg tablet 60 mg PO BID 04/20/23 04/29/23 History warfarin 5 mg tablet 5 mg PO QPM 04/20/23 04/29/23 History amiodarone 200 mg tablet 200 mg PO QAM 04/29/23 04/29/23 History glipizide 10 mg tablet, extended 10 mg PO AMHS 04/29/23 04/29/23 History release 24 hr metoprolol succinate 25 mg 25 mg PO QAM 04/29/23 04/29/23 History tablet,extended release 24 hr potassium chloride 10 mEq 10 meq PO AMHS 04/29/23 04/29/23 History capsule,extended release Patient History Medical History Acute HFrEF (heart failure with reduced ejection fraction) CAD (coronary artery disease) CHF (congestive heart failure) Chronic gout Chronic systolic heart failure Diabetes Diabetes mellitus, type II HLD (hyperlipidemia) HTN (hypertension) Ischemic cardiomyopathy No pertinent family history Surgical History History of angioplasty History of cardiac cath History of colonoscopy Family History Other Diabetes Heart disease Social History Smoking Status: Former smoker Tobacco Type: Cigarettes Second Hand Exposure: No; Do You Dip or Chew Tobacco: No; Hx Alcohol Use: No Hx Substance Use: No Preferred Language: Burkinan Communication Ability: Effective Case Briefer Required: No Beliefs That Will Affect Care: None Current Living Situation: Spouse Current Living Situation Comment: With Other Information That Helps Us Care for You: No Feels Safe at Home: Yes Safety Concerns: Feels Safe At This Time Assistive Devices: Cane and Walker Review of Systems Review of Systems: Pain 0/3 Dyspnea 0/3 at rest Nausea 0/3 Anxiety 2/3 Drowsiness 0/3 Physical Exam Constitutional: + ill appearing; no acute distress Respiratory: normal respiratory effort; no labored breathing Cardiovascular: Rate/Rhythm: regular rate and regular rhythm LE edema Skin: warm and dry Neurologic: Speech / Cognition: normal cognition Psychiatric: Orientation: oriented x 3 Results & Data Vital Signs (Past 12 Hours) Vital Signs Temp Pulse Pulse Resp BP BP Pulse Ox 05/01/23 07:53 75 05/01/23 07:53 05/01/23 07:32 98.2 F 76 20 103/57 L 99 05/01/23 03:17 97.5 F L 74 16 88/61 L 113/77 98 04/30/23 23:22 75 04/30/23 23:15 97.5 F L 83 14 88/60 L 109/80 99 O2 Del Method O2 Flow Rate 05/01/23 07:53 05/01/23 07:53 Nasal Cannula 4 05/01/23 07:32 Nasal Cannula 4 05/01/23 03:17 Nasal Cannula 4 04/30/23 23:22 04/30/23 23:15 Nasal Cannula 4 PG Care Time/CCT Total # of Minutes Spent Total Time Spent: 80 Total Time Spent with Patient: Total time spent is greater than 50% in coordination of care (as documented) at patient's floor/unit and/or counseling patient:[id number] goals of care, symptom management, hospice, prognosis, patient and family education and support, coordination of care. Coding Level of Care Code 62257 INT INP/OBS CARE 3/75MIN Diagnoses Dyspnea R06.00 Anxiety F41.9 Palliative care encounter Z51.5
--- NOTE | 2023-05-01 12:10 | Cardiology Progress Note ---
Date of Service May 01, 2023 Assessment & Plan (1) Acute hypoxemic respiratory failure: (2) NYHA class 4 acute on chronic systolic heart failure: (3) Ischemic cardiomyopathy: Plan Patient is a 83-year-old male readmitted with acute on chronic systolic heart failure, NYHA class IV on continuous milrinone infusion. Patient hypoxic on presentation with evidence of volume overload increasing weight gain and malaise. Renal function relatively stable Plan: Continue milrinone infusion IV diuresis initially with furosemide 60 mg 3 times daily consider continuous infusion if no response Continue amiodarone and metoprolol succinate Overall prognosis extremely limited and patient aware. Family beginning to discuss hospice managed 05/01/2023 Patient has made progress with IV diuretics initially. Renal function remaining stable. We will plan on continuing IV furosemide at current dosing, continuous milrinone infusion. We will need to discuss milrinone infusion replacement when needed. ( making exchanges) We will consider adding metolazone to current medical regimen when converting to oral diuretic Patient remains at high risk for further deterioration Admission and Anticipated Discharge Date Admission Date: April 30, 2023 Subjective Patient seen and examined, chart, medications, telemetry reviewed Patient notes less dyspnea this morning. No chest pain or discomfort no arrhythmias overnight. Has manifested diuresis with current dosing of IV furosemide. Renal function remaining stable. No fevers or chills no bleeding Review of Systems Review of Systems: All systems reviewed & are unremarkable except as noted in Subjective Physical Exam Constitutional: no acute distress Eyes: PERRL, conjunctivae normal, anicteric sclerae ENMT: external ear and nose normal, oropharynx normal Neck: trachea midline, no thyromegaly Respiratory: Auscultation: + diminished lung sounds and + rales (Bibasilar left greater than right) Cardiovascular: Rate/Rhythm: regular rate and regular rhythm Vessels: + JVD Extremities: + edema Gastrointestinal (Abdomen): normal bowel sounds, soft, nontender, no hepatosplenomegaly Results & Data Vital Signs (Past 12 Hours) Vital Signs Temp Pulse Pulse Resp BP BP Pulse Ox 05/01/23 07:53 75 05/01/23 07:53 05/01/23 07:32 36.8 C 76 20 103/57 L 99 05/01/23 03:17 36.4 C L 74 16 88/61 L 113/77 98 O2 Del Method O2 Flow Rate 05/01/23 07:53 05/01/23 07:53 Nasal Cannula 4 05/01/23 07:32 Nasal Cannula 4 05/01/23 03:17 Nasal Cannula 4 Laboratory Results Laboratory Results - last 24 hr 04/30/23 04/30/23 05/01/23 16:05 19:45 06:29 WBC 6.58 RBC 4.19 L Hgb 11.5 L Hct 35.9 L MCV 85.7 MCH 27.4 MCHC 32.0 RDW Std Deviation 58.7 H RDW Coeff of Niya 19.4 H Plt Count 122 L MPV 11.7 Immature Gran % (Auto) 0.5 Neut % (Auto) 50.7 Lymph % (Auto) 34.0 [place] % (Auto) 9.6 Eos % (Auto) 4.4 Baso % (Auto) 0.8 Neut # (Auto) 3.34 Lymph # (Auto) 2.24 [place] # (Auto) 0.63 H Eos # (Auto) 0.29 Baso # (Auto) 0.05 Immature Gran # (Auto) 0.03 Sodium Potassium Chloride Carbon Dioxide Anion Gap BUN Creatinine Est Cr Clr Drug Dosing Est GFR ( Amer) Est GFR (Non-Af Amer) BUN/Creatinine Ratio Glucose POC Glucose 131 H 131 H Calcium 05/01/23 05/01/23 05/01/23 06:29 07:20 11:49 WBC RBC Hgb Hct MCV MCH MCHC RDW Std Deviation RDW Coeff of Niya Plt Count MPV Immature Gran % (Auto) Neut % (Auto) Lymph % (Auto) [place] % (Auto) Eos % (Auto) Baso % (Auto) Neut # (Auto) Lymph # (Auto) [place] # (Auto) Eos # (Auto) Baso # (Auto) Immature Gran # (Auto) Sodium 139 Potassium 3.8 Chloride 98 Carbon Dioxide 30 Anion Gap 11 BUN 47 H Creatinine 1.69 H Est Cr Clr Drug Dosing 33.6 Est GFR ( Amer) 42.3 Est GFR (Non-Af Amer) 36.5 BUN/Creatinine Ratio 27.8 H Glucose 115 H POC Glucose 116 H 140 H Calcium 9.9
--- NOTE | 2023-05-01 12:36 | Hospitalist Progress Note ---
Date of Service May 01, 2023 Assessment & Plan (1) Acute hypoxemic respiratory failure: Plan: Secondary to decompensated heart failure/end-stage heart disease See plan below (2) Acute on chronic systolic (congestive) heart failure: Plan: chronic systolic heart failure (EF less than 20%, TTE 2022) with pulmonary hypertension currently on home milrinone infusion therapy hx VT status post ICD Patient hypoxic on presentation with evidence of volume overload increasing weight gain and malaise. Renal function relatively stable IV diuresis initially with furosemide 60 mg 3 times daily consider continuous infusion if no response Continue amiodarone and metoprolol succinate Overall prognosis extremely limited and patient aware. Patient meet with hospice physician (3) Diabetes mellitus, type II: Plan: controlled, A1C 6.4 last month. Hold glipizide and utilize insulin in the hospital. (4) Anxiety: Plan: chronic, controlled. Cont Xanax prn. (5) CAD (coronary atherosclerotic disease): Plan: CAD status post angioplasty. Chronic, stable. Cont medical management. (6) Afib: Plan: A-fib status post cardioversion on Coumadin, paced rhythm on EKG, INR therapeutic. Cont amiodaron and Metoprolol (7) Valvular heart disease: Plan: valvular heart disease (moderate to severe MR, mild to moderate TR, trace AR) warfarin DNR/DNI Dispo-considering Hospice,however, Hospice won't allow more than two weekss of milrinone. We are checking to see if there may be an exception made. Laura Sellers DO [facility] Hospitalist Admission and Anticipated Discharge Date Admission Date: April 30, 2023 Subjective 83-year-old man readmitted with acute on chronic systolic heart failure on continuous milrinone infusion. He was hypoxic on presentation after 3 days of volume overload with increased weight gain and malaise. He was diuresed with intravenous diuretics and is greatly improved from a breathing standpoint. He is breathing at his baseline per his report today. Given his poor prognosis he did meet with palliative. Hospice options were reviewed and he is amenable to this as long as he can still receive his milrinone infusion. Case management looking into this now. Denies chest pain or other issues today. Review of Systems Review of Systems: All systems reviewed negative except as again above. Physical Exam Physical Exam: CONSTITUTIONAL: WNWD, vitals as above, generally well-appearing, NAD EYES: normal conjunctivae, no scleral icterus, ENT: external ear and nose normal, MMM NECK: trachea midline, RESPIRATORY: clear to auscultation bilaterally, crackles at bases of lungs bilaterally, no rales or wheezes, normal respiratory effort, supplemental oxygen in place. CARDIOVASCULAR: regular rate and rhythm, S1 and 2 heard without murmurs, gallops or rubs, no JVD, 2+ peripheral edema up to mid shins bilaterally CHEST: inspection of chest was normal GASTROINTESTINAL: soft, nontender, ND, no guarding MUSCULOSKELETAL: strength 5/5 throughout, head is normocephalic and atraumatic SKIN: warm and dry NEUROLOGIC: CN 2-12 grossly intact, no sensory deficit, normal cognition, normal speech, no tremor PSYCHIATRIC: alert cooperative and oriented to person, place and time. Euthymic mood, makes good eye contact, language grossly intact, recent and remote memory grossly intact. Results & Data Results & Data Vital Signs (Past 12 Hours) Vital Signs Temp Pulse Pulse Resp BP BP Pulse Ox 05/01/23 12:18 36.3 C L 73 18 102/71 100 05/01/23 07:53 75 05/01/23 07:53 05/01/23 07:32 36.8 C 76 20 103/57 L 99 05/01/23 03:17 36.4 C L 74 16 88/61 L 113/77 98 O2 Del Method O2 Flow Rate 05/01/23 12:18 Nasal Cannula 4 05/01/23 07:53 05/01/23 07:53 Nasal Cannula 4 05/01/23 07:32 Nasal Cannula 4 05/01/23 03:17 Nasal Cannula 4 Laboratory Results Short CBC 05/01/23 Range/Units 06:29 WBC 6.58 (4.8-10.8) K/ul Hgb 11.5 L (14.0-18.0) g/dl Hct 35.9 L (42.0-52.0) % Plt Count 122 L (130-400) K/uL BMP 05/01/23 06:29 Sodium 139 Potassium 3.8 Chloride 98 Carbon Dioxide 30 BUN 47 H Creatinine 1.69 H Glucose 115 H Calcium 9.9 Medications Administered Current Inpatient Medications Acetaminophen (Acetaminophen 325 Mg Tab) 650 mg PO Q4H PRN PRN Reason: fever or pain Stop: 05/30/23 02:39 Last Admin: 04/30/23 10:06 Dose: 650 mg [facility]opurin[facility] ([facility] 300 Mg Tab) [facility] [place]: 05/30/23 08:59 Last Admin: 05/01/23 08:37 Dose: 300 mg Amiodarone HCl (Amiodarone 200 Mg Tab) [facility] [place]: 05/30/23 08:59 Last Admin: 05/01/23 08:36 Dose: 200 mg Clopidogrel Bisulfate (Clopidogrel Bisulfate 75 Mg Tab) 75 mg PO QAM [facility] Stop: 05/30/23 08:59 Last Admin: 05/01/23 08:36 Dose: 75 mg Dextrose (Dextrose 50% 50 Ml Syringe) 25 - 50 ml IV UD PRN; Protocol PRN Reason: Hypoglycemia Protocol Stop: 05/30/23 02:39 Furosemide (Furosemide 40 Mg/4 Ml Vial) 60 mg IV TID [facility] Stop: 05/30/23 20:59 Last Admin: 05/01/23 08:37 Dose: 60 mg Glucagon (Glucagon For Inj 1 Mg Vial) 1 mg SQ UD PRN; Protocol PRN Reason: Hypoglycemia Protocol Stop: 05/30/23 02:39 Glucose (Glucose 10 Tab/Tube) 4 - 8 tab PO UD PRN; Protocol PRN Reason: Hypoglycemia Treatment Stop: 05/30/23 02:39 Glucose (Glucose 40% Gel 15 Gm Tube) 15 - 30 gm PO UD PRN; Protocol PRN Reason: Hypoglycemia Protocol Stop: 05/30/23 02:39 Promethazine HCl 6.25 mg/ (Sodium Chloride) 50.25 mls @ 201 mls/hr IV Q6H PRN PRN Reason: Nausea And Vomiting Stop: 05/30/23 00:13 Insulin Aspart (Insulin Aspart Per Unit Charge) 0 units SC ACHS [facility] Stop: 05/30/23 02:39 Last Admin: 05/01/23 12:03 Dose: 4 units Lorazepam (Lorazepam 2 Mg/1 Ml Vial) 0.5 mg IV Q4H PRN PRN Reason: Anxiety/Agitation Stop: 05/31/23 11:48 Metoprolol Succinate (Metoprolol Succ 25mg Ext Rel Tab) [facility] Stop: 05/30/23 08:59 Last Admin: 05/01/23 08:37 Dose: 25 mg Mirtazapine (Mirtazapine Tab 15 Mg Tab) 15 mg PO HS [facility] Stop: 05/30/23 02:39 Last Admin: 04/30/23 20:49 Dose: 15 mg Miscellaneous (Carbohydrates For Hypoglycemia ) 15 - 30 gm PO UD PRN PRN Reason: Hypoglycemia Protocol Stop: 05/30/23 02:39 Morphine Sulfate (Morphine Sulfate 10 Mg/0.5 Ml Udp) 5 mg PO Q4H PRN PRN Reason: Pain or dyspnea Stop: 05/15/23 11:50 Nitroglycerin (Nitroglycerin Sl 0.4 Mg/Tab Tab) 0.4 mg SL Q5M PRN PRN Reason: chest pain Stop: 05/30/23 02:39 Non-Formulary Patient's Own Med: Milrinone 1 Mg/Ml Solution 1 each IV .CONTINUOUS [facility] Stop: 05/30/23 02:59 Polyethylene Glycol (Polyethylene (Miralax) 17 Gm Pack) 17 gm PO DAILY PRN PRN Reason: constipation Stop: 05/30/23 02:39 Potassium Chloride (Potassium Chloride Crtab 20 Meq Tabcr) 20 meq PO BIDM [facility] Stop: 05/31/23 07:59 Last Admin: 05/01/23 08:39 Dose: 20 meq (5) CAD (coronary atherosclerotic disease) Associated angina: unspecified whether angina present Coronary Disease- Associated Artery/Lesion type: unspecified vessel or lesion type [place] vs. transplanted heart: [place] heart Qualified Code(s): I25.10 - Atherosclerotic heart disease of [place] coronary artery without angina pectoris
--- NOTE | 2023-05-01 15:41 | Electrocardiogram Report ---
Test Reason : Blood Pressure : / mmHG Vent. Rate : 083 BPM Atrial Rate : 087 BPM P-R Int : 000 ms QRS Dur : 132 ms QT Int : 426 ms P-R-T Axes : 000 017 149 degrees QTc Int : 500 ms Ventricular-paced rhythm Biventricular pacemaker detected Abnormal ECG When compared with ECG of 20-APR-2023 13:49, Vent. rate has increased BY 4 BPM Confirmed by Evaristo Smith ([id number]) on 05/01/2023 3:41:02 PM Referred By: REFERRED SELF Confirmed By:Evaristo Smith
[2023-05-01] MEDS: MIRTAZAPINE TAB 15 MG TAB PO SCH (20:38)
[2023-05-01] MEDS: MoRPHine SULFATE 10 MG/0.5 ML UDP PO PRN (21:29)
[2023-05-01] MEDS: LORazepam 2 MG/1 ML VIAL IV PRN (22:25)
[2023-05-02 07:46] LABS: Basophils # (auto) 0.04 K/uL (0-0.2); Basophils % (auto) 0.5 %; Eosinophils # (auto) 0.14 K/uL (0-0.50); Eosinophils % (auto) 1.9 %; Hemoglobin 11.8 g/dl (14.0-18.0); Immature Granulocytes # (auto) 0.04 K/uL (0.01-0.20); Immature Granulocytes % (auto) 0.5 %; Lymphocytes # (auto) 2.19 K/uL (1.2-3.4); Lymphocytes % (auto) 29.7 %; Mean Corpuscular Hgb Conc 31.9 g/dL (32.0-36.0); Mean Corpuscular Volume 87.7 fL (80.0-100.0); Mean Platelet Volume 12.3 fL (9.4-12.4); Monocytes # (auto) 0.72 K/uL (0.11-0.59); Monocytes % (auto) 9.8 %; Neutrophils # (auto) 4.25 K/uL (1.40-6.50); Neutrophils % (auto) 57.6 %; Platelet Count 125 K/uL (130-400); RDW Coefficient of Variation 19.5 % (11.5-14.5); RDW Standard Deviation 59.4 fL (36.4-46.3); Red Blood Count 4.22 M/uL (4.70-6.10); White Blood Count 7.38 K/ul (4.8-10.8)
[2023-05-02 08:07] LABS: Calcium 10.1 mg/dl (8.6-10.3); Est GFR (African American) 38.4 ml/min; Est GFR (Non-African American) 33.1 ml/min; Potassium 4.1 mmol/L (3.5-5.1)
[2023-05-02] MEDS: INSULIN ASPART PER UNIT CHARGE SC SCH ×4 (08:13→20:50)
[2023-05-02] MEDS: AMIODARONE 200 MG TAB PO SCH (08:14)
[2023-05-02] MEDS: allopurinoL 300 MG TAB PO SCH (08:14)
[2023-05-02] MEDS: CLOPIDOGREL BISULFATE 75 MG TAB PO SCH (08:14)
[2023-05-02] MEDS: POTASSIUM CHLORIDE CRTAB 20 MEQ TABCR PO SCH ×2 (08:14→16:46)
[2023-05-02] MEDS: FUROSEMIDE 40 MG/4 ML VIAL IV SCH ×3 (08:15→20:50)
[2023-05-02] MEDS: METOPROLOL SUCC 25MG EXT REL TAB PO SCH (08:15)
--- NOTE | 2023-05-02 13:11 | Palliative Care Progress Note ---
Date of Service May 02, 2023 Assessment & Plan (1) Dyspnea: Plan: Continue prn morphine. With strong anxiety component, he made need both with severe bouts of dyspnea. Discussed with RN (2) Anxiety: Plan: Better relief with lorazepam Continue current dosing (3) Palliative care encounter: Plan: I met with Mr. Bauer and his at bedside. He confirms his goal to return home with focus on comfort and symptom management. His wish would be not to return to the hospital. However, he does feel that he is benefitting from mi lrinone infusion and would want to continue that at home. This would not make him eligible for hospice care at home. We discussed plan for symptom management with use of morphine and ativan at home for relief of dyspnea and anxiety. They are comfortable with that. They could be followed by home care to assist with monitoring and symptom management. If his symptoms were not manageable at home, he would need to return to the hospital. They are comfortable with that but would not want aggressive testing and interventions if he were hospitalized. POLST form completed for DNR/DNI, comfort measures, determine antibiotics and fluids at the time, per his wishes. Copy on chart. Original given to Mrs. Bauer to keep at home and present if he needs to return to the hospital. Discussed with RN and case management. Admission and Anticipated Discharge Date Admission Date: April 30, 2023 Subjective Reports feeling a little better this morning. He did have roxanol for dyspnea last night but did not notice relief initially until he also had a dose of ativan. Denies pain or dyspnea at this time. Review of Systems Review of Systems: Pain0/3 Dyspnea 0/3 Nausea 0/3 Drowsiness 0/3 Physical Exam Constitutional: no acute distress Respiratory: normal respiratory effort; no labored breathing Cardiovascular: LE edema Skin: warm and dry Neurologic: Speech / Cognition: normal cognition Results & Data Vital Signs (Past 12 Hours) Vital Signs Temp Pulse Pulse Resp BP Pulse Ox O2 Del Method 05/02/23 11:30 98.2 F 87 22 107/68 95 Nasal Cannula 05/02/23 09:18 60 05/02/23 09:18 Nasal Cannula 05/02/23 08:00 97.5 F L 60 21 93/58 L 93 Nasal Cannula 05/02/23 03:26 97.9 F 65 16 107/70 95 Nasal Cannula O2 Flow Rate 05/02/23 11:30 4 05/02/23 09:18 05/02/23 09:18 4 05/02/23 08:00 4 05/02/23 03:26 4 PG Care Time/CCT Total # of Minutes Spent Total Time Spent with Patient: Total time spent is greater than 50% in coordination of care (as documented) at patient's floor/unit and/or counseling patient: Coding Level of Care Code 63108 SUB INP/OBS CARE 3/50MIN Medical Decision Making High Complexity Diagnoses Dyspnea R06.00 Anxiety F41.9 Palliative care encounter Z51.5 Comment POLST reviewed and completed
--- NOTE | 2023-05-02 14:48 | Cardiology Progress Note ---
Date of Service May 02, 2023 Assessment & Plan (1) Acute hypoxemic respiratory failure: (2) NYHA class 4 acute on chronic systolic heart failure: (3) Ischemic cardiomyopathy: Plan Patient is a 83-year-old male readmitted with acute on chronic systolic heart failure, NYHA class IV on continuous milrinone infusion. Patient hypoxic on presentation with evidence of volume overload increasing weight gain and malaise. Renal function relatively stable Plan: Continue milrinone infusion IV diuresis initially with furosemide 60 mg 3 times daily consider continuous infusion if no response Continue amiodarone and metoprolol succinate Overall prognosis extremely limited and patient aware. Family beginning to discuss hospice managed 05/01/2023 Patient has made progress with IV diuretics initially. Renal function remaining stable. We will plan on continuing IV furosemide at current dosing, continuous milrinone infusion. We will need to discuss milrinone infusion replacement when needed. ( making exchanges) We will consider adding metolazone to current medical regimen when converting to oral diuretic Patient remains at high risk for further deterioration 05/02/2023 Slow diuresis but no acute decline. Renal function slightly higher creatinine. Will continue IV furosemide through today. Likely convert to oral in a.m. Patient to maintain milrinone infusion Patient anxious to be discharged once stability achieved Admission and Anticipated Discharge Date Admission Date: April 30, 2023 Subjective Patient seen and examined, chart, medications, telemetry reviewed. Patient sitting out of bed in chair comfortable at time of exam. No chest pains or worsening shortness of breath. Lower extremity edema improved slightly. No tachyarrhythmias on telemetry. Physical Exam Constitutional: no acute distress Eyes: PERRL, conjunctivae normal, anicteric sclerae ENMT: external ear and nose normal, oropharynx normal Neck: trachea midline, no thyromegaly Respiratory: Auscultation: + diminished lung sounds and + rales (Bibasilar left greater than right) Cardiovascular: Rate/Rhythm: regular rate and regular rhythm Vessels: + JVD Extremities: + edema Gastrointestinal (Abdomen): normal bowel sounds, soft, nontender, no hepatosplenomegaly Results & Data Vital Signs (Past 12 Hours) Vital Signs Temp Pulse Pulse Resp BP Pulse Ox O2 Del Method 05/02/23 13:44 98 05/02/23 11:30 36.8 C 87 22 107/68 95 Nasal Cannula 05/02/23 09:18 60 05/02/23 09:18 Nasal Cannula 05/02/23 08:00 36.4 C L 60 21 93/58 L 93 Nasal Cannula 05/02/23 03:26 36.6 C 65 16 107/70 95 Nasal Cannula O2 Flow Rate 05/02/23 13:44 05/02/23 11:30 4 05/02/23 09:18 05/02/23 09:18 4 05/02/23 08:00 4 05/02/23 03:26 4 Laboratory Results Laboratory Results - last 24 hr 05/01/23 05/01/23 05/02/23 16:11 20:21 07:07 WBC 7.38 RBC 4.22 L Hgb 11.8 L Hct 37.0 L MCV 87.7 MCH 28.0 MCHC 31.9 L RDW Std Deviation 59.4 H RDW Coeff of [place] 19.5 H Plt Count 125 L MPV 12.3 Immature Gran % (Auto) 0.5 Neut % (Auto) 57.6 Lymph % (Auto) 29.7 [place] % (Auto) 9.8 Eos % (Auto) 1.9 Baso % (Auto) 0.5 Neut # (Auto) 4.25 Lymph # (Auto) 2.19 [place] # (Auto) 0.72 H Eos # (Auto) 0.14 Baso # (Auto) 0.04 Immature Gran # (Auto) 0.04 Sodium Potassium Chloride Carbon Dioxide Anion Gap BUN Creatinine Est Cr Clr Drug Dosing Est GFR ( Amer) Est GFR (Non-Af Amer) BUN/Creatinine Ratio Glucose POC Glucose 158 H 142 H Calcium 05/02/23 05/02/23 05/02/23 07:07 07:15 11:35 WBC RBC Hgb Hct MCV MCH MCHC RDW Std Deviation RDW Coeff of [place] Plt Count MPV Immature Gran % (Auto) Neut % (Auto) Lymph % (Auto) [place] % (Auto) Eos % (Auto) Baso % (Auto) Neut # (Auto) Lymph # (Auto) [place] # (Auto) Eos # (Auto) Baso # (Auto) Immature Gran # (Auto) Sodium 136 Potassium 4.1 Chloride 97 L Carbon Dioxide 27 Anion Gap 12 H BUN 53 H Creatinine 1.83 H Est Cr Clr Drug Dosing 31.0 Est GFR ( Amer) 38.4 Est GFR (Non-Af Amer) 33.1 BUN/Creatinine Ratio 29.0 H Glucose 151 H POC Glucose 140 H 204 H Calcium 10.1
[2023-05-02] MEDS: LORazepam 2 MG/1 ML VIAL IV PRN ×2 (18:42→23:13)
[2023-05-02] MEDS: MoRPHine SULFATE 10 MG/0.5 ML UDP PO PRN ×2 (18:43→23:13)
[2023-05-02] MEDS: MIRTAZAPINE TAB 15 MG TAB PO SCH (20:49)
--- NOTE | 2023-05-02 21:43 | Hospitalist Progress Note ---
Date of Service May 02, 2023 Assessment & Plan (1) Acute hypoxemic respiratory failure: Plan: Secondary to decompensated heart failure/end-stage heart disease See plan below (2) Acute on chronic systolic (congestive) heart failure: Plan: chronic systolic heart failure (EF less than 20%, TTE 2022) with pulmonary hypertension currently on home milrinone infusion therapy hx VT status post ICD Patient hypoxic on presentation with evidence of volume overload increasing weight gain and malaise. Renal function relatively stable IV diuresis initially with furosemide 60 mg 3 times daily consider continuous infusion if no response Continue amiodarone and metoprolol succinate Overall prognosis extremely limited and patient aware. Patient meet with hospice physician (3) Diabetes mellitus, type II: Plan: controlled, A1C 6.4 last month. Hold glipizide and utilize insulin in the hospital. Stable and at goal (4) Anxiety: Plan: chronic, controlled. Cont Xanax prn. (5) CAD (coronary atherosclerotic disease): Plan: CAD status post angioplasty. Chronic, stable. Cont medical management. (6) Afib: Plan: A-fib status post cardioversion on Coumadin, paced rhythm on EKG, INR therapeutic. Cont amiodaron and Metoprolol (7) Valvular heart disease: Plan: valvular heart disease (moderate to severe MR, mild to moderate TR, trace AR) warfarin DNR/DNI Dispo-considering Hospice,however, Hospice won't allow more than two weekss of milrinone. We are checking to see if there may be an exception made. Laura Sellers DO [facility] Hospitalist Admission and Anticipated Discharge Date Admission Date: April 30, 2023 Subjective 83-year-old man readmitted with acute on chronic systolic heart failure on continuous milrinone infusion. He was hypoxic on presentation after 3 days of volume overload with increased weight gain and malaise. He was diuresed with intravenous diuretics and is greatly improved from a breathing standpoint. Reports nausea today. Anxious to return home. Review of Systems Review of Systems: All systems reviewed negative except as again above. Physical Exam Physical Exam: CONSTITUTIONAL: WNWD, vitals as above, generally well-appearing, NAD EYES: normal conjunctivae, no scleral icterus, ENT: external ear and nose normal, MMM NECK: trachea midline, RESPIRATORY: clear to auscultation bilaterally, crackles at bases of lungs bilaterally, no rales or wheezes, normal respiratory effort, supplemental oxygen in place. CARDIOVASCULAR: regular rate and rhythm, S1 and 2 heard without murmurs, gallops or rubs, no JVD, 2+ peripheral edema up to mid shins bilaterally CHEST: inspection of chest was normal, anterior port accessed GASTROINTESTINAL: soft, nontender, ND, no guarding MUSCULOSKELETAL: strength 5/5 throughout, head is normocephalic and atraumatic SKIN: warm and dry NEUROLOGIC: CN 2-12 grossly intact, no sensory deficit, normal cognition, normal speech, no tremor PSYCHIATRIC: alert cooperative and oriented to person, place and time. Euthymic mood, makes good eye contact, language grossly intact, recent and remote memory grossly intact. Results & Data Results & Data Vital Signs (Past 12 Hours) Vital Signs Temp Pulse Pulse Resp BP Pulse Ox O2 Del Method 05/02/23 19:12 36.4 C L 89 20 105/68 97 Nasal Cannula 05/02/23 15:21 81 05/02/23 15:07 36.6 C 91 H 19 103/62 97 Nasal Cannula 05/02/23 13:44 98 05/02/23 11:30 36.8 C 87 22 107/68 95 Nasal Cannula O2 Flow Rate 05/02/23 19:12 4.0 05/02/23 15:21 05/02/23 15:07 05/02/23 13:44 05/02/23 11:30 4 Laboratory Results Short CBC 05/02/23 Range/Units 07:07 WBC 7.38 (4.8-10.8) K/ul Hgb 11.8 L (14.0-18.0) g/dl Hct 37.0 L (42.0-52.0) % Plt Count 125 L (130-400) K/uL BMP 05/02/23 07:07 Sodium 136 Potassium 4.1 Chloride 97 L Carbon Dioxide 27 BUN 53 H Creatinine 1.83 H Glucose 151 H Calcium 10.1 Medications Administered Current Inpatient Medications Acetaminophen (Acetaminophen 325 Mg Tab) 650 mg PO Q4H PRN PRN Reason: fever or pain Stop: 05/30/23 02:39 Last Admin: 04/30/23 10:06 Dose: 650 mg Allopurinol ([facility]opurinol 300 Mg Tab) [facility] [place]: 05/30/23 08:59 Last Admin: 05/02/23 08:14 Dose: 300 mg Amiodarone HCl (Amiodarone 200 Mg Tab) [facility] [place]: 05/30/23 08:59 Last Admin: 05/02/23 08:14 Dose: 200 mg Clopidogrel Bisulfate (Clopidogrel Bisulfate 75 Mg Tab) 75 mg PO QAM [facility] Stop: 05/30/23 08:59 Last Admin: 05/02/23 08:14 Dose: 75 mg Dextrose (Dextrose 50% 50 Ml Syringe) 25 - 50 ml IV UD PRN; Protocol PRN Reason: Hypoglycemia Protocol Stop: 05/30/23 02:39 Furosemide (Furosemide 40 Mg/4 Ml Vial) 60 mg IV TID [facility] Stop: 05/30/23 20:59 Last Admin: 05/02/23 20:50 Dose: 60 mg Glucagon (Glucagon For Inj 1 Mg Vial) 1 mg SQ UD PRN; Protocol PRN Reason: Hypoglycemia Protocol Stop: 05/30/23 02:39 Glucose (Glucose 10 Tab/Tube) 4 - 8 tab PO UD PRN; Protocol PRN Reason: Hypoglycemia Treatment Stop: 05/30/23 02:39 Glucose (Glucose 40% Gel 15 Gm Tube) 15 - 30 gm PO UD PRN; Protocol PRN Reason: Hypoglycemia Protocol Stop: 05/30/23 02:39 Promethazine HCl 6.25 mg/ (Sodium Chloride) 50.25 mls @ 201 mls/hr IV Q6H PRN PRN Reason: Nausea And Vomiting Stop: 05/30/23 00:13 Last Infusion: 05/02/23 15:43 Dose: Infused Insulin Aspart (Insulin Aspart Per Unit Charge) 0 units SC [facility] Stop: 05/30/23 02:39 Last Admin: 05/02/23 20:50 Dose: 1 units Lorazepam (Lorazepam 2 Mg/1 Ml Vial) 0.5 mg IV Q4H PRN PRN Reason: Anxiety/Agitation Stop: 05/31/23 11:48 Last Admin: 05/02/23 18:42 Dose: 0.5 mg Metoprolol Succinate (Metoprolol Succ 25mg Ext Rel Tab) 25 mg PO QAM [facility] Stop: 05/30/23 08:59 Last Admin: 05/02/23 08:15 Dose: Not Given Mirtazapine (Mirtazapine Tab 15 Mg Tab) 15 mg PO HS [facility] Stop: 05/30/23 02:39 Last Admin: 05/02/23 20:49 Dose: 15 mg Miscellaneous (Carbohydrates For Hypoglycemia ) 15 - 30 gm PO UD PRN PRN Reason: Hypoglycemia Protocol Stop: 05/30/23 02:39 Morphine Sulfate (Morphine Sulfate 10 Mg/0.5 Ml Udp) 5 mg PO Q4H PRN PRN Reason: Pain or dyspnea Stop: 05/15/23 11:50 Last Admin: 05/02/23 18:43 Dose: 5 mg Nitroglycerin (Nitroglycerin Sl 0.4 Mg/Tab Tab) 0.4 mg SL Q5M PRN PRN Reason: chest pain Stop: 05/30/23 02:39 Non-Formulary Patient's Own Med: Milrinone 1 Mg/Ml Solution 1 each IV .CONTINUOUS [facility] Stop: 05/30/23 02:59 Polyethylene Glycol (Polyethylene (Miralax) 17 Gm Pack) 17 gm PO DAILY PRN PRN Reason: constipation Stop: 05/30/23 02:39 Potassium Chloride (Potassium Chloride Crtab 20 Meq Tabcr) 20 meq PO BIDM [facility] Stop: 05/31/23 07:59 Last Admin: 05/02/23 16:46 Dose: 20 meq (5) CAD (coronary atherosclerotic disease) Associated angina: unspecified whether angina present Coronary Disease- Associated Artery/Lesion type: unspecified vessel or lesion type [place] vs. transplanted heart: [place] heart Qualified Code(s): I25.10 - Atherosclerotic heart disease of [place] coronary artery without angina pectoris
[2023-05-03 07:05] LABS: BUN Creatinine Ratio 32.5 (10-20); Calcium 10.1 mg/dl (8.6-10.3); Creatinine Clr Calc Pharmacy 35.5 ml/min; Est GFR (African American) 45.2 ml/min; Potassium 4.4 mmol/L (3.5-5.1)
[2023-05-03 07:25] LABS: INR 2.7 (0.9-1.1); Prothrombin Time 28.2 Seconds (9.0-12.0)
[2023-05-03] MEDS: AMIODARONE 200 MG TAB PO SCH (08:07)
[2023-05-03] MEDS: CLOPIDOGREL BISULFATE 75 MG TAB PO SCH (08:07)
[2023-05-03] MEDS: allopurinoL 300 MG TAB PO SCH (08:07)
[2023-05-03] MEDS: METOPROLOL SUCC 25MG EXT REL TAB PO SCH (08:07)
[2023-05-03] MEDS: INSULIN ASPART PER UNIT CHARGE SC SCH ×4 (08:07→20:43)
[2023-05-03] MEDS: POTASSIUM CHLORIDE CRTAB 20 MEQ TABCR PO SCH ×2 (08:14→17:44)
--- NOTE | 2023-05-03 12:24 | Cardiology Progress Note ---
Date of Service May 03, 2023 Assessment & Plan (1) Acute hypoxemic respiratory failure: (2) NYHA class 4 acute on chronic systolic heart failure: (3) Ischemic cardiomyopathy: Plan Patient is a 83-year-old male readmitted with acute on chronic systolic heart failure, NYHA class IV on continuous milrinone infusion. Patient hypoxic on presentation with evidence of volume overload increasing weight gain and malaise. Renal function relatively stable Plan: Continue milrinone infusion IV diuresis initially with furosemide 60 mg 3 times daily consider continuous infusion if no response Continue amiodarone and metoprolol succinate Overall prognosis extremely limited and patient aware. Family beginning to discuss hospice managed 05/01/2023 Patient has made progress with IV diuretics initially. Renal function remaining stable. We will plan on continuing IV furosemide at current dosing, continuous milrinone infusion. We will need to discuss milrinone infusion replacement when needed. ( making exchanges) We will consider adding metolazone to current medical regimen when converting to oral diuretic Patient remains at high risk for further deterioration 05/02/2023 Slow diuresis but no acute decline. Renal function slightly higher creatinine. Will continue IV furosemide through today. Likely convert to oral in a.m. Patient to maintain milrinone infusion Patient anxious to be discharged once stability achieved 05/03/2023. Plan discharge later today with ultimate palliative goals Continue IV milrinone Would resume oral torsemide 60 mg twice per day Add metolazone 2.5 mg 3 days/week BMP 1 week Continue metoprolol and amiodarone Patient with well-defined class IV congestive heart failure with severe LV dysfunction inotropic dependent. High risk for further decline. Patient hoping to be managed at home without rehospitalization Admission and Anticipated Discharge Date Admission Date: April 30, 2023 Subjective No acute complaints. Moderately breathless. Plans for discharge later today on oral diuretic regimen Physical Exam Constitutional: no acute distress Eyes: PERRL, conjunctivae normal, anicteric sclerae ENMT: external ear and nose normal, oropharynx normal Neck: trachea midline, no thyromegaly Respiratory: Auscultation: + diminished lung sounds Cardiovascular: Rate/Rhythm: regular rate and regular rhythm Vessels: + JVD Extremities: + edema Gastrointestinal (Abdomen): normal bowel sounds, soft, nontender, no hepatosplenomegaly Results & Data Vital Signs (Past 12 Hours) Vital Signs Temp Pulse Resp BP Pulse Ox Pulse Ox Pulse Ox 07/19/23 11:50 36.3 C L 94 H 24 106/70 93 05/03/23 11:11 96 05/03/23 08:00 05/03/23 08:00 102/66 05/03/23 08:06 36.8 C 90 16 98/64 L 97 05/03/23 03:17 36.4 C L 92 H 18 121/78 97 05/03/23 02:00 94 O2 Del Method O2 Del Method O2 Flow Rate O2 Flow Rate O2 Flow Rate 05/03/23 11:50 Room Air 05/03/23 11:11 0 05/03/23 08:00 Nasal Cannula 4 05/03/23 08:00 05/03/23 08:06 Nasal Cannula 4 05/03/23 03:17 Nasal Cannula 4.0 05/03/23 02:00 Nasal Cannula 4
[2023-05-03] MEDS ORDERED: metOLazone 2.5 MG TABLET PO ONE (12:38)
[2023-05-03] MEDS ORDERED: TORSEMIDE 20 MG TAB PO STA (12:45)
--- NOTE | 2023-05-03 15:14 | Electrocardiogram Report ---
Test Reason : Blood Pressure : / mmHG Vent. Rate : 092 BPM Atrial Rate : 084 BPM P-R Int : 000 ms QRS Dur : 138 ms QT Int : 402 ms P-R-T Axes : 000 045 122 degrees QTc Int : 497 ms Ventricular-paced rhythm Abnormal ECG When compared with ECG of 29-APR-2023 21:25, Vent. rate has increased BY 9 BPM Confirmed by Evaristo Smith ([id number]) on 05/03/2023 3:14:14 PM Referred By: REFERRED SELF Confirmed By:Evaristo Smith
--- NOTE | 2023-05-03 17:20 | Hospitalist Progress Note ---
Date of Service May 03, 2023 Assessment & Plan (1) Acute hypoxemic respiratory failure: Plan: Secondary to decompensated heart failure/end-stage heart disease S (2) Acute on chronic systolic (congestive) heart failure: Plan: chronic systolic heart failure (EF less than 20%, TTE 2022) with pulmonary hypertension currently on home milrinone infusion therapy hx VT status post ICD Patient hypoxic on presentation with evidence of volume overload increasing weight gain and malaise. Renal function relatively stable IV diuresis initially with furosemide 60 mg 3 times daily, restarted on torsemid e Continue amiodarone and metoprolol succinate Overall prognosis extremely limited and patient aware. Patient meet with hospice physician (3) Diabetes mellitus, type II: Plan: controlled, A1C 6.4 last month. Hold glipizide and utilize insulin in the hospital. Stable and at goal (4) Anxiety: Plan: chronic, controlled. Cont Xanax prn. (5) CAD (coronary atherosclerotic disease): Plan: CAD status post angioplasty. Chronic, stable. Cont medical management. (6) Afib: Plan: A-fib status post cardioversion on Coumadin, paced rhythm on EKG, INR therapeutic. Cont amiodaron and Metoprolol (7) Valvular heart disease: Plan: valvular heart disease (moderate to severe MR, mild to moderate TR, trace AR) warfarin DNR/DNI Dispo-Home with oxygen, home milrinone drip Admission and Anticipated Discharge Date Admission Date: April 30, 2023 Subjective Pt seen this AM. Was sitting at bedside without oxygen on, nursing noted he desaturated to the 70s. Had 2 step with limited ambulation, noted he's not comfortable going home yet. Review of Systems Review of Systems: All systems reviewed & are unremarkable except as noted in Subjective Physical Exam Physical Exam: General: Alert, oriented. No acute distress Skin: noted erythema to lower extremities bilaterally Psych: Appropriate mood and affect Neuro: No gross deficits HEENT: NC/AT, PERRLA, EOMI, oropharynx moist. Chest: Nontender to palpation. CV: RRR, blowing murmur appreciated Resp: Breath sounds decreased bilaterally Abdomen: Soft, nontender, nondistended. Extremities: ++ edema in lower extremities bilaterally. Results & Data Results & Data Vital Signs (Past 12 Hours) Vital Signs Temp Pulse Pulse Pulse Pulse Pulse Resp 05/03/23 16:32 36.3 C L 92 H 22 05/03/23 15:01 94 H 110 H 110 H 92 H 05/03/23 11:50 36.3 C L 94 H 24 05/03/23 11:11 05/03/23 08:00 05/03/23 08:00 05/03/23 08:06 36.8 C 90 16 Resp Resp Resp Resp BP Pulse Ox Pulse Ox 05/03/23 16:32 111/79 95 05/03/23 15:01 24 24 20 18 94 05/03/23 11:50 106/70 93 05/03/23 11:11 05/03/23 08:00 05/03/23 08:00 102/66 05/03/23 08:06 98/64 L 97 Pulse Ox Pulse Ox Pulse Ox Pulse Ox O2 Del Method O2 Flow Rate O2 Flow Rate 05/03/23 16:32 Nasal Cannula 4 05/03/23 15:01 87 L 93 93 2 05/03/23 11:50 Room Air 05/03/23 11:11 96 05/03/23 08:00 Nasal Cannula 4 05/03/23 08:00 05/03/23 08:06 Nasal Cannula 4 O2 Flow Rate 05/03/23 16:32 05/03/23 15:01 05/03/23 11:50 05/03/23 11:11 0 05/03/23 08:00 05/03/23 08:00 05/03/23 08:06 (5) CAD (coronary atherosclerotic disease) Associated angina: unspecified whether angina present Coronary Disease- Associated Artery/Lesion type: unspecified vessel or lesion type [place] vs. transplanted heart: [place] heart Qualified Code(s): I25.10 - Atherosclerotic heart disease of [place] coronary artery without angina pectoris
[2023-05-03] MEDS: LORazepam 2 MG/1 ML VIAL IV PRN (20:15)
[2023-05-03] MEDS: MIRTAZAPINE TAB 15 MG TAB PO SCH (20:16)
[2023-05-03] MEDS: MoRPHine SULFATE 10 MG/0.5 ML UDP PO PRN (20:16)
[2023-05-04] MEDS: MoRPHine SULFATE 10 MG/0.5 ML UDP PO PRN (02:16)
[2023-05-04] MEDS: LORazepam 2 MG/1 ML VIAL IV PRN (02:17)
[2023-05-04] MEDS ORDERED: metOLazone 2.5 MG TABLET PO STA ×2 (08:13→08:26)
[2023-05-04] MEDS: INSULIN ASPART PER UNIT CHARGE SC SCH ×2 (08:46→11:58)
[2023-05-04] MEDS: AMIODARONE 200 MG TAB PO SCH (08:47)
[2023-05-04] MEDS: CLOPIDOGREL BISULFATE 75 MG TAB PO SCH (08:47)
[2023-05-04] MEDS: METOPROLOL SUCC 25MG EXT REL TAB PO SCH (08:48)
[2023-05-04] MEDS: allopurinoL 300 MG TAB PO SCH (08:48)
[2023-05-04] MEDS: POTASSIUM CHLORIDE CRTAB 20 MEQ TABCR PO SCH (08:51)
[2023-05-04] MEDS ORDERED: TORSEMIDE 10 MG TAB PO SCH (09:00)
--- NOTE | 2023-05-04 10:16 | Cardiology Progress Note ---
Date of Service May 04, 2023 Assessment & Plan (1) Acute hypoxemic respiratory failure: (2) NYHA class 4 acute on chronic systolic heart failure: (3) Ischemic cardiomyopathy: Plan Patient is a 83-year-old male readmitted with acute on chronic systolic heart failure, NYHA class IV on continuous milrinone infusion. Patient hypoxic on presentation with evidence of volume overload increasing weight gain and malaise. Renal function relatively stable Plan: Continue milrinone infusion IV diuresis initially with furosemide 60 mg 3 times daily consider continuous infusion if no response Continue amiodarone and metoprolol succinate Overall prognosis extremely limited and patient aware. Family beginning to discuss hospice managed 05/01/2023 Patient has made progress with IV diuretics initially. Renal function remaining stable. We will plan on continuing IV furosemide at current dosing, continuous milrinone infusion. We will need to discuss milrinone infusion replacement when needed. ( making exchanges) We will consider adding metolazone to current medical regimen when converting to oral diuretic Patient remains at high risk for further deterioration 05/02/2023 Slow diuresis but no acute decline. Renal function slightly higher creatinine. Will continue IV furosemide through today. Likely convert to oral in a.m. Patient to maintain milrinone infusion Patient anxious to be discharged once stability achieved 05/03/2023. Plan discharge later today with ultimate palliative goals Continue IV milrinone Would resume oral torsemide 60 mg twice per day Add metolazone 2.5 mg 3 days/week BMP 1 week Continue metoprolol and amiodarone Patient with well-defined class IV congestive heart failure with severe LV dysfunction inotropic dependent. High risk for further decline. Patient hoping to be managed at home without rehospitalization 05/04/2023 Remained overnight due to generalized breathlessness and fatigue. Did respond to oral diuretics yesterday. Would continue planned as above torsemide 60 mg twice daily, metolazone 3 days/week (patient did receive an additional dose this morning) Oxygen supplementation warranted Admission and Anticipated Discharge Date Admission Date: April 30, 2023 Subjective Patient seen and examined, chart, medications, telemetry reviewed. Patient sitting upright at bedside. Lower extremity edema somewhat improved still with ruborous changes both lower extremities. Milrinone infusion without difficulty No arrhythmias on telemetry Review of Systems Review of Systems: All systems reviewed & are unremarkable except as noted in Subjective Physical Exam Constitutional: no acute distress Eyes: PERRL, conjunctivae normal, anicteric sclerae ENMT: external ear and nose normal, oropharynx normal Neck: trachea midline, no thyromegaly Respiratory: Auscultation: + diminished lung sounds Cardiovascular: Rate/Rhythm: regular rate and regular rhythm Vessels: + JVD Extremities: + edema Gastrointestinal (Abdomen): normal bowel sounds, soft, nontender, no hepatosplenomegaly Results & Data Vital Signs (Past 12 Hours) Vital Signs Temp Pulse Resp BP Pulse Ox O2 Del Method O2 Flow Rate 05/04/23 08:00 Nasal Cannula 4 05/04/23 07:37 36.4 C L 87 19 96/64 L 96 Nasal Cannula 2.0 05/04/23 02:29 36.6 C 92 H 18 98/63 L 94 Nasal Cannula 4 05/03/23 23:09 36.6 C 98 H 18 119/77 94 Nasal Cannula 4 Laboratory Results Laboratory Results - last 24 hr 05/03/23 05/03/23 05/03/23 11:05 15:59 20:22 POC Glucose 195 H 105 H 134 H 05/04/23 07:30 POC Glucose 139 H
--- NOTE | 2023-05-04 11:03 | Discharge Summary ---
Date of Service May 04, 2023 Admission HPI Per Admitting Provider History obtained from patient, family, and records. Medical history significant for chronic systolic heart failure (EF less than 20%, TTE 2022) currently on home milrinone infusion therapy, CAD status post angioplasty, hx VT status post ICD, A-fib status post cardioversion on Coumadin, valvular heart disease (moderate to severe MR, mild to moderate TR, trace AR), pulmonary hypertension, hypertension, hyperlipidemia, DM2 on oral medications, CRI (baseline creatinine 1.8), gout, skin cancer as per records, past tobacco abuse. Recent [facility] confinement March 26 to 2022 for decompensated heart failure/cardiogenic shock/worsening kidney dysfunction. Subsequent transfer to [facility] per patient stayed from April 02 to 2022. Patient started on milrinone for palliative purposes as per documentation and obtain insurance authorization for home Milrinone infusion. New onset A-fib noted during confinement status post cardioversion. Patient discharged on Coumadin. Patient not ready for hospice after multiple discussions with providers regarding goals of care in light of poor prognosis with worsening cardiac function as per documentation. Serum creatinine on discharge from [facility] was 2.1. Recent [facility] ER visit 10 days ago for vitamin K infusion for supratherapeutic INR documented outpatient without bleeding concerns. 3 days ago, patient noted worsening shortness of breath especially on exertion and some leg swelling. No chest pain, no cough symptoms. Patient trying to comply with 1.2 L fluid restriction. O2 sats 80s at 1 point during ER stay. IV Lasix administered at the ER. 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 No acute distress Skin: noted skin changes to lower extremities bilaterally Psych: Appropriate mood and affect Neuro: No gross deficits HEENT: NC/AT, PERRLA, EOMI, oropharynx moist. Chest: Nontender to palpation. CV: RRR, blowing murmur appreciated Resp: Breath sounds clear bilaterally Abdomen: Soft, nontender, nondistended. Extremities: ++ edema in lower extremities bilaterally. Discharge Data Allergies Allergy/AdvReac Type Severity Reaction Status Date / Time alfuzosin AdvReac Mild NASAL Verified 04/20/23 17:19 CONGESTION Consultations 04/29/23 22:51 ED Decision to Admit Stat 04/30/23 00:12 Consult Palliative Care Routine 04/30/23 02:40 Consult Cardiology Routine Hospital Course (1) Acute hypoxemic respiratory failure: Secondary to decompensated heart failure/end-stage heart disease see below (2) Acute on chronic systolic (congestive) heart failure: chronic systolic heart failure (EF less than 20%, TTE 2022) with pulmonary hypertension currently on home milrinone infusion therapy hx VT status post ICD Patient hypoxic on presentation with evidence of volume overload increasing weight gain and malaise. Renal function relatively stable IV diuresis initially with furosemide 60 mg 3 times daily, restarted on torsemide for discharge Continue amiodarone and metoprolol succinate Overall prognosis extremely limited and patient aware. Patient met with palliative care- has decided to go home with milrinone drip which meant pt could not receive hospice services. Needs oxygen with exertion for home use. Appreciate cardiology recommendations. (3) Diabetes mellitus, type II: controlled, A1C 6.4 last month. Hold glipizide and utilize insulin in the hospital. Stable and at goal (4) Anxiety: chronic, controlled. Cont Xanax prn. (5) CAD (coronary atherosclerotic disease): CAD status post angioplasty. Chronic, stable. Cont medical management. (6) Afib: A-fib status post cardioversion on Coumadin, paced rhythm on EKG, INR therapeutic. Cont amiodaron and Metoprolol (7) Valvular heart disease: valvular heart disease (moderate to severe MR, mild to moderate TR, trace AR) warfarin DNR/DNI Dispo-Home with oxygen, home milrinone drip Total Time Total Time Spent Total Time Spent (In Minutes): >30 minutes Discharge Plan Discharge Items Patient Disposition: Home - Self-Care Reason For Visit: RESP FAILURE, CHF Discharge Diagnosis: CHF Activity: Per Instructions section Non-emergency contact: Primary Care Provider Call non-emergency contact if: you have any medication questions Follow-up/Referrals: Rene Green, [Primary Care Provider] - (Date & Time 05/09/2023 11:00 AM Provider Marcos Porras III, MD Department [facility] ) Diet: Heart Healthy Addtl Attending Provider Instructions: You are being discharged home. While hospitalized, you were seen by cardiology and we further discussed your end stage heart failure. We discussed treatments and the next steps in terms of you having a better quality as you lived with this diagnosis. You opted to continue with the milrinone drip at home which meant you could not receive hospice services, which you agreed to. Please continue with your home medications as prescribed and keep close follow up with your project management it specialist and primary care provider. Pending Studies at Discharge: No Stand-Alone Forms: My [employer], Smoking Cessation Medications and DC Order Prescriptions: Continued albuterol sulfate 90 mcg/actuation HFA aerosol inhaler 2 puff INHALATION Q4 PRN (Reason: Shortness Of Breath) clopidogrel 75 mg Tablet 75 mg PO QAM Qty: 30 0RF nitroglycerin [Nitrostat] 0.4 mg Tablet, Sublingual 0.4 mg sublingual Q5M PRN (Reason: chest pain) Qty: 30 0RF acetaminophen 325 mg Tablet 650 mg PO Q4H PRN (Reason: fever or pain) Qty: 30 0RF polyethylene glycol 3350 [Miralax] 17 gram Powder In Packet 17 g PO DAILY PRN (Reason: constipation) Qty: 100 0RF alprazolam [Xanax] 0.5 mg Tablet 0.5 mg PO HS PRN (Reason: anxiety) Qty: 30 0RF allopurinol 300 mg Tablet 300 mg PO QAM Qty: 30 0RF mirtazapine 15 mg Tablet 15 mg PO HS Qty: 30 0RF ondansetron 4 mg Tablet,Disintegrating 4 mg PO Q4H PRN (Reason: nausea and vomiting) Qty: 30 0RF torsemide 20 mg tablet 60 mg PO BID warfarin 5 mg tablet 5 mg PO QPM Rx Instructions: as directed by anticoagulation clinic milrinone 1 mg/mL Solution 0 mg continuous IV infusion DIRECTED Rx Instructions: continuous = dose 0.2mcg/kg/min with weight 85 kg...call with weight change greater than 5 kg potassium chloride 10 mEq capsule, extended release 10 meq PO AMHS amiodarone 200 mg tablet 200 mg PO QAM metoprolol succinate 25 mg tablet extended release 24 hr 25 mg PO QAM Rx Instructions: may be taking differently glipizide 10 mg tablet extended release 24hr 10 mg PO AMHS Discharge Orders: Discharge Order- CHF (Routine); Ordered 05/04/23 Ordered By: Johanny Carey/Other Patient Handouts: Tips for Using Less Salt, Low-Salt Choices, Low Salt Diet Dc, Limiting Fluids Dc Admission Data Admit Date/Time: 04/30/23 00:07 Attending Provider: Johanny Powell Admit Provider: Zachary Forbes Primary Care Provider: Rene Green Other Providers: Shanae Crawford ; Zachary Forbes ; Inocencia Mcknight ; Saqib Marx ; Aram Romero ; Efrain Saunders ; Zion Barboza ; Misael Romero ; Michelle Sims ; Lyly De Guzman ; Inocencia Finney ; Oracio Curiel ; Cyndee Ward ; Laura Sellers Other Interventions: Discharge Summary Assessment (RN) Last Done: 05/04/23 11:20
--- NOTE | 2023-05-04 11:54 | Palliative Care Progress Note ---
Date of Service May 04, 2023 Assessment & Plan (1) Dyspnea: Plan: He feels that the lorazepam is more effective than roxanol. Continue roxanol as back up if lorazepam ineffective. (2) Anxiety: Plan: He has been using prns pretty regularly at night. Scheduled dose of lorazepam added at hs. Continue prn dosing (3) Palliative care encounter: Plan: Plan for discharge home on milrinone infusion. Unfortunately that disqualifies him from home care or hospice support at home. We have discussed emergency plan for lorazepam and roxanol to relieve air hunger and its associated anxiety. If that is not effective, he could potentially need to return to the hospital for symptom management, though his preference would be to stay at home. POLST completed to clarify goal of focus on comfort. Admission and Anticipated Discharge Date Admission Date: April 30, 2023 Subjective Reports feeling good. Denies dyspnea or pain. He has had medication for pain and anxiety pretty regularly at night. Review of Systems Review of Systems: ESAS Pain 0/3 Dyspnea 1/3 accessory muscle use with exertion, denies air hunger Nausea 0/3 Drowsiness 0/3 Physical Exam Constitutional: no acute distress Respiratory: + uses accessory muscles Cardiovascular: LE edema Gastrointestinal (Abdomen): LBM 05/01 Neurologic: Speech / Cognition: normal cognition Genitourinary: continent Results & Data Vital Signs (Past 12 Hours) Vital Signs Temp Pulse Resp BP BP Pulse Ox O2 Del Method 05/04/23 11:20 97.5 F L 84 21 110/60 114/70 96 05/04/23 10:58 84 21 114/70 96 Nasal Cannula 05/04/23 08:00 Nasal Cannula 05/04/23 07:37 97.5 F L 87 19 96/64 L 96 Nasal Cannula 05/04/23 02:29 97.9 F 92 H 18 98/63 L 94 Nasal Cannula O2 Flow Rate 05/04/23 11:20 05/04/23 10:58 4 05/04/23 08:00 4 05/04/23 07:37 2.0 05/04/23 02:29 4 PG Care Time/CCT Total # of Minutes Spent Total Time Spent with Patient: Total time spent is greater than 50% in coordination of care (as documented) at patient's floor/unit and/or counseling patient: Coding Level of Care Code 57117 SUB INP/OBS CARE MIN Diagnoses Dyspnea R06.00 Anxiety F41.9 Palliative care encounter Z51.5
[2023-05-04] MEDS ORDERED: ONDANSETRON 4 MG OD TAB PO STA (14:27)
[2023-05-04 15:38] VITALS: BP 118/77; PULSE 83; TEMP 98.1; O2SAT 94
[2023-05-04] MEDS ORDERED: LORazepam 0.5 MG TAB PO SCH (21:00)
== END 2023-05-04 17:07 | disposition home or self-care (01) | DRG 291 ==
LOC: ED 21:17 → 2S 04-30 00:07 → SUATTDRO 04-30 00:07 → 2S 04-30 02:31

== ENCOUNTER 2023-05-05 13:16 | Inpatient (IN) ==
[2023-05-05] MEDS ORDERED: CALCIUM GLUCONATE 1000 MG/60 ML NSS IV ONE (13:26)
[2023-05-05] MEDS ORDERED: CALCIUM GLUCONATE 1,000 MG/60 ML BAG IV STA (13:26)
[2023-05-05] MEDS ORDERED: SODIUM BICARB 8.4% INJ 50 MEQ/50 ML SYR IV STA (13:28)
--- NOTE | 2023-05-05 13:39 | Emergency Department Note ---
Impression & Plan Multi-organ failure with heart failure ADMIT ED Provider Note HPI: The patient is an 83-year-old gentleman who was noted to be DNR/DNI / comfort measures only with history of ischemic cardiomyopathy with reduced ejection fraction, discharged yesterday on continuous milrinone infusion with guarded prognosis, returns today via EMS with a chief complaint of shortness of breath and lethargy. On arrival here to the ED the patient is noted to be lethargic, hypotensive in the 60s, EKG on arrival shows evidence of a sinusoidal appearing waveform. Patient is alert to verbal stimuli on arrival, saturating in the high 90s on 6 L nasal cannula oxygen. ROS: - Per HPI Differential Diagnosis: Multiorgan system failure, acute on chronic CHF exacerbation, hyperkalemia, ventricular tachycardia, acute coronary syndrome, amongst other potential pathologies. *Outpatient medications and allergy history reviewed. *Pertinent external medical records reviewed. PE: General: Lethargic appearing, alert to verbal stimuli HEENT: Normocephalic, trachea midline Eyes: Extraocular eye movement is intact, no scleral erythema Pulmonary: Diminished bilateral breath sounds Cardio: Regular rate and rhythm GI: Abdomen is soft to palpation : No suprapubic tenderness MSK: No evidence of trauma or malformation of the extremities, no edema Skin: No evidence of rash, pale in appearance Neuro: Alert to verbal stimuli without focal motor deficits, patient is overall lethargic appearing Psychiatric: Cooperative first assist: (As interpreted by myself): - An order was placed for continuous cardiac monitoring - Patient was noted to be in sinusoidal waveform with rate of 75 EKG: (As interpreted by myself): Rate: 77 Rhythm: Sinusoidal Intervals: Widened QRS, KS interval 212 ms, QTc [address] changes: Nonspecific ST elevations noted in leads II, 3, aVF, V3 through V6 Time: 1322 Interventions provided in ED: -IV calcium gluconate, IV sodium bicarbonate Medical Decision Making: Patient presented to the emergency department critically ill in appearance, complaint of dyspnea and lethargy. He has a history of end-stage cardiomyopathy with reduced ejection fraction and was discharged home from the hospital yesterday on continuous milrinone infusion for palliative purposes. Patient states that his catheter from the right upper chest where he was getting his milrinone was "removed" yesterday accidentally but he is unsure how this occu rred. He appears mildly encephalopathic on arrival but he is alert to verbal stimuli. Patient's EKG on arrival is concerning for possible hyperkalemia and appears sinusoidal in nature, this is an acute change from his previous EKG. He was therefore immediately given calcium gluconate as well as an amp of sodium bicarbonate, IV was established and lab work obtained. 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 He arrives with a POLST at the bedside that was later reviewed and shows that he is DNR/DNI comfort measures only CODE STATUS. Lab work shows no leukocytosis, hemoglobin is stable, platelet count is normal, INR is noted to be elevated at 9.1, CMP shows multiple abnormalities including hyperkalemia with potassium of 5.9, sodium is low at 128, bicarb is low at 14, patient is noted to have creatinine elevation at 2.9 with previous near 1.6. Liver enzymes are all elevated with AST at 1355, ALT at 745, alk phos elevated at 252, bilirubin is 4.7. Troponin is also elevated at 39.6. EKG was reviewed and case discussed with on-call [facility]ology, Dr. Romero, who is familiar with the patient. He does feel that the patient's presentation is consistent with his history of end-stage ischemic cardiomyopathy and does not recommend any aggressive measures. Patient is arrhythmia did narrow in regards to his complex and his mentation improved, blood pressure improved to 90 systolic. On my reassessment the patient's is at bedside and the patient is more alert. I did have a discussion with the patient and his at the bedside in regards to CODE STATUS and palliative care, given the patient's evidence of multiorgan failure on his lab work and recent inpatient stay with palliative consultation with rebound presentation to the hospital within 1 day, decision was made by the patient and his to place the patient for inpatient admission for hospice. Case was discussed with the on-call midlevel provider for the [facility] hospitalist service, Rossy, the patient was placed for admission for inpatient hospice services. Consultants: - Hospitalist service, Dr. Marlo Ortiz -Cardiology, Dr. Nick Otriz Disposition discussion held by myself with: Patient and at the bedside * CRITICAL CARE TIME: ( 38 ) minutes -Management of patient with malignant arrhythmia requiring IV calcium and IV bicarbonate for hyperkalemia with sinusoidal EKG, discussion with patient and family in regards to CODE STATUS and arrangement of inpatient hospice services, interpretation of diagnostic studies and discussion with other physicians Diagnosis: 1. End-stage cardiomyopathy with reduced ejection fraction 2. Multiorgan system failure 3. Hyperkalemia, acute 4. Sinusoidal arrhythmia secondary to hyperkalemia, acute 5. Acute kidney injury 6. Transaminitis, acute 7. Elevated high-sensitivity troponin level Disposition: Admission Misael Bryant DO Emergency Medicine Past Med/Surg History Medical History (Updated 05/05/23 @ 16:03 by Misael Bryant DO) Acute HFrEF (heart failure with reduced ejection fraction) Afib CAD (coronary artery disease) CHF (congestive heart failure) Chronic gout Chronic systolic heart failure Diabetes Diabetes mellitus, type II HLD (hyperlipidemia) HTN (hypertension) Ischemic cardiomyopathy No pertinent family history Valvular heart disease Surgical History History of angioplasty History of cardiac cath History of colonoscopy Family History Other Diabetes Heart disease Social History Smoking Status: Former smoker Tobacco Type: Cigarettes Second Hand Exposure: No; Do You Dip or Chew Tobacco: No; Hx Alcohol Use: No Hx Substance Use: No Preferred Language: Bengali Communication Ability: Effective Roll Picker Required: No Beliefs That Will Affect Care: None Current Living Situation: Spouse Current Living Situation Comment: With Feels Safe at Home: Yes Assistive Devices: Cane and Walker Allergies Allergies Allergy/AdvReac Type Severity Reaction Status Date / Time alfuzosin AdvReac Mild NASAL Verified 04/20/23 17:19 CONGESTION Home Meds Home Medications Medication Instructions Recorded Confirmed torsemide 20 mg tablet 60 mg PO BID 04/20/23 05/05/23 warfarin 5 mg tablet 5 mg PO QPM 04/20/23 05/05/23 amiodarone 200 mg tablet 200 mg PO QAM 04/29/23 05/05/23 glipizide 10 mg tablet, extended 10 mg PO [facility] 04/29/23 05/05/23 release 24 hr metoprolol succinate 25 mg 25 mg PO QAM 04/29/23 05/05/23 tablet,extended release 24 hr potassium chloride 10 mEq 10 meq PO [facility] 04/29/23 05/05/23 capsule,extended release Previous Rx's Medication Instructions Recorded acetaminophen 325 mg tablet 650 mg PO Q4H PRN fever or pain 04/02/23 #30 tabs allopurinol 300 mg tablet 300 mg PO QAM #30 tabs 04/02/23 alprazolam 0.5 mg tablet (Xanax) 0.5 mg PO HS PRN anxiety #30 tabs 04/02/23 clopidogrel 75 mg tablet 75 mg PO QAM #30 tabs 04/02/23 mirtazapine 15 mg tablet 15 mg PO HS #30 tabs 04/02/23 polyethylene glycol 3350 17 gram 17 g PO DAILY PRN constipation 04/02/23 oral powder packet (Miralax) #100 ea Results & Data (ED) Vital Signs Vital Signs - 24 hr 05/05/23 13:20 05/05/23 13:20 05/05/23 13:20 Temperature Temperature Source Pulse Rate 68 Pulse Rate [Right Finger] Pulse Rate from SpO2 Sensor Pulse Rhythm Regular Pulse Rhythm [Right Finger] Pulse Strength Normal Pulse Strength [Right Finger] Respiratory Rate 24 Respiratory Effort / Characteristics Labored Labored Respiratory Depth Normal Respiratory Pattern Regular Regular Blood Pressure 63/41 L Blood Pressure [Right Arm] Blood Pressure Mean 48 Blood Pressure Mean [Right Arm] Blood Pressure Position [Right Arm] Pulse Oximetry 96 Oxygen Delivery Method Nasal Cannula Nasal Cannula Nasal Cannula Oxygen Flow Rate 6 6 6 Sepsis Recent Fever Within 48 Hours No Sepsis New/Unexplained Change in Mental Status No Sepsis Action Taken by Nursing No Action Required 05/05/23 13:20 05/05/23 13:26 05/05/23 13:35 Temperature 35 C L Temperature Source Oral Pulse Rate 73 58 L Pulse Rate [Right Finger] 78 Pulse Rate from SpO2 Sensor Pulse Rhythm Irregular Pulse Rhythm [Right Finger] Regular Pulse Strength Pulse Strength [Right Finger] Normal Respiratory Rate 27 H 28 H Respiratory Effort / Characteristics Labored Respiratory Depth Normal Respiratory Pattern Regular Blood Pressure Blood Pressure [Right Arm] 63/41 L Blood Pressure Mean Blood Pressure Mean [Right Arm] 48 Blood Pressure Position [Right Arm] Lying Pulse Oximetry 94 93 Oxygen Delivery Method Nasal Cannula Nasal Cannula Oxygen Flow Rate 6 6 Sepsis Recent Fever Within 48 Hours Sepsis New/Unexplained Change in Mental Status Sepsis Action Taken by Nursing 05/05/23 13:50 05/05/23 13:55 05/05/23 13:55 Temperature Temperature Source Pulse Rate 89 Pulse Rate [Right Finger] Pulse Rate from SpO2 Sensor 73 Pulse Rhythm Pulse Rhythm [Right Finger] Pulse Strength Pulse Strength [Right Finger] Respiratory Rate 34 H Respiratory Effort / Characteristics Respiratory Depth Respiratory Pattern Blood Pressure 73/51 L 73/51 L Blood Pressure [Right Arm] Blood Pressure Mean 58 58 Blood Pressure Mean [Right Arm] Blood Pressure Position [Right Arm] Pulse Oximetry 83 L Oxygen Delivery Method Oxygen Flow Rate Sepsis Recent Fever Within 48 Hours Sepsis New/Unexplained Change in Mental Status Sepsis Action Taken by Nursing 05/05/23 14:24 05/05/23 15:44 Temperature Temperature Source Pulse Rate 70 Pulse Rate [Right Finger] 68 Pulse Rate from SpO2 Sensor 70 Pulse Rhythm Pulse Rhythm [Right Finger] Pulse Strength Pulse Strength [Right Finger] Respiratory Rate 23 25 H Respiratory Effort / Characteristics Labored Respiratory Depth Normal Respiratory Pattern Tachypnea Blood Pressure 72/52 L Blood Pressure [Right Arm] 92/52 L Blood Pressure Mean 58 Blood Pressure Mean [Right Arm] 65 Blood Pressure Position [Right Arm] Lying Pulse Oximetry 96 97 Oxygen Delivery Method Nasal Cannula Oxygen Flow Rate 6 Sepsis Recent Fever Within 48 Hours Sepsis New/Unexplained Change in Mental Status Sepsis Action Taken by Nursing Laboratory Data 05/05/23 13:24 05/05/23 13:24 Lab Results 05/05/23 05/05/23 05/05/23 Range/Units 13:24 13:24 13:24 WBC 10.38 (4.8-10.8) K/ul RBC 4.89 (4.70-6.10) M/uL Hgb 13.6 L (14.0-18.0) g/dl POC Hgb (14.0-18.0) g/dl Hct 43.1 (42.0-52.0) % POC Hct (42-52) % MCV 88.1 (80.0-100.0) fL MCH 27.8 (25.0-34.0) pg MCHC 31.6 L (32.0-36.0) g/dL RDW Std Deviation 60.9 H (36.4-46.3) fL RDW Coeff of Niya 19.9 H (11.5-14.5) % Plt Count 194 (130-400) K/uL MPV 12.8 H (9.4-12.4) fL Immature Gran % (Auto) 1.7 % Neut % (Auto) 73.7 % Lymph % (Auto) 15.0 % [place] % (Auto) 9.2 % Eos % (Auto) 0.0 % Baso % (Auto) 0.4 % Neut # (Auto) 7.65 H (1.40-6.50) K/uL Lymph # (Auto) 1.56 (1.2-3.4) K/uL [place] # (Auto) 0.95 H (0.11-0.59) K/uL Eos # (Auto) 0.00 (0-0.50) K/uL Baso # (Auto) 0.04 (0-0.2) K/uL Immature Gran # (Auto) 0.18 (0.01-0.20) K/uL Absolute Nucleated RBC 0.08 (0-0.12) K/uL Nucleated RBC % (auto) 0.8 % PT 86.7 H (9.0-12.0) Seconds INR 9.1 H* (0.9-1.1) POC Sodium (135-144) mmol/L Sodium 128 L (136-145) mmol/L POC Potassium (3.3-5.0) mmol/L Potassium 5.9 H (3.5-5.1) mmol/L POC Chloride (101-112) mmol/L Chloride 89 L (98-107) mmol/L Carbon Dioxide 14 L (21-32) mmol/L POC Total CO2 (24-31) mmol/L Anion Gap 25 H (3-11) POC Anion Gap (16-25) mmol/L POC BUN (7-18) mg/dl BUN 76 H (6-23) mg/dl Creatinine 2.91 H (0.6-1.4) mg/dl POC Creatinine (0.6-1.3) mg/dl Est Cr Clr Drug Dosing 21.2 ml/min Est GFR ( Amer) 21.9 ml/min Est GFR (Non-Af Amer) 18.9 ml/min BUN/Creatinine Ratio 26.1 H (10-20) Glucose 69 L (70-99(Fasting)) mg/dl POC Glucose (other) (70-99) mg/dl Calcium 10.7 H (8.6-10.3) mg/dl POC Ioniz Calcium [place] (1.12-1.32) mmol/l Total Bilirubin 4.7 H (0.2-1.0) mg/dl AST 1355 H (13-39) U/L ALT 745 H (7-52) U/L Alkaline Phosphatase 252 H (34-104) U/L Troponin I High Sens 39.6 H (0-20) pg/ml Total Protein 6.4 (6.0-8.3) gm/dl Albumin 3.7 (3.4-5.0) gm/dl Globulin 2.7 (2.5-4.0) gm/dl Albumin/Globulin Ratio 1.4 (0.9-2) Lipase 75 (11-82) U/L SARS-CoV-2, RNA, NAAT (NEGATIVE) 05/05/23 05/05/23 Range/Units 13:29 13:44 WBC (4.8-10.8) K/ul RBC (4.70-6.10) M/uL Hgb (14.0-18.0) g/dl POC Hgb 16.0 (14.0-18.0) g/dl Hct (42.0-52.0) % POC Hct 47 (42-52) % MCV (80.0-100.0) fL MCH (25.0-34.0) pg MCHC (32.0-36.0) g/dL RDW Std Deviation (36.4-46.3) fL RDW Coeff of Niya (11.5-14.5) % Plt Count (130-400) K/uL MPV (9.4-12.4) fL Immature Gran % (Auto) % Neut % (Auto) % Lymph % (Auto) % [place] % (Auto) % Eos % (Auto) % Baso % (Auto) % Neut # (Auto) (1.40-6.50) K/uL Lymph # (Auto) (1.2-3.4) K/uL [place] # (Auto) (0.11-0.59) K/uL Eos # (Auto) (0-0.50) K/uL Baso # (Auto) (0-0.2) K/uL Immature Gran # (Auto) (0.01-0.20) K/uL Absolute Nucleated RBC (0-0.12) K/uL Nucleated RBC % (auto) % PT (9.0-12.0) Seconds INR (0.9-1.1) POC Sodium 127 L (135-144) mmol/L Sodium (136-145) mmol/L POC Potassium 5.8 H (3.3-5.0) mmol/L Potassium (3.5-5.1) mmol/L POC Chloride 96 L (101-112) mmol/L Chloride (98-107) mmol/L Carbon Dioxide (21-32) mmol/L POC Total CO2 16 L (24-31) mmol/L Anion Gap (3-11) POC Anion Gap 22.0 (16-25) mmol/L POC BUN 66 H (7-18) mg/dl BUN (6-23) mg/dl Creatinine (0.6-1.4) mg/dl POC Creatinine 3.1 H (0.6-1.3) mg/dl Est Cr Clr Drug Dosing ml/min Est GFR ( Amer) ml/min Est GFR (Non-Af Amer) ml/min BUN/Creatinine Ratio (10-20) Glucose (70-99(Fasting)) mg/dl POC Glucose (other) 66 L* (70-99) mg/dl Calcium (8.6-10.3) mg/dl POC Ioniz Calcium [place] 1.15 (1.12-1.32) mmol/l Total Bilirubin (0.2-1.0) mg/dl AST (13-39) U/L ALT (7-52) U/L Alkaline Phosphatase (34-104) U/L Troponin I High Sens (0-20) pg/ml Total Protein (6.0-8.3) gm/dl Albumin (3.4-5.0) gm/dl Globulin (2.5-4.0) gm/dl Albumin/Globulin Ratio (0.9-2) Lipase (11-82) U/L SARS-CoV-2, RNA, NAAT NEGATIVE (NEGATIVE) Administered Medications Discontinued Medications Calcium Gluconate (Calcium Gluconate 1000 Mg/60 Ml Nss) Confirm Administered Dose 1,000 mg IV .[employer] ONE Stop: 05/05/23 13:27 Last Admin: 05/05/23 13:40 Dose: Not Given Documented By: ES Calcium Gluconate () 1,000 mg in 60 mls @ 240 mls/hr IV NOW STA Stop: 05/05/23 13:40 Last Infusion: 05/05/23 13:55 Dose: 240 mls/hr Documented By: Admin: 05/05/23 13:39 Dose: 240 mls/hr Documented By: MARQUITA Sodium Bicarbonate (Sodium Bicarb 8.4% Inj 50 Meq/50 Ml Syr) 50 meq IV NOW STA Stop: 05/05/23 13:29 Last Admin: 05/05/23 13:39 Dose: 50 meq Documented By: MARQUITA Imaging Data Radiologist's Impression: Chest X-Ray 05/05/23 13:26 SINGLE VIEW CHEST CLINICAL HISTORY: Atypical chest pain. FINDINGS: An AP, portable, upright chest radiograph is compared to study dated 04/29/2023 and correlated with chest CT dated 11/02/2022. A 3-lead cardiac AICD is unchanged in position. The heart is enlarged noting atherosclerotic calcification of the thoracic aorta. The pulmonary vasculature is noncongested. Chronic interstitial thickening similar to previous. Fibrotic changes again seen at both lung bases. There are increasing right upper lobe airspace opacities from previous. No pneumothorax is seen. The skeletal structures are osteopenic. The bony thorax is grossly intact. Postsurgical change is noted in the right humeral head. IMPRESSION: 1. Cardiomegaly and AICD without radiographic evidence of congestive failure. 2. There are increasing right upper lobe airspace opacities as compared to previous. Correlate clinically for evidence of an infectious/inflammatory pneumonitis. 3. Chronic fibrotic change at both lung bases is similar to previous. ACT 112: Negative or not required by law. Electronically signed by: Aldo Menendez M.D. 05/05/2023 2:02 PM Discharge Plan Visit Data Chief Complaint: Shortness of Breath/Dyspnea ED Provider: Misael Bryant Discharge Problem: Multi-organ failure with heart failure Forms Stand Alone Forms: My iSSimple Prescriptions Prescriptions: No Action clopidogrel 75 mg Tablet 75 mg PO QAM Qty: 30 0RF acetaminophen 325 mg Tablet 650 mg PO Q4H PRN (Reason: fever or pain) Qty: 30 0RF polyethylene glycol 3350 [Miralax] 17 gram Powder In Packet 17 g PO DAILY PRN (Reason: constipation) Qty: 100 0RF alprazolam [Xanax] 0.5 mg Tablet 0.5 mg PO HS PRN (Reason: anxiety) Qty: 30 0RF allopurinol 300 mg Tablet 300 mg PO QAM Qty: 30 0RF mirtazapine 15 mg Tablet 15 mg PO HS Qty: 30 0RF torsemide 20 mg tablet 60 mg PO BID warfarin 5 mg tablet 5 mg PO QPM Rx Instructions: as directed by anticoagulation clinic potassium chloride 10 mEq capsule, extended release 10 meq PO [facility] amiodarone 200 mg tablet 200 mg PO QAM metoprolol succinate 25 mg tablet extended release 24 hr 25 mg PO QAM Rx Instructions: may be taking differently glipizide 10 mg tablet extended release 24hr 10 mg PO [facility] Referrals Referrals: Rene Green, [Primary Care Provider] -
[2023-05-05 13:42] LABS: iSTAT Creatinine 3.1 mg/dl (0.6-1.3); iSTAT Ionized Calcium 1.15 mmol/l (1.12-1.32); iSTAT Potassium 5.8 mmol/L (3.3-5.0)
[2023-05-05 13:53] LABS: Basophils # (auto) 0.04 K/uL (0-0.2); Basophils % (auto) 0.4 %; Hematocrit (blood only) 43.1 % (42.0-52.0); Hemoglobin 13.6 g/dl (14.0-18.0); Immature Granulocytes # (auto) 0.18 K/uL (0.01-0.20); Immature Granulocytes % (auto) 1.7 %; Lymphocytes # (auto) 1.56 K/uL (1.2-3.4); Mean Corpuscular Hemoglobin 27.8 pg (25.0-34.0); Mean Corpuscular Hgb Conc 31.6 g/dL (32.0-36.0); Mean Corpuscular Volume 88.1 fL (80.0-100.0); Mean Platelet Volume 12.8 fL (9.4-12.4); Monocytes # (auto) 0.95 K/uL (0.11-0.59); Monocytes % (auto) 9.2 %; Neutrophils # (auto) 7.65 K/uL (1.40-6.50); Neutrophils % (auto) 73.7 %; Nucleated RBC # (auto) 0.08 K/uL (0-0.12); Nucleated RBC % (auto) 0.8 %; Platelet Count 194 K/uL (130-400); RDW Coefficient of Variation 19.9 % (11.5-14.5); RDW Standard Deviation 60.9 fL (36.4-46.3); Red Blood Count 4.89 M/uL (4.70-6.10); White Blood Count 10.38 K/ul (4.8-10.8)
--- NOTE | 2023-05-05 14:03 | XRay Report ---
SINGLE VIEW CHEST CLINICAL HISTORY: Atypical chest pain. FINDINGS: An AP, portable, upright chest radiograph is compared to study dated 04/29/2023 and correlat ed with chest CT dated 11/02/2022. A 3-lead cardiac AICD is unchanged in position. The heart is enlarg ed noting atherosclerotic calcification of the thoracic aorta. The pulmonary vasculature is nonconges ervin. Chronic interstitial thickening similar to previous. Fibrotic changes again seen at both lung ba ses. There are increasing right upper lobe airspace opacities from previous. No pneumothorax is seen. The skeletal structures are osteopenic. The bony thorax is grossly intact. Postsurgical change is no ervin in the right humeral head. IMPRESSION: 1. Cardiomegaly and AICD without radiographic evidence of congestive failure. 2. There are increasing right upper lobe airspace opacities as compared to previous. Correlate clinic ally for evidence of an infectious/inflammatory pneumonitis. 3. Chronic fibrotic change at both lung bases is similar to previous. ACT 112: Negative or not required by law. Electronically signed by: Aldo Menendez M.D. 05/05/2023 2:02 PM
[2023-05-05 14:07] LABS: Albumin Globulin Ratio 1.4 (0.9-2); Albumin Level 3.7 gm/dl (3.4-5.0); BUN Creatinine Ratio 26.1 (10-20); Bilirubin,Total 4.7 mg/dl (0.2-1.0); Calcium 10.7 mg/dl (8.6-10.3); Creatinine Clr Calc Pharmacy 21.2 ml/min; Est GFR (African American) 21.9 ml/min; Est GFR (Non-African American) 18.9 ml/min; Globulin 2.7 gm/dl (2.5-4.0); Potassium 5.9 mmol/L (3.5-5.1); Total Protein 6.4 gm/dl (6.0-8.3); Troponin I High Sensitivity 39.6 pg/ml (0-20)
[2023-05-05 14:16] LABS: Prothrombin Time 86.7 Seconds (9.0-12.0)
[2023-05-05 14:35] LABS: INR 9.1 (0.9-1.1)
--- NOTE | 2023-05-05 15:56 | Electrocardiogram Report ---
Test Reason : Blood Pressure : / mmHG Vent. Rate : 077 BPM Atrial Rate : 077 BPM P-R Int : 212 ms QRS Dur : 054 ms QT Int : 462 ms P-R-T Axes : 079 000 070 degrees QTc Int : 522 ms Biventricular pacemaker detected with QRS widening Abnormal ECG When compared with ECG of 03-MAY-2023 11:59, QRS widening now present Confirmed by Reji Sanchez ([id number]) on 05/05/2023 3:56:24 PM Referred By: REFERRED SELF Confirmed By:Reji Sanchez
[2023-05-05] MEDS ORDERED: MoRPHine SULFATE 2 MG/ML CARP IV STA (16:24)
--- NOTE | 2023-05-05 17:06 | History & Physical Report ---
Date of Service May 05, 2023 Assessment & Plan (1) Multi-organ failure with heart failure: (2) Comfort measures only status: (3) Ischemic cardiomyopathy: (4) HFrEF (heart failure with reduced ejection fraction): (5) Biventricular ICD (implantable cardioverter-defibrillator) in place: (6) Diabetes mellitus, type II: Plan: Patient with history of end-stage ischemic cardiomyopathy/heart failure on home milrinone infusion. Patient recently admitted to [facility] 04/30 through 05/04 for acute hypoxic respiratory failure due to decompensated heart failure. Patient discharged home on continued milrinone infusion as well as home oxygen. Tunneled catheter for milrinone became dislodged overnight. Patient with shortness of breath and confusion this morning and presented back to the ED. Patient and now wishing to pursue comfort measures only/inpatient hospice care. Patient appears to be in multisystem organ failure with multiple laboratory derangements including hyponatremia, hyperkalemia, NADIA, elevated LFTs, hypotension. Will place magnet over AICD to deactivate Comfort care meds including morphine and Ativan as needed Palliative care consult, Dr. Pham notified via tiger text Patient seen in collaboration with Dr. Sellers. I spent a total of 60 minutes coordinating, documenting, and providing care for this patient excluding time spent in the performance of separately billed services. This included personally reviewing all current laboratories and imaging studies, medication reconciliation, outpatient chart review, and discussion with specialists. History of Present Illness Chief Complaint: Shortness of breath Primary Care Provider: Rene Green DO 83-year-old male with PMH DM type II, end-stage ischemic cardiomyopathy s/p AICD on milrinone infusion, paroxysmal atrial fibrillation on amiodarone and Coumadin, CKD stage III, and other problems listed below who presents to the ED for evaluation of shortness of breath. History obtained from patient and who are at the bedside as well as review of recent inpatient, PCP, and outpatient cardiology notes. Patient recently admitted to [facility] 04/30 through 05/04 for acute hypoxic respiratory failure due to decompensated heart failure. Patient placed on home milrinone infusion in March due to end-stage heart failure. Patient discharged from [facility] on 05/04 with milrinone infusion continuing which made the patient in eligible for hospice services. Patient was also discharged with home oxygen. Overnight, patient's tunneled catheter for milrinone became dislodged. This morning, patient was short of breath and confused per the . Patient was brought to the ED for further evaluation. No other symptoms reported. In the ED, patient appears to be in multisystem organ failure. Patient and now wishing to pursue inpatient hospice care. Allergies Allergy/AdvReac Type Severity Reaction Status Date / Time alfuzosin AdvReac Mild NASAL Verified 04/20/23 17:19 CONGESTION Home Medications Medication Instructions Recorded Confirmed Type acetaminophen 325 mg tablet 650 mg PO Q4H PRN fever or pain 04/02/23 05/05/23 Rx #30 tabs allopurinol 300 mg tablet 300 mg PO QAM #30 tabs 04/02/23 05/05/23 Rx alprazolam 0.5 mg tablet (Xanax) 0.5 mg PO HS PRN anxiety #30 tabs 04/02/23 05/05/23 Rx clopidogrel 75 mg tablet 75 mg PO QAM #30 tabs 04/02/23 05/05/23 Rx mirtazapine 15 mg tablet 15 mg PO HS #30 tabs 04/02/23 05/05/23 Rx polyethylene glycol 3350 17 gram 17 g PO DAILY PRN constipation 04/02/23 05/05/23 Rx oral powder packet (Miralax) #100 ea torsemide 20 mg tablet 60 mg PO BID 04/20/23 05/05/23 History warfarin 5 mg tablet 5 mg PO QPM 04/20/23 05/05/23 History amiodarone 200 mg tablet 200 mg PO QAM 04/29/23 05/05/23 History glipizide 10 mg tablet, extended 10 mg PO AMHS 04/29/23 05/05/23 History release 24 hr metoprolol succinate 25 mg 25 mg PO QAM 04/29/23 05/05/23 History tablet,extended release 24 hr potassium chloride 10 mEq 10 meq PO AMHS 04/29/23 05/05/23 History capsule,extended release Past Med/Surg History Medical History Biventricular ICD (implantable cardioverter-defibrillator) in place CAD (coronary artery disease) Anterior wall myocardial infarction in 1984 Status post plain old balloon angioplasty of the mid LAD in 1984 Cardiac catheterization last on September 23, 2022 revealing right dominant coronary anatomy with severe multivessel coronary artery disease including a proximal right coronary artery occlusion, subtotal mid LAD stenosis, and diffuse atherosclerosis of all vessels with limited interventional targets, deemed medical management only Chronic gout Chronic systolic heart failure Diabetes mellitus, type II HLD (hyperlipidemia) HTN (hypertension) Ischemic cardiomyopathy No pertinent family history Paroxysmal atrial fibrillation Valvular heart disease Surgical History History of angioplasty History of cardiac cath History of colonoscopy Family History Other Diabetes Heart disease Social History Smoking Status: Former smoker Tobacco Type: Cigarettes Second Hand Exposure: No; Do You Dip or Chew Tobacco: No; Hx Alcohol Use: No Hx Substance Use: No Preferred Language: Upper Sorbian Communication Ability: Effective Dye Colorist Formulator Required: No Beliefs That Will Affect Care: None Current Living Situation: Spouse Current Living Situation Comment: With Feels Safe at Home: Yes Assistive Devices: Cane and Walker Review of Systems Review of Systems: ROS per HPI, all other systems reviewed and negative Physical Exam 2 Constitutional: WD/WN, vitals as above no acute distress Eyes: PERRL, conjunctivae normal, anicteric sclerae ENMT: external ear and nose normal, oropharynx normal Respiratory: normal respiratory effort; no respiratory distress Auscultation: + diminished lung sounds (Bilateral bases) Cardiovascular: Rate/Rhythm: regular rate and regular rhythm Vessels: normal peripheral pulses Extremities: + edema (+2-3 pitting edema BLE) Gastrointestinal (Abdomen): normal bowel sounds, soft, nontender, no hepatosplenomegaly Skin: no rashes, warm and dry Chronic venous changes BLE Neurologic: PERRL, EOMI, accommodation nl, no face palsy, no dysarthria Psychiatric: A+Ox3, euthymic affect Results & Data Results & Data Vital Signs (Past 12 Hours) Vital Signs Temp Pulse Pulse Resp BP BP Pulse Ox 05/05/23 16:04 80 26 H 78/59 L 96 05/05/23 15:44 68 25 H 92/52 L 97 05/05/23 14:24 70 23 72/52 L 96 05/05/23 13:55 73/51 L 05/05/23 13:55 73/51 L 05/05/23 13:50 89 34 H 83 L 05/05/23 13:35 58 L 05/05/23 13:26 73 28 H 93 05/05/23 13:20 35 C L 78 27 H 63/41 L 94 05/05/23 13:20 05/05/23 13:20 68 24 63/41 L 96 05/05/23 13:20 O2 Del Method O2 Flow Rate 05/05/23 16:04 Nasal Cannula 6 05/05/23 15:44 Nasal Cannula 6 05/05/23 14:24 05/05/23 13:55 05/05/23 13:55 05/05/23 13:50 05/05/23 13:35 05/05/23 13:26 Nasal Cannula 6 05/05/23 13:20 Nasal Cannula 6 05/05/23 13:20 Nasal Cannula 6 05/05/23 13:20 Nasal Cannula 6 05/05/23 13:20 Nasal Cannula 6 Laboratory Results Short CBC 05/05/23 Range/Units 13:24 WBC 10.38 (4.8-10.8) K/ul Hgb 13.6 L (14.0-18.0) g/dl Hct 43.1 (42.0-52.0) % Plt Count 194 (130-400) K/uL BMP 05/05/23 13:24 Sodium 128 L Potassium 5.9 H Chloride 89 L Carbon Dioxide 14 L BUN 76 H Creatinine 2.91 H Glucose 69 L Calcium 10.7 H Liver Function 05/05/23 Range/Units 13:24 Total Bilirubin 4.7 H (0.2-1.0) mg/dl AST 1355 H (13-39) U/L ALT 745 H (7-52) U/L Alkaline Phosphatase 252 H (34-104) U/L Albumin 3.7 (3.4-5.0) gm/dl Diagnostic Findings Chest X-Ray 05/05/23 13:26 SINGLE VIEW CHEST CLINICAL HISTORY: Atypical chest pain. FINDINGS: An AP, portable, upright chest radiograph is compared to study dated 04/29/2023 and correlated with chest CT dated 11/02/2022. A 3-lead cardiac AICD is unchanged in position. The heart is enlarged noting atherosclerotic calcification of the thoracic aorta. The pulmonary vasculature is noncongested. Chronic interstitial thickening similar to previous. Fibrotic changes again seen at both lung bases. There are increasing right upper lobe airspace opacities from previous. No pneumothorax is seen. The skeletal structures are osteopenic. The bony thorax is grossly intact. Postsurgical change is noted in the right humeral head. IMPRESSION: 1. Cardiomegaly and AICD without radiographic evidence of congestive failure. 2. There are increasing right upper lobe airspace opacities as compared to previous. Correlate clinically for evidence of an infectious/inflammatory pneumonitis. 3. Chronic fibrotic change at both lung bases is similar to previous. ACT 112: Negative or not required by law. Electronically signed by: Aldo Menendez M.D. 05/05/2023 2:02 PM Supervising Physician Co-Signing Physician Notes I have seen and examined the patient and have discussed the case with the provider above. I agree with the assessment and plan as stated. 83 yo M recently discharged after admission for acute heart failure exacerbation in setting of end stage heart failure. Transitioned to comfort measures. Morphine given this evening. Palliative consulted for continued management. Poor prognosis. Discussed care plan wtih at bedside and all questions were answered. DO Marlo
[2023-05-05] MEDS ORDERED: LORazepam 0.5 MG TAB PO PRN (17:17)
[2023-05-05] MEDS ORDERED: MoRPHine SULFATE 2 MG/ML CARP IV PRN (17:17)
[2023-05-05] MEDS ORDERED: ONDANSETRON INJ 2 MG/ML 2 ML VIAL IV PRN (17:17)
[2023-05-05] MEDS ORDERED: ONDANSETRON 4 MG OD TAB SL PRN (17:17)
--- NOTE | 2023-05-05 17:38 | Student Report ---
MISHEL Med Student H&P Advanced Practice Practitioner Student Attestation: Documentation should not be used for clinical decision making or patient plan of care. Date of Service Date of Service: May 05, 2023 HPI HPI: 83 yo male with extensive cardiac history and recent d/c 05/03 now readmitted because his tunneled line for milrinone fell out at home and his symptoms were worsening. He has been on home milrinone for end-stage heart failure since March but today, himself and would like to be placed on comfort measures. In the ED, pt was on 6L NC, rec'd morphine for discomfort. Lab work shows multisystem organ dysfunction including liver and renal failure. Pt History Pt History: Medical History (Updated 05/05/23 @ 16:59 by MARNI Hughes) Biventricular ICD (implantable cardioverter-defibrillator) in place CAD (coronary artery disease) Chronic gout Chronic systolic heart failure Diabetes mellitus, type II HLD (hyperlipidemia) HTN (hypertension) Ischemic cardiomyopathy No pertinent family history Paroxysmal atrial fibrillation Valvular heart disease Surgical History (Updated 11/30/22 @ 20:34 by Denisha Larry PA-C) History of angioplasty History of cardiac cath History of colonoscopy Social History Smoking Status: Former smoker Tobacco Type: Cigarettes Second Hand Exposure: No; Do You Dip or Chew Tobacco: No; Hx Alcohol Use: No Hx Substance Use: No Preferred Language: Kazakh Communication Ability: Effective Cable Rigger Required: No Beliefs That Will Affect Care: None Current Living Situation: Spouse Current Living Situation Comment: With Feels Safe at Home: Yes Assistive Devices: Cane and Walker Family History (Updated 11/30/22 @ 20:34 by Denisha Larry PA-C) Other Diabetes Heart disease ROS ROS: See above for pertinent positives & negatives. A total of 10 systems reviewed and were otherwise negative. Physical Exam Physical Exam: Vital signs reviewed. General: Well-appearing [], in no significant distress. HEENT: No scleral icterus, PERRLA, neck supple. Atraumatic. Cardiovascular: Regular rate and rhythm, no extra sounds. Pulmonary: Clear to auscultation bilaterally, normal work of breathing. Abdomen: Soft, nontender, nondistended, positive bowel sounds. Musculoskeletal: Atraumatic, no peripheral edema. Neurologic: Patient awake alert and oriented x 3, full strength in all 4 extremities. Cranial nerves 2 through 12 grossly intact. Skin: Warm, dry, no rash Results Results: Short CBC 05/05/23 Range/Units 13:24 WBC 10.38 (4.8-10.8) K/ul Hgb 13.6 L (14.0-18.0) g/dl Hct 43.1 (42.0-52.0) % Plt Count 194 (130-400) K/uL BMP 05/05/23 13:24 Sodium 128 L Potassium 5.9 H Chloride 89 L Carbon Dioxide 14 L BUN 76 H Creatinine 2.91 H Glucose 69 L Calcium 10.7 H Liver Function 05/05/23 Range/Units 13:24 Total Bilirubin 4.7 H (0.2-1.0) mg/dl AST 1355 H (13-39) U/L ALT 745 H (7-52) U/L Alkaline Phosphatase 252 H (34-104) U/L Albumin 3.7 (3.4-5.0) gm/dl Chest X-Ray 05/05/23 13:26 SINGLE VIEW CHEST CLINICAL HISTORY: Atypical chest pain. FINDINGS: An AP, portable, upright chest radiograph is compared to study dated 04/29/2023 and correlated with chest CT dated 11/02/2022. A 3-lead cardiac AICD is unchanged in position. The heart is enlarged noting atherosclerotic calcification of the thoracic aorta. The pulmonary vasculature is noncongested. Chronic interstitial thickening similar to previous. Fibrotic changes again seen at both lung bases. There are increasing right upper lobe airspace opacities from previous. No pneumothorax is seen. The skeletal structures are osteopenic. The bony thorax is grossly intact. Postsurgical change is noted in the right humeral head. IMPRESSION: 1. Cardiomegaly and AICD without radiographic evidence of congestive failure. 2. There are increasing right upper lobe airspace opacities as compared to previous. Correlate clinically for evidence of an infectious/inflammatory pneumonitis. 3. Chronic fibrotic change at both lung bases is similar to previous. ACT 112: Negative or not required by law. Electronically signed by: Aldo Menendez M.D. 05/05/2023 2:02 PM Code/VTE Code/VTE: See orders and A/P A&P A&P: 1. Multi-organ failure 2/2 end-stage heart failure Pt admitted after tunneled line for milrinone fell out yesterday. brought patient d/t worsening symptoms and per her and patient they wish for the patient to be comfort measures at this point. He does have an implanted AICD/pacemaker and is currently AV paced. Magnet will be placed to disable AICD therapies, pacemaker will need interrogation/turned off by rep. Lorazepam for anxiety Morphine for air hunger, pain, discomfort Ondansetron for nausea Bedrest Oxygen therapy for comfort Pt may eat or drink 2. HFrEF, ICMO, CAD, HTN, HLD, DM2, Gout, a-fib, ICD with pacer See above plan
[2023-05-05] MEDS: MoRPHine SULFATE 2 MG/ML CARP IV PRN (21:52)
[2023-05-05] MEDS: LORazepam 2 MG/1 ML VIAL IV PRN (22:29)
[2023-05-06] MEDS: LORazepam 2 MG/1 ML VIAL IV PRN (02:36)
[2023-05-06] MEDS: MoRPHine SULFATE 2 MG/ML CARP IV PRN ×2 (03:14→07:43)
--- NOTE | 2023-05-06 07:57 | Hospitalist Progress Note ---
Date of Service May 06, 2023 Assessment & Plan (1) Multi-organ failure with heart failure: (2) Comfort measures only status: (3) Ischemic cardiomyopathy: (4) HFrEF (heart failure with reduced ejection fraction): (5) Biventricular ICD (implantable cardioverter-defibrillator) in place: (6) Diabetes mellitus, type II: Plan: Patient with history of end-stage ischemic cardiomyopathy/heart failure on home milrinone infusion. Patient recently admitted to [facility] 04/30 through 05/04 for acute hypoxic respiratory failure due to decompensated heart failure. Patient discharged home on continued milrinone infusion as well as home oxygen. Tunneled catheter for milrinone became dislodged overnight. Patient with shortness of breath and confusion this morning and presented back to the ED. Patient and now wishing to pursue comfort measures only/inpatient hospice care. Patient appears to be in multisystem organ failure with multiple laboratory derangements including hyponatremia, hyperkalemia, NADIA, elevated LFTs, hypotension. Will place magnet over AICD to deactivate Comfort care meds including morphine and Ativan as needed Palliative care consult, Dr. Pham notified via tiger text Patient seen in collaboration with Dr. Sellers. I spent a total of 60 minutes coordinating, documenting, and providing care for this patient excluding time spent in the performance of separately billed services. This included personally reviewing all current laboratories and imaging studies, medication reconciliation, outpatient chart review, and discussion with specialists. Admission and Anticipated Discharge Date Admission Date: May 05, 2023 Results & Data Results & Data Vital Signs (Past 12 Hours) Vital Signs Resp O2 Del Method O2 Flow Rate 05/06/23 07:40 20 05/05/23 21:00 Nasal Cannula 5 Laboratory Results Short CBC 05/05/23 Range/Units 13:24 WBC 10.38 (4.8-10.8) K/ul Hgb 13.6 L (14.0-18.0) g/dl Hct 43.1 (42.0-52.0) % Plt Count 194 (130-400) K/uL BMP 05/05/23 13:24 Sodium 128 L Potassium 5.9 H Chloride 89 L Carbon Dioxide 14 L BUN 76 H Creatinine 2.91 H Glucose 69 L Calcium 10.7 H Liver Function 05/05/23 Range/Units 13:24 Total Bilirubin 4.7 H (0.2-1.0) mg/dl AST 1355 H (13-39) U/L ALT 745 H (7-52) U/L Alkaline Phosphatase 252 H (34-104) U/L Albumin 3.7 (3.4-5.0) gm/dl Medications Administered Current Inpatient Medications Lorazepam (Lorazepam 2 Mg/1 Ml Vial) 0.5 mg IV Q4H PRN PRN Reason: Anxiety/Agitation Stop: 06/04/23 17:16 Last Admin: 05/06/23 02:36 Dose: 0.5 mg Lorazepam (Lorazepam 0.5 Mg Tab) 0.5 mg PO Q4H PRN PRN Reason: Anxiety/Agitation Stop: 06/04/23 17:16 Morphine Sulfate (Morphine Sulfate 2 Mg/Ml Carp) 2 mg IV Q4H PRN PRN Reason: Pain/Resp distress (RR>16bpm) Stop: 05/19/23 17:16 Last Admin: 05/06/23 07:43 Dose: 2 mg Ondansetron HCl (Ondansetron Inj 2 Mg/Ml 2 Ml Vial) 4 mg IV Q4H PRN PRN Reason: Nausea &/or Vomiting Stop: 06/04/23 17:16 Ondansetron HCl (Ondansetron 4 Mg Od Tab) 4 mg SL Q4H PRN PRN Reason: Nausea &/or Vomiting Stop: 06/04/23 17:16
[2023-05-06] MEDS ORDERED: ATROPINE SULFATE 1% OP SOLN 5 ML BTL SL PRN (08:04)
[2023-05-06] MEDS ORDERED: GLYCOPYRROLATE 0.2 MG/ML VIAL IV PRN (08:04)
[2023-05-06] MEDS ORDERED: HYOSCYAMINE SULFATE 0.125 MG TAB SL PRN (08:04)
--- NOTE | 2023-05-07 20:42 | Communication Note ---
Date of Service: May 06, 2023 Contacted by nursing staff that patient ceased to breathe. On arrival patient wa unresponsive and there was no chest rise and fall. Pupils were fixed and dilated and there was no heart beat or pulse present. No breath sounds on auscultation. No response to painful stimulus or verbal quesitoning. Patient was pronounced at 10:00am. present in the room. All questions were answered. Touched base with floor RN regarding TOD and e- summary. DO Marlo
--- NOTE | 2023-05-07 20:43 | Discharge Summary ---
Discharge Summary Date of Service May 07, 2023 Notes For Next Care Provider Medication Changes From Visit n/a Admission HPI Per Admitting Provider 83-year-old male with PMH DM type II, end-stage ischemic cardiomyopathy s/p AICD on milrinone infusion, paroxysmal atrial fibrillation on amiodarone and Coumadin, CKD stage III, and other problems listed below who presents to the ED for evaluation of shortness of breath. History obtained from patient and who are at the bedside as well as review of recent inpatient, PCP, and outpatient cardiology notes. Patient recently admitted to [facility] 04/30 through 05/04 for acute hypoxic respiratory failure due to decompensated heart failure. Patient placed on home milrinone infusion in March due to end-stage heart failure. Patient discharged from [facility] on 05/04 with milrinone infusion continuing which made the patient in eligible for hospice services. Patient was also discharged with home oxygen. Overnight, patient's tunneled catheter for milrinone became dislodged. This morning, patient was short of breath and confused per the . Patient was brought to the ED for further evaluation. No other symptoms reported. In the ED, patient appears to be in multisystem organ failure. Patient and now wishing to pursue inpatient hospice care. Principal Dx & Hospital Course #1 = Principal Diagnosis (1) Multi-organ failure with heart failure: (2) Comfort measures only status: (3) Ischemic cardiomyopathy: (4) HFrEF (heart failure with reduced ejection fraction): (5) Biventricular ICD (implantable cardioverter-defibrillator) in place: (6) Diabetes mellitus, type II: Plan He was admitted to the medicine service off milrinone infusion. He received morphine, ativan and other palliative measures and passed the following day on comfort measures status. Discharge Exam see note Updated Medication List Medication Instructions Recorded Confirmed Type acetaminophen 325 mg tablet 650 mg PO Q4H PRN fever or pain 04/02/23 05/05/23 Rx #30 tabs allopurinol 300 mg tablet 300 mg PO QAM #30 tabs 04/02/23 05/05/23 Rx alprazolam 0.5 mg tablet (Xanax) 0.5 mg PO HS PRN anxiety #30 tabs 04/02/23 05/05/23 Rx clopidogrel 75 mg tablet 75 mg PO QAM #30 tabs 04/02/23 05/05/23 Rx mirtazapine 15 mg tablet 15 mg PO HS #30 tabs 04/02/23 05/05/23 Rx polyethylene glycol 3350 17 gram 17 g PO DAILY PRN constipation 04/02/23 05/05/23 Rx oral powder packet (Miralax) #100 ea torsemide 20 mg tablet 60 mg PO BID 04/20/23 05/05/23 History warfarin 5 mg tablet 5 mg PO QPM 04/20/23 05/05/23 History amiodarone 200 mg tablet 200 mg PO QAM 04/29/23 05/05/23 History glipizide 10 mg tablet, extended 10 mg PO AMHS 04/29/23 05/05/23 History release 24 hr metoprolol succinate 25 mg 25 mg PO QAM 04/29/23 05/05/23 History tablet,extended release 24 hr potassium chloride 10 mEq 10 meq PO AMHS 04/29/23 05/05/23 History capsule,extended release Hospital Stay Data Consultations 05/05/23 14:48 ED Decision to Admit Stat 05/05/23 17:17 Consult Palliative Care Routine Total Time Total Time Spent Total Time Spent (In Minutes): 60
--- NOTE | 2023-05-12 12:18 | Coding Query ---
CODING QUERY To promote full compliance with coding requirements relating to patient care, provider participation is requested in all cases of outpatient coder uncertainty. Please assist us with the question(s) below: Please clarify the meaning of NADIA. NADIA is not a valid abbreviation. Thank you. ( x ) Acute Kidney Injury ( ) Acute Kidney Insufficiency ( ) Other (Specify): Principal Diagnosis: "that condition established after study, to be chiefly responsible for occasioning the admission of the patient to the hospital for care." Co-Existing Principal Diagnosis: "when two or more diagnoses equally meet the criteria for principal diagnosis as determined by the circumstances of admission, diagnostic work up, and/or therapy provided, and the Alphabetic Index, Tabular List, or another coding guideline does not provide sequencing direction, any one of the diagnoses may be sequenced first." "When the physician has documented what appears to be a current diagnosis in the body of the record, but has not included the diagnosis in the final diagnostic statement, the physician should be asked whether the diagnosis should be added." (Source Coding [facility] 2 QTR90. p3-4) [facility]
== END 2023-05-06 11:30 | disposition expired | DRG 292 ==
LOC: ED 13:16 → 3E 15:32